=== PATIENT | female | born 1960 | race Caucasian/White ===

== ENCOUNTER 2016-07-25 12:07 | Inpatient (IN) | payer OTHER ==
[~2016-07-25] VITALS: Ht 152.4 cm; Wt 86.2 kg
[~2016-07-25 12:07] MED LIST: AMBI10TA PO; AMLO25TA PO; ASPI1TAB PO; ATEN50TA2 PO; ATIV1TAB7 PO; BIOT10005 PO; CARV6.25 PO; CETI10TA PO; CINN500C9 PO; COQ1200C2 PO; DIOV80TA3 PO; FIOR1CAP PO; FIORICET PO; FLON0.054; GLUM1000 PO; LORA10TA2 PO; LOVA1CAP17 PO; LOVAZA PO; NEXI40CA PO; NITR4TASL SL; OXYC1TAB23 PO; PANT40TA2 PO; PLAV75TA PO; PROM-190 PO; PROM25TA PO; PROZ20CA11 PO; VALS1TAB46 PO; VITACAP9 PO; VITAMIN E PO
[2016-07-25 13:13] LABS: MEAN CORPUSCULAR HEMOGLOBIN 27.7 pg (27.0-33.0); MEAN CORPUSCULAR HGB CONC 31.6 g/dl (32.0-36.5); MEAN CORPUSCULAR VOLUME 87.6 fl (80.0-96.0); RED CELL DISTRIBUTION WIDTH 18.4 % (11.5-14.5); WHITE BLOOD COUNT 6.7 K/mm3 (4.0-10.0)
[2016-07-25 13:20] LABS: AMPHETAMINES LEVEL URINE NEGATIVE (NEGATIVE)
[2016-07-25 13:21] LABS: BENZODIAZEPINES URINE POSITIVE (NEGATIVE); COCAINE METABOLITE URINE NEGATIVE (NEGATIVE); CONTROL LINE INT CTR LINE PRESENT; METHADONE URINE NEGATIVE (NEGATIVE); OPIATES URINE NEGATIVE (NEGATIVE); TRICYCLIC ANTIDEPRESS URINE NEGATIVE (NEGATIVE)
[2016-07-25 13:33] LABS: ALBUMIN 3.8 GM/DL (3.2-5.2); ALBUMIN/GLOBULIN RATIO 1.06 (1.00-1.93); ALKALINE PHOSPHATASE 107 U/L (45-117); ALT/SGPT 38 U/L (12-78); ANION GAP 10 MEQ/L (8-16); AST/SGOT 15 U/L (15-37); BILIRUBIN,DIRECT 0.2 MG/DL (0.0-0.2); BILIRUBIN,TOTAL 0.5 MG/DL (0.2-1.0); BLOOD UREA NITROGEN 19 MG/DL (7-18); CALCIUM LEVEL 9.4 MG/DL (8.5-10.1); CARBON DIOXIDE LEVEL 24 MEQ/L (21-32); CHLORIDE LEVEL 108 MEQ/L (98-107); GLOMERULAR FILTRATION RATE > 60.0 (>51); GLUCOSE, FASTING 93 MG/DL (70-105); POTASSIUM SERUM 4.4 MEQ/L (3.5-5.1); SODIUM LEVEL 142 MEQ/L (136-145); TOTAL PROTEIN 7.4 GM/DL (6.4-8.2)
[2016-07-25 13:35] LABS: CONTROL LINE HCG INT CTR LINE PRESENT
[2016-07-25] MEDS ORDERED: LORazepam 1 MG TAB As Ordered ONE ×2 (13:50→22:12)
[2016-07-25] MEDS ORDERED: FIORICET TAB As Ordered ONE (15:32)
[2016-07-25] MEDS ORDERED: CARVedilol 6.25 MG TAB As Ordered ONE (21:15)
[2016-07-25] MEDS ORDERED: PANTOPRAZOLE 40MG TAB (PROTONIX) As Ordered ONE (21:15)
[2016-07-25] MEDS ORDERED: VALSARTAN 80 MG TAB (DIOVAN) As Ordered ONE (21:15)
[2016-07-25] MEDS ORDERED: FLUoxetine 10 MG CAP As Ordered ONE (21:17)
[2016-07-25] MEDS ORDERED: ATIV1TAB10 PO (22:27)
[2016-07-25] MEDS ORDERED: REPA1.7I SC (22:27)
--- NOTE | 2016-07-25 22:55 | EDDOCDS ---
Physician Documentation [facility] Name: Janell Oscar Age: 56 yrs Sex: Female : 1960 Arrival Date: 07/25/2016 Time: 12:07 Bed [facility] MD: Keshawn Agustin MD Disposition: 07/25/16 21:58 Hospitalization ordered by Freida Colon for Inpatient Admission. Preliminary diagnosis are Major depressive disorder, recurrent, Anxiety disorder, unspecified. - Bed requested for Admit. - Status is Inpatient Admission. rw1 - Condition is Stable. - Problem is new. - Symptoms are unchanged. Historical: - Allergies: cant have anything that ends in "pril"; - Home Meds: 1. Ambien 5-10mg Oral tab 1 tab nightly as needed 2. aspirin 81 mg Oral tab 1 tab once daily 3. biotin oral daily 4. carvedilol 6.25 mg oral tab 2 times per day 5. Fioricet 50-325-40 mg Oral tab 2 tabs as needed 6. loratadine 10 mg Oral tab 1 tab as needed 7. lorazepam 1 mg Oral tab as needed 8. nitroglycerin 0.4 mg SL subl 1 tab every 5 minutes 9. pantoprazole 40 mg oral tab 1 tab 2 times per day 10. Percocet 5-325 mg Oral tab 1 tab every 4 hours as needed 11. Plavix 75 mg Oral tab 1 tab once daily 12. promethazine 25 mg Oral tab as needed 13. Prozac 40 mg Oral cap once daily 14. valsartan 160 mg oral cap daily - PMHx: Anxiety; Asthma; Depression; Diabetes - NIDDM: controlled; ''Diet controlled DM''; GERD; Hypercholesterolemia; Hypertension; Migraines; Myocardial infarction; OCD; polycythemia; Vertigo; - PSHx: Cardiac stents (2016); ; Cholecystectomy; Breast Reduction; - Social history: Smoking status: Patient states was never smoker of tobacco. No barriers to communication noted, The patient speaks fluent [place]. - Family history: Not pertinent. - : The pt / caregiver states he / she is not on anticoagulants. Home medication list is obtained from [employer] import data. - Exposure Risk Screening:: None identified. Vital Signs: 07/25 12:10 BP 147 / 93; Pulse 78; Resp 20 S; Temp 97.7(O); Pulse Ox 96% on R/A; Weight 84.37 kg / gr2 186 lbs (R); Height 5 ft. 0 in. (152.40 cm) (R); Pain 2/10; 15:35 BP 138 / 90; Pulse 70; Resp 18; Temp 98.9(T); Pulse Ox 95% on R/A; Pain 10/10; mcp 16:42 BP 126 / 83; Pulse 70; Resp 18; Pulse Ox 94% on R/A; Pain 8/10; mcp 16:42 BP 126 / 83; Pulse 70; Resp 18; Pulse Ox 94% on R/A; Pain 8/10; mcp 21:26 BP 144 / 85; Pulse 75; Resp 20; Temp 99.8(T); Pulse Ox 95% on R/A; Pain 4/10; rw1 22:51 BP 109 / 67; Pulse 78; Resp 18; Temp 99.1(T); Pulse Ox 95% on R/A; Pain 4/10; rw1 12:10 Body Mass Index 36.33 (84.37 kg, 152.40 cm) gr2 MDM: 12:24 Consult PFS/PSA/Pricing Intern ordered. sd1 12:24 Consult PFS/PSA/Pricing Intern: Patient's case requires discussion with on-call sd1 Psychiatrist ordered. 12:24 PSA/PFS to call [facility], to enter patient data on [place] Safe Act if patient sd1 involuntarily admitted or transferred for SI or HI ordered. 12:24 Confirm accurate psychiatric medication list and times of last dosage ordered. sd1 12:24 Detain Pt Until Medically/PFS Cleared ordered. sd1 12:25 Acetaminophen Level Ordered. EDMS 12:25 Basic Metabolic Profile Ordered. EDMS 12:25 Complete Blood Count Ordered. EDMS 12:25 Drug Eval Toxicology ED Only Ordered. EDMS 12:25 Ethyl Alcohol (ethanol) Ordered. EDMS 12:25 Liver Profile Ordered. EDMS 12:25 Salicylate Level Ordered. EDMS 12:25 Thyroid Stimulating Hormone Ordered. EDMS 12:49 LORazepam 1 mg PO once ordered. ml 12:51 HCG,Serum Qualitative Ordered. EDMS 13:04 REGULAR DIET PLASTIC HECTOR+DIET ordered. EDMS 13:53 Financial registration complete. pm4 13:59 [facility] Payment Agreement was scanned into [employer] and attached to record. pm4 14:12 Acetaminophen Level Reviewed. ml 14:12 Basic Metabolic Profile Reviewed. ml 14:12 Complete Blood Count Reviewed. ml 14:12 Drug Eval Toxicology ED Only Reviewed. ml 14:12 Salicylate Level Reviewed. ml 14:12 Ethyl Alcohol (ethanol) Reviewed. ml 14:12 Liver Profile Reviewed. ml 14:12 Thyroid Stimulating Hormone Reviewed. ml 14:12 HCG,Serum Qualitative Reviewed. ml 15:34 Fioricet 2 tab-caps PO once ordered. mcp 16:05 REGULAR DIET PLASTIC HECTOR+DIET ordered. EDMS 19:18 Misc. Nursing Order ordered. ml 20:29 PROzac 40 mg PO once ordered. ml 20:29 Valsartan 160 mg PO once ordered. ml 20:57 carvedilol 6.25 mg PO once ordered. ml 20:57 Pantoprazole 40 mg PO once ordered. ml 20:59 Admit to [facility]: ordered. EDMS 21:23 Consult PFS/PSA/Pricing Intern complete. [facility] 21:23 Consult PFS/PSA/Pricing Intern: Patient's case requires discussion with [facility] Psychiatrist complete. 21:23 PSA/PFS to call [facility], to enter patient data on [place] Safe Act if patient hm1 involuntarily admitted or transferred for SI or HI complete. 21:53 [facility] Legal paperwork was scanned into [employer] and attached to record. ac 21:54 Other: Clinic Note was scanned into [employer] and attached to record. ac 21:57 LORazepam 1 mg PO once ordered. ml Administered Medications: 13:52 Drug: LORazepam 1 mg [lorazepam 1 mg tablet (1 tabs)] Route: PO; [facility] 20:53 Follow up: Response: No Adverse Reaction rw1 15:40 Drug: Fioricet 2 tab-caps Route: PO; [facility] 16:42 Follow up: BP 126 / 83; Pulse 70 bpm; Resp 18 bpm; Pulse Ox 94% RA; Pain 8/10 Adult; [facility] Response: Pain is decreased 21:26 Drug: PROzac 40 mg Route: PO; rw1 22:08 Follow up: Response: No Adverse Reaction rw1 21:26 Drug: Valsartan 160 mg [valsartan 80 mg tablet (2 tabs)] Route: PO; rw1 22:08 Follow up: Response: No Adverse Reaction rw1 21:26 Drug: carvedilol 6.25 mg [carvedilol 6.25 mg tablet (1 tabs)] Route: PO; rw1 22:08 Follow up: Response: No Adverse Reaction rw1 21:26 Drug: Pantoprazole 40 mg [pantoprazole 40 mg tablet,delayed release (1 tabs)] Route: PO;rw1 22:07 Follow up: Response: No Adverse Reaction rw1 22:15 Drug: LORazepam 1 mg [lorazepam 1 mg tablet (1 tabs)] Route: PO; rw1 22:51 Follow up: Response: Anxiety is improved rw1 Signatures: Dispatcher [employer] EDMS Jackie Nguyen MD MD sd1 Jonnathan Armando MD MD ml Sleeman, Kacey RN RN Karen Greene RN RN mcp Dale Guy, PSA PSA ac Eliazar Cook,STEAMER OPERATOR STEAMER OPERATOR rw1 Pita Meléndez, PSA PSA hm1 Merritt Jack, Reg Reg pm4 Diya Nassar RN srm The chart was reviewed and I authenticate all verbal orders and agree with the evaluation and treatment provided.Attachments: 13:59 [facility] Payment Agreement pm4 MTDD
--- NOTE | 2016-07-25 22:55 | EDDOCDS ---
Nurse's Notes [facility] Name: Janell Oscar Age: 56 yrs Sex: Female : 1960 Arrival Date: 07/25/2016 Time: 12:07 Bed U5 [facility] MD: Keshawn Agustni MD Diagnosis: Major depressive disorder, recurrent;Anxiety disorder, unspecified Presentation: 07/25 12:15 Presenting complaint: Patient states: she has severe anxiety and depression - states kcs she was at Dr. Liriano's office and doctor drove her here and wants her admitted for her anxiety. Had a heart attack last year and is constantly having her meds adjusted. Due for an Ativan 1 1/2 hour ago and can feel the anxiety getting worse. Mental Health Triage Level: Level 2: The patient displays active suicidal ideations. states she feels hopeless and does not want to be here anymore. Adult Sepsis Screening: The patient does not have new or worsening altered mentation. Patient's respiratory rate is less than 22. Systolic blood pressure is greater than 100. Patient has a qSOFA score of 0- Negative Sepsis Screen. Suicide/Homicide risk assessment- The patient admits to and/or has been reported to be having suicidal ideations. The patient reports that he/she has not been admitted to an inpatient mental health facility in the last 30 days. The patient reports that he/she does not have a recent or current history of substance abuse. The patient reports that he/she has a prior history of suicide attempt and/or organized plan. The patient reports that he/she has experienced a significant life altering event in the last 30 days. The patient reports that he/she lacks adequate social support. The patient reports he/she has significant chronic medical condition(s). Status: Patient is not a social services designee or dependent. 12:15 Acuity: AZEB Level 3 kcs 12:15 Method Of Arrival: Walkin/Carried/Asstd kcs 12:15 Transition of care: patient was received from Dr. Liriano. kcs Triage Assessment: 12:19 General: Appears distressed, well developed, well nourished, well groomed, Behavior is kcs anxious, cooperative, crying. Pain: Location: head Pain currently is 8 out of 10 on a pain scale. HIV screening NA for this visit Offered previously. Neurological: Level of Consciousness is awake, alert. Respiratory: Airway is patent Respiratory effort is even, unlabored, Respiratory pattern is regular, symmetrical. Derm: Skin is intact, is healthy with good turgor, Skin is dry, Skin is normal. Historical: - Allergies: cant have anything that ends in "pril"; - Home Meds: 1. Ambien 5-10mg Oral tab 1 tab nightly as needed 2. aspirin 81 mg Oral tab 1 tab once daily 3. biotin oral daily 4. carvedilol 6.25 mg oral tab 2 times per day 5. Fioricet 50-325-40 mg Oral tab 2 tabs as needed 6. loratadine 10 mg Oral tab 1 tab as needed 7. lorazepam 1 mg Oral tab as needed 8. nitroglycerin 0.4 mg SL subl 1 tab every 5 minutes 9. pantoprazole 40 mg oral tab 1 tab 2 times per day 10. Percocet 5-325 mg Oral tab 1 tab every 4 hours as needed 11. Plavix 75 mg Oral tab 1 tab once daily 12. promethazine 25 mg Oral tab as needed 13. Prozac 40 mg Oral cap once daily 14. valsartan 160 mg oral cap daily - PMHx: Anxiety; Asthma; Depression; Diabetes - NIDDM: controlled; ''Diet controlled DM''; GERD; Hypercholesterolemia; Hypertension; Migraines; Myocardial infarction; OCD; polycythemia; Vertigo; - PSHx: Cardiac stents (2016); ; Cholecystectomy; Breast Reduction; - Social history: Smoking status: Patient states was never smoker of tobacco. No barriers to communication noted, The patient speaks fluent Sudanese. - Family history: Not pertinent. - : The pt / caregiver states he / she is not on anticoagulants. Home medication list is obtained from [employer] import data. - Exposure Risk Screening:: None identified. Screenin:47 Screening information is obtained from the patient. Fall risk: No risks identified. mcp Assistance ADL's: requires no assistance with activities of daily living. Abuse/DV Screen: The patient / caregiver reports he/she is: not in a situation that causes fear, pain or injury. Nutritional screening: No deficits noted. Advance Directives: Currently, there is no health care proxy. There is no active DNR order. home support is adequate. Assessment: 13:35 General: Appears in no apparent distress, comfortable, Behavior is appropriate for age, hs1 cooperative. General: Appears Behavior is anxious, crying, weepy. Pt agreeable to lunch and is tolerating nursing interventions. . Pain: Denies pain. Neurological: Level of Consciousness is awake, alert, obeys commands. 14:26 General: Appears in no apparent distress, comfortable, Pt resting with blanket on at hs1 this time. Pt states she is scared that she does not understand what is happening to her and is very worried about being labeled an addict. . 15:35 General: Appears uncomfortable, Behavior is cooperative. Pain: Location: head Pain mcp currently is 10 out of 10 on a pain scale. Neurological: Level of Consciousness is awake, alert, Oriented to person, place, Moves all extremities. Gait is steady, Speech is normal, Reports headache. Respiratory: Airway is patent Respiratory effort is even, unlabored. Derm: Skin is pink, warm & dry. 16:42 General: Appears uncomfortable, Behavior is cooperative. Pain: Location: head Pain mcp currently is 8 out of 10 on a pain scale. Neurological: Level of Consciousness is awake, alert, Oriented to person, place, Moves all extremities. Speech is normal, Reports headache. Respiratory: Airway is patent Respiratory effort is even, unlabored. Derm: Skin is normal. 17:03 General: Appears in no apparent distress, comfortable, Behavior is cooperative. Pain: mcp Denies pain. Neurological: Level of Consciousness is awake, alert, Oriented to person, place. Respiratory: Airway is patent Respiratory effort is even, unlabored. Derm: Skin is pink, warm & dry. 18:00 General: Appears in no apparent distress, comfortable, Behavior is cooperative. Pain: mcp Location: head Pain currently is 4 out of 10 on a pain scale. Neurological: Level of Consciousness is awake, alert, Oriented to person, place, Moves all extremities. Speech is normal. Respiratory: Airway is patent Respiratory effort is even, unlabored. Derm: Skin is pink, warm & dry. 19:30 General: Appears in no apparent distress, comfortable, Behavior is appropriate for age, rw1 cooperative. Neurological: Level of Consciousness is awake, alert, obeys commands, Oriented to person, place, time. Respiratory: Airway is patent Respiratory effort is even, unlabored. Derm: Skin is pink, warm & dry. normal. 20:30 Reassessment: Patient appears in no apparent distress at this time. resting quietly on rw1 stretcher, safety maintained will monitor.. 21:26 General: Appears distressed, uncomfortable, Behavior is anxious, appropriate for age, rw1 cooperative, crying. Pain: Location: head Pain currently is 4 out of 10 on a pain scale. Neurological: Level of Consciousness is awake, alert, obeys commands, Oriented to person, place, time. Respiratory: Airway is patent Respiratory effort is even, unlabored. Derm: Skin is pink, warm & dry. normal. 21:49 General: Appears in no apparent distress, Behavior is cooperative. Neurological: Level af2 of Consciousness is awake, alert. Respiratory: Airway is patent Respiratory effort is even, unlabored. Derm: Skin is normal. 22:15 General: Appears distressed, Behavior is anxious, appropriate for age, cooperative. rw1 Neurological: Level of Consciousness is awake, alert, obeys commands, Oriented to person, place, time. Respiratory: Airway is patent Respiratory effort is even, unlabored. Derm: Skin is pink, warm & dry. normal. Mental Health Eval: 19:09 Mental health consult is initiated at 18:15. Status: The patient is a cas1 dependent. [facility] Behavioral Health: The patient is not an established patient of [facility]. Referral Information: Evaluation referral is generated by the patient's therapist Ana Liriano. The patient was referred for evaluation because Pt had a panic attack while at an appointment with her therapist. She also expressed SI without a plan. . Subjective: The patients chief complaint is "I had a panic attack.". Delusions are denied. Patient's mood is anxious, depressed, hopeless, Hallucinations are denied. Mental Health history: anxiety, depression, panic attacks, sleep disturbance. Mental Health history: Mental Health Admissions: None. Current Outpatient Mental Health Services: Psychiatrist / Agency: Telepsych with Dr. Gamboa at [place]. Therapist / Agency: Ana Liriano. Current living environment is The patient currently lives with his / her child. The patient is . Patient presents to Emergency Department with the following symptoms within the past 2 weeks: anxiety, depressed mood, feelings of helplessness/hopelessness, labile mood, panic attacks, sleep disturbance - insomnia, suicidal ideation with no plan. Substance abuse: Pt denies. Mental status exam: Patients appearance is appropriate, Patient's behavior is cooperative, Speech is normal. Affect is labile. Mood is anxious. depressed. Hallucinations are denied. Appetite is normal. Memory is fair. Energy level is tires easily. Content of thought is depressive. pt states that she has thoughts about not wanting to be on earth anymore Thought process is intact. Cognitive level is oriented to person, place, time and situation Patient's insight is fair. Judgement is fair. Rapport with interviewer is good. Suicidal Ideation is present with no specific plan. Homicidal ideation is denied. Narrative: Pt reports that she has had depression, anxiety, & panic attacks which have increased in the past two years since her . She states that she has poor sleep at night & wants to sleep all the time during the day. She also reports frequent crying spells. She was frequently tearful during our conversation. Pt reports several stressors, including the of her & several other family members, recent loss of her job, change in living situation, & her dog is dying. She also has multiple medical px's. She denies HI, but reports passive SI. She c/o feeling hopeless & worthless. Pt states preferred pharmacy is: [facility] in [place]. 21:56 Disposition: Medically cleared for disposition by Jonnathan Armando MD Psychiatric cas1 Consult is performed by phone with Dr Freida Colon. [facility] Admission Criteria: The patient is experiencing suicidal ideation. The patient requires continuous observation and/or control to protect self, others or property. The patient's care requires a multi-modal treatment plan under close supervision and coordination due to the complexity and severity of the patient's symptoms. The patient requires administration and monitoring of psychoactive medications by skilled medical providers due to the side effects of the psychoactive medications or significant dosage adjustments. 21:58 Legal Status: Patient's legal status will be Emergency admission: . [place] Safe Act: cas1 [place] Safe Act is applicable to this patient. The patient poses a risk to self or other and the Nursing Electrostatic Powder Coating Technician has been notified. He/She will enter the patient's data. DSM-V Differential Diagnosis: Unspecified Depressive Disorder (F32.9). Insurance Pre-Certification: Not Required. Family Notification: Notification to family of patient status is not currently needed or appropriate. Vital Signs: 12:10 BP 147 / 93; Pulse 78; Resp 20 S; Temp 97.7(O); Pulse Ox 96% on R/A; Weight 84.37 kg gr2 (R); Height 5 ft. 0 in. (152.40 cm) (R); Pain 2/10; 15:35 BP 138 / 90; Pulse 70; Resp 18; Temp 98.9(T); Pulse Ox 95% on R/A; Pain 10/10; mcp 16:42 BP 126 / 83; Pulse 70; Resp 18; Pulse Ox 94% on R/A; Pain 8/10; mcp 16:42 BP 126 / 83; Pulse 70; Resp 18; Pulse Ox 94% on R/A; Pain 8/10; mcp 21:26 BP 144 / 85; Pulse 75; Resp 20; Temp 99.8(T); Pulse Ox 95% on R/A; Pain 4/10; rw1 22:51 BP 109 / 67; Pulse 78; Resp 18; Temp 99.1(T); Pulse Ox 95% on R/A; Pain 4/10; rw1 12:10 Body Mass Index 36.33 (84.37 kg, 152.40 cm) gr2 Vitals: 12:10 Log In Time: July 25, 2016 at 12:10. RN notified that patient meets Red Flag gr2 criteria. ED Course: 12:09 Patient visited by Ruslan Otero. gr2 12:09 Patient moved to Waiting gr2 12:10 Keshawn Agustin is Private Physician. gr2 12:17 Triage Initiated kcs 12:21 Patient moved to [facility] kcs 12:36 Jonnathan Armando MD is Attending Physician. ml 12:36 Patient visited by Jonnathan Armando MD. ml 12:59 Patient visited by Jesse Hoang. dpm 13:13 Pt greeted and oriented to ED. Patient advised of names of staff involved in care, dpm location of call sierra, wait times and NPO status. Patient has correct armband on for positive identification. Placed in gown. Placed in psych safe attire. Bed in low position. Security observing. Property removed, inventory done, secured in belongings bag- placed in locked locker. Placed in locker 5. secure belongings bag, Secure bag Number [id number], placed in ED safe. Zuri DAI) observed pt while changing. 13:17 Patient visited by Jesse Hoang. dpm 13:20 Patient visited by Jesse Hoang. dpm 13:46 Patient visited by Jesse Hoang. dpm 13:[address] [facility] Payment Agreement was scanned into [employer] and attached to record. pm4 14:01 Patient visited by Jesse Hoang. dpm 14:14 Patient visited by Jesse Hoang. dpm 14:33 Patient visited by Jesse Hoang. dpm 14:47 Patient visited by Jesse Hoang. dpm 15:02 Patient visited by Jesse Hoang. dpm 15:16 Patient visited by Jesse Hoang. dpm 15:31 Patient visited by Jesse Hoang. dpm 15:48 Patient visited by Karen Kim RN. mcp 15:48 The patient / caregiver is instructed regarding the plan of care and ED course. Warm mcp blanket given. 15:59 Patient visited by Karen Kim RN. mcp 16:37 Patient visited by Jesse Hoang. dpm 16:43 Patient visited by Karen Kim RN. mcp 17:04 Patient visited by Karen Kim RN. mcp 17:41 Patient visited by Jesse Hoang. dpm 18:08 Patient visited by Jesse Hoang. dpm 18:45 Patient visited by Jesse Hoang. dpm 19:03 Patient visited by Jesse Hoang. dpm 19:04 Patient visited by Karen Kim RN. mcp 19:15 Psych Safety Check: Location: Psych Room. Visual Assessment: Cooperative. kb5 19:30 Psych Safety Check: Location: Psych Room. Visual Assessment: Cooperative. kb5 19:32 Patient visited by Andrew Ardon PCA. kb5 19:45 Patient visited by Andrew Ardon PCA. kb5 19:45 Psych Safety Check: Location: Psych Room. Visual Assessment: Cooperative. kb5 19:52 Eliazar Cook LPN is Primary Nurse. rw1 20:00 Patient visited by Reva, Andrew, MANAGER GAMES. kb5 20:00 Psych Safety Check: Location: Psych Room. Visual Assessment: Cooperative. kb5 20:15 Psych Safety Check: Location: Psych Room. Visual Assessment: Cooperative. kb5 20:18 Patient visited by Andrew Ardon MANAGER GAMES. kb5 20:30 Psych Safety Check: Location: Psych Room. Visual Assessment: Cooperative. kb5 20:31 Patient visited by Malik Ardoner MANAGER GAMES. kb5 20:45 Psych Safety Check: Location: Psych Room. Visual Assessment: Cooperative. kb5 20:51 Patient visited by Tera Ardonopher MANAGER GAMES. kb5 21:00 Patient visited by Andrew Ardon MANAGER GAMES. kb5 21:00 Psych Safety Check: Location: Psych Room. Visual Assessment: Cooperative. kb5 21:15 Psych Safety Check: Location: Psych Room. Visual Assessment: Cooperative. kb5 21:16 Patient visited by Andrew Ardon MANAGER GAMES. kb5 21:30 Patient visited by Andrew Ardon MANAGER GAMES. kb5 21:30 Psych Safety Check: Location: Psych Room. Visual Assessment: Cooperative. kb5 21:45 Patient visited by Andrew Ardon MANAGER GAMES. kb5 21:45 Psych Safety Check: Location: Psych Room. Visual Assessment: Cooperative. kb5 21:50 Patient visited by Merissa Cobian RN. af2 21:53 [facility] Legal paperwork was scanned into [employer] and attached to record. ac 21:54 Other: Clinic Note was scanned into [employer] and attached to record. ac 21:57 Freida Colon is Hospitalizing Provider. ml 22:00 Patient visited by Andrew Ardon MANAGER GAMES. kb5 22:00 Psych Safety Check: Location: Psych Room. Visual Assessment: Cooperative. kb5 22:15 Patient visited by Andrew Ardon MANAGER GAMES. kb5 22:15 Psych Safety Check: Location: Psych Room. Visual Assessment: Cooperative. kb5 22:30 Patient visited by Malik Ardoner MANAGER GAMES. kb5 22:30 Psych Safety Check: Location: Psych Room. Visual Assessment: Cooperative. kb5 22:45 Patient visited by Andrew Ardon MANAGER GAMES. kb5 22:45 Psych Safety Check: Location: Psych Room. Visual Assessment: Cooperative. kb5 22:51 No IV's were initiated during this patient's visit. No procedures done that require [facility] assistance. Administered Medications: 13:52 Drug: LORazepam 1 mg [lorazepam 1 mg tablet (1 tabs)] Route: PO; [facility] 20:53 Follow up: Response: No Adverse Reaction rw1 15:40 Drug: Fioricet 2 tab-caps Route: PO; [facility] 16:42 Follow up: BP 126 / 83; Pulse 70 bpm; Resp 18 bpm; Pulse Ox 94% RA; Pain 8/10 Adult; [facility] Response: Pain is decreased 21:26 Drug: PROzac 40 mg Route: PO; rw1 22:08 Follow up: Response: No Adverse Reaction rw1 21:26 Drug: Valsartan 160 mg [valsartan 80 mg tablet (2 tabs)] Route: PO; rw1 22:08 Follow up: Response: No Adverse Reaction rw1 21:26 Drug: carvedilol 6.25 mg [carvedilol 6.25 mg tablet (1 tabs)] Route: PO; rw1 22:08 Follow up: Response: No Adverse Reaction rw1 21:26 Drug: Pantoprazole 40 mg [pantoprazole 40 mg tablet,delayed release (1 tabs)] Route: PO;rw1 22:07 Follow up: Response: No Adverse Reaction rw1 22:15 Drug: LORazepam 1 mg [lorazepam 1 mg tablet (1 tabs)] Route: PO; rw1 22:51 Follow up: Response: Anxiety is improved rw Attachments: 21:53 E Legal paperwork ac Order Results: Lab Order: Acetaminophen Level; SPEC'M 07/25/16 12:53 Test: ACETAMINOPHEN LEVEL; Value: < 2.0; Range: 10.0-30.0; Abnormal: Below low normal; Units: UG/ML; Status: F Lab Order: Basic Metabolic Profile; SPEC'M 07/25/16 12:53 Test: GLUCOSE, FASTING; Value: 93; Range: 70-105; Units: MG/DL; Status: F Test: BLOOD UREA NITROGEN; Value: 19; Range: 7-18; Abnormal: Above high normal; Units: MG/DL; Status: F Test: CREATININE FOR GFR; Value: 1.00; Range: 0.55-1.02; Units: MG/DL; Status: F Test: GLOMERULAR FILTRATION RATE; Value: > 60.0; Range: >51; Status: F Test: SODIUM LEVEL; Value: 142; Range: 136-145; Units: MEQ/L; Status: F Test: POTASSIUM SERUM; Value: 4.4; Range: 3.5-5.1; Units: MEQ/L; Status: F Test: CHLORIDE LEVEL; Value: 108; Range: 98-107; Abnormal: Above high normal; Units: MEQ/L; Status: F Test: CARBON DIOXIDE LEVEL; Value: 24; Range: 21-32; Units: MEQ/L; Status: F Test: ANION GAP; Value: 10; Range: 8-16; Units: MEQ/L; Status: F Test: CALCIUM LEVEL; Value: 9.4; Range: 8.5-10.1; Units: MG/DL; Status: F Test Note: ; Units are mL/min/1.73 m2 Chronic Kidney Disease Staging per NKF: Stage I & II GFR >=60 Normal to Mildly Decreased Stage III GFR 30-59 Moderately Decreased Stage IV GFR 15-29 Severely Decreased Stage V GFR <15 Very Little GFR Left ESRD GFR <15 on 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 [employer]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 Lab Order: Complete Blood Count; [facility]' 07/25/16 12:53 Test: WHITE BLOOD COUNT; Value: 6.7; Range: 4.0-10.0; Units: K/mm3; Status: F Test: RED BLOOD COUNT; Value: 4.63; Range: 4.00-5.40; Units: M/mm3; Status: F Test: HEMOGLOBIN; Value: 12.8; Range: 12.0-16.0; Units: g/dl; Status: F Test: HEMATOCRIT; Value: 40.5; Range: 36.0-47.0; Units: %; Status: F Test: MEAN CORPUSCULAR VOLUME; Value: 87.6; Range: 80.0-96.0; Units: fl; Status: F Test: MEAN CORPUSCULAR HEMOGLOBIN; Value: 27.7; Range: 27.0-33.0; Units: pg; Status: F Test: MEAN CORPUSCULAR HGB CONC; Value: 31.6; Range: 32.0-36.5; Abnormal: Below low normal; Units: g/dl; Status: F Test: RED CELL DISTRIBUTION WIDTH; Value: 18.4; Range: 11.5-14.5; Abnormal: Above high normal; Units: %; Status: F Test: PLATELET COUNT, AUTOMATED; Value: 278; Range: 150-450; Units: k/mm3; Status: F Lab Order: Drug Eval Toxicology ED Only; SPEC'M 07/25/16 12:53 Test: AMPHETAMINES LEVEL URINE; Value: NEGATIVE; Range: NEGATIVE; Status: F Test: BARBITURATES URINE; Value: POSITIVE; Range: NEGATIVE; Abnormal: Above high normal; Status: F Test: BENZODIAZEPINES URINE; Value: POSITIVE; Range: NEGATIVE; Abnormal: Above high normal; Status: F Test: CANNABINOIDS URINE; Value: NEGATIVE; Range: NEGATIVE; Status: F Test: COCAINE METABOLITE URINE; Value: NEGATIVE; Range: NEGATIVE; Status: F Test: METHADONE URINE; Value: NEGATIVE; Range: NEGATIVE; Status: F Test: OPIATES URINE; Value: NEGATIVE; Range: NEGATIVE; Status: F Test: TRICYCLIC ANTIDEPRESS URINE; Value: NEGATIVE; Range: NEGATIVE; Status: F Test Note: ; ALL PRESUMPTIVE POSITIVE FINDINGS ARE UNCONFIRMED NORMAL VALUES THRESHOLD IN NG/ML AMPHETAMINES 1000 METHAMPHETAMINES 1000 BARBITURATES 300 BENZODIAZEPINES 300 CANNABINOIDS (THC) 50 COCAINE METABOLITE 300 METHADONE 300 OPIATES 300 PHENCYCLIDINE 25 TRICYCLIC ANTIDEPRESSANTS 1000 RESULTS ARE FOR MEDICAL PURPOSES ONLY. ALL URINE SPECIMENS WILL BE SAVED FOR 3 DAYS. IF CONFIRMATION OF A PRESUMPTIVE POSTIVE SCREEN RESULT IS DESIRED, CALL CHEMISTRY ([phone]) AND REQUEST URINE TO BE SENT TO REFERENCE LAB. FOR A LIST OF CLOSELY RELATED COMPOUNDS PLEASE CALL THE LAB. Lab Order: Ethyl Alcohol (ethanol); SPEC'M 07/25/16 12:53 Test: ETHYL ALCOHOL (ETHANOL); Value: < 0.003; Range: 0.000-0.010; Units: %; Status: F Lab Order: Liver Profile; SPEC'M 07/25/16 12:53 Test: AST/SGOT; Value: 15; Range: 15-37; Units: U/L; Status: F Test: ALT/SGPT; Value: 38; Range: 12-78; Units: U/L; Status: F Test: ALKALINE PHOSPHATASE; Value: 107; Range: 45-117; Units: U/L; Status: F Test: BILIRUBIN,TOTAL; Value: 0.5; Range: 0.2-1.0; Units: MG/DL; Status: F Test: BILIRUBIN,DIRECT; Value: 0.2; Range: 0.0-0.2; Units: MG/DL; Status: F Test: TOTAL PROTEIN; Value: 7.4; Range: 6.4-8.2; Units: GM/DL; Status: F Test: ALBUMIN; Value: 3.8; Range: 3.2-5.2; Units: GM/DL; Status: F Test: ALBUMIN/GLOBULIN RATIO; Value: 1.06; Range: 1.00-1.93; Status: F Lab Order: Salicylate Level; SPEC'M 07/25/16 12:53 Test: SALICYLATE LEVEL; Value: < 1.7; Range: 5.0-30.0; Abnormal: Below low normal; Units: MG/DL; Status: F Lab Order: Thyroid Stimulating Hormone; SPEC'M 07/25/16 12:53 Test: THYROID STIMULATING HORMONE; Value: 1.360; Range: 0.358-3.740; Units: uIU/ML; Status: F Lab Order: HCG,Serum Qualitative; SPEC'M 07/25/16 12:53 Test: HCG, SERUM QUALITATIVE; Value: NEGATIVE; Range: NEGATIVE; Status: F Outcome: 21:58 Decision to Hospitalize by Provider. ml 22:51 Discharge Assessment: Patient awake, alert and oriented x 3. No cognitive and/or rw1 functional deficits noted. Patient verbalized understanding of disposition instructions. patient administered narcotics - yes. Patient was admitted to the hospital or transferred to another facility. The following High Risk Discharge criteria are identified: Admitted to Psych accompanied by tech, via wheelchair, with chart. Condition: stable. No special radiology studies were completed. 22:54 Patient left the ED. rw1 Signatures: Jonnathan Armando MD MD ml Sleeman, Kacey, RN RN Diya Pimentel RN RN srm Peters, Mary, RN RN mcp Brooks, Dale, PSA PSA ac Eliazar Cook LPN LPN rw1 Andrew Ardon, STELLA wise5 Serenity Martinez cas1 Kathia Madrigal RN RN hs1 Jesse Hoang dpm Ruslan Otero gr2 Merissa Cobian RN RN af2 Merritt Jack, Reg Reg pm4 Corrections: (The following items were deleted from the chart) 12:18 12:15 Transition of care: patient was not received from another setting of care. kcs kcs MTDD
[2016-07-25 23:06] VITALS: BP 117/80
[2016-07-26] MEDS ORDERED: MAALOX 30 ML SUSP *UDC PO PRN (00:30)
[2016-07-26] MEDS ORDERED: ACETAMINOPHEN TAB 650MG DOSE (2X325MG) PO PRN (00:30)
[2016-07-26] MEDS ORDERED: NITROGLYCERIN 0.4 MG SUBL TABLET SL PRN (00:30)
[2016-07-26] MEDS ORDERED: MOM 30ML SUSPENSION UDC PO PRN (00:30)
[2016-07-26] MEDS: FIORICET TAB PO PRN ×2 (01:20→20:53)
[2016-07-26] MEDS: LORATADINE 10 MG TAB PO SCH (09:00)
[2016-07-26] MEDS: PANTOPRAZOLE 40MG TAB (PROTONIX) PO SCH ×2 (09:28→20:04)
[2016-07-26] MEDS: CLOPIDOGREL 75 MG TAB PO SCH (09:29)
[2016-07-26] MEDS: CARVedilol 6.25 MG TAB PO SCH ×2 (09:30→20:04)
[2016-07-26] MEDS: ASPIRIN 81 MG ENTERIC TAB PO SCH (09:30)
[2016-07-26] MEDS: VALSARTAN 80 MG TAB (DIOVAN) PO SCH (09:32)
[2016-07-26] MEDS: LORazepam 0.5 MG TAB PO PRN ×2 (09:34→20:04)
[2016-07-26] MEDS: VENLAFAXINE **XR** 37.5 MG CAPSULE PO SCH (11:09)
--- NOTE | 2016-07-26 11:17 | MHHPE ---
DATE OF ADMISSION: 07/26/2016 CURRENT MEDICATIONS: - Prozac 40 mg nightly - Ativan 1 mg twice a day as needed - Ambien 5 to 10 mg at bedtime as needed CHIEF COMPLAINT: Depression and passive suicidal ideation. HISTORY OF PRESENT ILLNESS: This is a 56-year-old white female with a history of depression dating back for 4-5 years. Her depression has worsened since her from cancer 2 years ago. She feels helpless and hopeless. She is getting panic attacks. She has trouble sleeping at night. She feels like life is not worth living. She has frequent crying spells. Her appetite is poor. Her concentration is impaired. She no longer enjoys playing the piano. She has had multiple stressors. She has had to move frequently. She had a recent myocardial infarction (ND) back in February and was transferred down to [facility] and received four stents. She has a history of cardiomyopathy. She was tested recently by neuropsychologist for possible early dementia, but this turned out negative. She does have a longstanding history of obsessive-compulsive disorder (OCD) dating back for at least 25 years. 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 She also worries constantly. She describes herself as a "worrywart." She has been having recent panic attacks, as well. The patient states that she does have a tendency towards depression. She blames the [employer] for the vaccination for Anthrax, which she claims caused her 's melanoma. PAST PSYCHIATRIC HISTORY: The patient has been on Prozac for about 7 years. She feels that it has worn off and is no longer effective. She takes it at night, surprisingly, which does seem to cause some insomnia. The patient was in treatment down in [place] for a number of years back about 12 years ago. Zoloft made her feel "loopy." She has been on other antidepressants but cannot remember the names. She was first diagnosed with OCD 25 years ago when she was at an [employer] in [place]. MEDICAL HISTORY: She has a history of fatty liver and polycythemia. She has migraines and coronary artery disease. She has vertigo and polycystic ovaries disease. ALLERGIES: "To ALL THE PRILS." LEGAL HISTORY: The patient denies. CHEMICAL DEPENDENCY: None. SOCIAL HISTORY: The patient born and raised in [place]. She has a high school degree. 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 She had to resign her job 3 weeks ago, which was a major loss, as she could no longer function due to her depression. The patient has one biological son and daughter. They are . FAMILY PSYCHIATRIC HISTORY: The patient believes her mother had OCD. MENTAL STATUS EXAMINATION: The patient is alert, oriented, and cooperative. She is very sad. She is tearful. She has passive suicidal ideation but no actual plan. No signs of psychosis. Not hearing voices. No paranoia or thought disorder. The patient is quite anxious with recent panic attacks. She is anxious and worried. She has obsessions and rituals. Insight and judgment are fair. 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 ASSESSMENT: 1. Major depression, recurrent, moderate severity. 2. Panic anxiety disorder. 3. Obsessive-compulsive disorder. 4. Generalized anxiety disorder. PROBLEM LIST: 1. Depression. 2. Suicidal ideation. 3. Anxiety. PLAN: Clearly, the Prozac is no longer effective, so it will be discontinued. The patient does have a history of cardiac disease that would limit the usefulness of Celexa. She has had a bad response to Zoloft before. She has never been on Effexor as far as she can remember. She will be placed on a low dosage taken with food. The patient also given trazodone as an as-needed for sleep. This is a 9.39 confirmed.
--- NOTE | 2016-07-26 11:50 | HPEPDOC ---
Medical History and Physical Date of Admission Jul 25, 2016 at 23:03 History and Physical PCP: Wes ATTENDING: Dr. Carlos Alberto Erickson HPI: 56yoF admitted to [facility] for unspecified depressive disorder, being medically examined today. Patient states she has not had any chest discomfort or symptoms during this admission. She was seen at the emergency department reporting chest pain however she states this was attributed to anxiety. CIP/troponin were negative. She states she was having a lot of anxiety at the time. Denies any fevers, chills, weakness, fatigue, YANEZ, CP, SOB, cough, palpitations, abdominal pain, N/V/D or changes in bowel or bladder habits. PMHx: CAD/WV 03/07/cardiac stents- Dr Talamantes [facility] Anxiety/depression OCD Asthma Diet controlled diabetes GERD Hypertension Migraine headache Polycythemia Vertigo NAFLD- [place] Allergic rhinitis CT Head 11/05 no abn noted. 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 ROS: As noted in HPI, otherwise 11pt ROS of systems reviewed and remarkable only for menopausal. PE: GEN: 56 yo F, appears stated age. Well-nourished, well developed. No acute distress. Alert and oriented x 3. Pleasant, interactive. HEENT: Normocephalic, atraumatic. Pupils are equal, round, and reactive to light. Extraocular movements are intact. No nystagmus appreciated. Sclera are nonicteric. Conjunctiva without injection. Nose midline. Nasal turbinates without bogginess. EACs both patent BL. TMs both visualized and pedro with good cone of light, no bulging or erythema. No facial asymmetry. Moist mucous membranes. Dentition fair. Pharynx pink and moist, no cobblestoning. Neck supple , trachea midline. No lymphadenopathy or thyromegaly appreciated. CHEST: Regular rate and rhythm, +S1, +S2 LUNGS: Clear to auscultation bilaterally. No wheezes, rales, or rhonchi. Breathing appears symmetric and easy. Patient is speaking in full sentences. No accessory muscle use. ABD: Round, soft, non-tender, non-distended. +Bowel sounds throughout. No rebound or guarding. No costovertebral angle tenderness. EXT: Pulses 2+ bilaterally dorsalis pedis and radial. No lower extremity edema appreciated. SKIN: [place], dry, warm. Capillary refill <2sec. irritation as noted in the groin folds of the abdomen. NEURO: Alert and oriented x 3. Cranial nerves III-XII are intact. No focal deficits appreciated. EKG: pending. A&P: 56yoF admitted to [facility] for unspecified depressive disorder 1. Psych. Plan per Psychiatry. Obtain baseline EKG to assure the safety of psychiatric medications as they can prolong the QT interval. 2. CAD/WV/cardiac stents. Patient follows with [facility]. Continue aspirin 81 mg, Plavix 75 mg daily, Coreg 6.25 mg by mouth twice a day with hold parameters, nitroglycerin 0.4 mg sublingual as needed. Update EKG. 3. Hypertension. Continue valsartan 160 mg by mouth daily at bedtime with hold parameters. 4. Follow up with PCP on discharge. 5. Asthma. Continue albuterol HFA 2 puffs every 4 hours as needed. 6. Allergic rhinitis. Continue loratadine 10 mg daily. 7. GERD. Continue Protonix 40 mg twice a day. 8. Staff member present throughout exam, Leona BLANCO 9. Dermatophytosis. Apply nystatin powder to groin folds and folds twice a day as needed. 10. Migraine headache. Patient uses Fioricet 1-2 tab as needed at onset of headache as needed. Vital Signs Vital Signs Label Value Date Time Patient Temperature 98.5 degrees F 07/25/162305 Temperature Source Tympanic 07/25/162305 Pulse 86 07/25/162305 Respiratory Rate 18 bpm 07/25/162305 Blood Pressure Assessment 117/80 (92) 07/25/162305 Laboratory Data Labs 24H Laboratory Tests 2 07/25/16 12:53: Acetaminophen Level < 2.0L, Aspartate Amino Transf (AST/SGOT) 15, Alanine Aminotransferase (ALT/SGPT) 38, Alkaline Phosphatase 107, Total Bilirubin 0.5, Direct Bilirubin 0.2, Albumin 3.8, Albumin/Globulin Ratio 1.06, Anion Gap 10, Calcium Level 9.4, Ethyl Alcohol Level < 0.003, Glomerular Filtration Rate > 60.0, Human Chorionic Gonadotropin, Qual NEGATIVE, Salicylates Level < 1.7L, Thyroid Stimulating Hormone (TSH) 1.360, Total Protein 7.4, Urine Amphetamine Level NEGATIVE, Urine Benzodiazepines Screen POSITIVEH, Urine Cannabinoids NEGATIVE, Urine Cocaine Metabolite NEGATIVE, Urine Opiates Screen NEGATIVE, Urine Barbiturates, Qualitative POSITIVEH, Urine Methadone Screen NEGATIVE, Urine Tricyclic Antidepressants NEGATIVE CBC/BMP Laboratory Tests 07/25/16 12:53 Red Blood Count 4.63, Mean Corpuscular Volume 87.6, Mean Corpuscular Hemoglobin 27.7, Mean Corpuscular Hemoglobin Concent 31.6 L, Red Cell Distribution Width 18.4 H Home Medications Scheduled (Repatha) 140 Mg/Ml Inj 140 MG SC Q2WK Aspirin (Aspirin 81) 81 Mg Tab 81 MG PO DAILY Biotin (Vitamin H) (Biotin) 1,000 Mcg Tab 1,000 MCG PO QHS Carvedilol (Carvedilol) 6.25 Mg Tab 6.25 MG PO BID Clopidogrel Bisulfate (Plavix) 75 Mg Tab 75 MG PO DAILY Fluoxetine HCl (Prozac) 20 Mg Cap 40 MG PO QHS Pantoprazole Sodium (Pantoprazole Sodium) 40 Mg Tab 40 MG PO BID Valsartan (Diovan) 80 Mg Tab 160 MG PO DAILY Scheduled PRN Acetamin/Butalbital/Caffeine (Fioricet 50-300-40 mg) 1 Cap Cap 2 CAP PO PRN PRN PRN MIGRAINE Lorazepam (Ativan) 0.5 Mg Tab 0.5 MG PO TID PRN PRN ANXIETY Nitroglycerin (Nitrostat) 0.4 Mg Subl 0.4 MG SL Q5MP PRN PRN CHEST PAIN Allergies Coded Allergies: TALIA Inhibitors (Unverified Allergy, Unknown, 04/28/16) Sheryl Alexander Jul 26, 2016 11:50
[2016-07-26] MEDS ORDERED: ALBUTEROL 90 MCG/ACT 8GM HFA INHALER INH PRN (12:00)
[2016-07-26] MEDS: NYSTATIN 100,000 UNITS/GM TOPICAL PWD 15 GM TOP SCH ×2 (13:10→20:05)
[2016-07-26 18:00] VITALS: BP 122/65
[2016-07-26] MEDS: traZODone 50 MG TAB PO PRN (20:52)
[2016-07-27 06:00] VITALS: BP 111/79
[2016-07-27] MEDS: VALSARTAN 80 MG TAB (DIOVAN) PO SCH ×2 (09:00→21:24)
[2016-07-27] MEDS: LORATADINE 10 MG TAB PO SCH (09:00)
[2016-07-27] MEDS: PANTOPRAZOLE 40MG TAB (PROTONIX) PO SCH ×2 (09:27→21:23)
[2016-07-27] MEDS: ASPIRIN 81 MG ENTERIC TAB PO SCH (09:27)
[2016-07-27] MEDS: VENLAFAXINE **XR** 37.5 MG CAPSULE PO SCH (09:27)
[2016-07-27] MEDS: CLOPIDOGREL 75 MG TAB PO SCH (09:27)
[2016-07-27] MEDS: CARVedilol 6.25 MG TAB PO SCH ×2 (09:27→21:23)
[2016-07-27] MEDS: NYSTATIN 100,000 UNITS/GM TOPICAL PWD 15 GM TOP SCH ×2 (09:27→21:25)
[2016-07-27] MEDS: LORazepam 0.5 MG TAB PO PRN (09:30)
[2016-07-27 18:00] VITALS: BP 107/83
--- NOTE | 2016-07-27 20:55 | IPN ---
DATE: 07/27/2016 VITAL SIGNS: Temperature 96.1, pulse 62, respiratory rate 16, blood pressure 111/79. CURRENT MEDICATIONS: - Effexor XR 37.5 mg every morning - trazodone 50 mg at bedtime as needed PSYCHIATRIC HISTORY: The patient still feels depressed. She has frequent weepy episodes. She gets panic attacks after a long episode of crying. She ventilates about the multiple losses she has had over the years. She is fearful about her heart and her coronary artery disease. She is having no side effects from the Effexor. She is willing to increase the dosage. No gastrointestinal (GI) symptoms. No suicidal thoughts. The patient is starting to participate in milieu therapy. MENTAL STATUS EXAMINATION: The patient is alert, oriented, and cooperative. She is still quite anxious. She is tearful. She is sad. She is depressed. She is not voicing any suicidal thoughts. She speaks in a southern accent. She is not hearing voices. No paranoid or thought disorder. She does have mild obsessions and rituals. She worries frequently. No signs of organicity. IMPRESSION: 1. Major depression, recurrent, moderate severity. 2. Panic anxiety disorder. 3. Obsessive-compulsive disorder (OCD). 4. Generalized anxiety disorder. PLAN: Increase Effexor XR to 75 mg every morning. No change in trazodone.
[2016-07-27] MEDS: traZODone 50 MG TAB PO PRN (21:26)
--- NOTE | 2016-07-27 23:55 | EDDOCDS ---
Physician Documentation [facility] Name: Janell Oscar Age: 56 yrs Sex: Female : 1960 Arrival Date: 07/25/2016 Time: 12:07 Bed [facility] MD: Keshawn Agustin MD Disposition: 07/25/16 21:58 Hospitalization ordered by Freida Colon for Inpatient Admission. Preliminary diagnosis are Major depressive disorder, recurrent, Anxiety disorder, unspecified. - Bed requested for Admit. - Status is Inpatient Admission. rw1 - Condition is Stable. - Problem is new. - Symptoms are unchanged. Historical: - Allergies: cant have anything that ends in "pril"; - Home Meds: 1. Ambien 5-10mg Oral tab 1 tab nightly as needed 2. aspirin 81 mg Oral tab 1 tab once daily 3. biotin oral daily 4. carvedilol 6.25 mg oral tab 2 times per day 5. Fioricet 50-325-40 mg Oral tab 2 tabs as needed 6. loratadine 10 mg Oral tab 1 tab as needed 7. lorazepam 1 mg Oral tab as needed 8. nitroglycerin 0.4 mg SL subl 1 tab every 5 minutes 9. pantoprazole 40 mg oral tab 1 tab 2 times per day 10. Percocet 5-325 mg Oral tab 1 tab every 4 hours as needed 11. Plavix 75 mg Oral tab 1 tab once daily 12. promethazine 25 mg Oral tab as needed 13. Prozac 40 mg Oral cap once daily 14. valsartan 160 mg oral cap daily - PMHx: Anxiety; Asthma; Depression; Diabetes - NIDDM: controlled; ''Diet controlled DM''; GERD; Hypercholesterolemia; Hypertension; Migraines; Myocardial infarction; OCD; polycythemia; Vertigo; - PSHx: Cardiac stents (2016); ; Cholecystectomy; Breast Reduction; - Social history: Smoking status: Patient states was never smoker of tobacco. No barriers to communication noted, The patient speaks fluent Japanese. - Family history: Not pertinent. - : The pt / caregiver states he / she is not on anticoagulants. Home medication list is obtained from [employer] import data. - Exposure Risk Screening:: None identified. Vital Signs: 07/25 12:10 BP 147 / 93; Pulse 78; Resp 20 S; Temp 97.7(O); Pulse Ox 96% on R/A; Weight 84.37 kg / gr2 186 lbs (R); Height 5 ft. 0 in. (152.40 cm) (R); Pain 2/10; 15:35 BP 138 / 90; Pulse 70; Resp 18; Temp 98.9(T); Pulse Ox 95% on R/A; Pain 10/10; mcp 16:42 BP 126 / 83; Pulse 70; Resp 18; Pulse Ox 94% on R/A; Pain 8/10; mcp 16:42 BP 126 / 83; Pulse 70; Resp 18; Pulse Ox 94% on R/A; Pain 8/10; mcp 21:26 BP 144 / 85; Pulse 75; Resp 20; Temp 99.8(T); Pulse Ox 95% on R/A; Pain 4/10; rw1 22:51 BP 109 / 67; Pulse 78; Resp 18; Temp 99.1(T); Pulse Ox 95% on R/A; Pain 4/10; rw1 12:10 Body Mass Index 36.33 (84.37 kg, 152.40 cm) gr2 MDM: 12:24 Consult PFS/PSA/Distributor Publications ordered. sd1 12:24 Consult PFS/PSA/Distributor Publications: Patient's case requires discussion with on-call sd1 Psychiatrist ordered. 12:24 PSA/PFS to call Nursing Billboard Installer, to enter patient data on [place] Safe Act if patient sd1 involuntarily admitted or transferred for SI or HI ordered. 12:24 Confirm accurate psychiatric medication list and times of last dosage ordered. sd1 12:24 Detain Pt Until Medically/PFS Cleared ordered. sd1 12:25 Acetaminophen Level Ordered. EDMS 12:25 Basic Metabolic Profile Ordered. EDMS 12:25 Complete Blood Count Ordered. EDMS 12:25 Drug Eval Toxicology ED Only Ordered. EDMS 12:25 Ethyl Alcohol (ethanol) Ordered. EDMS 12:25 Liver Profile Ordered. EDMS 12:25 Salicylate Level Ordered. EDMS 12:25 Thyroid Stimulating Hormone Ordered. EDMS 12:49 LORazepam 1 mg PO once ordered. ml 12:51 HCG,Serum Qualitative Ordered. EDMS 13:04 REGULAR DIET PLASTIC HECTOR+DIET ordered. EDMS 13:53 Financial registration complete. pm4 13:59 [facility] Payment Agreement was scanned into [employer] and attached to record. pm4 14:12 Acetaminophen Level Reviewed. ml 14:12 Basic Metabolic Profile Reviewed. ml 14:12 Complete Blood Count Reviewed. ml 14:12 Drug Eval Toxicology ED Only Reviewed. ml 14:12 Salicylate Level Reviewed. ml 14:12 Ethyl Alcohol (ethanol) Reviewed. ml 14:12 Liver Profile Reviewed. ml 14:12 Thyroid Stimulating Hormone Reviewed. ml 14:12 HCG,Serum Qualitative Reviewed. ml 15:34 Fioricet 2 tab-caps PO once ordered. mcp 16:05 REGULAR DIET PLASTIC HECTOR+DIET ordered. EDMS 19:18 Misc. Nursing Order ordered. ml 20:29 PROzac 40 mg PO once ordered. ml 20:29 Valsartan 160 mg PO once ordered. ml 20:57 carvedilol 6.25 mg PO once ordered. ml 20:57 Pantoprazole 40 mg PO once ordered. ml 20:59 Admit to [facility]: ordered. EDMS 21:23 Consult PFS/PSA/Distributor Publications complete. 1 21:23 Consult PFS/PSA/Distributor Publications: Patient's case requires discussion with on-call 1 Psychiatrist complete. 21:23 PSA/PFS to call Nursing Billboard Installer, to enter patient data on [place] Safe Act if patient hm1 involuntarily admitted or transferred for SI or HI complete. 21:53 [facility] Legal paperwork was scanned into [employer] and attached to record. ac 21:54 Other: Clinic Note was scanned into [employer] and attached to record. ac 21:57 LORazepam 1 mg PO once ordered. ml 07/26 10:23 T-Sheet-- Draft Copy was scanned into [employer] and attached to record. gb 15:15 T-Sheet-- Draft Copy was scanned into [employer] and attached to record. gb Administered Medications: 07/25 13:52 Drug: LORazepam 1 mg [lorazepam 1 mg tablet (1 tabs)] Route: PO; [facility] 20:53 Follow up: Response: No Adverse Reaction rw1 15:40 Drug: Fioricet 2 tab-caps Route: PO; mcp 16:42 Follow up: BP 126 / 83; Pulse 70 bpm; Resp 18 bpm; Pulse Ox 94% RA; Pain 8/10 Adult; [facility] Response: Pain is decreased 21:26 Drug: PROzac 40 mg Route: PO; rw1 22:08 Follow up: Response: No Adverse Reaction rw1 21:26 Drug: Valsartan 160 mg [valsartan 80 mg tablet (2 tabs)] Route: PO; rw1 22:08 Follow up: Response: No Adverse Reaction rw1 21:26 Drug: carvedilol 6.25 mg [carvedilol 6.25 mg tablet (1 tabs)] Route: PO; rw1 22:08 Follow up: Response: No Adverse Reaction rw1 21:26 Drug: Pantoprazole 40 mg [pantoprazole 40 mg tablet,delayed release (1 tabs)] Route: PO;rw1 22:07 Follow up: Response: No Adverse Reaction rw1 22:15 Drug: LORazepam 1 mg [lorazepam 1 mg tablet (1 tabs)] Route: PO; rw1 22:51 Follow up: Response: Anxiety is improved rw1 Signatures: Dispatcher [employer] EDJackie Glover MD MD sd1 Jonnathan Armando MD MD ml Sleeman, Kacey, RN RN Karen Greene RN RN [facility] Dale Guy, PSA PSA ac Belkis Calderon, Reg Reg gb Eliazar Cook,OUTPATIENT THERAPIST OUTPATIENT THERAPIST rw1 Pita Meléndez, PSA PSA hm1 Merritt Jack, Reg Reg pm4 Diya Nassar RN [facility] The chart was reviewed and I authenticate all verbal orders and agree with the evaluation and treatment provided.Attachments: 13:59 [facility] Payment Agreement pm4 15:15 T-Sheet-- Draft Copy gb Chart Complete MTDD
--- NOTE | 2016-07-27 23:56 | EDDOCDS ---
Nurse's Notes [facility] Name: Janell Oscar Age: 56 yrs Sex: Female : 1960 Arrival Date: 07/25/2016 Time: 12:07 Bed U5 [facility] MD: Keshawn Agustin MD Diagnosis: Major depressive disorder, recurrent;Anxiety disorder, unspecified Presentation: 07/25 12:15 Presenting complaint: Patient states: she has severe anxiety and depression - states kcs she was at Dr. Liriano's office and doctor drove her here and wants her admitted for her anxiety. Had a heart attack last year and is constantly having her meds adjusted. Due for an Ativan 1 1/2 hour ago and can feel the anxiety getting worse. Mental Health Triage Level: Level 2: The patient displays active suicidal ideations. states she feels hopeless and does not want to be here anymore. Adult Sepsis Screening: The patient does not have new or worsening altered mentation. Patient's respiratory rate is less than 22. Systolic blood pressure is greater than 100. Patient has a qSOFA score of 0- Negative Sepsis Screen. Suicide/Homicide risk assessment- The patient admits to and/or has been reported to be having suicidal ideations. The patient reports that he/she has not been admitted to an inpatient mental health facility in the last 30 days. The patient reports that he/she does not have a recent or current history of substance abuse. The patient reports that he/she has a prior history of suicide attempt and/or organized plan. The patient reports that he/she has experienced a significant life altering event in the last 30 days. The patient reports that he/she lacks adequate social support. The patient reports he/she has significant chronic medical condition(s). Status: Patient is not a community service manager or dependent. 12:15 Acuity: AZEB Level 3 kcs 12:15 Method Of Arrival: Walkin/Carried/Asstd kcs 12:15 Transition of care: patient was received from Dr. Liriano. kcs Triage Assessment: 12:19 General: Appears distressed, well developed, well nourished, well groomed, Behavior is kcs anxious, cooperative, crying. Pain: Location: head Pain currently is 8 out of 10 on a pain scale. HIV screening NA for this visit Offered previously. Neurological: Level of Consciousness is awake, alert. Respiratory: Airway is patent Respiratory effort is even, unlabored, Respiratory pattern is regular, symmetrical. Derm: Skin is intact, is healthy with good turgor, Skin is dry, Skin is normal. Historical: - Allergies: cant have anything that ends in "pril"; - Home Meds: 1. Ambien 5-10mg Oral tab 1 tab nightly as needed 2. aspirin 81 mg Oral tab 1 tab once daily 3. biotin oral daily 4. carvedilol 6.25 mg oral tab 2 times per day 5. Fioricet 50-325-40 mg Oral tab 2 tabs as needed 6. loratadine 10 mg Oral tab 1 tab as needed 7. lorazepam 1 mg Oral tab as needed 8. nitroglycerin 0.4 mg SL subl 1 tab every 5 minutes 9. pantoprazole 40 mg oral tab 1 tab 2 times per day 10. Percocet 5-325 mg Oral tab 1 tab every 4 hours as needed 11. Plavix 75 mg Oral tab 1 tab once daily 12. promethazine 25 mg Oral tab as needed 13. Prozac 40 mg Oral cap once daily 14. valsartan 160 mg oral cap daily - PMHx: Anxiety; Asthma; Depression; Diabetes - NIDDM: controlled; ''Diet controlled DM''; GERD; Hypercholesterolemia; Hypertension; Migraines; Myocardial infarction; OCD; polycythemia; Vertigo; - PSHx: Cardiac stents (2016); ; Cholecystectomy; Breast Reduction; - Social history: Smoking status: Patient states was never smoker of tobacco. No barriers to communication noted, The patient speaks fluent [place]. - Family history: Not pertinent. - : The pt / caregiver states he / she is not on anticoagulants. Home medication list is obtained from [employer] import data. - Exposure Risk Screening:: None identified. Screenin:47 Screening information is obtained from the patient. Fall risk: No risks identified. mcp Assistance ADL's: requires no assistance with activities of daily living. Abuse/DV Screen: The patient / caregiver reports he/she is: not in a situation that causes fear, pain or injury. Nutritional screening: No deficits noted. Advance Directives: Currently, there is no health care proxy. There is no active DNR order. home support is adequate. Assessment: 13:35 General: Appears in no apparent distress, comfortable, Behavior is appropriate for age, hs1 cooperative. General: Appears Behavior is anxious, crying, weepy. Pt agreeable to lunch and is tolerating nursing interventions. . Pain: Denies pain. Neurological: Level of Consciousness is awake, alert, obeys commands. 14:26 General: Appears in no apparent distress, comfortable, Pt resting with blanket on at hs1 this time. Pt states she is scared that she does not understand what is happening to her and is very worried about being labeled an addict. . 15:35 General: Appears uncomfortable, Behavior is cooperative. Pain: Location: head Pain mcp currently is 10 out of 10 on a pain scale. Neurological: Level of Consciousness is awake, alert, Oriented to person, place, Moves all extremities. Gait is steady, Speech is normal, Reports headache. Respiratory: Airway is patent Respiratory effort is even, unlabored. Derm: Skin is pink, warm & dry. 16:42 General: Appears uncomfortable, Behavior is cooperative. Pain: Location: head Pain mcp currently is 8 out of 10 on a pain scale. Neurological: Level of Consciousness is awake, alert, Oriented to person, place, Moves all extremities. Speech is normal, Reports headache. Respiratory: Airway is patent Respiratory effort is even, unlabored. Derm: Skin is normal. 17:03 General: Appears in no apparent distress, comfortable, Behavior is cooperative. Pain: mcp Denies pain. Neurological: Level of Consciousness is awake, alert, Oriented to person, place. Respiratory: Airway is patent Respiratory effort is even, unlabored. Derm: Skin is pink, warm & dry. 18:00 General: Appears in no apparent distress, comfortable, Behavior is cooperative. Pain: mcp Location: head Pain currently is 4 out of 10 on a pain scale. Neurological: Level of Consciousness is awake, alert, Oriented to person, place, Moves all extremities. Speech is normal. Respiratory: Airway is patent Respiratory effort is even, unlabored. Derm: Skin is pink, warm & dry. 19:30 General: Appears in no apparent distress, comfortable, Behavior is appropriate for age, rw1 cooperative. Neurological: Level of Consciousness is awake, alert, obeys commands, Oriented to person, place, time. Respiratory: Airway is patent Respiratory effort is even, unlabored. Derm: Skin is pink, warm & dry. normal. 20:30 Reassessment: Patient appears in no apparent distress at this time. resting quietly on rw1 stretcher, safety maintained will monitor.. 21:26 General: Appears distressed, uncomfortable, Behavior is anxious, appropriate for age, rw1 cooperative, crying. Pain: Location: head Pain currently is 4 out of 10 on a pain scale. Neurological: Level of Consciousness is awake, alert, obeys commands, Oriented to person, place, time. Respiratory: Airway is patent Respiratory effort is even, unlabored. Derm: Skin is pink, warm & dry. normal. 21:49 General: Appears in no apparent distress, Behavior is cooperative. Neurological: Level af2 of Consciousness is awake, alert. Respiratory: Airway is patent Respiratory effort is even, unlabored. Derm: Skin is normal. 22:15 General: Appears distressed, Behavior is anxious, appropriate for age, cooperative. rw1 Neurological: Level of Consciousness is awake, alert, obeys commands, Oriented to person, place, time. Respiratory: Airway is patent Respiratory effort is even, unlabored. Derm: Skin is pink, warm & dry. normal. Mental Health Eval: 19:09 Mental health consult is initiated at 18:15. Status: The patient is a cas1 dependent. [facility] Behavioral Health: The patient is not an established patient of [facility] Behavioral Health. Referral Information: Evaluation referral is generated by the patient's therapist Ana Liriano. The patient was referred for evaluation because Pt had a panic attack while at an appointment with her therapist. She also expressed SI without a plan. . Subjective: The patients chief complaint is "I had a panic attack.". Delusions are denied. Patient's mood is anxious, depressed, hopeless, Hallucinations are denied. Mental Health history: anxiety, depression, panic attacks, sleep disturbance. Mental Health history: Mental Health Admissions: None. Current Outpatient Mental Health Services: Psychiatrist / Agency: Telepsych with Dr. Gamboa at [place]. Therapist / Agency: Ana Liriano. Current living environment is The patient currently lives with his / her child. The patient is . Patient presents to Emergency Department with the following symptoms within the past 2 weeks: anxiety, depressed mood, feelings of helplessness/hopelessness, labile mood, panic attacks, sleep disturbance - insomnia, suicidal ideation with no plan. Substance abuse: Pt denies. Mental status exam: Patients appearance is appropriate, Patient's behavior is cooperative, Speech is normal. Affect is labile. Mood is anxious. depressed. Hallucinations are denied. Appetite is normal. Memory is fair. Energy level is tires easily. Content of thought is depressive. pt states that she has thoughts about not wanting to be on earth anymore Thought process is intact. Cognitive level is oriented to person, place, time and situation Patient's insight is fair. Judgement is fair. Rapport with interviewer is good. Suicidal Ideation is present with no specific plan. Homicidal ideation is denied. Narrative: Pt reports that she has had depression, anxiety, & panic attacks which have increased in the past two years since her . She states that she has poor sleep at night & wants to sleep all the time during the day. She also reports frequent crying spells. She was frequently tearful during our conversation. Pt reports several stressors, including the of her & several other family members, recent loss of her job, change in living situation, & her dog is dying. She also has multiple medical px's. She denies HI, but reports passive SI. She c/o feeling hopeless & worthless. Pt states preferred pharmacy is: [facility] in [place]. 21:56 Disposition: Medically cleared for disposition by Jonnathan Armando MD Psychiatric cas1 Consult is performed by phone with Dr Freida Colon. [facility] Admission Criteria: The patient is experiencing suicidal ideation. The patient requires continuous observation and/or control to protect self, others or property. The patient's care requires a multi-modal treatment plan under close supervision and coordination due to the complexity and severity of the patient's symptoms. The patient requires administration and monitoring of psychoactive medications by skilled medical providers due to the side effects of the psychoactive medications or significant dosage adjustments. 21:58 Legal Status: Patient's legal status will be Emergency admission: . [place] Safe Act: cas1 [place] Safe Act is applicable to this patient. The patient poses a risk to self or other and the Nursing Ross Lift Operator has been notified. He/She will enter the patient's data. DSM-V Differential Diagnosis: Unspecified Depressive Disorder (F32.9). Insurance Pre-Certification: Not Required. Family Notification: Notification to family of patient status is not currently needed or appropriate. Vital Signs: 12:10 BP 147 / 93; Pulse 78; Resp 20 S; Temp 97.7(O); Pulse Ox 96% on R/A; Weight 84.37 kg gr2 (R); Height 5 ft. 0 in. (152.40 cm) (R); Pain 2/10; 15:35 BP 138 / 90; Pulse 70; Resp 18; Temp 98.9(T); Pulse Ox 95% on R/A; Pain 10/10; mcp 16:42 BP 126 / 83; Pulse 70; Resp 18; Pulse Ox 94% on R/A; Pain 8/10; mcp 16:42 BP 126 / 83; Pulse 70; Resp 18; Pulse Ox 94% on R/A; Pain 8/10; mcp 21:26 BP 144 / 85; Pulse 75; Resp 20; Temp 99.8(T); Pulse Ox 95% on R/A; Pain 4/10; rw1 22:51 BP 109 / 67; Pulse 78; Resp 18; Temp 99.1(T); Pulse Ox 95% on R/A; Pain 4/10; rw1 12:10 Body Mass Index 36.33 (84.37 kg, 152.40 cm) gr2 Vitals: 12:10 Log In Time: July 25, 2016 at 12:10. RN notified that patient meets Red Flag gr2 criteria. ED Course: 12:09 Patient visited by Ruslan Otero. gr2 12:09 Patient moved to Waiting gr2 12:10 Keshawn Agustin is Private Physician. gr2 12:17 Triage Initiated kcs 12:[address] [facility] kcs 12:36 Jonnathan Armando MD is Attending Physician. ml 12:36 Patient visited by Jonnathan Armando MD. ml 12:59 Patient visited by Jesse Hoang. dpm 13:13 Pt greeted and oriented to ED. Patient advised of names of staff involved in care, dpm location of call sierra, wait times and NPO status. Patient has correct armband on for positive identification. Placed in gown. Placed in psych safe attire. Bed in low position. Security observing. Property removed, inventory done, secured in belongings bag- placed in locked locker. Placed in locker 5. secure belongings bag, Secure bag Number [id number], placed in ED safe. Zuri DAI) observed pt while changing. 13:17 Patient visited by Jesse Hoang. dpm 13:20 Patient visited by Jesse Hoang. dpm 13:46 Patient visited by Jesse Hoang. dpm 13:59 [facility] Payment Agreement was scanned into [employer] and attached to record. pm4 14:01 Patient visited by Jesse Hoang. dpm 14:14 Patient visited by Jesse Hoang. dpm 14:33 Patient visited by Jesse Hoang. dpm 14:47 Patient visited by Jesse Hoang. dpm 15:02 Patient visited by Jesse Hoang. dpm 15:16 Patient visited by Jesse Hoang. dpm 15:31 Patient visited by Jesse Hoang. dpm 15:48 Patient visited by Karen Kim RN. mcp 15:48 The patient / caregiver is instructed regarding the plan of care and ED course. Warm mcp blanket given. 15:59 Patient visited by Karen Kim RN. mcp 16:37 Patient visited by Jesse Hoang. dpm 16:43 Patient visited by Karen Kim RN. mcp 17:04 Patient visited by Karen Kim RN. mcp 17:41 Patient visited by Jesse Hoang. dpm 18:08 Patient visited by Jesse Hoang. dpm 18:45 Patient visited by Jesse Hoang. dpm 19:03 Patient visited by Jesse Hoang. dpm 19:04 Patient visited by Karen Kim RN. mcp 19:15 Psych Safety Check: Location: Psych Room. Visual Assessment: Cooperative. kb5 19:30 Psych Safety Check: Location: Psych Room. Visual Assessment: Cooperative. kb5 19:32 Patient visited by Andrew Ardon PCA. kb5 19:45 Patient visited by Andrew Ardon PCA. kb5 19:45 Psych Safety Check: Location: Psych Room. Visual Assessment: Cooperative. kb5 19:52 Eliazar Cook LPN is Primary Nurse. rw1 20:00 Patient visited by Reva, Andrew, WEIGHT INSPECTOR. kb5 20:00 Psych Safety Check: Location: Psych Room. Visual Assessment: Cooperative. kb5 20:15 Psych Safety Check: Location: Psych Room. Visual Assessment: Cooperative. kb5 20:18 Patient visited by Andrew Ardon WEIGHT INSPECTOR. kb5 20:30 Psych Safety Check: Location: Psych Room. Visual Assessment: Cooperative. kb5 20:31 Patient visited by Malik Ardoner WEIGHT INSPECTOR. kb5 20:45 Psych Safety Check: Location: Psych Room. Visual Assessment: Cooperative. kb5 20:51 Patient visited by Tera Ardonopher WEIGHT INSPECTOR. kb5 21:00 Patient visited by Andrew Ardon WEIGHT INSPECTOR. kb5 21:00 Psych Safety Check: Location: Psych Room. Visual Assessment: Cooperative. kb5 21:15 Psych Safety Check: Location: Psych Room. Visual Assessment: Cooperative. kb5 21:16 Patient visited by Andrew Ardon WEIGHT INSPECTOR. kb5 21:30 Patient visited by Andrew Ardon WEIGHT INSPECTOR. kb5 21:30 Psych Safety Check: Location: Psych Room. Visual Assessment: Cooperative. kb5 21:45 Patient visited by Andrew Ardon WEIGHT INSPECTOR. kb5 21:45 Psych Safety Check: Location: Psych Room. Visual Assessment: Cooperative. kb5 21:50 Patient visited by Merissa Cobian RN. af2 21:53 [facility] Legal paperwork was scanned into [employer] and attached to record. ac 21:54 Other: Clinic Note was scanned into [employer] and attached to record. ac 21:57 Freida Colon is Hospitalizing Provider. ml 22:00 Patient visited by Andrew Ardon WEIGHT INSPECTOR. kb5 22:00 Psych Safety Check: Location: Psych Room. Visual Assessment: Cooperative. kb5 22:15 Patient visited by Andrew Ardon WEIGHT INSPECTOR. kb5 22:15 Psych Safety Check: Location: Psych Room. Visual Assessment: Cooperative. kb5 22:30 Patient visited by Malik Ardoner WEIGHT INSPECTOR. kb5 22:30 Psych Safety Check: Location: Psych Room. Visual Assessment: Cooperative. kb5 22:45 Patient visited by Andrew Ardon WEIGHT INSPECTOR. kb5 22:45 Psych Safety Check: Location: Psych Room. Visual Assessment: Cooperative. kb5 22:51 No IV's were initiated during this patient's visit. No procedures done that require 1 assistance. 07/26 10:23 T-Sheet-- Draft Copy was scanned into [employer] and attached to record. gb 15:15 T-Sheet-- Draft Copy was scanned into [employer] and attached to record. gb Administered Medications: 07/25 13:52 Drug: LORazepam 1 mg [lorazepam 1 mg tablet (1 tabs)] Route: PO; [facility] 20:53 Follow up: Response: No Adverse Reaction rw1 15:40 Drug: Fioricet 2 tab-caps Route: PO; [facility] 16:42 Follow up: BP 126 / 83; Pulse 70 bpm; Resp 18 bpm; Pulse Ox 94% RA; Pain 8/10 Adult; [facility] Response: Pain is decreased 21:26 Drug: PROzac 40 mg Route: PO; rw1 22:08 Follow up: Response: No Adverse Reaction rw1 21:26 Drug: Valsartan 160 mg [valsartan 80 mg tablet (2 tabs)] Route: PO; rw1 22:08 Follow up: Response: No Adverse Reaction rw1 21:26 Drug: carvedilol 6.25 mg [carvedilol 6.25 mg tablet (1 tabs)] Route: PO; rw1 22:08 Follow up: Response: No Adverse Reaction rw1 21:26 Drug: Pantoprazole 40 mg [pantoprazole 40 mg tablet,delayed release (1 tabs)] Route: PO;rw1 22:07 Follow up: Response: No Adverse Reaction rw1 22:15 Drug: LORazepam 1 mg [lorazepam 1 mg tablet (1 tabs)] Route: PO; rw1 22:51 Follow up: Response: Anxiety is improved rw1 Attachments: 21:53 [facility] Legal paperwork ac Order Results: Lab Order: Acetaminophen Level; SPEC'M 07/25/16 12:53 Test: ACETAMINOPHEN LEVEL; Value: < 2.0; Range: 10.0-30.0; Abnormal: Below low normal; Units: UG/ML; Status: F Lab Order: Basic Metabolic Profile; SPEC'M 07/25/16 12:53 Test: GLUCOSE, FASTING; Value: 93; Range: 70-105; Units: MG/DL; Status: F Test: BLOOD UREA NITROGEN; Value: 19; Range: 7-18; Abnormal: Above high normal; Units: MG/DL; Status: F Test: CREATININE FOR GFR; Value: 1.00; Range: 0.55-1.02; Units: MG/DL; Status: F Test: GLOMERULAR FILTRATION RATE; Value: > 60.0; Range: >51; Status: F Test: SODIUM LEVEL; Value: 142; Range: 136-145; Units: MEQ/L; Status: F Test: POTASSIUM SERUM; Value: 4.4; Range: 3.5-5.1; Units: MEQ/L; Status: F Test: CHLORIDE LEVEL; Value: 108; Range: 98-107; Abnormal: Above high normal; Units: MEQ/L; Status: F Test: CARBON DIOXIDE LEVEL; Value: 24; Range: 21-32; Units: MEQ/L; Status: F Test: ANION GAP; Value: 10; Range: 8-16; Units: MEQ/L; Status: F Test: CALCIUM LEVEL; Value: 9.4; Range: 8.5-10.1; Units: MG/DL; Status: F Test Note: ; Units are mL/min/1.73 m2 Chronic Kidney Disease Staging per NKF: Stage I & II GFR >=60 Normal to Mildly Decreased Stage III GFR 30-59 Moderately Decreased Stage IV GFR 15-29 Severely Decreased Stage V GFR <15 Very Little GFR Left ESRD GFR <15 on ENVIRONMENTAL HEALTH MANAGER Lab Order: Complete Blood Count; SPEC'M 07/25/16 12:53 Test: WHITE BLOOD COUNT; Value: 6.7; Range: 4.0-10.0; Units: K/mm3; Status: F Test: RED BLOOD COUNT; Value: 4.63; Range: 4.00-5.40; Units: M/mm3; Status: F Test: HEMOGLOBIN; Value: 12.8; Range: 12.0-16.0; Units: g/dl; Status: F Test: HEMATOCRIT; Value: 40.5; Range: 36.0-47.0; Units: %; Status: F Test: MEAN CORPUSCULAR VOLUME; Value: 87.6; Range: 80.0-96.0; Units: fl; Status: F Test: MEAN CORPUSCULAR HEMOGLOBIN; Value: 27.7; Range: 27.0-33.0; Units: pg; Status: F Test: MEAN CORPUSCULAR HGB CONC; Value: 31.6; Range: 32.0-36.5; Abnormal: Below low normal; Units: g/dl; Status: F Test: RED CELL DISTRIBUTION WIDTH; Value: 18.4; Range: 11.5-14.5; Abnormal: Above high normal; Units: %; Status: F Test: PLATELET COUNT, AUTOMATED; Value: 278; Range: 150-450; Units: k/mm3; Status: F Lab Order: Drug Eval Toxicology ED Only; SPEC'M 07/25/16 12:53 Test: AMPHETAMINES LEVEL URINE; Value: NEGATIVE; Range: NEGATIVE; Status: F Test: BARBITURATES URINE; Value: POSITIVE; Range: NEGATIVE; Abnormal: Above high normal; Status: F Test: BENZODIAZEPINES URINE; Value: POSITIVE; Range: NEGATIVE; Abnormal: Above high normal; Status: F Test: CANNABINOIDS URINE; Value: NEGATIVE; Range: NEGATIVE; Status: F Test: COCAINE METABOLITE URINE; Value: NEGATIVE; Range: NEGATIVE; Status: F Test: METHADONE URINE; Value: NEGATIVE; Range: NEGATIVE; Status: F Test: OPIATES URINE; Value: NEGATIVE; Range: NEGATIVE; Status: F Test: TRICYCLIC ANTIDEPRESS URINE; Value: NEGATIVE; Range: NEGATIVE; Status: F Test Note: ; ALL PRESUMPTIVE POSITIVE FINDINGS ARE UNCONFIRMED NORMAL VALUES THRESHOLD IN NG/ML AMPHETAMINES 1000 METHAMPHETAMINES 1000 BARBITURATES 300 BENZODIAZEPINES 300 CANNABINOIDS (THC) 50 COCAINE METABOLITE 300 METHADONE 300 OPIATES 300 PHENCYCLIDINE 25 TRICYCLIC ANTIDEPRESSANTS 1000 RESULTS ARE FOR MEDICAL PURPOSES ONLY. ALL URINE SPECIMENS WILL BE SAVED FOR 3 DAYS. IF CONFIRMATION OF A PRESUMPTIVE POSTIVE SCREEN RESULT IS DESIRED, CALL CHEMISTRY ([phone]) AND REQUEST URINE TO BE SENT TO REFERENCE LAB. FOR A LIST OF CLOSELY RELATED COMPOUNDS PLEASE CALL THE LAB. Lab Order: Ethyl Alcohol (ethanol); SPEC'M 07/25/16 12:53 Test: ETHYL ALCOHOL (ETHANOL); Value: < 0.003; Range: 0.000-0.010; Units: %; Status: F Lab Order: Liver Profile; SPEC'M 07/25/16 12:53 Test: AST/SGOT; Value: 15; Range: 15-37; Units: U/L; Status: F Test: ALT/SGPT; Value: 38; Range: 12-78; Units: U/L; Status: F Test: ALKALINE PHOSPHATASE; Value: 107; Range: 45-117; Units: U/L; Status: F Test: BILIRUBIN,TOTAL; Value: 0.5; Range: 0.2-1.0; Units: MG/DL; Status: F Test: BILIRUBIN,DIRECT; Value: 0.2; Range: 0.0-0.2; Units: MG/DL; Status: F Test: TOTAL PROTEIN; Value: 7.4; Range: 6.4-8.2; Units: GM/DL; Status: F Test: ALBUMIN; Value: 3.8; Range: 3.2-5.2; Units: GM/DL; Status: F Test: ALBUMIN/GLOBULIN RATIO; Value: 1.06; Range: 1.00-1.93; Status: F Lab Order: Salicylate Level; SPEC'M 07/25/16 12:53 Test: SALICYLATE LEVEL; Value: < 1.7; Range: 5.0-30.0; Abnormal: Below low normal; Units: MG/DL; Status: F Lab Order: Thyroid Stimulating Hormone; SPEC'M 07/25/16 12:53 Test: THYROID STIMULATING HORMONE; Value: 1.360; Range: 0.358-3.740; Units: uIU/ML; Status: F Lab Order: HCG,Serum Qualitative; SPEC'M 07/25/16 12:53 Test: HCG, SERUM QUALITATIVE; Value: NEGATIVE; Range: NEGATIVE; Status: F Outcome: 07/25 21:58 Decision to Hospitalize by Provider. 22:51 Discharge Assessment: Patient awake, alert and oriented x 3. No cognitive and/or rw1 functional deficits noted. Patient verbalized understanding of disposition instructions. patient administered narcotics - yes. Patient was admitted to the hospital or transferred to another facility. The following High Risk Discharge criteria are identified: Admitted to Psych accompanied by tech, via wheelchair, with chart. Condition: stable. No special radiology studies were completed. 22:54 Patient left the ED. rw1 Signatures: Jonnathan Armando MD MD ml Sleeman, Kacey, RN RN [facility] Diya Nassar RN Karen Roman, RN RN Dale Medina, PSA PSA ac Belkis Calderon, Reg Reg gb Workman,Eliazar,HOSPICE/HOME HEALTH AIDE HOSPICE/HOME HEALTH AIDE rw1 Andrew Ardon, WEIGHT INSPECTOR WEIGHT INSPECTOR kb5 Serenity Martinez cas1 Kathia Madrigal RN RN hs1 Jesse Hoang dpm Ruslan Otero gr2 Merissa Cobian RN RN af2 Merritt Jack, Reg Reg pm4 Corrections: (The following items were deleted from the chart) 12:18 12:15 Transition of care: patient was not received from another setting of care. kcs kcs Chart Complete MTDD
--- NOTE | 2016-07-27 23:56 | EDDOCDS ---
Physician Documentation [facility] Name: Janell Oscar Age: 56 yrs Sex: Female : 1960 Arrival Date: 07/25/2016 Time: 12:07 Bed [facility] MD: Keshawn Agustin MD Disposition: 07/25/16 21:58 Hospitalization ordered by Freida Colon for Inpatient Admission. Preliminary diagnosis are Major depressive disorder, recurrent, Anxiety disorder, unspecified. - Bed requested for Admit. - Status is Inpatient Admission. rw1 - Condition is Stable. - Problem is new. - Symptoms are unchanged. Historical: - Allergies: cant have anything that ends in "pril"; - Home Meds: 1. Ambien 5-10mg Oral tab 1 tab nightly as needed 2. aspirin 81 mg Oral tab 1 tab once daily 3. biotin oral daily 4. carvedilol 6.25 mg oral tab 2 times per day 5. Fioricet 50-325-40 mg Oral tab 2 tabs as needed 6. loratadine 10 mg Oral tab 1 tab as needed 7. lorazepam 1 mg Oral tab as needed 8. nitroglycerin 0.4 mg SL subl 1 tab every 5 minutes 9. pantoprazole 40 mg oral tab 1 tab 2 times per day 10. Percocet 5-325 mg Oral tab 1 tab every 4 hours as needed 11. Plavix 75 mg Oral tab 1 tab once daily 12. promethazine 25 mg Oral tab as needed 13. Prozac 40 mg Oral cap once daily 14. valsartan 160 mg oral cap daily - PMHx: Anxiety; Asthma; Depression; Diabetes - NIDDM: controlled; ''Diet controlled DM''; GERD; Hypercholesterolemia; Hypertension; Migraines; Myocardial infarction; OCD; polycythemia; Vertigo; - PSHx: Cardiac stents (2016); ; Cholecystectomy; Breast Reduction; - Social history: Smoking status: Patient states was never smoker of tobacco. No barriers to communication noted, The patient speaks fluent [place]. - Family history: Not pertinent. - : The pt / caregiver states he / she is not on anticoagulants. Home medication list is obtained from [employer] import data. - Exposure Risk Screening:: None identified. Vital Signs: 07/25 12:10 BP 147 / 93; Pulse 78; Resp 20 S; Temp 97.7(O); Pulse Ox 96% on R/A; Weight 84.37 kg / gr2 186 lbs (R); Height 5 ft. 0 in. (152.40 cm) (R); Pain 2/10; 15:35 BP 138 / 90; Pulse 70; Resp 18; Temp 98.9(T); Pulse Ox 95% on R/A; Pain 10/10; mcp 16:42 BP 126 / 83; Pulse 70; Resp 18; Pulse Ox 94% on R/A; Pain 8/10; mcp 16:42 BP 126 / 83; Pulse 70; Resp 18; Pulse Ox 94% on R/A; Pain 8/10; mcp 21:26 BP 144 / 85; Pulse 75; Resp 20; Temp 99.8(T); Pulse Ox 95% on R/A; Pain 4/10; rw1 22:51 BP 109 / 67; Pulse 78; Resp 18; Temp 99.1(T); Pulse Ox 95% on R/A; Pain 4/10; rw1 12:10 Body Mass Index 36.33 (84.37 kg, 152.40 cm) gr2 MDM: 12:24 Consult PFS/PSA/Computational Geneticist ordered. sd1 12:24 Consult PFS/PSA/Computational Geneticist: Patient's case requires discussion with on-call sd1 Psychiatrist ordered. 12:24 PSA/PFS to call Nursing Automatic Pilot Mechanic, to enter patient data on [place] Safe Act if patient sd1 involuntarily admitted or transferred for SI or HI ordered. 12:24 Confirm accurate psychiatric medication list and times of last dosage ordered. sd1 12:24 Detain Pt Until Medically/PFS Cleared ordered. sd1 12:25 Acetaminophen Level Ordered. EDMS 12:25 Basic Metabolic Profile Ordered. EDMS 12:25 Complete Blood Count Ordered. EDMS 12:25 Drug Eval Toxicology ED Only Ordered. EDMS 12:25 Ethyl Alcohol (ethanol) Ordered. EDMS 12:25 Liver Profile Ordered. EDMS 12:25 Salicylate Level Ordered. EDMS 12:25 Thyroid Stimulating Hormone Ordered. EDMS 12:49 LORazepam 1 mg PO once ordered. ml 12:51 HCG,Serum Qualitative Ordered. EDMS 13:04 REGULAR DIET PLASTIC HECTOR+DIET ordered. EDMS 13:53 Financial registration complete. pm4 13:59 [facility] Payment Agreement was scanned into [employer] and attached to record. pm4 14:12 Acetaminophen Level Reviewed. ml 14:12 Basic Metabolic Profile Reviewed. ml 14:12 Complete Blood Count Reviewed. ml 14:12 Drug Eval Toxicology ED Only Reviewed. ml 14:12 Salicylate Level Reviewed. ml 14:12 Ethyl Alcohol (ethanol) Reviewed. ml 14:12 Liver Profile Reviewed. ml 14:12 Thyroid Stimulating Hormone Reviewed. ml 14:12 HCG,Serum Qualitative Reviewed. ml 15:34 Fioricet 2 tab-caps PO once ordered. mcp 16:05 REGULAR DIET PLASTIC HECTOR+DIET ordered. EDMS 19:18 Misc. Nursing Order ordered. ml 20:29 PROzac 40 mg PO once ordered. ml 20:29 Valsartan 160 mg PO once ordered. ml 20:57 carvedilol 6.25 mg PO once ordered. ml 20:57 Pantoprazole 40 mg PO once ordered. ml 20:59 Admit to [facility]: ordered. EDMS 21:23 Consult PFS/PSA/Computational Geneticist complete. 1 21:23 Consult PFS/PSA/Computational Geneticist: Patient's case requires discussion with on-call 1 Psychiatrist complete. 21:23 PSA/PFS to call Nursing Automatic Pilot Mechanic, to enter patient data on [place] Safe Act if patient hm1 involuntarily admitted or transferred for SI or HI complete. 21:53 [facility] Legal paperwork was scanned into [employer] and attached to record. ac 21:54 Other: Clinic Note was scanned into [employer] and attached to record. ac 21:57 LORazepam 1 mg PO once ordered. ml 07/26 10:23 T-Sheet-- Draft Copy was scanned into [employer] and attached to record. gb 15:15 T-Sheet-- Draft Copy was scanned into [employer] and attached to record. gb Administered Medications: 07/25 13:52 Drug: LORazepam 1 mg [lorazepam 1 mg tablet (1 tabs)] Route: PO; [facility] 20:53 Follow up: Response: No Adverse Reaction rw1 15:40 Drug: Fioricet 2 tab-caps Route: PO; mcp 16:42 Follow up: BP 126 / 83; Pulse 70 bpm; Resp 18 bpm; Pulse Ox 94% RA; Pain 8/10 Adult; [facility] Response: Pain is decreased 21:26 Drug: PROzac 40 mg Route: PO; rw1 22:08 Follow up: Response: No Adverse Reaction rw1 21:26 Drug: Valsartan 160 mg [valsartan 80 mg tablet (2 tabs)] Route: PO; rw1 22:08 Follow up: Response: No Adverse Reaction rw1 21:26 Drug: carvedilol 6.25 mg [carvedilol 6.25 mg tablet (1 tabs)] Route: PO; rw1 22:08 Follow up: Response: No Adverse Reaction rw1 21:26 Drug: Pantoprazole 40 mg [pantoprazole 40 mg tablet,delayed release (1 tabs)] Route: PO;rw1 22:07 Follow up: Response: No Adverse Reaction rw1 22:15 Drug: LORazepam 1 mg [lorazepam 1 mg tablet (1 tabs)] Route: PO; rw1 22:51 Follow up: Response: Anxiety is improved rw1 Signatures: Dispatcher [employer] EDJackie Glover MD MD sd1 Jonnathan Armando MD MD ml Sleeman, Kacey, RN RN Karen Greene RN RN [facility] Dale Guy, PSA PSA ac Belkis Calderon, Reg Reg gb Eliazar Cook,ENTERTAINMENT USHER ENTERTAINMENT USHER rw1 Pita Meléndez, PSA PSA hm1 Merritt Jack, Reg Reg pm4 Diya Nassar RN [facility] The chart was reviewed and I authenticate all verbal orders and agree with the evaluation and treatment provided.Attachments: 13:59 [facility] Payment Agreement pm4 15:15 T-Sheet-- Draft Copy gb Chart Complete MTDD
[2016-07-28 06:00] VITALS: BP 119/72
[2016-07-28] MEDS: LORATADINE 10 MG TAB PO SCH (08:11)
[2016-07-28] MEDS: ASPIRIN 81 MG ENTERIC TAB PO SCH (08:14)
[2016-07-28] MEDS: PANTOPRAZOLE 40MG TAB (PROTONIX) PO SCH ×2 (08:15→21:37)
[2016-07-28] MEDS: CLOPIDOGREL 75 MG TAB PO SCH (08:15)
[2016-07-28] MEDS: NYSTATIN 100,000 UNITS/GM TOPICAL PWD 15 GM TOP SCH ×2 (08:16→21:38)
[2016-07-28] MEDS: CARVedilol 6.25 MG TAB PO SCH ×2 (08:20→21:45)
[2016-07-28] MEDS ORDERED: VENLAFAXINE **XR** 75MG CAPSULE PO SCH (09:00)
[2016-07-28 12:12] LABS: BASO # 0.1 K/mm3 (0.0-0.2); BASO % 0.9 % (0.0-1.0); EOS # 0.1 K/mm3 (0.0-0.50); EOS % 1.4 % (0.0-3.0); LARGE UNSTAINED CELL # 0.3 K/mm3 (0.0-0.4); LARGE UNSTAINED CELL % 3.3 % (0.0-4.0); LYMPH # 1.9 K/mm3 (1.5-4.5); LYMPH % 17.2 % (24.0-44.0); MEAN CORPUSCULAR HEMOGLOBIN 27.2 pg (27.0-33.0); MEAN CORPUSCULAR HGB CONC 30.8 g/dl (32.0-36.5); MEAN CORPUSCULAR VOLUME 88.5 fl (80.0-96.0); MONO # 0.4 K/mm3 (0.0-0.8); MONO % 4.6 % (0.0-5.0); NEUTROPHILS # 6.7 K/mm3 (1.8-7.7); NEUTROPHILS % 72.6 % (36.0-66.0); PLATELET COUNT, AUTOMATED 289 k/mm3 (150-450); RED CELL DISTRIBUTION WIDTH 18.5 % (11.5-14.5); WHITE BLOOD COUNT 9.2 K/mm3 (4.0-10.0)
[2016-07-28 12:28] LABS: ANION GAP 11 MEQ/L (8-16); BLOOD UREA NITROGEN 22 MG/DL (7-18); CALCIUM LEVEL 9.5 MG/DL (8.5-10.1); CARBON DIOXIDE LEVEL 25 MEQ/L (21-32); CHLORIDE LEVEL 106 MEQ/L (98-107); GLOMERULAR FILTRATION RATE > 60.0 (>51); GLUCOSE, FASTING 91 MG/DL (70-105); POTASSIUM SERUM 4.8 MEQ/L (3.5-5.1); SODIUM LEVEL 142 MEQ/L (136-145)
--- NOTE | 2016-07-28 13:19 | IPNPDOC ---
Assessment/Plan Date Seen The patient was seen on 07/28/16. Problems Problems: (1) Diarrhea Status: Acute Problem Text: * rest * encourage fluids * bland diet * CBC/CMP * GI panel * Monitor Plan / VTE VTE Prophylaxis Ordered?: No (ambulatory) Subjective Review of Systems CC/HPI The patient is a 56-year-old female admitted with a reason for visit of Unspecified Depressive Disorder. Events since last encounter pt with Nausea, no voimitting diarrhea last PM and today. abdomen sore, but pt denies persistent pain. no fevers/chills. Drinking, less appetite. Has been OOB. Constitutional: Denies: Chills, Fever, Malaise, Night Sweats, Weakness ENT: Denies: Dysphagia, Ear Pain, Head Aches Pulmonary: Denies: Cough, Dyspnea Cardiovascular: Denies: Chest Pain, Lt Headedness, Orthopnea, Palpitations, Paroxysmal Noc. Dyspnea Gastrointestinal: Reports: Diarrhea, Nausea, Denies: Abdominal Pain, Constipation, Hematochezia, Melena, Other Symptoms, Vomiting Genitourinary: Denies: Dysuria, Frequency, Incontinence, Retention Objective Physical Examination General Exam: Positive: Alert Eye Exam: Positive: PERRLA Neck Exam: Positive: Supple Chest Exam: Positive: Clear to auscultation, Normal air movement Heart Exam: Positive: Normal S1, Normal S2, Rate Normal, Regular Rhythm, Negative: Murmurs, Rubs Abdomen Exam: Positive: Normal bowel sounds, Negative: BS Hyperactive, BS Hypoactive, Hepatospenomegaly, Hernia, Mass, Other, Soft, Tenderness Skin Exam: Positive: Nl turgor and temperature Vital Signs/I&O Vital Signs Date Time Temp Pulse Resp B/P Pulse Ox O2 Delivery O2 Flow Rate FiO2 07/28/16 08:20 80 112/72 07/28/16 06:00 97.2 19 07/27/16 18:00 Room Air Laboratory Data Labs 24H Laboratory Tests 2 07/28/16 11:33: Anion Gap 11, White Blood Count 9.2, Red Blood Count 5.06, Hemoglobin 13.8, Hematocrit 44.8, Mean Corpuscular Volume 88.5, Mean Corpuscular Hemoglobin 27.2 , Mean Corpuscular Hemoglobin Concent 30.8L, Red Cell Distribution Width 18.5H, Platelet Count 289, Neutrophils (%) (Auto) 72.6H, Lymphocytes (%) (Auto) 17.2L, Monocytes (%) (Auto) 4.6, Eosinophils (%) (Auto) 1.4, Basophils (%) (Auto) 0.9, Neutrophils # (Auto) 6.7, Lymphocytes # (Auto) 1.9, Monocytes # (Auto) 0.4, Eosinophils # (Auto) 0.1, Basophils # (Auto) 0.1, Blood Urea Nitrogen 22H, Creatinine 1.00, Sodium Level 142, Potassium Level 4.8, Chloride Level 106, Carbon Dioxide Level 25, Calcium Level 9.5, Glomerular Filtration Rate > 60.0, Large Unclassified Cells # 0.3, Large Unclassified Cells % 3.3 CBC/BMP Laboratory Tests 07/28/16 11:33 Calcium Level 9.5, Red Blood Count 5.06, Mean Corpuscular Volume 88.5, Mean Corpuscular Hemoglobin 27.2, Mean Corpuscular Hemoglobin Concent 30.8 L, Red Cell Distribution Width 18.5 H, Neutrophils (%) (Auto) 72.6 H, Lymphocytes (%) ( Auto) 17.2 L, Monocytes (%) (Auto) 4.6, Eosinophils (%) (Auto) 1.4, Basophils (% ) (Auto) 0.9, Neutrophils # (Auto) 6.7, Lymphocytes # (Auto) 1.9, Monocytes # ( Auto) 0.4, Eosinophils # (Auto) 0.1, Basophils # (Auto) 0.1 Sheryl Alexander Jul 28, 2016 13:19
[2016-07-28 18:18] VITALS: BP 101/60
[2016-07-28] MEDS: metroNIDAZOLE (FLAGYL) 500 MG TAB PO SCH (21:37)
[2016-07-28] MEDS: traZODone 50 MG TAB PO PRN (21:38)
[2016-07-28] MEDS: VALSARTAN 80 MG TAB (DIOVAN) PO SCH (21:45)
--- NOTE | 2016-07-29 05:03 | IPN ---
DATE: 07/28/2016 VITAL SIGNS: Temperature 97.2, pulse 78, respirations 19, blood pressure 119/72. CURRENT MEDICATIONS: - Effexor XR 75 mg every morning - trazodone 50 mg at bedtime PSYCH HISTORY: Patient is having severe diarrhea today. She has loose stools. This is a new symptom. She has had diarrhea before, but never as severe as this. She does not have a fever. She does have some nausea as well, but no vomiting. Patient is still anxious, but no panic attacks noted. No episodes of crying or weepy episodes. She is still moderately depressed. Patient not able to attend milieu programs because of her severe diarrhea. MENTAL STATUS EXAMINATION: Patient is alert, oriented. She is cooperative. She remains anxious and moderately depressed. She is not weepy. She is; however, dysphoric about her gastrointestinal (GI) symptoms. No signs of psychosis. IMPRESSION: 1. Major depression, recurrent. 2. Panic anxiety disorder. 3. Obsessive compulsive disorder (OCD). 4. Generalized anxiety disorder. PLAN: Discontinue Effexor which may be contributing to the cause of her severe gastrointestinal (GI) symptoms. No change in trazodone. Patient is to see on-call psychiatrist over the weekend. Patient thinks that these gastrointestinal symptoms are due to a GI virus, but they could well be due to her psychotropic. This will be assessed by her next psychiatric provider.
[2016-07-29] MEDS: metroNIDAZOLE (FLAGYL) 500 MG TAB PO SCH ×3 (06:36→21:05)
[2016-07-29 06:51] VITALS: BP 116/72
[2016-07-29] MEDS: CARVedilol 6.25 MG TAB PO SCH ×2 (08:54→21:06)
[2016-07-29] MEDS: NYSTATIN 100,000 UNITS/GM TOPICAL PWD 15 GM TOP SCH ×2 (08:54→21:05)
[2016-07-29] MEDS: ASPIRIN 81 MG ENTERIC TAB PO SCH (08:54)
[2016-07-29] MEDS: CLOPIDOGREL 75 MG TAB PO SCH (08:54)
[2016-07-29] MEDS: PANTOPRAZOLE 40MG TAB (PROTONIX) PO SCH ×2 (08:55→21:06)
[2016-07-29] MEDS: LORATADINE 10 MG TAB PO SCH (08:56)
[2016-07-29 18:00] VITALS: BP 112/62
[2016-07-29 21:04] VITALS: BP 122/72
[2016-07-29] MEDS: LORazepam 0.5 MG TAB PO PRN (21:05)
[2016-07-29] MEDS: traZODone 50 MG TAB PO PRN (21:05)
[2016-07-29] MEDS: VALSARTAN 80 MG TAB (DIOVAN) PO SCH (21:06)
[2016-07-29] MEDS: FIORICET TAB PO PRN (21:09)
--- NOTE | 2016-07-30 01:40 | IPN ---
DATE OF SERVICE: 07/29/2016 TREATMENT: Janell is on her fifth day of inpatient hospital admission. She is diagnosed with major depressive disorder. She has recently been diagnosed with Clostridium (C) difficile and has been having notable diarrhea. For that reason , her Wellbutrin was discontinued by primary psychiatrist due to concern that it might be contributing to worsening of her diarrhea. She reports today that she has been "better than the last 2 days", although states that she slept poorly the previous night and that she hopes she sleeps better tonight. She also reports feeling concerned that she has not been restarted on her Wellbutrin. I explained to her that it is important to ensure that her diarrhea is controlled prior to starting her on medications that are likely to contribute to worsening of the symptom. MENTAL STATUS EXAMINATION: Her vital signs are stable. Blood pressure 116/72, pulse 80, respirations 16, and temperature 98.6. She is noted to be calm, sitting quietly on her bed. Her speech is clear. Thought process is coherent and no delusional themes are evident. She describes her mood as moderately depressed. Affect is anxious. She denies active suicidal thoughts, plan, or intents. ASSESSMENT: 1. Major depressive disorder. 2. Clostridium (C) difficile. PLAN: Patient will be reassessed next 24 hours. If there is a decrease in her gastrointestinal symptoms, specifically diarrhea, Wellbutrin will be restarted. Ongoing assessment and supportive therapy. [facility]
[2016-07-30] MEDS: metroNIDAZOLE (FLAGYL) 500 MG TAB PO SCH ×3 (06:18→21:09)
[2016-07-30 06:38] VITALS: BP 128/72
[2016-07-30] MEDS: CLOPIDOGREL 75 MG TAB PO SCH (08:58)
[2016-07-30] MEDS: PANTOPRAZOLE 40MG TAB (PROTONIX) PO SCH ×2 (08:58→20:40)
[2016-07-30] MEDS: ASPIRIN 81 MG ENTERIC TAB PO SCH (08:58)
[2016-07-30] MEDS: CARVedilol 6.25 MG TAB PO SCH ×2 (08:59→20:40)
[2016-07-30] MEDS: LORATADINE 10 MG TAB PO SCH (09:00)
[2016-07-30] MEDS ORDERED: REPATHA 140 MG/ML SC SCH (09:00)
[2016-07-30] MEDS: FIORICET TAB PO PRN (09:05)
[2016-07-30] MEDS: NYSTATIN 100,000 UNITS/GM TOPICAL PWD 15 GM TOP SCH ×2 (09:06→20:40)
[2016-07-30 18:44] VITALS: BP 126/84
[2016-07-30] MEDS: VALSARTAN 80 MG TAB (DIOVAN) PO SCH (20:40)
[2016-07-30] MEDS: traZODone 50 MG TAB PO PRN (20:40)
[2016-07-31] MEDS: metroNIDAZOLE (FLAGYL) 500 MG TAB PO SCH ×3 (06:29→22:38)
[2016-07-31 06:34] VITALS: BP 105/59
[2016-07-31] MEDS: LORATADINE 10 MG TAB PO SCH (08:47)
[2016-07-31] MEDS: NYSTATIN 100,000 UNITS/GM TOPICAL PWD 15 GM TOP SCH ×2 (08:52→22:38)
[2016-07-31] MEDS: PANTOPRAZOLE 40MG TAB (PROTONIX) PO SCH ×2 (08:52→22:36)
[2016-07-31] MEDS: CARVedilol 6.25 MG TAB PO SCH ×2 (08:52→22:37)
[2016-07-31] MEDS: ASPIRIN 81 MG ENTERIC TAB PO SCH (08:52)
[2016-07-31] MEDS: CLOPIDOGREL 75 MG TAB PO SCH (08:52)
[2016-07-31] MEDS ORDERED: LORATADINE 10 MG TAB PO PRN (10:15)
[2016-07-31] MEDS: LACTOBACILLUS ACIDOPHILUS CAP (BACID) PO SCH ×2 (10:22→22:36)
--- NOTE | 2016-07-31 11:17 | IPNPDOC ---
Assessment/Plan Date Seen The patient was seen on 07/31/16. Problems Problems: (1) C. difficile colitis Status: Acute Problem Text: * po Flagyl D3/14 * Bacid * Sx improving. * Update labs in AM. (2) Dermatophytosis of body Status: Chronic Problem Text: * Nystatin powder (3) Hypertension Onset Date: 03/20/2014 Status: Chronic Problem Text: * Diovan/Coreg with hold parameters (4) CAD (coronary artery disease) Status: Chronic Problem Text: * Coreg/ASA (5) Asthma Status: Chronic Problem Text: * Albuterol as needed. (6) Hiatal hernia Status: Chronic Problem Text: * Remains on Protonix Plan / VTE VTE Prophylaxis Ordered?: No (ambulatory) Subjective Review of Systems CC/HPI The patient is a 56-year-old female admitted with a reason for visit of Unspecified Depressive Disorder. Events since last encounter Pt states her Nausea is improved. Frequency of BM is less. Abdominal pain is improved. Overall feeling better. ENT: Reports: Head Aches Pulmonary: Denies: Cough, Dyspnea Cardiovascular: Denies: Chest Pain, Lt Headedness, Orthopnea, Palpitations, Paroxysmal Noc. Dyspnea Gastrointestinal: Reports: Abdominal Pain, Diarrhea, Nausea, Denies: Constipation, Hematochezia, Melena, Other Symptoms, Vomiting Genitourinary: Reports: Dysuria (mild, comes and goes. ), Denies: Frequency, Hematuria, Incontinence, Other Symptoms, Retention Objective Physical Examination General Exam: Positive: Alert Eye Exam: Positive: PERRLA Neck Exam: Positive: Supple Chest Exam: Positive: Clear to auscultation, Normal air movement Heart Exam: Positive: Normal S1, Normal S2, Rate Normal, Regular Rhythm, Negative: Murmurs, Rubs Abdomen Exam: Positive: Normal bowel sounds, Negative: BS Hyperactive, BS Hypoactive, Hepatospenomegaly, Hernia, Mass, Other, Soft, Tenderness Skin Exam: Positive: Nl turgor and temperature, Other skin issue (there i currently mild redness in abdominal fold. ) Vital Signs/I&O Vital Signs Date Time Temp Pulse Resp B/P Pulse Ox O2 Delivery O2 Flow Rate FiO2 07/31/16 08:52 64 105/67 07/31/16 06:34 98.4 18 07/29/16 18:00 Room Air Laboratory Data Microbiology Microbiology 07/28/16 Gastrointestinal Tract Panel (PCR) - Final, Complete Clostridium Difficile A/B Sheryl Alexander Jul 31, 2016 11:17
[2016-07-31 18:32] VITALS: BP 108/64
--- NOTE | 2016-07-31 19:11 | IPN ---
DATE: 07/31/2016 TREATMENT: The patient is seen and reassessed on her seventh day of inpatient hospital admission. She currently is not on any psychiatric medication. Although previously on venlafaxine the medication was discontinued because of concerns that the patient's diarrhea was related partially to the medication. However she was diagnosed with Clostridium difficile and has since been receiving treatment for same. Her diarrhea has decreased substantially. However, the patient reports worsening depression and anxiety and requests that her medication be restarted. OBSERVATIONS: Blood pressure 105/59, pulse 91, respirations 18, and temperature 98.4. She is noted to be seated mostly on her bed. Part of being isolated due to C. difficile infection. Her mood is depresed, however she denies suicidal or homicidal thoughts, plan or intent at this time. She expressed concerns of worsening anxiety. No psychotic features evident. ASSESSMENT: Major depressive disorder. Currently symptomatic. PLAN: Patient will be restarted on her medication venlafaxine extended release 75 mg orally daily. Ongoing assessment and supportive therapy. MTDD
[2016-07-31] MEDS: VALSARTAN 80 MG TAB (DIOVAN) PO SCH (22:38)
[2016-08-01] MEDS: LORazepam 0.5 MG TAB PO PRN (01:32)
[2016-08-01] MEDS: FIORICET TAB PO PRN (01:35)
[2016-08-01 06:07] VITALS: BP 145/88
[2016-08-01] MEDS: metroNIDAZOLE (FLAGYL) 500 MG TAB PO SCH ×3 (06:25→20:39)
[2016-08-01 07:20] LABS: MEAN CORPUSCULAR HEMOGLOBIN 28.8 pg (27.0-33.0); MEAN CORPUSCULAR HGB CONC 32.3 g/dl (32.0-36.5); RED CELL DISTRIBUTION WIDTH 17.3 % (11.5-14.5); WHITE BLOOD COUNT 6.6 K/mm3 (4.0-10.0)
[2016-08-01 07:52] LABS: CALCIUM LEVEL 9.1 MG/DL (8.5-10.1); CREATININE FOR GFR 1.17 MG/DL (0.55-1.02); GLOMERULAR FILTRATION RATE 50.9 (>51); POTASSIUM SERUM 4.6 MEQ/L (3.5-5.1)
[2016-08-01] MEDS: NYSTATIN 100,000 UNITS/GM TOPICAL PWD 15 GM TOP SCH ×2 (08:17→20:40)
[2016-08-01] MEDS: ASPIRIN 81 MG ENTERIC TAB PO SCH (08:17)
[2016-08-01] MEDS: VENLAFAXINE **XR** 75MG CAPSULE PO SCH (08:17)
[2016-08-01] MEDS: LACTOBACILLUS ACIDOPHILUS CAP (BACID) PO SCH ×2 (08:17→20:39)
[2016-08-01] MEDS: CLOPIDOGREL 75 MG TAB PO SCH (08:18)
[2016-08-01] MEDS: CARVedilol 6.25 MG TAB PO SCH ×2 (08:18→20:39)
[2016-08-01] MEDS: PANTOPRAZOLE 40MG TAB (PROTONIX) PO SCH ×2 (08:18→20:39)
[2016-08-01 09:57] LABS: CALCIUM LEVEL 9.3 MG/DL (8.5-10.1); CREATININE FOR GFR 1.1 MG/DL (0.55-1.02); GLOMERULAR FILTRATION RATE 54.7 (>51); POTASSIUM SERUM 4.7 MEQ/L (3.5-5.1)
--- NOTE | 2016-08-01 12:11 | IPNPDOC ---
Assessment/Plan Date Seen The patient was seen on 08/01/16. Problems Problems: (1) C. difficile colitis Status: Acute Problem Text: * po Flagyl D4/14 * Bacid * Sx improving. * BMP AM. (2) Dermatophytosis of body Status: Chronic Problem Text: * Nystatin powder (3) Hypertension Onset Date: 03/20/2014 Status: Chronic Problem Text: * Diovan/Coreg with hold parameters (4) CAD (coronary artery disease) Status: Chronic Problem Text: * Coreg/ASA (5) Asthma Status: Chronic Problem Text: * Albuterol as needed. (6) Hiatal hernia Status: Chronic Problem Text: * Remains on Protonix Plan / VTE VTE Prophylaxis Ordered?: No (ambulatory) Subjective Review of Systems CC/HPI The patient is a 56-year-old female admitted with a reason for visit of Unspecified Depressive Disorder. Events since last encounter Patient states she is feeling better. She is drinking fluids and tolerating diet. Abdominal pain is improved. Frequency of bowel movements decreasing. Stools are soft. Pulmonary: Denies: Cough, Dyspnea Cardiovascular: Denies: Chest Pain, Lt Headedness, Orthopnea, Palpitations, Paroxysmal Noc. Dyspnea Genitourinary: Denies: Dysuria, Frequency, Incontinence, Retention Objective Physical Examination General Exam: Positive: Alert Eye Exam: Positive: PERRLA Neck Exam: Positive: Supple Chest Exam: Positive: Clear to auscultation, Normal air movement Heart Exam: Positive: Normal S1, Normal S2, Rate Normal, Regular Rhythm, Negative: Murmurs, Rubs Abdomen Exam: Positive: Normal bowel sounds, Negative: BS Hyperactive, BS Hypoactive, Hepatospenomegaly, Hernia, Mass, Other, Soft, Tenderness Skin Exam: Positive: Nl turgor and temperature, Other skin issue (there i currently mild redness in abdominal fold. ) Vital Signs/I&O Vital Signs Date Time Temp Pulse Resp B/P Pulse Ox O2 Delivery O2 Flow Rate FiO2 08/01/16 08:18 62 136/81 08/01/16 06:07 96.7 20 07/29/16 18:00 Room Air Laboratory Data Labs 24H Laboratory Tests 2 08/01/16 07:07: Anion Gap 12, Blood Urea Nitrogen 36H, Creatinine 1.17H, Sodium Level 141, Potassium Level 4.6, Chloride Level 109H, Carbon Dioxide Level 20L, Calcium Level 9.1, Glomerular Filtration Rate 50.9L 08/01/16 09:17: Anion Gap 12, Blood Urea Nitrogen 35H, Creatinine 1.10H, Sodium Level 143, Potassium Level 4.7, Chloride Level 110H, Carbon Dioxide Level 21, Calcium Level 9.3, Glomerular Filtration Rate 54.7 CBC/BMP Laboratory Tests 08/01/16 07:07 Calcium Level 9.1, Red Blood Count 4.71, Mean Corpuscular Volume 89.0, Mean Corpuscular Hemoglobin 28.8, Mean Corpuscular Hemoglobin Concent 32.3, Red Cell Distribution Width 17.3 H 08/01/16 09:17 Calcium Level 9.3 Microbiology Microbiology 07/28/16 Gastrointestinal Tract Panel (PCR) - Final, Complete Clostridium Difficile A/B 07/31/16 Urine Culture, Received Pending Sheryl Alexander Aug 01, 2016 12:11
--- NOTE | 2016-08-01 16:01 | IPN ---
DATE: Day number eight of inpatient hospital admission. TREATMENT: The patient is seen and her treatment reviewed. She was restarted a day ago on her venlafaxine XR 75 mg orally daily for treatment of depressive symptoms. She reports today that she took the medication and is experiencing no side effects. She continues to be treated for Clostridium (C) difficile and was seen today and reassessed by the medical physician personal care assistant. The patient presents with no major complaints, other than she still reports occasional depressive symptoms and trouble sleeping. CURRENT MEDICATIONS: - venlafaxine XR 75 mg orally daily - aspirin 81 mg daily - carvedilol 6.25 mg twice a day - Plavix 75 mg daily - Nystatin one dose twice a day - Protonix 40 mg twice a day - valsartan 160 mg at bedtime - metronidazole 500 mg every eight hours - Bacid one twice a day OBSERVATION: Blood pressure 145/68, pulse 80, respiratory rate 20, temperature 96.7. She is noted to be cooperative and fairly groomed. Mood is depressed. Affect is constricted. No psychotic features evident. She denies suicidal or homicidal thoughts, plan or intent. She also denies medication-related side effects. ASSESSMENT: Major depressive disorder. Patient restarted on her venlafaxine and will be monitored. PLAN: Current treatment will be continued with ongoing reviews. [facility]
[2016-08-01 18:00] VITALS: BP 130/80
[2016-08-01] MEDS: traZODone 50 MG TAB PO PRN (20:39)
[2016-08-01] MEDS: VALSARTAN 80 MG TAB (DIOVAN) PO SCH (20:39)
[2016-08-02] MEDS: metroNIDAZOLE (FLAGYL) 500 MG TAB PO SCH ×3 (06:13→21:49)
[2016-08-02 06:48] VITALS: BP 108/64
[2016-08-02] MEDS: CARVedilol 6.25 MG TAB PO SCH ×2 (08:11→21:52)
[2016-08-02] MEDS: NYSTATIN 100,000 UNITS/GM TOPICAL PWD 15 GM TOP SCH ×2 (08:11→21:00)
[2016-08-02] MEDS: ASPIRIN 81 MG ENTERIC TAB PO SCH (08:11)
[2016-08-02] MEDS: PANTOPRAZOLE 40MG TAB (PROTONIX) PO SCH ×2 (08:11→21:50)
[2016-08-02] MEDS: LACTOBACILLUS ACIDOPHILUS CAP (BACID) PO SCH ×2 (08:11→21:50)
[2016-08-02] MEDS: VENLAFAXINE **XR** 75MG CAPSULE PO SCH (08:11)
[2016-08-02] MEDS: CLOPIDOGREL 75 MG TAB PO SCH (08:11)
[2016-08-02 08:19] LABS: CALCIUM LEVEL 9.7 MG/DL (8.5-10.1); CREATININE FOR GFR 1.19 MG/DL (0.55-1.02)
[2016-08-02 18:00] VITALS: BP 119/72
--- NOTE | 2016-08-02 19:39 | IPN ---
DATE: 08/02/2016 Day nine of inpatient hospitalization. CURRENT MEDICATIONS: -venlafaxine XR 75 mg orally daily - aspirin 81 mg daily - carvedilol 6.25 mg twice a day - Plavix 75 mg daily - Nystatin one dose twice a day - Protonix 40 mg twice a day - valsartan 160 mg at bedtime - metronidazole 500 mg every eight hours - Bacid one twice a day She continues to tolerate her medications and states today that she is feeling better and did not experience any significant diarrhea since started back on her venlafaxine XR. She continues to be followed by the medical physician assistant therapy aide for management of Clostridium difficile and has been showing notable progress in treatment. No new problems reported and no medication-related adverse events. OBSERVATION: Blood pressure 128/64, pulse 74, respirations 18, and temperature 98.2. She is noted to be alert, calm, cooperative, fairly groomed. Appeared not to be in distress. Her mood is notably less depressed and affect is appropriate. She denies suicidal or homicidal thoughts, plan or intent, and no evidence of psychosis. ASSESSMENT: The patient is responding well to treatment and currently does not appear to be at imminent risks of danger to self. PLAN: Continue her current medication. Given that venlafaxine was just restarted two days prior, it will be necessary to continue medication and reassess her progress to ensure that medication is well tolerated and she remains relatively stable. Ongoing assessment and supportive therapy. [facility]
[2016-08-02] MEDS: VALSARTAN 80 MG TAB (DIOVAN) PO SCH (21:49)
[2016-08-02] MEDS: traZODone 50 MG TAB PO PRN (21:49)
[2016-08-02] MEDS: LORazepam 0.5 MG TAB PO PRN (21:50)
[2016-08-02] MEDS: FIORICET TAB PO PRN (21:50)
[2016-08-03] MEDS: metroNIDAZOLE (FLAGYL) 500 MG TAB PO SCH ×3 (05:57→21:27)
[2016-08-03 06:00] VITALS: BP 98/60
[2016-08-03 07:18] LABS: ALBUMIN 3.4 GM/DL (3.2-5.2); ALBUMIN/GLOBULIN RATIO 1.03 (1.00-1.93); BILIRUBIN,TOTAL 0.2 MG/DL (0.2-1.0); CALCIUM LEVEL 9.1 MG/DL (8.5-10.1); CREATININE FOR GFR 1.08 MG/DL (0.55-1.02); GLOMERULAR FILTRATION RATE 55.9 (>51); POTASSIUM SERUM 4.9 MEQ/L (3.5-5.1); TOTAL PROTEIN 6.7 GM/DL (6.4-8.2)
[2016-08-03] MEDS: ASPIRIN 81 MG ENTERIC TAB PO SCH (08:21)
[2016-08-03] MEDS: CLOPIDOGREL 75 MG TAB PO SCH (08:21)
[2016-08-03] MEDS: PANTOPRAZOLE 40MG TAB (PROTONIX) PO SCH ×2 (08:21→21:25)
[2016-08-03] MEDS: VENLAFAXINE **XR** 75MG CAPSULE PO SCH (08:21)
[2016-08-03] MEDS: LACTOBACILLUS ACIDOPHILUS CAP (BACID) PO SCH ×2 (08:23→21:26)
[2016-08-03] MEDS: NYSTATIN 100,000 UNITS/GM TOPICAL PWD 15 GM TOP SCH ×2 (08:23→21:25)
[2016-08-03] MEDS: CARVedilol 6.25 MG TAB PO SCH ×2 (08:23→21:26)
--- NOTE | 2016-08-03 10:14 | IPNPDOC ---
Assessment/Plan Date Seen The patient was seen on 08/03/16. Problems Problems: (1) C. difficile colitis Status: Acute Problem Text: * po Flagyl D6/14 * Bacid * Sx improving. * BMP AM. (2) Dermatophytosis of body Status: Chronic Problem Text: * Nystatin powder (3) Hypertension Onset Date: 03/20/2014 Status: Chronic Problem Text: * Diovan/Coreg with hold parameters * BP decreased to 98/60 this AM. * Pt states fatigued but does not report lightheadedness, dizziness or presyncopal symptoms. * Patient has been taking trazodone 50 mg at bedtime 08/01, 08/02. This can contribute to orthostasis. * Request orthostatic vital signs. * Continue Coreg with hold parameters 6.25 mg twice a day * Reduce Diovan to 80 mg at bedtime with hold parameters. (4) CAD (coronary artery disease) Status: Chronic Problem Text: * Coreg/ASA (5) Asthma Status: Chronic Problem Text: * Albuterol as needed. (6) Hiatal hernia Status: Chronic Problem Text: * Remains on Protonix Plan / VTE VTE Prophylaxis Ordered?: No (ambulatory) Subjective Review of Systems CC/HPI The patient is a 56-year-old female admitted with a reason for visit of Unspecified Depressive Disorder. Events since last encounter pt states she is doing better. Tolerating regular diet. Denies abdominal pain. Occasional nausea in a.m. otherwise no nausea or vomiting. Frequency of bowel movements is much less and bowel movements have been formed. One to 3 bowel movements per day currently. ENT: Denies: Dysphagia, Ear Pain, Head Aches Pulmonary: Denies: Cough, Dyspnea Cardiovascular: Denies: Chest Pain, Lt Headedness, Orthopnea, Palpitations, Paroxysmal Noc. Dyspnea Genitourinary: Denies: Dysuria, Frequency, Incontinence, Retention Objective Physical Examination General Exam: Positive: Alert Eye Exam: Positive: PERRLA Neck Exam: Positive: Supple Chest Exam: Positive: Clear to auscultation, Normal air movement Heart Exam: Positive: Normal S1, Normal S2, Rate Normal, Regular Rhythm, Negative: Murmurs, Rubs Abdomen Exam: Positive: Normal bowel sounds, Negative: BS Hyperactive, BS Hypoactive, Hepatospenomegaly, Hernia, Mass, Other, Soft, Tenderness Skin Exam: Positive: Nl turgor and temperature, Other skin issue (there i currently mild redness in abdominal fold. ) Vital Signs/I&O Vital Signs Date Time Temp Pulse Resp B/P Pulse Ox O2 Delivery O2 Flow Rate FiO2 08/03/16 08:23 81 111/65 08/03/16 06:00 98.3 16 07/29/16 18:00 Room Air Laboratory Data Labs 24H Laboratory Tests 2 08/03/16 06:23: Blood Urea Nitrogen 32H, Creatinine 1.08H, Sodium Level 142, Potassium Level 4.9 , Chloride Level 110H, Carbon Dioxide Level 25, Calcium Level 9.1, Aspartate Amino Transf (AST/SGOT) 11L, Alanine Aminotransferase (ALT/SGPT) 25, Alkaline Phosphatase 89, Total Bilirubin 0.2, Total Protein 6.7, Albumin 3.4, Albumin/ Globulin Ratio 1.03, Anion Gap 7L, Glomerular Filtration Rate 55.9 CBC/BMP Laboratory Tests 08/03/16 06:23 Calcium Level 9.1, Aspartate Amino Transf (AST/SGOT) 11 L, Alanine Aminotransferase (ALT/SGPT) 25, Alkaline Phosphatase 89, Total Bilirubin 0.2, Total Protein 6.7, Albumin 3.4 Microbiology Microbiology 07/28/16 Gastrointestinal Tract Panel (PCR) - Final, Complete Clostridium Difficile A/B 07/31/16 Urine Culture - Final, Complete Sheryl Alexander Aug 03, 2016 10:14
[2016-08-03] MEDS ORDERED: FLAG500T PO (10:23)
[2016-08-03] MEDS ORDERED: RISATAB3 PO (10:23)
--- NOTE | 2016-08-03 13:22 | IPN ---
DATE: 08/03/2016 Tenth day of inpatient hospitalization. TREATMENT: Current medications venlafaxine XR 75 mg orally daily, aspirin 81 mg daily, carvedilol 6.25 mg twice a day, Plavix 75 mg daily, Nystatin one dose twice a day, Protonix 40 mg twice a day, valsartan 160 mg at bedtime, metronidazole 500 mg every 8 hours, Bacid one twice a day. The patient is seen and her treatment reviewed. She states that she feels better and is experiencing no depressive symptoms. She denies any active thoughts or plan of suicide. She says she is currently experiencing no medication side effects. On observation, her vital signs are stable. She is alert, adequately oriented, calm and cooperative. No abnormal movements noted. Her speech is fluent. Thought process is coherent and goal directed. No psychotic features evident. Her mood is significantly less depressed and affect is appropriate. She denies active thoughts, plan or intent of suicide or homicide. ASSESSMENT: Depression has improved notably and she currently does not appear to be at risk of danger to self or others. She continues to be treated for Clostridium difficile by the medical physician dental assistant instructor. PLAN: She will continue on the current treatment and will reassess in 24 hours. If stable, she will be discharged with appropriate followup plan. TAMEKA
[2016-08-03 18:00] VITALS: BP 110/78
[2016-08-03] MEDS ORDERED: VALSARTAN 80 MG TAB (DIOVAN) PO SCH (21:00)
[2016-08-03] MEDS: traZODone 50 MG TAB PO PRN (21:28)
[2016-08-03] MEDS: FIORICET TAB PO PRN (21:29)
[2016-08-04] MEDS: metroNIDAZOLE (FLAGYL) 500 MG TAB PO SCH ×2 (06:04→14:58)
[2016-08-04 06:11] VITALS: BP 113/64
[2016-08-04 06:25] VITALS: BP_SYST 104; BP_SYST 106; BP_SYST 108; BP_DIAS 62; BP_DIAS 68; BP_DIAS 78
[2016-08-04 07:13] LABS: CALCIUM LEVEL 9.1 MG/DL (8.5-10.1); CREATININE FOR GFR 1.1 MG/DL (0.55-1.02); GLOMERULAR FILTRATION RATE 54.7 (>51); POTASSIUM SERUM 4.8 MEQ/L (3.5-5.1)
[2016-08-04 08:19] VITALS: BP 119/70
[2016-08-04 08:20] VITALS: BP 119/70
[2016-08-04] MEDS: CLOPIDOGREL 75 MG TAB PO SCH (08:20)
[2016-08-04] MEDS: LACTOBACILLUS ACIDOPHILUS CAP (BACID) PO SCH (08:20)
[2016-08-04] MEDS: ASPIRIN 81 MG ENTERIC TAB PO SCH (08:20)
[2016-08-04] MEDS: VENLAFAXINE **XR** 75MG CAPSULE PO SCH (08:20)
[2016-08-04] MEDS: NYSTATIN 100,000 UNITS/GM TOPICAL PWD 15 GM TOP SCH (08:20)
[2016-08-04] MEDS: CARVedilol 6.25 MG TAB PO SCH (08:20)
[2016-08-04] MEDS: PANTOPRAZOLE 40MG TAB (PROTONIX) PO SCH (08:20)
[2016-08-04] MEDS ORDERED: ALBU17IN INH (08:31)
--- NOTE | 2016-08-04 08:41 | IPNPDOC ---
Assessment/Plan Date Seen The patient was seen on 08/04/16. Problems Problems: (1) C. difficile colitis Status: Acute Problem Text: * po Flagyl D7/14 * Bacid * Sx improving. * Serum creatinine 1.10 * Plan for outpatient follow-up. * Patient is aware to finish entire course of antibiotics * Call PCP with any change in symptoms status, abdominal pain, recurrent diarrhea. (2) Dermatophytosis of body Status: Chronic Problem Text: * Nystatin powder (3) Hypertension Onset Date: 03/20/2014 Status: Chronic Problem Text: * Diovan/Coreg with hold parameters * Orthostatic vital signs completed yesterday, stable. * Continue Coreg with hold parameters 6.25 mg twice a day * Reduced Diovan to 80 mg at bedtime with hold parameters. * Continue until outpatient follow-up with PCP (4) CAD (coronary artery disease) Status: Chronic Problem Text: * Coreg/ASA (5) Asthma Status: Chronic Problem Text: * Albuterol as needed. (6) Hiatal hernia Status: Chronic Problem Text: * Remains on Protonix Plan / VTE VTE Prophylaxis Ordered?: No (ambulatory) Subjective Review of Systems CC/HPI The patient is a 56-year-old female admitted with a reason for visit of Unspecified Depressive Disorder. Events since last encounter Patient is anticipating discharge today as per psychiatry. Tolerating by mouth. No nausea or vomiting. No Dizziness. Between 1 and 3 bowel movements per day, soft. Pulmonary: Denies: Cough, Dyspnea Cardiovascular: Denies: Chest Pain, Lt Headedness, Orthopnea, Palpitations, Paroxysmal Noc. Dyspnea Genitourinary: Denies: Dysuria, Frequency, Incontinence, Retention Objective Physical Examination General Exam: Positive: Alert Eye Exam: Positive: PERRLA Neck Exam: Positive: Supple Chest Exam: Positive: Clear to auscultation, Normal air movement Heart Exam: Positive: Normal S1, Normal S2, Rate Normal, Regular Rhythm, Negative: Murmurs, Rubs Abdomen Exam: Positive: Normal bowel sounds, Negative: BS Hyperactive, BS Hypoactive, Hepatospenomegaly, Hernia, Mass, Other, Soft, Tenderness Skin Exam: Positive: Nl turgor and temperature, Other skin issue (there i currently mild redness in abdominal fold. ) Vital Signs/I&O Vital Signs Date Time Temp Pulse Resp B/P Pulse Ox O2 Delivery O2 Flow Rate FiO2 1/13/17 08:20 77 119/70 08/04/16 06:11 98.0 19 07/29/16 18:00 Room Air Laboratory Data Labs 24H Laboratory Tests 2 08/04/16 06:24: Anion Gap 7L, Blood Urea Nitrogen 28H, Creatinine 1.10H, Sodium Level 141, Potassium Level 4.8, Chloride Level 105, Carbon Dioxide Level 29, Calcium Level 9.1, Glomerular Filtration Rate 54.7 CBC/BMP Laboratory Tests 08/04/16 06:24 Calcium Level 9.1 Microbiology Microbiology 07/28/16 Gastrointestinal Tract Panel (PCR) - Final, Complete Clostridium Difficile A/B 07/31/16 Urine Culture - Final, Complete Sheryl Alexander Aug 04, 2016 08:41
[2016-08-04] MEDS ORDERED: VENL75CA PO (10:41)
--- NOTE | 2016-08-04 11:19 | MHDS ---
DATE OF ADMISSION: 07/25/2016 DATE OF DISCHARGE: 08/04/2016 HISTORY: Ms. Oscar is a 56-year-old Stateless woman who was referred to the emergency department for evaluation because she had a panic attack while at an appointment with her therapist. She also did express suicidal ideation at the time. She has a history of depression that dates back to four or five years ago. Her depression in recent times has worsened since her from cancer two years prior. She felt helpless and was experiencing panic attacks. She had trouble sleeping at night and felt like life was not worth living. She had frequent crying spells, poor appetite, difficulty concentrating , and no longer enjoyed pleasurable activities, including piano that she loved playing. She also reported multiple stressors, including frequently relocating and myocardial infarction that she suffered back in February and was transferred down to [facility] where she received four stents. PAST PSYCHIATRIC HISTORY: The patient has been on Prozac for about 7 years. She felt that it no longer was effective. She took it for a while and stopped because it did cause her insomnia. She was in treatment starting in [place] for a number of years, back about twelve years prior. Zoloft made her feel sloppy. She has previously been on several antidepressants, but could not remember the names. She was diagnosed with obsessive compulsive disorder (OCD) 25 years ago when she was at an [employer] in [place]. MEDICAL HISTORY: Notable for fatty liver and polycythemia. She also has a history of migraines, coronary artery disease, vertigo and polycystic ovarian syndrome. ALLERGIES: To all the PRILs. LEGAL HISTORY: No pertinent problems reported. SUBSTANCE ABUSE HISTORY: Denies. Please refer to admission history and physical for social and family related histories. HOSPITAL COURSE: On admission, she was noted to be alert and oriented, cooperative, and adequately groomed. She was notably tearful and expressed positive suicidal ideation with no actual plan. No evidence of psychosis. She was noted to be quite anxious and did experience a recent panic attack. She had some obsessions about rituals. Her insight and judgment were noted to be fair. Mood was depressed. ADMISSION DIAGNOSES: Major depression, recurrent, of moderate severity. Panic anxiety disorder. Obsessive compulsive disorder. Generalized anxiety disorder. For treatment, she was started on Effexor extended release 37.5 mg orally daily for management of her depressive symptoms. She also received as needed trazodone for sleep. In addition, she received group, individual and activity therapies. Over the course of her stay, she continued to report depressive symptoms and occasional feelings of anxiety. As a result, her Effexor was further increased to 75 mg daily. She tolerated the medication and participated actively in group and individual therapies. However, she subsequently began to experience diarrhea for which she was evaluated. Laboratory findings revealed that she had Clostridium difficile infection. Her Effexor was temporarily withheld as it was thought that it contributed to worsening of her diarrhea. She was successfully treated for the C. Difficile infection and her Effexor was restarted at the same dose of 75 mg. She continued to tolerate the medication and reported no further symptoms. Her mood improved significantly and she no longer reported thoughts of suicide. MENTAL STATUS EXAMINATION ON DISCHARGE: Client is noted to be calm. She is adequately groomed and dressed. No involuntary movements noted. Her speech is of normal volume, rate and rhythm. Her thought process is coherent and goal directed. There is no evidence of delusions or ideas of reference. Her mood is noted to have improved significantly. She denies active thoughts, plan or intent of suicide and no homicidal ideation noted. ASSESSMENT: She is noted to have improved significantly and does not appear to pose risk of imminent danger to self or others. No medication related adverse events. DISCHARGE DIAGNOSES: Major depressive disorder, unspecified. Anxiety disorder. DISCHARGE MEDICATION: - venlafaxine SR 75 mg orally daily The patient is instructed about the need to continue her medications on discharge and to followup with her mental health provider within 5 to 7 days of discharge. TAMEKA
[2016-08-04] MEDS ORDERED: CLAR1TAB2 PO (15:24)
== END 2016-08-04 16:30 | disposition home or self-care (01) | DRG 885 ==
LOC: M ED 12:07 → M ED INP 23:03 → M PSY 07-26 00:14
PROVIDERS: ADMIT Psychiatry & Neurology Psychiatry; ATTEND Psychiatry & Neurology Psychiatry
DX: F33.1 Major depressive disorder, recurrent, moderate (principal); A04.7 Enterocolitis due to Clostridium difficile; F41.0 Panic disorder [episodic paroxysmal anxiety]; F42.9 Obsessive-compulsive disorder, unspecified; F41.1 Generalized anxiety disorder; K76.0 Fatty (change of) liver, not elsewhere classified; D75.1 Secondary polycythemia; G43.909 Migraine, unspecified, not intractable, without status migrainosus; I25.10 Atherosclerotic heart disease of native coronary artery without angina pectoris; E28.2 Polycystic ovarian syndrome; I25.2 Old myocardial infarction; K44.9 Diaphragmatic hernia without obstruction or gangrene; J45.909 Unspecified asthma, uncomplicated; E11.9 Type 2 diabetes mellitus without complications; K21.9 Gastro-esophageal reflux disease without esophagitis; I10 Essential (primary) hypertension; B35.6 Tinea cruris; Z95.5 Presence of coronary angioplasty implant and graft; Z79.899 Other long term (current) drug therapy

== ENCOUNTER 2016-08-15 15:53 | Emergency (ER) | payer OTHER ==
[~2016-08-15 15:53] MED LIST changes: +ALBU17IN INH; +ATIV1TAB10 PO; +CLAR1TAB2 PO; +FLAG500T PO; -PLAV75TA PO; +PLAV75TA38 PO; +REPA1.7I SC; +RISATAB3 PO; +VENL75CA PO
[2016-08-15 17:52] LABS: MEAN CORPUSCULAR HGB CONC 32.9 g/dl (32.0-36.5); MEAN CORPUSCULAR VOLUME 88.3 fl (80.0-96.0); RED CELL DISTRIBUTION WIDTH 17.6 % (11.5-14.5); WHITE BLOOD COUNT 8.3 K/mm3 (4.0-10.0)
[2016-08-15 18:08] LABS: AMPHETAMINES LEVEL URINE NEGATIVE (NEGATIVE); BENZODIAZEPINES URINE NEGATIVE (NEGATIVE)
[2016-08-15 18:09] LABS: COCAINE METABOLITE URINE NEGATIVE (NEGATIVE); CONTROL LINE INT CTR LINE PRESENT; METHADONE URINE NEGATIVE (NEGATIVE); OPIATES URINE NEGATIVE (NEGATIVE); TRICYCLIC ANTIDEPRESS URINE NEGATIVE (NEGATIVE)
[2016-08-15 18:11] LABS: ALBUMIN 3.5 GM/DL (3.2-5.2); ALBUMIN/GLOBULIN RATIO 1.03 (1.00-1.93); ALKALINE PHOSPHATASE 68 U/L (45-117); ALT/SGPT 31 U/L (12-78); ANION GAP 11 MEQ/L (8-16); AST/SGOT 12 U/L (15-37); BILIRUBIN,DIRECT 0.2 MG/DL (0.0-0.2); BILIRUBIN,TOTAL 0.6 MG/DL (0.2-1.0); BLOOD UREA NITROGEN 10 MG/DL (7-18); CALCIUM LEVEL 8.7 MG/DL (8.5-10.1); CARBON DIOXIDE LEVEL 26 MEQ/L (21-32); CHLORIDE LEVEL 106 MEQ/L (98-107); CREATININE FOR GFR 0.81 MG/DL (0.55-1.02); GLOMERULAR FILTRATION RATE > 60.0 (>51); GLUCOSE, FASTING 81 MG/DL (70-105); POTASSIUM SERUM 3.7 MEQ/L (3.5-5.1); SODIUM LEVEL 143 MEQ/L (136-145); TOTAL PROTEIN 6.9 GM/DL (6.4-8.2)
[2016-08-15] MEDS ORDERED: ALPRAZolam 0.25 MG TAB As Ordered ONE (18:19)
--- NOTE | 2016-08-15 20:19 | EDDOCDS ---
Nurse's Notes [facility] Name: Janell Oscar Age: 56 yrs Sex: Female : 1960 Arrival Date: 08/15/2016 Time: 15:53 Bed 15 Private [place] [facility] [place]: Anxiety disorder, unspecified Presentation: 08/15 15:57 Presenting complaint: Daughter reports that Dr. Danni Gamboa from [place] has told her to [facility] report to ED for evaluation of seizures after being taken off Ativan 0.5 on August 02, 2016. Pt reports she is having tremors and difficulty walking after being taken off her previous meds. Pt is rambling and anxious in triage area. Pt states she is having night sweats and is increasingly anxious. Pt. is difficult to follow, speech is rambling. 16:02 Presenting complaint:. Presenting complaint:. Adult Sepsis Screening: Patient has new lf1 or worsening altered mentation (1 point). Patient's respiratory rate is less than 22. Systolic blood pressure is greater than 100. Patient has a qSOFA score of 1- Negative Sepsis Screen. Suicide/Homicide risk assessment- the patient denies having any suicidal and/or homicidal ideations and does not present with any other emotional, behavioral or mental health complaints. Status: The patient is a dependent. Transition of care: patient was not received from another setting of care. 16:02 Acuity: AZEB Level 3 lf1 16:02 Method Of Arrival: Walkin/Carried/Asstd lf1 Triage Assessment: 16:10 General: Appears obese, Behavior is anxious, restless. Pain: Denies pain. HIV screening lf1 NA for this visit Offered previously. Neurological: Level of Consciousness is awake, alert, obeys commands, Oriented to person, place, time, Speech rambling. EENT: No deficits noted. Respiratory: Respiratory effort is even, unlabored. GI: Denies nausea, vomiting. Derm: Skin is normal. Injury Description: No known injury. Historical: - Allergies: cant have anything that ends in "pril"; - Home Meds: 1. Plavix 75 mg Oral tab 1 tab once daily (Last dose: 08/15/2016 08:00) 2. buspirone 10 mg Oral tab 1 tab 3 times per day (Last dose: 08/15/2016 15:00) 3. carvedilol 6.25 mg oral tab 2 times per day (Last dose: 08/15/2016 08:00) 4. aspirin 81 mg Oral tab 1 tab once daily (Last dose: 08/15/2016 08:00) 5. valsartan 80 mg oral tab once daily (Last dose: 08/14/2016 20:00) 6. pantoprazole 40 mg oral tab 1 tab 2 times per day (Last dose: 08/15/2016 07:00) - PMHx: Anxiety; Asthma; Depression; Diabetes - NIDDM: controlled; ''Diet controlled DM''; GERD; Hypercholesterolemia; Hypertension; Migraines; Myocardial infarction; OCD; polycythemia; Vertigo; - PSHx: Cardiac stents (2015); ; Cholecystectomy; Breast Reduction; - Social history: Smoking status: Patient states was never smoker of tobacco. No barriers to communication noted, The patient speaks fluent Latvian, Speaks appropriately for age, Preferred Language: Latvian. - Family history: Not pertinent. - : The pt / caregiver states he / she is on anticoagulants: Plavix. Home medication list is obtained from family members. - Exposure Risk Screening:: None identified. Screenin:11 Screening information is obtained from the patient. Fall risk: No risks identified. lf1 Fall risk: At risk due to gait disturbance. Assistance ADL's: requires no assistance with activities of daily living. Abuse/DV Screen: The patient / caregiver reports he/she is: not in a situation that causes fear, pain or injury. Nutritional screening: On no prescribed diet. Advance Directives: Currently, there is a health care proxy, Dalila Palumbo (Daughter). There is a living will. home support is adequate. Assessment: 17:39 General: Appears in no apparent distress, comfortable, Behavior is anxious, ck1 cooperative. Pain: Location: chest Quality of pain is described as pressure. Neurological: Level of Consciousness is awake, alert, obeys commands, Oriented to person, place, time. Cardiovascular: Chest pain quality is pressure, radiates back episodes are continuous. Respiratory: Airway is patent Respiratory effort is even, unlabored, Respiratory pattern is regular, symmetrical. GI: No deficits noted. Derm: Skin is pink, warm & dry. 18:37 General: Appears in no apparent distress, comfortable, Behavior is anxious, ck1 cooperative. Pain: Denies pain. Neurological: Level of Consciousness is awake, alert, obeys commands, Oriented to person, place, time. Cardiovascular: Rhythm is regular. Respiratory: Respiratory effort is unlabored, Respiratory pattern is regular, symmetrical. GI: No deficits noted. Derm: Skin is pink, warm & dry. 20:17 Reassessment: Patient appears in no apparent distress at this time. Patient denies pain cf2 at this time. Patient states feeling better. Patient states symptoms have improved. Adult Sepsis Screening: The patient does not have new or worsening altered mentation. Patient's respiratory rate is less than 22. Systolic blood pressure is greater than 100. Patient has a qSOFA score of 0- Negative Sepsis Screen. Vital Signs: 15:55 BP 139 / 97; Pulse 99; Resp 20; Temp 98.8(O); Pulse Ox 97% ; Weight 84.37 kg; Height 5 cmb ft. 0 in. (152.40 cm); Pain 0/10; 17:53 BP 135 / 87 (auto/); ck1 17:53 Pulse 76 MON; Pulse Ox 94% ; ck1 18:08 BP 137 / 88 (auto/); ck1 18:08 Pulse 78 MON; Pulse Ox 95% ; ck1 18:23 Pulse 78 MON; Pulse Ox 97% ; ck1 18:23 BP 143 / 88 (auto/); ck1 19:08 BP 143 / 91 (auto/); cf2 19:08 Pulse 82 MON; Pulse Ox 96% ; cf2 19:23 Pulse 82 MON; Pulse Ox 96% ; cf2 19:23 BP 145 / 86 (auto/); cf2 19:38 Pulse 78 MON; Pulse Ox 96% ; cf2 19:38 BP 138 / 73 (auto/); cf2 19:53 Pulse 78 MON; Pulse Ox 96% ; cf2 19:53 BP 137 / 76 (auto/); cf2 20:08 BP 137 / 77 (auto/); cf2 20:08 Pulse 76 MON; Pulse Ox 96% ; cf2 15:55 Body Mass Index 36.33 (84.37 kg, 152.40 cm) b Vitals: 15:55 Log In Time: August 15, 2016 at 15:53. [facility] ED Course: 15:54 Patient visited by Radha Pavon. b 15:54 Patient moved to Waiting cmb 15:55 [place] [facility] [place] Phys[place]. cmb 15:57 Patient moved to Pre RCE cmb 16:04 Triage Initiated lf1 16:19 Thalia Maria,BELLA is Primary Nurse. ck1 16:19 Patient moved to 15 ck1 16:22 Caterina Banks DO is PHCP. jo4 16:22 Jackie Nguyen MD is Attending Physician. jo4 16:30 Patient visited by Thalia Maria RN. ck1 16:37 Patient visited by Caterina Banks DO. jo4 16:38 Patient visited by Caterina Banks DO. jo4 17:30 Patient visited by Thalia Maria RN. ck1 17:38 Cardiac Injury Profile Sent. ck1 17:38 Troponin Sent. ck1 17:38 Acetaminophen Level Sent. ck1 17:38 Basic Metabolic Profile Sent. ck1 17:38 Complete Blood Count Sent. ck1 17:38 Ethyl Alcohol (ethanol) Sent. ck1 17:38 Liver Profile Sent. ck1 17:38 Salicylate Level Sent. ck1 17:38 Thyroid Stimulating Hormone Sent. ck1 17:39 The patient / caregiver is instructed regarding the plan of care and ED course. ck1 17:39 Inserted saline lock: 20 gauge in right antecubital area and blood collected. The ck1 patient tolerated the procedure well. 17:46 Drug Eval Toxicology ED Only Sent. ck1 17:47 EKG done. (by ED staff). Reviewed by Caterina Banks DO. dem1 17:55 groundwater monitoring technician on. Pulse ox on. NIBP on. dem1 17:56 Patient visited by Daniel Mccarthy. dem1 18:13 [facility] Payment Agreement was scanned into [employer] and attached to record. zo 18:30 Patient visited by Thalia Marai RN. ck1 18:55 Primary Nurse role handed off by Thalia Maria,BELLA ck1 19:04 Patient visited by Andrew Ardon PCA. kb5 19:05 Serenity Nath,BELLA is Primary Nurse. cf2 19:05 Patient visited by Serenity Nath,BELLA. cf2 19:14 [place] [facility] [place] Physician. sd1 19:17 Patient visited by Serenity Nath RN. cf2 20:17 Patient visited by Serenity Nath RN. cf2 20:17 No procedures done that require assistance. cf2 Administered Medications: 18:24 Drug: ALPRAZolam 0.25 mg [alprazolam 0.25 mg tablet (1 tabs)] Route: PO; ck1 Order Results: Lab Order: Acetaminophen Level; SPEC'M 08/15/16 17:37 Test: ACETAMINOPHEN LEVEL; Value: < 2.0; Range: 10.0-30.0; Abnormal: Below low normal; Units: UG/ML; Status: F Lab Order: Basic Metabolic Profile; SPEC'M 08/15/16 17:37 Test: GLUCOSE, FASTING; Value: 81; Range: 70-105; Units: MG/DL; Status: F Test: BLOOD UREA NITROGEN; Value: 10; Range: 7-18; Units: MG/DL; Status: F Test: CREATININE FOR GFR; Value: 0.81; Range: 0.55-1.02; Units: MG/DL; Status: F Test: GLOMERULAR FILTRATION RATE; Value: > 60.0; Range: >51; Status: F Test: SODIUM LEVEL; Value: 143; Range: 136-145; Units: MEQ/L; Status: F Test: POTASSIUM SERUM; Value: 3.7; Range: 3.5-5.1; Units: MEQ/L; Status: F Test: CHLORIDE LEVEL; Value: 106; Range: 98-107; Units: MEQ/L; Status: F Test: CARBON DIOXIDE LEVEL; Value: 26; Range: 21-32; Units: MEQ/L; Status: F Test: ANION GAP; Value: 11; Range: 8-16; Units: MEQ/L; Status: F Test: CALCIUM LEVEL; Value: 8.7; Range: 8.5-10.1; Units: MG/DL; Status: F Test Note: ; Units are mL/min/1.73 m2 Chronic Kidney Disease Staging per NKF: Stage I & II GFR >=60 Normal to Mildly Decreased Stage III GFR 30-59 Moderately Decreased Stage IV GFR 15-29 Severely Decreased Stage V GFR <15 Very Little GFR Left ESRD GFR <15 on RESEARCH AND INSIGHTS EXECUTIVE Lab Order: Complete Blood Count; SPEC'M 08/15/16 17:37 Test: WHITE BLOOD COUNT; Value: 8.3; Range: 4.0-10.0; Units: K/mm3; Status: F Test: RED BLOOD COUNT; Value: 4.63; Range: 4.00-5.40; Units: M/mm3; Status: F Test: HEMOGLOBIN; Value: 13.4; Range: 12.0-16.0; Units: g/dl; Status: F Test: HEMATOCRIT; Value: 40.8; Range: 36.0-47.0; Units: %; Status: F Test: MEAN CORPUSCULAR VOLUME; Value: 88.3; Range: 80.0-96.0; Units: fl; Status: F Test: MEAN CORPUSCULAR HEMOGLOBIN; Value: 29.0; Range: 27.0-33.0; Units: pg; Status: F Test: MEAN CORPUSCULAR HGB CONC; Value: 32.9; Range: 32.0-36.5; Units: g/dl; Status: F Test: RED CELL DISTRIBUTION WIDTH; Value: 17.6; Range: 11.5-14.5; Abnormal: Above high normal; Units: %; Status: F Test: PLATELET COUNT, AUTOMATED; Value: 226; Range: 150-450; Units: k/mm3; Status: F Lab Order: Drug Eval Toxicology ED Only; SPEC'M 08/15/16 17:45 Test: AMPHETAMINES LEVEL URINE; Value: NEGATIVE; Range: NEGATIVE; Status: F Test: BARBITURATES URINE; Value: POSITIVE; Range: NEGATIVE; Abnormal: Above high normal; Status: F Test: BENZODIAZEPINES URINE; Value: NEGATIVE; Range: NEGATIVE; Status: F Test: CANNABINOIDS URINE; Value: POSITIVE; Range: NEGATIVE; Abnormal: Above high normal; Status: F Test: COCAINE METABOLITE URINE; Value: NEGATIVE; Range: NEGATIVE; Status: F Test: METHADONE URINE; Value: NEGATIVE; Range: NEGATIVE; Status: F Test: OPIATES URINE; Value: NEGATIVE; Range: NEGATIVE; Status: F Test: TRICYCLIC ANTIDEPRESS URINE; Value: NEGATIVE; Range: NEGATIVE; Status: F Test Note: ; FALSE POSITIVE RESULTS CAN BE CAUSED BY THE USE OF PANTOPRAZOLE (PROTONIX). Lab Order: Ethyl Alcohol (ethanol); [facility] 08/15/16 17:37 Test: ETHYL ALCOHOL (ETHANOL); Value: < 0.003; Range: 0.000-0.010; Units: %; Status: F Lab Order: Liver Profile; [facility] 08/15/16 17:37 Test: AST/SGOT; Value: 12; Range: 15-37; Abnormal: Below low normal; Units: U/L; Status: F Test: ALT/SGPT; Value: 31; Range: 12-78; Units: U/L; Status: F Test: ALKALINE PHOSPHATASE; Value: 68; Range: 45-117; Units: U/L; Status: F Test: BILIRUBIN,TOTAL; Value: 0.6; Range: 0.2-1.0; Units: MG/DL; Status: F Test: BILIRUBIN,DIRECT; Value: 0.2; Range: 0.0-0.2; Units: MG/DL; Status: F Test: TOTAL PROTEIN; Value: 6.9; Range: 6.4-8.2; Units: GM/DL; Status: F Test: ALBUMIN; Value: 3.5; Range: 3.2-5.2; Units: GM/DL; Status: F Test: ALBUMIN/GLOBULIN RATIO; Value: 1.03; Range: 1.00-1.93; Status: F Lab Order: Salicylate Level; [facility] 08/15/16 17:37 Test: SALICYLATE LEVEL; Value: < 1.7; Range: 5.0-30.0; Abnormal: Below low normal; Units: MG/DL; Status: F Lab Order: Thyroid Stimulating Hormone; [facility] 08/15/16 17:37 Test: THYROID STIMULATING HORMONE; Value: 0.948; Range: 0.358-3.740; Units: uIU/ML; Status: F Lab Order: Cardiac Injury Profile; [facility] 08/15/16 17:37 Test: CPK CREATINE PHOSPHOKINASE; Value: 423; Range: 26-192; Abnormal: Above high normal; Units: U/L; Status: F Test: CK-MB VALUE MASS; Value: 7.6; Range: 0.0-3.6; Abnormal: Above high normal; Units: NG/ML; Status: F Test: MB/CK RELATIVE INDEX; Value: 1.79; Range: < OR =4; Status: F Test Note: ; DIAGNOSIS CRITERIA MMB ng/ml Relative Index (RI) NON-AMI < or = 5 N/A [place]ONE > 5 < or = 4 AMI > 5 > 4 Lab Order: Troponin; [facility] 08/15/16 17:37 Test: TROPONIN I; Value: < 0.02; Range: < 0.10; Units: NG/ML; Status: F Test Note: ; Troponin I Reference Interval for Edfa3ly LOCI: 99th Percentile= 0.00-0.045 ng/ml Risk Stratification: <= 0.10 ng/ml Decreased Risk for Adverse Clinical Events. 0.10-1.50 ng/ml Increased Risk for Adverse Clinical Events. Evaluation of additional criterion and/or repeat testing in 2-6 hours is suggested to rule out myocardial damage. >= 1.50 ng/ml Indicative of Myocardial Injury. Outcome: 19:14 Discharge ordered by Provider. sd1 20:17 Discharge Assessment: Patient awake, alert and oriented x 3. No cognitive and/or cf2 functional deficits noted. Patient verbalized understanding of disposition instructions. Patient awake and alert. Oriented to person, place and time. patient administered narcotics - yes. Pt provided with safe discharge. The following High Risk Discharge criteria are identified: None. Discharged to home ambulatory, with family. Condition: good. No special radiology studies were completed. Property removed. Property removed, :Personal belongings accompany Pt. 20:18 Patient left the ED. cf2 Signatures: Jackie Nguyen MD MD sd1 Thalia MariaRN RN ck1 Cande Echols Kristopher, STELLA TOXICOLOGY TEACHER kb5 Sheryl Tee RN RN lf1 Daniel Mccarthy Chelsea cmb Oosthuizen, Jane, DO DO jo4 Familetti-Gonzalez, Christina,RN RN cf2 Corrections: (The following items were deleted from the chart) 16:04 15:57 Presenting complaint: Daughter reports that Dr. Danni Gamboa from [place] has told lf1 her to report to ED for evaluation of seizures after being taken off Ativan 0.5 on August 02, 2016. Pt reports she is having tremors and difficulty walking after being taken off her previous meds. Pt is rambling and anxious in triage area. lf1 MTDD
--- NOTE | 2016-08-15 20:19 | EDDOCDS ---
Physician Documentation [facility] Name: Janell Oscar Age: 56 yrs Sex: Female : 1960 Arrival Date: 08/15/2016 Time: 15:53 Bed 15 Private MD: Wes [facility] [place]position: 08/15/16 19:14 Discharged to Home/Self Care. Impression: Anxiety disorder, unspecified. - Condition is Stable. - Discharge Instructions: Generalized Anxiety Disorder. - Medication Reconciliation, Local Pharmacy Hours form. - [place] [facility] [place]; When: Call to arrange an appointment; Reason: Recheck today's complaints, Continuance of care. Follow up: Private Physician; When: Call to arrange an appointment; Reason: Recheck today's complaints, Continuance of care. - Problem is an ongoing problem. - Symptoms have improved. - Notes: You were evaluated in the emergency department for symptoms of anxiety. Your laboratory results reported no acute changes. You were given a small dose of an anti-anxiety. You were also evaluated by social work. Please schedule appropriate appointments with Dr. Agustin and Dr. Gamboa at your soonest convenience to follow-up on today's complaints. Historical: - Allergies: cant have anything that ends in "pril"; - Home Meds: 1. Plavix 75 mg Oral tab 1 tab once daily (Last dose: 08/15/2016 08:00) 2. buspirone 10 mg Oral tab 1 tab 3 times per day (Last dose: 08/15/2016 15:00) 3. carvedilol 6.25 mg oral tab 2 times per day (Last dose: 08/15/2016 08:00) 4. aspirin 81 mg Oral tab 1 tab once daily (Last dose: 08/15/2016 08:00) 5. valsartan 80 mg oral tab once daily (Last dose: 08/14/2016 20:00) 6. pantoprazole 40 mg oral tab 1 tab 2 times per day (Last dose: 08/15/2016 07:00) - PMHx: Anxiety; Asthma; Depression; Diabetes - NIDDM: controlled; ''Diet controlled DM''; GERD; Hypercholesterolemia; Hypertension; Migraines; Myocardial infarction; OCD; polycythemia; Vertigo; - PSHx: Cardiac stents (2016); ; Cholecystectomy; Breast Reduction; - Social history: Smoking status: Patient states was never smoker of tobacco. No barriers to communication noted, The patient speaks fluent Japanese, Speaks appropriately for age, Preferred Language: Japanese. - Family history: Not pertinent. - : The pt / caregiver states he / she is on anticoagulants: Plavix. Home medication list is obtained from family members. - Exposure Risk Screening:: None identified. Vital Signs: 08/15 15:55 BP 139 / 97; Pulse 99; Resp 20; Temp 98.8(O); Pulse Ox 97% ; Weight 84.37 kg / 186 lbs; cmb Height 5 ft. 0 in. (152.40 cm); Pain 0/10; 17:53 BP 135 / 87 (auto/); ck1 17:53 Pulse 76 MON; Pulse Ox 94% ; ck1 18:08 BP 137 / 88 (auto/); ck1 18:08 Pulse 78 MON; Pulse Ox 95% ; ck1 18:23 Pulse 78 MON; Pulse Ox 97% ; ck1 18:23 BP 143 / 88 (auto/); ck1 19:08 BP 143 / 91 (auto/); cf2 19:08 Pulse 82 MON; Pulse Ox 96% ; cf2 19:23 Pulse 82 MON; Pulse Ox 96% ; cf2 19:23 BP 145 / 86 (auto/); cf2 19:38 Pulse 78 MON; Pulse Ox 96% ; cf2 19:38 BP 138 / 73 (auto/); cf2 19:53 Pulse 78 MON; Pulse Ox 96% ; cf2 19:53 BP 137 / 76 (auto/); cf2 20:08 BP 137 / 77 (auto/); cf2 20:08 Pulse 76 MON; Pulse Ox 96% ; cf2 15:55 Body Mass Index 36.33 (84.37 kg, 152.40 cm) cmb MDM: 17:28 Consult PFS/PSA/English Language Learner Teacher ordered. jo4 17:28 Consult PFS/PSA/English Language Learner Teacher: Patient's case requires discussion with on-call jo4 Psychiatrist ordered. 17:28 PSA/PFS to call Nursing Inventory Auditor, to enter patient data on [place] Safe [place] if patient jo4 involuntarily admitted or transferred for SI or HI ordered. 17:28 Confirm accurate psychiatric medication list and times of last dosage ordered. jo4 17:28 Detain Pt Until Medically/PFS Cleared ordered. jo4 17:28 Resort Manager/Pulse Ox/q 30 min VS ordered. jo4 17:28 IV Saline Lock ordered. jo4 17:28 Rhythm Strip to chart ordered. jo4 17:28 Undress patient appropriately for examination ordered. jo4 17:29 Acetaminophen Level Ordered. EDMS 17:29 Basic Metabolic Profile Ordered. EDMS 17:29 Complete Blood Count Ordered. EDMS 17:29 Drug Eval Toxicology ED Only Ordered. EDMS 17:29 Ethyl Alcohol (ethanol) Ordered. EDMS 17:29 Liver Profile Ordered. EDMS 17:29 Salicylate Level Ordered. EDMS 17:29 Thyroid Stimulating Hormone Ordered. EDMS 17:29 Cardiac Injury Profile Ordered. EDMS 17:29 Troponin Ordered. EDMS 17:30 ECG WITH READING ER PHYS+CARDIAG ordered. EDMS 17:39 Consult PFS/PSA/English Language Learner Teacher complete. ck1 17:39 Consult PFS/PSA/English Language Learner Teacher: Patient's case requires discussion with on-call ck1 Psychiatrist complete. 17:39 PSA/PFS to call Nursing Inventory Auditor, to enter patient data [place] Safe [place] if patient ck1 involuntarily admitted or transferred for SI or HI complete. 18:02 ALPRAZolam Tablet 0.25 mg PO once ordered. jo4 18:03 Complete Blood Count Reviewed. jo4 18:10 Financial registration complete. zo 18:13 [facility] Payment Agreement was scanned into [employer] and attached to record. zo 18:16 Drug Eval Toxicology ED Only Reviewed. jo4 18:24 Cardiac Injury Profile Reviewed. jo4 18:24 Acetaminophen Level Reviewed. jo4 18:24 Liver Profile Reviewed. jo4 18:25 Salicylate Level Reviewed. jo4 18:25 Basic Metabolic Profile Reviewed. jo4 18:26 Ethyl Alcohol (ethanol) Reviewed. jo4 18:26 Thyroid Stimulating Hormone Reviewed. jo4 18:26 Troponin Reviewed. sd1 Administered Medications: 18:24 Drug: ALPRAZolam 0.25 mg [alprazolam 0.25 mg tablet (1 tabs)] Route: PO; ck1 Signatures: Dispatcher [employer] EDMS Jackie Nguyen MD MD sd1 Thalia Maria RN RN ck1 Cadne Echols Lisa, RN RN lf1 Caterina Banks DO DO jo4 Serenity NathRN RN cf2 The chart was reviewed and I authenticate all verbal orders and agree with the evaluation and treatment provided.Attachments: 18:13 [facility] Payment Agreement zo MTDD
--- NOTE | 2016-08-15 20:30 | ECGEPIP ---
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
--- NOTE | 2016-08-17 21:19 | EDDOCDS ---
Physician Documentation [facility] Name: Janell Oscar Age: 56 yrs Sex: Female : 1960 Arrival Date: 08/15/2016 Time: 15:53 Bed 15 Private MD: Wes [facility] [place] Disposition: 08/15/16 19:14 Discharged to Home/Self Care. Impression: Anxiety disorder, unspecified. - Condition is Stable. - Discharge Instructions: Generalized Anxiety Disorder. - Medication Reconciliation, Local Pharmacy Hours form. - Follow up: [facility] [place]; When: Call to arrange an appointment; Reason: Recheck today's complaints, Continuance of care. Follow up: Private Physician; When: Call to arrange an appointment; Reason: Recheck today's complaints, Continuance of care. - Problem is an ongoing problem. - Symptoms have improved. - Notes: You were evaluated in the emergency department for symptoms of anxiety. Your laboratory results reported no acute changes. You were given a small dose of an anti-anxiety. You were also evaluated by social work. Please schedule appropriate appointments with Dr. Agustin and Dr. Gamboa at your soonest convenience to follow-up on today's complaints. Historical: - Allergies: cant have anything that ends in "pril"; - Home Meds: 1. Plavix 75 mg Oral tab 1 tab once daily (Last dose: 08/15/2016 08:00) 2. buspirone 10 mg Oral tab 1 tab 3 times per day (Last dose: 08/15/2016 15:00) 3. carvedilol 6.25 mg oral tab 2 times per day (Last dose: 08/15/2016 08:00) 4. aspirin 81 mg Oral tab 1 tab once daily (Last dose: 08/15/2016 08:00) 5. valsartan 80 mg oral tab once daily (Last dose: 08/14/2016 20:00) 6. pantoprazole 40 mg oral tab 1 tab 2 times per day (Last dose: 08/15/2016 07:00) - PMHx: Anxiety; Asthma; Depression; Diabetes - NIDDM: controlled; ''Diet controlled DM''; GERD; Hypercholesterolemia; Hypertension; Migraines; Myocardial infarction; OCD; polycythemia; Vertigo; - PSHx: Cardiac stents (2016); ; Cholecystectomy; Breast Reduction; - Social history: Smoking status: Patient states was never smoker of tobacco. No barriers to communication noted, The patient speaks fluent Pashto, Speaks appropriately for age, Preferred Language: Pashto. - Family history: Not pertinent. - : The pt / caregiver states he / she is on anticoagulants: Plavix. Home medication list is obtained from family members. - Exposure Risk Screening:: None identified. Vital Signs: 08/15 15:55 BP 139 / 97; Pulse 99; Resp 20; Temp 98.8(O); Pulse Ox 97% ; Weight 84.37 kg / 186 lbs; cmb Height 5 ft. 0 in. (152.40 cm); Pain 0/10; 17:53 BP 135 / 87 (auto/); ck1 17:53 Pulse 76 MON; Pulse Ox 94% ; ck1 18:08 BP 137 / 88 (auto/); ck1 18:08 Pulse 78 MON; Pulse Ox 95% ; ck1 18:23 Pulse 78 MON; Pulse Ox 97% ; ck1 18:23 BP 143 / 88 (auto/); ck1 19:08 BP 143 / 91 (auto/); cf2 19:08 Pulse 82 MON; Pulse Ox 96% ; cf2 19:23 Pulse 82 MON; Pulse Ox 96% ; cf2 19:23 BP 145 / 86 (auto/); cf2 19:38 Pulse 78 MON; Pulse Ox 96% ; cf2 19:38 BP 138 / 73 (auto/); cf2 19:53 Pulse 78 MON; Pulse Ox 96% ; cf2 19:53 BP 137 / 76 (auto/); cf2 20:08 BP 137 / 77 (auto/); cf2 20:08 Pulse 76 MON; Pulse Ox 96% ; cf2 15:55 Body Mass Index 36.33 (84.37 kg, 152.40 cm) cmb MDM: 17:28 Consult PFS/PSA/Senior Product Development Scientist ordered. jo4 17:28 Consult PFS/PSA/Senior Product Development Scientist: Patient's case requires discussion with on-call jo4 Psychiatrist ordered. 17:28 PSA/PFS to call Nursing Baggage Agent, to enter patient data on [place] Safe Act if patient jo4 involuntarily admitted or transferred for SI or HI ordered. 17:28 Confirm accurate psychiatric medication list and times of last dosage ordered. jo4 17:28 Detain Pt Until Medically/PFS Cleared ordered. jo4 17:28 Library Media Technician/Pulse Ox/q 30 min VS ordered. jo4 17:28 IV Saline Lock ordered. jo4 17:28 Rhythm Strip to chart ordered. jo4 17:28 Undress patient appropriately for examination ordered. jo4 17:29 Acetaminophen Level Ordered. EDMS 17:29 Basic Metabolic Profile Ordered. EDMS 17:29 Complete Blood Count Ordered. EDMS 17:29 Drug Eval Toxicology ED Only Ordered. EDMS 17:29 Ethyl Alcohol (ethanol) Ordered. EDMS 17:29 Liver Profile Ordered. EDMS 17:29 Salicylate Level Ordered. EDMS 17:29 Thyroid Stimulating Hormone Ordered. EDMS 17:29 Cardiac Injury Profile Ordered. EDMS 17:29 Troponin Ordered. EDMS 17:30 ECG WITH READING ER PHYS+CARDIAG ordered. EDMS 17:39 Consult PFS/PSA/Senior Product Development Scientist complete. ck1 17:39 Consult PFS/PSA/Senior Product Development Scientist: Patient's case requires discussion with on-call ck1 Psychiatrist complete. 17:39 PSA/PFS to call Nursing Baggage Agent, to enter patient data [place] Safe [place] if patient ck1 involuntarily admitted or transferred for SI or HI complete. 18:02 ALPRAZolam Tablet 0.25 mg PO once ordered. jo4 18:03 Complete Blood Count Reviewed. jo4 18:10 Financial registration complete. zo 18:13 [facility] [place] was scanned into [employer] and attached to record. zo 18:16 Drug Eval Toxicology ED Only Reviewed. jo4 18:24 Cardiac Injury Profile Reviewed. jo4 18:24 Acetaminophen Level Reviewed. jo4 18:24 Liver Profile Reviewed. jo4 18:25 Salicylate Level Reviewed. jo4 18:25 Basic Metabolic Profile Reviewed. jo4 18:26 Ethyl Alcohol (ethanol) Reviewed. jo4 18:26 Thyroid Stimulating Hormone Reviewed. jo4 18:26 Troponin Reviewed. sd1 08/16 10:00 T-Sheet-- Draft Copy was scanned into [employer] and attached to record. gb 10:00 ECG/EKG was scanned into [employer] and attached to record. gb Administered Medications: 08/15 18:24 Drug: ALPRAZolam 0.25 mg [alprazolam 0.25 mg tablet (1 tabs)] Route: PO; ck1 Signatures: Dispatcher [employer] EDMS Jackie Nguyen, MD MD sd1 Belkis Calderon, Reg Reg gb Thalia Maria,RN RN ck1 Cande Echols Lisa, RN RN lf1 Caterina Banks, DO jo4 Serenity Nath RN RN cf2 The chart was reviewed and I authenticate all verbal orders and agree with the evaluation and treatment provided.Attachments: 18:13 [facility] [place] Payment Agreement zo 08/16 10:00 T-Sheet-- Draft Copy gb 10:00 ECG/EKG gb Chart Complete MTDD
--- NOTE | 2016-08-17 21:19 | EDDOCDS ---
Nurse's Notes [facility] Name: Janell Oscar Age: 56 yrs Sex: Female : 1960 Arrival Date: 08/15/2016 Time: 15:53 Bed 15 Private MD: Wes [facility] Diagnosis: Anxiety disorder, unspecified Presentation: 08/15 15:57 Presenting complaint: Daughter reports that Dr. Danni Gamboa from [place] has told her to [facility] report to ED for evaluation of seizures after being taken off Ativan 0.5 on August 02, 2016. Pt reports she is having tremors and difficulty walking after being taken off her previous meds. Pt is rambling and anxious in triage area. Pt states she is having night sweats and is increasingly anxious. Pt. is difficult to follow, speech is rambling. 16:02 Presenting complaint:. Presenting complaint:. Adult Sepsis Screening: Patient has new lf1 or worsening altered mentation (1 point). Patient's respiratory rate is less than 22. Systolic blood pressure is greater than 100. Patient has a qSOFA score of 1- Negative Sepsis Screen. Suicide/Homicide risk assessment- the patient denies having any suicidal and/or homicidal ideations and does not present with any other emotional, behavioral or mental health complaints. Status: The patient is a dependent. Transition of care: patient was not received from another setting of care. 16:02 Acuity: AZEB Level 3 lf1 16:02 Method Of Arrival: Walkin/Carried/Asstd lf1 Triage Assessment: 16:10 General: Appears obese, Behavior is anxious, restless. Pain: Denies pain. HIV screening lf1 NA for this visit Offered previously. Neurological: Level of Consciousness is awake, alert, obeys commands, Oriented to person, place, time, Speech rambling. EENT: No deficits noted. Respiratory: Respiratory effort is even, unlabored. GI: Denies nausea, vomiting. Derm: Skin is normal. Injury Description: No known injury. Historical: - Allergies: cant have anything that ends in "pril"; - Home Meds: 1. Plavix 75 mg Oral tab 1 tab once daily (Last dose: 08/15/2016 08:00) 2. buspirone 10 mg Oral tab 1 tab 3 times per day (Last dose: 08/15/2016 15:00) 3. carvedilol 6.25 mg oral tab 2 times per day (Last dose: 08/15/2016 08:00) 4. aspirin 81 mg Oral tab 1 tab once daily (Last dose: 08/15/2016 08:00) 5. valsartan 80 mg oral tab once daily (Last dose: 08/14/2016 20:00) 6. pantoprazole 40 mg oral tab 1 tab 2 times per day (Last dose: 08/15/2016 07:00) - PMHx: Anxiety; Asthma; Depression; Diabetes - NIDDM: controlled; ''Diet controlled DM''; GERD; Hypercholesterolemia; Hypertension; Migraines; Myocardial infarction; OCD; polycythemia; Vertigo; - PSHx: Cardiac stents (2015); ; Cholecystectomy; Breast Reduction; - Social history: Smoking status: Patient states was never smoker of tobacco. No barriers to communication noted, The patient speaks fluent Icelandic, Speaks appropriately for age, Preferred Language: Icelandic. - Family history: Not pertinent. - : The pt / caregiver states he / she is on anticoagulants: Plavix. Home medication list is obtained from family members. - Exposure Risk Screening:: None identified. Screenin:11 Screening information is obtained from the patient. Fall risk: No risks identified. lf1 Fall risk: At risk due to gait disturbance. Assistance ADL's: requires no assistance with activities of daily living. Abuse/DV Screen: The patient / caregiver reports he/she is: not in a situation that causes fear, pain or injury. Nutritional screening: On no prescribed diet. Advance Directives: Currently, there is a health care proxy, Dalila Palumbo (Daughter). There is a living will. home support is adequate. Assessment: 17:39 General: Appears in no apparent distress, comfortable, Behavior is anxious, ck1 cooperative. Pain: Location: chest Quality of pain is described as pressure. Neurological: Level of Consciousness is awake, alert, obeys commands, Oriented to person, place, time. Cardiovascular: Chest pain quality is pressure, radiates back episodes are continuous. Respiratory: Airway is patent Respiratory effort is even, unlabored, Respiratory pattern is regular, symmetrical. GI: No deficits noted. Derm: Skin is pink, warm & dry. 18:37 General: Appears in no apparent distress, comfortable, Behavior is anxious, ck1 cooperative. Pain: Denies pain. Neurological: Level of Consciousness is awake, alert, obeys commands, Oriented to person, place, time. Cardiovascular: Rhythm is regular. Respiratory: Respiratory effort is unlabored, Respiratory pattern is regular, symmetrical. GI: No deficits noted. Derm: Skin is pink, warm & dry. 20:17 Reassessment: Patient appears in no apparent distress at this time. Patient denies pain cf2 at this time. Patient states feeling better. Patient states symptoms have improved. Adult Sepsis Screening: The patient does not have new or worsening altered mentation. Patient's respiratory rate is less than 22. Systolic blood pressure is greater than 100. Patient has a qSOFA score of 0- Negative Sepsis Screen. Mental Health Eval: 19:53 Mental health consult is initiated at 19:00. Status: The patient is a ms dependent. [facility] Behavioral Health: The patient is not an established patient of [facility] Behavioral Health. Referral Information: Evaluation referral is generated by the patient's psychiatrist Dr. Gamboa , tele psych at [facility]. The patient was referred for evaluation because Pt. had contacted psychiatrist today, was shaking, tremulous and very anxious, was referred to ER. Subjective: The patients chief complaint is Pt. reports that she has been feeling quite anxious last couple of weeks. She denies SI/HI. Pt. reports she is nervous about shaking/tremors she has been experiencing and wants to make sure that there is no physical reasons behind her symptoms. She reports that she has been having difficulty concentrating and has had nightmares. Pt. states anxiety has become worse lately due to current construction in her home so she has been sleeping on a twin size bed in living room while another room and laundry room are turned into a bedroom and bathroom for her. her daughter and son in law have moved in with her recently due to her lack of finances since her spouse two years ago. She reports she has four cats and two dogs and when family moved in ,they brought six more cats with them. Pt. now states she feels she is forced to get rid of her animals because there are now too many. Pt. denies wanting/needing admission to [facility] and adamantly denies any SI/HI. She denies AH/VH.. Delusions are denied. Patient's mood is anxious, Hallucinations are denied. Pt. son(Leonel) in ER with pt. and is supportive. Son denies any concern that pt. has SI/HI. Mental Health history: anxiety, Mental Health Admissions: [facility] 07/2016 Current Outpatient Mental Health Services: Psychiatrist / Agency: [facility] through [facility]. Therapist / Agency: , [place], [place]. Current living environment is The patient currently lives adult daughter and son in law. Patient presents to Emergency Department with the following symptoms within the past 2 weeks: anxiety, poor concentration. Substance abuse: Pt denies. Mental status exam: Patients appearance is appropriate, Patient's behavior is cooperative, Speech is normal. Affect is appropriate. Mood is anxious. Hallucinations are denied. Appetite is normal. Memory is good. Energy level is normal. Content of thought is normal. Thought process is intact. Cognitive level is oriented to person, place, time and situation Patient's insight is fair. Judgement is fair. Rapport with interviewer is good. Suicidal Ideation is denied. Homicidal ideation is denied. Disposition: Medically cleared for disposition by Jackie Nguyen MD Psychiatric Consult is deferred per ED physician, Dr Islas. Narrative: Pt. 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 Vital Signs: 15:55 BP 139 / 97; Pulse 99; Resp 20; Temp 98.8(O); Pulse Ox 97% ; Weight 84.37 kg; Height 5 cmb ft. 0 in. (152.40 cm); Pain 0/10; 17:53 BP 135 / 87 (auto/); ck1 17:53 Pulse 76 MON; Pulse Ox 94% ; ck1 18:08 BP 137 / 88 (auto/); ck1 18:08 Pulse 78 MON; Pulse Ox 95% ; ck1 18:23 Pulse 78 MON; Pulse Ox 97% ; ck1 18:23 BP 143 / 88 (auto/); ck1 19:08 BP 143 / 91 (auto/); cf2 19:08 Pulse 82 MON; Pulse Ox 96% ; cf2 19:23 Pulse 82 MON; Pulse Ox 96% ; cf2 19:23 BP 145 / 86 (auto/); cf2 19:38 Pulse 78 MON; Pulse Ox 96% ; cf2 19:38 BP 138 / 73 (auto/); cf2 19:53 Pulse 78 MON; Pulse Ox 96% ; cf2 19:53 BP 137 / 76 (auto/); cf2 20:08 BP 137 / 77 (auto/); cf2 20:08 Pulse 76 MON; Pulse Ox 96% ; cf2 15:55 Body Mass Index 36.33 (84.37 kg, 152.40 cm) cmb Vitals: 15:55 Log In Time: August 15, 2016 at 15:53. cmb ED Course: 15:54 Patient visited by Radha Pavon. cmb 15:54 Patient moved to Waiting cmb 15:55 Wes [facility] is Private Physician. cmb 15:57 Patient moved to Pre RCE cmb 16:04 Triage Initiated lf1 16:19 Thalia Maria,BELLA is Primary Nurse. ck1 16:19 Patient moved to 15 ck1 16:22 Caterina Banks DO is PHCP. jo4 16:22 Jackie Nguyen MD is Attending Physician. jo4 16:30 Patient visited by Thalia Maria,BELLA. ck1 16:37 Patient visited by Caterina Banks DO. jo4 16:38 Patient visited by Caterina Banks DO. jo4 17:30 Patient visited by Thalia Maria,BELLA. ck1 17:38 Cardiac Injury Profile Sent. ck1 17:38 Troponin Sent. ck1 17:38 Acetaminophen Level Sent. ck1 17:38 Basic Metabolic Profile Sent. ck1 17:38 Complete Blood Count Sent. ck1 17:38 Ethyl Alcohol (ethanol) Sent. ck1 17:38 Liver Profile Sent. ck1 17:38 Salicylate Level Sent. ck1 17:38 Thyroid Stimulating Hormone Sent. ck1 17:39 The patient / caregiver is instructed regarding the plan of care and ED course. ck1 17:39 Inserted saline lock: 20 gauge in right antecubital area and blood collected. The ck1 patient tolerated the procedure well. 17:46 Drug Eval Toxicology ED Only Sent. ck1 17:47 EKG done. (by ED staff). Reviewed by Caterina Banks DO. dem1 17:55 communication signals intelligence on. Pulse ox on. NIBP on. dem1 17:56 Patient visited by Daniel Mccarthy. dem1 18:13 [facility] Payment Agreement was scanned into [email or web address] and attached to record. zo 18:30 Patient visited by Thalia Maria,BELLA. ck1 18:55 Primary Nurse role handed off by Thalia Maria,RN ck1 19:04 Patient visited by Andrew Ardon PCA. kb5 19:05 Serenity Nath,BELLA is Primary Nurse. cf2 19:05 Patient visited by Serenity Nath RN. cf2 19:14 Wes [facility] is Referral Physician. sd1 19:17 Patient visited by Serenity Nath,BELLA. cf2 20:17 Patient visited by Serenity Nath RN. cf2 20:17 No procedures done that require assistance. cf2 21:17 EKG-ADULT Returned. EDMS 08/16 10:00 T-Sheet-- Draft Copy was scanned into [email or web address] and attached to record. gb 10:00 ECG/EKG was scanned into [email or web address] and attached to record. gb Administered Medications: 08/15 18:24 Drug: ALPRAZolam 0.25 mg [alprazolam 0.25 mg tablet (1 tabs)] Route: PO; ck1 Order Results: Lab Order: Acetaminophen Level; SPEC'M 08/15/16 17:37 Test: ACETAMINOPHEN LEVEL; Value: < 2.0; Range: 10.0-30.0; Abnormal: Below low normal; Units: UG/ML; Status: F Lab Order: Basic Metabolic Profile; SPEC'M 08/15/16 17:37 Test: GLUCOSE, FASTING; Value: 81; Range: 70-105; Units: MG/DL; Status: F Test: BLOOD UREA NITROGEN; Value: 10; Range: 7-18; Units: MG/DL; Status: F Test: CREATININE FOR GFR; Value: 0.81; Range: 0.55-1.02; Units: MG/DL; Status: F Test: GLOMERULAR FILTRATION RATE; Value: > 60.0; Range: >51; Status: F Test: SODIUM LEVEL; Value: 143; Range: 136-145; Units: MEQ/L; Status: F Test: POTASSIUM SERUM; Value: 3.7; Range: 3.5-5.1; Units: MEQ/L; Status: F Test: CHLORIDE LEVEL; Value: 106; Range: 98-107; Units: MEQ/L; Status: F Test: CARBON DIOXIDE LEVEL; Value: 26; Range: 21-32; Units: MEQ/L; Status: F Test: ANION GAP; Value: 11; Range: 8-16; Units: MEQ/L; Status: F Test: CALCIUM LEVEL; Value: 8.7; Range: 8.5-10.1; Units: MG/DL; Status: F Test Note: ; Units are mL/min/1.73 m2 Chronic Kidney Disease Staging per NKF: Stage I & II GFR >=60 Normal to Mildly Decreased Stage III GFR 30-59 Moderately Decreased Stage IV GFR 15-29 Severely Decreased Stage V GFR <15 Very Little GFR Left ESRD GFR <15 on [employer] Lab Order: Complete Blood Count; SPEC'M 08/15/16 17:37 Test: WHITE BLOOD COUNT; Value: 8.3; Range: 4.0-10.0; Units: K/mm3; Status: F Test: RED BLOOD COUNT; Value: 4.63; Range: 4.00-5.40; Units: M/mm3; Status: F Test: HEMOGLOBIN; Value: 13.4; Range: 12.0-16.0; Units: g/dl; Status: F Test: HEMATOCRIT; Value: 40.8; Range: 36.0-47.0; Units: %; Status: F Test: MEAN CORPUSCULAR VOLUME; Value: 88.3; Range: 80.0-96.0; Units: fl; Status: F Test: MEAN CORPUSCULAR HEMOGLOBIN; Value: 29.0; Range: 27.0-33.0; Units: pg; Status: F Test: MEAN CORPUSCULAR HGB CONC; Value: 32.9; Range: 32.0-36.5; Units: g/dl; Status: F Test: RED CELL DISTRIBUTION WIDTH; Value: 17.6; Range: 11.5-14.5; Abnormal: Above high normal; Units: %; Status: F Test: PLATELET COUNT, AUTOMATED; Value: 226; Range: 150-450; Units: k/mm3; Status: F Lab Order: Drug Eval Toxicology ED Only; SPEC'M 08/15/16 17:45 Test: AMPHETAMINES LEVEL URINE; Value: NEGATIVE; Range: NEGATIVE; Status: F Test: BARBITURATES URINE; Value: POSITIVE; Range: NEGATIVE; Abnormal: Above high normal; Status: F Test: BENZODIAZEPINES URINE; Value: NEGATIVE; Range: NEGATIVE; Status: F Test: CANNABINOIDS URINE; Value: POSITIVE; Range: NEGATIVE; Abnormal: Above high normal; Status: F Test: COCAINE METABOLITE URINE; Value: NEGATIVE; Range: NEGATIVE; Status: F Test: METHADONE URINE; Value: NEGATIVE; Range: NEGATIVE; Status: F Test: OPIATES URINE; Value: NEGATIVE; Range: NEGATIVE; Status: F Test: TRICYCLIC ANTIDEPRESS URINE; Value: NEGATIVE; Range: NEGATIVE; Status: F Test Note: ; FALSE POSITIVE RESULTS CAN BE CAUSED BY THE USE OF PANTOPRAZOLE (PROTONIX). Lab Order: Ethyl Alcohol (ethanol); [facility] 08/15/16 17:37 Test: ETHYL ALCOHOL (ETHANOL); Value: < 0.003; Range: 0.000-0.010; Units: %; Status: F Lab Order: Liver Profile; [facility] 08/15/16 17:37 Test: AST/SGOT; Value: 12; Range: 15-37; Abnormal: Below low normal; Units: U/L; Status: F Test: ALT/SGPT; Value: 31; Range: 12-78; Units: U/L; Status: F Test: ALKALINE PHOSPHATASE; Value: 68; Range: 45-117; Units: U/L; Status: F Test: BILIRUBIN,TOTAL; Value: 0.6; Range: 0.2-1.0; Units: MG/DL; Status: F Test: BILIRUBIN,DIRECT; Value: 0.2; Range: 0.0-0.2; Units: MG/DL; Status: F Test: TOTAL PROTEIN; Value: 6.9; Range: 6.4-8.2; Units: GM/DL; Status: F Test: ALBUMIN; Value: 3.5; Range: 3.2-5.2; Units: GM/DL; Status: F Test: ALBUMIN/GLOBULIN RATIO; Value: 1.03; Range: 1.00-1.93; Status: F Lab Order: Salicylate Level; [facility] 08/15/16 17:37 Test: SALICYLATE LEVEL; Value: < 1.7; Range: 5.0-30.0; Abnormal: Below low normal; Units: MG/DL; Status: F Lab Order: Thyroid Stimulating Hormone; SPEC'M 08/15/16 17:37 Test: THYROID STIMULATING HORMONE; Value: 0.948; Range: 0.358-3.740; Units: uIU/ML; Status: F Lab Order: Cardiac Injury Profile; SPEC'M 08/15/16 17:37 Test: CPK CREATINE PHOSPHOKINASE; Value: 423; Range: 26-192; Abnormal: Above high normal; Units: U/L; Status: F Test: CK-MB VALUE MASS; Value: 7.6; Range: 0.0-3.6; Abnormal: Above high normal; Units: NG/ML; Status: F Test: MB/CK RELATIVE INDEX; Value: 1.79; Range: < OR =4; Status: F Test Note: ; DIAGNOSIS CRITERIA MMB ng/ml Relative Index (RI) NON-AMI < or = 5 N/A [place] ZONE > 5 < or = 4 AMI > 5 > 4 Lab Order: Troponin; SPEC'M 08/15/16 17:37 Test: TROPONIN I; Value: < 0.02; Range: < 0.10; Units: NG/ML; Status: F Test Note: ; Troponin I Reference Interval for [employer] LOCI: 99th Percentile= 0.00-0.045 ng/ml Risk Stratification: <= 0.10 ng/ml Decreased Risk for Adverse Clinical Events. 0.10-1.50 ng/ml Increased Risk for Adverse Clinical Events. Evaluation of additional criterion and/or repeat testing in 2-6 hours is suggested to rule out myocardial damage. >= 1.50 ng/ml Indicative of Myocardial Injury. Radiology Order: EKG-ADULT Test: EKG-ADULT REASON FOR EXAMINATION: Chest Pain; Stationary ECG Study; [facility] - ED; ; Test Date: 2016-08-15; Pat Name: JANELL OSCAR Department:; Room: -; Gender: F Specialty Development Consultant: edita; : 1960 Requested By: CATERINA COOPER; Order Number: [id number] Reading MD: Jackie Nguyen; Measurements; Intervals [place]; Rate: 89 P: 19; RI: 150 QRS: -79; QRSD: 79 T: 48; QT: 353; QTc: 431; Interpretive Statements; SINUS RHYTHM; LOW QRS VOLTAGE IN PRECORDIAL LEADS; LEFT ANTERIOR FASCICULAR BLOCK; POSSIBLE ANTERIOR MYOCARDIAL INFARCTION, PROBABLY OLD; ?PRIOR INFERIOR MO; SIMILAR 07/21/16; Electronically Signed On 08-15-2016 20:30:19 EST by Jackie Nguyen; Outcome: 19:14 Discharge ordered by Provider. sd1 20:17 Discharge Assessment: Patient awake, alert and oriented x 3. No cognitive and/or cf2 functional deficits noted. Patient verbalized understanding of disposition instructions. Patient awake and alert. Oriented to person, place and time. patient administered narcotics - yes. Pt provided with safe discharge. The following High Risk Discharge criteria are identified: None. Discharged to home ambulatory, with family. Condition: good. No special radiology studies were completed. Property removed. Property removed, :Personal belongings accompany Pt. 20:18 Patient left the ED. cf2 Signatures: Dispatcher [employer] EDMS Jackie Nguyen MD MD sd1 Stone, Karen, PSA PSA ms Belkis Calderon, Reg Reg gb Thalia Maria,RN RN ck1 Cande Echols Kristopher, ROLLER MAKER ROLLER MAKER kb5 Sheryl Tee RN RN lf1 Daniel Mccarthy [place] cmb Oosthuizen, Jane, DO DO jo4 Serenity Nath,RN RN cf2 Corrections: (The following items were deleted from the chart) 16:04 15:57 Presenting complaint: Daughter reports that Dr. Danni Gamboa from [place] has told lf1 her to report to ED for evaluation of seizures after being taken off Ativan 0.5 on August 02, 2016. Pt reports she is having tremors and difficulty walking after being taken off her previous meds. Pt is rambling and anxious in triage area. lf1 Chart Complete MTDD
--- NOTE | 2016-08-17 21:19 | EDDOCDS ---
Physician Documentation [facility] Name: Janell Oscar Age: 56 yrs Sex: Female : 1960 Arrival Date: 08/15/2016 Time: 15:53 Bed 15 Private MD: Wes [facility] [place] Disposition: 08/15/16 19:14 Discharged to Home/Self Care. Impression: Anxiety disorder, unspecified. - Condition is Stable. - Discharge Instructions: Generalized Anxiety Disorder. - Medication Reconciliation, Local Pharmacy Hours form. - Follow up: [facility] [place]; When: Call to arrange an appointment; Reason: Recheck today's complaints, Continuance of care. Follow up: Private Physician; When: Call to arrange an appointment; Reason: Recheck today's complaints, Continuance of care. - Problem is an ongoing problem. - Symptoms have improved. - Notes: You were evaluated in the emergency department for symptoms of anxiety. Your laboratory results reported no acute changes. You were given a small dose of an anti-anxiety. You were also evaluated by social work. Please schedule appropriate appointments with Dr. Agustin and Dr. Gamboa at your soonest convenience to follow-up on today's complaints. Historical: - Allergies: cant have anything that ends in "pril"; - Home Meds: 1. Plavix 75 mg Oral tab 1 tab once daily (Last dose: 08/15/2016 08:00) 2. buspirone 10 mg Oral tab 1 tab 3 times per day (Last dose: 08/15/2016 15:00) 3. carvedilol 6.25 mg oral tab 2 times per day (Last dose: 08/15/2016 08:00) 4. aspirin 81 mg Oral tab 1 tab once daily (Last dose: 08/15/2016 08:00) 5. valsartan 80 mg oral tab once daily (Last dose: 08/14/2016 20:00) 6. pantoprazole 40 mg oral tab 1 tab 2 times per day (Last dose: 08/15/2016 07:00) - PMHx: Anxiety; Asthma; Depression; Diabetes - NIDDM: controlled; ''Diet controlled DM''; GERD; Hypercholesterolemia; Hypertension; Migraines; Myocardial infarction; OCD; polycythemia; Vertigo; - PSHx: Cardiac stents (2016); ; Cholecystectomy; Breast Reduction; - Social history: Smoking status: Patient states was never smoker of tobacco. No barriers to communication noted, The patient speaks fluent Indonesian, Speaks appropriately for age, Preferred Language: Indonesian. - Family history: Not pertinent. - : The pt / caregiver states he / she is on anticoagulants: Plavix. Home medication list is obtained from family members. - Exposure Risk Screening:: None identified. Vital Signs: 08/15 15:55 BP 139 / 97; Pulse 99; Resp 20; Temp 98.8(O); Pulse Ox 97% ; Weight 84.37 kg / 186 lbs; cmb Height 5 ft. 0 in. (152.40 cm); Pain 0/10; 17:53 BP 135 / 87 (auto/); ck1 17:53 Pulse 76 MON; Pulse Ox 94% ; ck1 18:08 BP 137 / 88 (auto/); ck1 18:08 Pulse 78 MON; Pulse Ox 95% ; ck1 18:23 Pulse 78 MON; Pulse Ox 97% ; ck1 18:23 BP 143 / 88 (auto/); ck1 19:08 BP 143 / 91 (auto/); cf2 19:08 Pulse 82 MON; Pulse Ox 96% ; cf2 19:23 Pulse 82 MON; Pulse Ox 96% ; cf2 19:23 BP 145 / 86 (auto/); cf2 19:38 Pulse 78 MON; Pulse Ox 96% ; cf2 19:38 BP 138 / 73 (auto/); cf2 19:53 Pulse 78 MON; Pulse Ox 96% ; cf2 19:53 BP 137 / 76 (auto/); cf2 20:08 BP 137 / 77 (auto/); cf2 20:08 Pulse 76 MON; Pulse Ox 96% ; cf2 15:55 Body Mass Index 36.33 (84.37 kg, 152.40 cm) cmb MDM: 17:28 Consult PFS/PSA/Logistics Loss Prevention Manager ordered. jo4 17:28 Consult PFS/PSA/Logistics Loss Prevention Manager: Patient's case requires discussion with on-call jo4 Psychiatrist ordered. 17:28 PSA/PFS to call Nursing Hi Low Truck Driver, to enter patient data on [place] if patient jo4 involuntarily admitted or transferred for SI or HI ordered. 17:28 Confirm accurate psychiatric medication list and times of last dosage ordered. jo4 17:28 Detain Pt Until Medically/PFS Cleared ordered. jo4 17:28 Dieing Out Machine Operator/Pulse Ox/q 30 min VS ordered. jo4 17:28 IV Saline Lock ordered. jo4 17:28 Rhythm Strip to chart ordered. jo4 17:28 Undress patient appropriately for examination ordered. jo4 17:29 Acetaminophen Level Ordered. EDMS 17:29 Basic Metabolic Profile Ordered. EDMS 17:29 Complete Blood Count Ordered. EDMS 17:29 Drug Eval Toxicology ED Only Ordered. EDMS 17:29 Ethyl Alcohol (ethanol) Ordered. EDMS 17:29 Liver Profile Ordered. EDMS 17:29 Salicylate Level Ordered. EDMS 17:29 Thyroid Stimulating Hormone Ordered. EDMS 17:29 Cardiac Injury Profile Ordered. EDMS 17:29 Troponin Ordered. EDMS 17:30 ECG WITH READING ER PHYS+CARDIAG ordered. EDMS 17:39 Consult PFS/PSA/Logistics Loss Prevention Manager complete. ck1 17:39 Consult PFS/PSA/Logistics Loss Prevention Manager: Patient's case requires discussion with on-call ck1 Psychiatrist complete. 17:39 PSA/PFS to call Nursing Hi Low Truck Driver, to [place] data [place] if patient ck1 involuntarily admitted or transferred for SI or HI complete. 18:02 ALPRAZolam Tablet 0.25 mg PO once ordered. jo4 18:03 Complete Blood Count Reviewed. jo4 18:10 Financial registration complete. zo 18:13 [place] [place] into [employer] and attached to record. zo 18:16 Drug Eval Toxicology ED Only Reviewed. jo4 18:24 Cardiac Injury Profile Reviewed. jo4 18:24 Acetaminophen Level Reviewed. jo4 18:24 Liver Profile Reviewed. jo4 18:25 Salicylate Level Reviewed. jo4 18:25 Basic Metabolic Profile Reviewed. jo4 18:26 Ethyl Alcohol (ethanol) Reviewed. jo4 18:26 Thyroid Stimulating Hormone Reviewed. jo4 18:26 Troponin Reviewed. sd1 08/16 10:00 T-Sheet-- Draft Copy was scanned into [employer] and attached to record. gb 10:00 ECG/EKG was scanned into [employer] and attached to record. gb Administered Medications: 08/15 18:24 Drug: ALPRAZolam 0.25 mg [alprazolam 0.25 mg tablet (1 tabs)] Route: PO; ck1 Signatures: Dispatcher [employer] EDMS Jackie Nguyen, MD MD sd1 Belkis Calderon, Reg Reg gb Thalia Maria,RN RN ck1 Cande Echols Lisa, RN RN lf1 Caterina Banks, DO jo4 Serenity Nath RN RN cf2 The chart was reviewed and I authenticate all verbal orders and agree with the evaluation and treatment provided.Attachments: 18:13 [place] [place] zo 08/16 10:00 T-Sheet-- Draft Copy gb 10:00 ECG/EKG gb Chart Complete MTDD
== END 2016-08-15 20:18 | disposition home or self-care (01) ==
LOC: M ED 15:53
DX: F41.9 Anxiety disorder, unspecified (principal); J45.909 Unspecified asthma, uncomplicated; F32.9 Major depressive disorder, single episode, unspecified; E11.9 Type 2 diabetes mellitus without complications; K21.9 Gastro-esophageal reflux disease without esophagitis; E78.00 Pure hypercholesterolemia, unspecified; I10 Essential (primary) hypertension; G43.909 Migraine, unspecified, not intractable, without status migrainosus; I25.2 Old myocardial infarction; F42.9 Obsessive-compulsive disorder, unspecified; D45 Polycythemia vera; H81.49 Vertigo of central origin, unspecified ear; Z79.02 Long term (current) use of antithrombotics/antiplatelets; Z79.899 Other long term (current) drug therapy; Z79.82 Long term (current) use of aspirin; Z88.8 Allergy status to other drugs, medicaments and biological substances; Z95.5 Presence of coronary angioplasty implant and graft
CPT/HCPCS: 36415; 80048; 80076; 80306; 82550; 82553; 84443; 85027; 93005; 93041; 99285; G0480

== ENCOUNTER 2016-08-25 11:38 | Inpatient (IN) | payer OTHER ==
[~2016-08-25] VITALS: Ht 152.4 cm; Wt 88.5 kg
[2016-08-25 12:30] LABS: MEAN CORPUSCULAR HEMOGLOBIN 28.2 pg (27.0-33.0); MEAN CORPUSCULAR HGB CONC 31.6 g/dl (32.0-36.5); MEAN CORPUSCULAR VOLUME 89.2 fl (80.0-96.0); RED CELL DISTRIBUTION WIDTH 17.7 % (11.5-14.5); WHITE BLOOD COUNT 8.7 K/mm3 (4.0-10.0)
[2016-08-25 13:01] LABS: ALBUMIN 3.1 GM/DL (3.2-5.2); ALBUMIN/GLOBULIN RATIO 0.82 (1.00-1.93); ALKALINE PHOSPHATASE 52 U/L (45-117); ALT/SGPT 28 U/L (12-78); ANION GAP 9 MEQ/L (8-16); AST/SGOT 13 U/L (15-37); BILIRUBIN,DIRECT 0.2 MG/DL (0.0-0.2); BILIRUBIN,TOTAL 0.7 MG/DL (0.2-1.0); BLOOD UREA NITROGEN 12 MG/DL (7-18); CALCIUM LEVEL 8.7 MG/DL (8.5-10.1); CARBON DIOXIDE LEVEL 27 MEQ/L (21-32); CHLORIDE LEVEL 107 MEQ/L (98-107); CREATININE FOR GFR 0.79 MG/DL (0.55-1.02); GLOMERULAR FILTRATION RATE > 60.0 (>51); GLUCOSE, FASTING 91 MG/DL (70-105); POTASSIUM SERUM 3.5 MEQ/L (3.5-5.1); SODIUM LEVEL 143 MEQ/L (136-145); TOTAL PROTEIN 6.9 GM/DL (6.4-8.2)
--- NOTE | 2016-08-25 14:03 | REP ---
CT STUDY OF THE BRAIN WITHOUT CONTRAST: HISTORY: Weakness. Comparison CT study, November 19, 2015. FINDINGS: Digital lateral yoker radiograph and bone window settings show no bony destructive lesion. There is no evidence of significant paranasal sinus disease. No intraorbital abnormality is seen. There is minimal diffuse cerebral atrophic change. No extra-axial fluid collection is seen. No mass, infarction, or hemorrhage is observed. IMPRESSION: No acute intracranial abnormality. Signed by Dwaine Francis MD 08/25/2016 07:27 P
[2016-08-25 14:37] LABS: METHADONE URINE NEGATIVE (NEGATIVE)
[2016-08-25 14:38] LABS: CONTROL LINE INT CTR LINE PRESENT; TRICYCLIC ANTIDEPRESS URINE NEGATIVE (NEGATIVE)
--- NOTE | 2016-08-25 16:45 | EDDOCDS ---
Physician Documentation [facility] Name: Janell Oscar Age: 56 yrs Sex: Female : 1960 Arrival Date: 08/25/2016 Time: 11:38 Bed [facility] MD: Keshawn Agustin MD Disposition: 08/25 16:10 Critical Care: Critical care not applicable. Disposition: 08/25/16 16:11 Hospitalization ordered by Leo Szymanski for Inpatient Admission. Preliminary diagnosis are Major depressive disorder, recurrent, moderate, Generalized anxiety disorder. - Bed requested for Admit. - Status is Inpatient Admission. ld5 - Condition is Stable. - Problem is new. - Symptoms are unchanged. Historical: - Allergies: cant have anything that ends in "pril"; TALIA INHIBITORS; - Home Meds: 1. Fioricet 50-325-40 mg Oral tab 2 tabs as needed 2. Ventolin HFA 90 mcg/actuation Nebulizer HFAA 2 puffs every 4-6 hours prn 3. aspirin 81 mg Oral tab 1 tab once daily (Last dose: 08/25/2016 07:00) 4. carvedilol 6.25 mg oral tab 2 times per day (Last dose: 08/25/2016 07:00) 5. Plavix 75 mg Oral tab 1 tab once daily (Last dose: 08/25/2016 07:00) 6. loratadine 10 mg Oral tab 1 tab as needed 7. nitroglycerin 0.4 mg SL subl 1 tab every 5 minutes 8. pantoprazole 40 mg oral tab 1 tab 2 times per day (Last dose: 08/25/2016 07:00) 9. Repatha Syringe 140 mg/mL subcutaneous syrg 1 mL every 2 wks 10. Diovan 80 mg oral tab once daily (Last dose: 08/24/2016) 11. Prozac 30mg Oral once daily 12. buspirone 10 mg Oral tab 1 tab 3 times per day 13. BuSpar 0.5mg Oral four times a day - PMHx: Anxiety; Asthma; Diabetes - NIDDM: controlled; Depression; ''Diet controlled DM''; Hypercholesterolemia; GERD; Hypertension; Migraines; Myocardial infarction; OCD; polycythemia; Vertigo; - PSHx: Cardiac stents (2016); ; Cholecystectomy; Breast Reduction; - Social history: Smoking status: Patient states was never smoker of tobacco. No barriers to communication noted, The patient speaks fluent Nauruan, Speaks appropriately for age. - Family history: Not pertinent. - : The pt / caregiver states he / she is not on anticoagulants. Home medication list is obtained from the patient. - Exposure Risk Screening:: None identified. Vital Signs: 11:58 BP 145 / 86; Pulse 74; Resp 20; Temp 97.4(O); Pulse Ox 95% on R/A; Weight 80.74 kg / sew 178 lbs; Height 5 ft. 0 in. (152.40 cm); Pain 4/10; 12:21 BP 142 / 93 (auto/); ead 12:22 Pulse 72 MON; Pulse Ox 93% ; ead 12:33 Pulse 72 MON; Pulse Ox 96% ; ead 12:44 BP 136 / 88 (auto/); ead 12:44 Pulse 82 MON; ead 12:51 BP 143 / 93 (auto/); ead 12:52 Pulse 72 MON; Resp 20; Pulse Ox 97% ; ead 13:06 BP 131 / 79 (auto/); ead 13:08 Pulse 64 MON; Pulse Ox 93% ; ead 13:21 BP 127 / 82 (auto/); ead 13:21 Pulse 62 MON; Pulse Ox 93% ; ead 13:36 BP 123 / 71 (auto/); ead 13:38 Pulse 62 MON; Pulse Ox 96% ; ead 13:51 BP 125 / 78 (auto/); ead 13:51 Pulse 72 MON; Resp 18; ead 16:00 BP 176 / 92; Pulse 91; Resp 18; Temp 99.2; Pulse Ox 95% on R/A; ld5 16:32 BP 156 / 86; Pulse 78; Resp 18; Temp 99; Pulse Ox 96% on R/A; ld5 11:58 Body Mass Index 34.76 (80.74 kg, 152.40 cm) sew MDM: 11:58 ECG WITH READING ER PHYS+CARDIAG ordered. EDMS 12:11 Consult PFS/PSA/Medical Physicist ordered. sd1 12:11 Consult PFS/PSA/Medical Physicist: Patient's case requires discussion with on-call sd1 Psychiatrist ordered. 12:11 PSA/PFS to call Nursing Superintendent [employer], to enter [place] data [place] if patient sd1 involuntarily admitted or transferred for SI or HI ordered. 12:11 Confirm accurate psychiatric medication list and times of last dosage ordered. sd1 12:11 Detain Pt Until Medically/PFS Cleared ordered. sd1 12:11 Tail Dogger/Pulse Ox/q 15 min VS ordered. sd1 12:12 Acetaminophen Level Ordered. EDMS 12:12 Basic Metabolic Profile Ordered. EDMS 12:12 Complete Blood Count Ordered. EDMS 12:12 Drug Eval Toxicology ED Only Ordered. EDMS 12:12 Ethyl Alcohol (ethanol) Ordered. EDMS 12:12 Liver Profile Ordered. EDMS 12:12 Salicylate Level Ordered. EDMS 12:12 Thyroid Stimulating Hormone Ordered. EDMS 12:48 Complete Blood Count Reviewed. sd1 13:05 Acetaminophen Level Reviewed. sd1 13:05 Liver Profile Reviewed. sd1 13:05 Salicylate Level Reviewed. sd1 13:05 Basic Metabolic Profile Reviewed. sd1 13:05 Ethyl Alcohol (ethanol) Reviewed. sd1 13:05 Thyroid Stimulating Hormone Reviewed. sd1 13:07 CT Head Without Contrast Ordered. EDMS 13:26 REGULAR DIET PLASTIC HECTOR+DIET ordered. EDMS 13:44 Test interpretation: interpreted by Radiologist and personally reviewed, Head CT; pc normal. 14:13 Financial registration complete. lg 14:14 [place] [place] Payment Agreement was scanned into [employer] and attached to record. lg 14:57 Drug Eval Toxicology ED Only Reviewed. pc 14:57 CT Head Without Contrast Reviewed. pc 16:10 The patient has been re-examined and re-evaluated. There is no appreciated change of pc the patient's symptoms at this time. Disposition: The historical points, examination findings, and any diagnostic results supporting the provided diagnosis, were discussed with the patient or legal guardian. The need for further work-up and/or treatment in the hospital was explained. 16:11 Admit to IMHU: ordered. EDMS 16:27 REGULAR DIET PLASTIC HECTOR+DIET ordered. EDMS 16:29 [facility] Legal paperwork was scanned into [employer] and attached to record. jl 16:41 Consult PFS/PSA/Medical Physicist complete. ld5 16:41 Consult PFS/PSA/Medical Physicist: Patient's case requires discussion with on-call ld5 Psychiatrist complete. 16:41 PSA/PFS to call Nursing Superintendent [employer], to [place] if patient ld5 involuntarily admitted or transferred for SI or HI complete. Signatures: Dispatcher [employer] Anton Leigh MD MD pc Delaney-Rowland, Sarah, MD MD sd1 Diya Nassar, RN RN srm Vida, Dimitrios, PSA PSA jl Srinivas Gil, Reg Reg lg Cony Le RN RN ld5 The chart was reviewed and I authenticate all verbal orders and agree with the evaluation and treatment provided.Attachments: 14:14 [facility] Payment Agreement lg MTDD
--- NOTE | 2016-08-25 16:45 | EDDOCDS ---
Nurse's Notes [facility] Name: Janell Oscar Age: 56 yrs Sex: Female : 1960 Arrival Date: 08/25/2016 Time: 11:38 Bed [facility] Private MD: Keshawn Agustin MD Diagnosis: Major depressive disorder, recurrent, moderate;Generalized anxiety disorder Presentation: 08/25 11:43 Presenting complaint: EMS states: weak legs since d/c in Jul. also anxiety .was talking srm to doctor at [facility] and making statements that she was thinking of hurting herself. per ems cant handle any more and doesn't want to be here.[facility] was first on scene. The last date and time the patient was known to be well was on an unknown date. The last date and time the patient was known to be well was was at an unknown time. No acute neurological deficit is noted. Adult Sepsis Screening: The patient does not have new or worsening altered mentation. Patient's respiratory rate is less than 22. Patient has a qSOFA score of 0- Negative Sepsis Screen. Suicide/Homicide risk assessment- The patient admits to and/or has been reported to be having suicidal ideations. Status: Patient is not a rv service technician or dependent. Transition of care: patient was not received from another setting of care. 11:43 Acuity: AZEB Level [address] [facility] 11:43 Method Of Arrival: Ambulance srm 11:58 Presenting complaint: ptc/o chest pressure while crying and stating she doesn't want to srm be here anymore and just cant TAKE IT. Adult Sepsis Screening: Systolic blood pressure is greater than 100. Triage Assessment: 11:56 The onset of the patients symptoms was at an unknown time. General: Appears distressed, srm Behavior is anxious, appropriate for age, cooperative. Pain: Pain currently is 4 out of 10 on a pain scale. HIV screening NA for this visit Offered previously. Neurological: Level of Consciousness is awake, alert, Reports weakness. Historical: - Allergies: cant have anything that ends in "pril"; TALIA INHIBITORS; - Home Meds: 1. Fioricet 50-325-40 mg Oral tab 2 tabs as needed 2. Ventolin HFA 90 mcg/actuation Nebulizer HFAA 2 puffs every 4-6 hours prn 3. aspirin 81 mg Oral tab 1 tab once daily (Last dose: 08/25/2016 07:00) 4. carvedilol 6.25 mg oral tab 2 times per day (Last dose: 08/25/2016 07:00) 5. Plavix 75 mg Oral tab 1 tab once daily (Last dose: 08/25/2016 07:00) 6. loratadine 10 mg Oral tab 1 tab as needed 7. nitroglycerin 0.4 mg SL subl 1 tab every 5 minutes 8. pantoprazole 40 mg oral tab 1 tab 2 times per day (Last dose: 08/25/2016 07:00) 9. Repatha Syringe 140 mg/mL subcutaneous syrg 1 mL every 2 wks 10. Diovan 80 mg oral tab once daily (Last dose: 08/24/2016) 11. Prozac 30mg Oral once daily 12. buspirone 10 mg Oral tab 1 tab 3 times per day 13. BuSpar 0.5mg Oral four times a day - PMHx: Anxiety; Asthma; Diabetes - NIDDM: controlled; Depression; ''Diet controlled DM''; Hypercholesterolemia; GERD; Hypertension; Migraines; Myocardial infarction; OCD; polycythemia; Vertigo; - PSHx: Cardiac stents (2016); ; Cholecystectomy; Breast Reduction; - Social history: Smoking status: Patient states was never smoker of tobacco. No barriers to communication noted, The patient speaks fluent Croatian, Speaks appropriately for age. - Family history: Not pertinent. - : The pt / caregiver states he / she is not on anticoagulants. Home medication list is obtained from the patient. - Exposure Risk Screening:: None identified. Screenin:41 Screening information is obtained from the patient, prior medical records. Fall risk: ld5 At risk due to pt reported weakness. Assistance ADL's: requires no assistance with activities of daily living. Abuse/DV Screen: The patient / caregiver reports he/she is: not in a situation that causes fear, pain or injury. Nutritional screening: No deficits noted. Advance Directives: There is no active DNR order. home support is adequate. Assessment: 12:22 General: Appears in no apparent distress, Behavior is anxious, cooperative, pt ead repeating "I can't do this anymore, I can't afford this anymore, I'm so tired, I'm so tired." Pt dressed in psych appropriate attire per DIRECTOR OF ACQUISITION MARKETING Jackie Wang. DIRECTOR OF ACQUISITION MARKETING maintains at bedside for safety observation. Neurological: Level of Consciousness is awake, alert, obeys commands, Oriented to person, place, time. Respiratory: Airway is patent Respiratory effort is even, unlabored. Derm: Skin is pink, warm & dry. 13:30 General: Appears in no apparent distress, comfortable, Behavior is appropriate for age, ead cooperative. Neurological: Level of Consciousness is awake, alert, Oriented to person, place, time. Respiratory: Airway is patent Respiratory effort is even, unlabored. Derm: Skin is pink, warm & dry. 14:30 General: Appears in no apparent distress, Behavior is cooperative. Neurological: Level ead of Consciousness is awake, alert, obeys commands, Oriented to person, place, time. Respiratory: Airway is patent Respiratory effort is even, unlabored. Derm: Skin is pink, warm & dry. 15:15 General: ANNY Sheth in with pt. ld5 15:30 General: Pt laying in bed crying. Upset about plan for admission. Pt carrying on and on ld5 about her most recent admission and the care she did/did not receive on [facility]. This RN explained that her concerns are being listened to and would be passed on tot he proper people. Pt continued to cry and talk about her anxiety, medications and cardiac problems. Support provided. Attempts to calm pt failed. This RN explained to pt that she would leave the room and give pt some time to relax and try to calm herself down. Will continue to monitor. 15:35 General: Pt remains upset. Rosa rosamaria and ice chips provided. Will continue to monitor. ld5 15:58 General: Pt resting quietly in bed. Will continue to monitor. ld5 16:32 General: Pt laying in bed talking to daughter. No apparent distress at this time. Will ld5 continue to monitor. 16:41 General: theater technician in speaking with pt. Pt then to be transported to [facility]. ld5 Mental Health Eval: 15:22 Mental health consult is initiated at 15:00. Status: Patient is , who jl continues to have from when her was still living. [facility] Behavioral Health: The patient is not an established patient of [facility] Behavioral Health. Referral Information: Evaluation referral is generated by EMS & police, at the request of her ct tech. The patient was referred for evaluation because she reportedly made comments to her ct tech that were suggestive of being suicidal. Subjective: The patients chief complaint is "I've been so, so, so depressed and anxious since I got out of there [[facility]] on August 04". Delusions are not elicited. Patient's mood is severely anxious & depressed. Hallucinations are denied. Patient presented & was initially seen for a c/o genal weakness, however was sobbing & severely anxious, to the point where ED MD reported having difficulty following her. Throughout MHE interview she became more & more distressed, crying & nearly hyperventilating. She reported having full body weakness, insomnia, inability to cope, fear of being at home or anywhere alone, constant panic attacks, vivid & frightening dreams (when she is able to sleep) & persistent thoughts of not wanting to be around. She did make it clear that she had no intention of causing her own demise, although appears desperate & potentially unsafe. Mental Health history: anxiety, depression, panic attacks, sleep disturbance, suicide ideation without attempts Mental Health Admissions: [facility]: 07/25- Current Outpatient Mental Health Services: Psychiatrist / Agency: [facility] ([facility]). Current living environment is The patient currently lives alone. Patient presents to Emergency Department with the following symptoms within the past 2 weeks: agitation, anxiety, decreased appetite, depressed mood, feelings of helplessness/hopelessness, panic attacks, sleep disturbance - insomnia, suicidal ideation with no plan. Substance abuse: Pt denies. Mental status exam: Patients appearance is disheveled Patient's behavior is agitated, Speech is pressured. rapid. Affect is broad. Mood is anxious. depressed. irritable. Hallucinations are denied. Appetite is poor. Memory is fair. Energy level is normal. Content of thought is including somatic preoccupation Thought process is tangential. Cognitive level is oriented to person, place, time and situation Patient's insight is poor. Judgement is poor. Rapport with interviewer is adequate. Suicidal Ideation is present with no specific plan. Homicidal ideation is denied. 16:23 Disposition: Medically cleared for disposition by Anton Dolan MD Psychiatric Consult jl is performed by phone with Dr Leo Szymanski MD. [facility] Admission Criteria: The patient is experiencing suicidal ideation. The patient displays symptoms of severe psychiatric disorder resulting in disordered behavior and significant interference with his / her ability to maintain self care. Severe Anxiety. Legal Status: Patient's legal status will be Emergency admission: 39. DSM-V Differential Diagnosis: Unspecified Depressive Disorder (F32.9). Insurance Pre-Certification: Not Required. Vital Signs: 11:58 BP 145 / 86; Pulse 74; Resp 20; Temp 97.4(O); Pulse Ox 95% on R/A; Weight 80.74 kg; sew Height 5 ft. 0 in. (152.40 cm); Pain 4/10; 12:21 BP 142 / 93 (auto/); ead 12:22 Pulse 72 MON; Pulse Ox 93% ; ead 12:33 Pulse 72 MON; Pulse Ox 96% ; ead 12:44 BP 136 / 88 (auto/); ead 12:44 Pulse 82 MON; ead 12:51 BP 143 / 93 (auto/); ead 12:52 Pulse 72 MON; Resp 20; Pulse Ox 97% ; ead 13:06 BP 131 / 79 (auto/); ead 13:08 Pulse 64 MON; Pulse Ox 93% ; ead 13:21 BP 127 / 82 (auto/); ead 13:21 Pulse 62 MON; Pulse Ox 93% ; ead 13:36 BP 123 / 71 (auto/); ead 13:38 Pulse 62 MON; Pulse Ox 96% ; ead 13:51 BP 125 / 78 (auto/); ead 13:51 Pulse 72 MON; Resp 18; ead 16:00 BP 176 / 92; Pulse 91; Resp 18; Temp 99.2; Pulse Ox 95% on R/A; ld5 16:32 BP 156 / 86; Pulse 78; Resp 18; Temp 99; Pulse Ox 96% on R/A; ld5 11:58 Body Mass Index 34.76 (80.74 kg, 152.40 cm) [facility] Vitals: 11:58 Log In Time N/A - ambulance arrival. [facility] ED Course: 11:39 Patient visited by Abigail Acevedo, Cold Roll Catcher. lbd 11:39 Patient moved to Waiting lbd 11:40 Keshawn Agustin is Private Physician. lbd 11:40 Patient moved to 18 hs1 11:46 Triage Initiated srm 11:58 Patient visited by Diya Nassar RN. [facility] 11:58 Jackie Nguyen MD is Attending Physician. sd1 11:59 Patient visited by Jackie Wang. sew 11:59 Patient visited by Jackie Nguyen MD. sd1 11:59 Pt greeted and oriented to ED. Patient advised of names of staff involved in care, sew location of call sierra, wait times and NPO status. Patient has correct armband on for positive identification. Placed in gown. Bed in low position. Side rails up X2. 12:09 Patient visited by Jackie Wang. sew 12:09 drop man on. Pulse ox on. NIBP on. sew 12:09 EKG done. (by ED staff). Reviewed by Jackie Nguyen MD. sew 12:21 Acetaminophen Level Sent. ead 12:21 Thyroid Stimulating Hormone Sent. ead 12:21 Salicylate Level Sent. ead 12:21 Liver Profile Sent. ead 12:21 Ethyl Alcohol (ethanol) Sent. ead 12:21 Complete Blood Count Sent. ead 12:22 Basic Metabolic Profile Sent. ead 12:48 Patient visited by Angie Bess RN. ead 12:50 Placed in psych safe attire. Security observing. Property removed, inventory done, sew secured in belongings bag- placed in locked locker. Placed in Locker 7 in ortho room. secure belongings bag, Secure bag Number [id number], placed in ED safe. Verbal reassurance given. Warm blanket given. Head of bed elevated pt pulled up in bed. Psych Safety Check: Location: Medical Room. Visual Assessment: emotional. 12:55 Patient visited by Jackie Wang. sew 13:07 Patient visited by Jackie Wang. sew 13:19 Patient visited by Eliazar Noel. rn1 13:21 Attending Physician role handed off by Jackie Nguyen MD pc 13:21 Anton Dolan MD is Attending Physician. pc 13:39 Patient visited by Eliazar Noel. rn1 13:46 Patient moved to [facility] hs1 13:47 Patient visited by Eliazar Noel. rn1 13:49 Patient visited by Daniel Mccarthy. dem1 14:04 CT Head Without Contrast Returned. EDMS 14:09 Patient visited by Jesse Hoang. dpm 14:14 [facility] Payment Agreement was scanned into [employer] and attached to record. lg 14:19 Patient visited by Jesse Hoang. dpm 14:19 Drug Eval Toxicology ED Only Sent. dpm 14:36 Patient visited by Jesse Hoang. dpm 14:51 Patient visited by Jesse Hoang. dpm 15:02 Patient visited by Jesse Hoang. dpm 15:04 Patient visited by Dimitrios Sheth PSA. jl 15:15 Patient visited by Jesse Hoang. dpm 15:32 Patient visited by Jesse Hoang. dpm 15:58 Patient visited by Cony Le,BELLA. ld5 16:01 Patient visited by Jesse Hoang. dpm 16:11 Leo Szymanski MD is Hospitalizing Provider. pc 16:14 Patient visited by Jesse Hoang. dpm 16:29 [facility] Legal paperwork was scanned into [employer] and attached to record. jl 16:30 Patient visited by Jesse Hoang. dpm 16:32 Patient visited by Cony Le,BELLA. ld5 16:41 No IV's were initiated during this patient's visit. No procedures done that require ld5 assistance. 16:44 Patient visited by Cony Le RN. ld5 16:44 The patient / caregiver is instructed regarding the plan of care and ED course. ld5 Attachments: 16:29 [facility] Legal paperwork jl Order Results: Lab Order: Acetaminophen Level; SPEC'M 08/25/16 12:19 Test: ACETAMINOPHEN LEVEL; Value: < 2.0; Range: 10.0-30.0; Abnormal: Below low normal; Units: UG/ML; Status: F Lab Order: Basic Metabolic Profile; SPEC'M 08/25/16 12:19 Test: GLUCOSE, FASTING; Value: 91; Range: 70-105; Units: MG/DL; Status: F Test: BLOOD UREA NITROGEN; Value: 12; Range: 7-18; Units: MG/DL; Status: F Test: CREATININE FOR GFR; Value: 0.79; Range: 0.55-1.02; Units: MG/DL; Status: F Test: GLOMERULAR FILTRATION RATE; Value: > 60.0; Range: >51; Status: F Test: SODIUM LEVEL; Value: 143; Range: 136-145; Units: MEQ/L; Status: F Test: POTASSIUM SERUM; Value: 3.5; Range: 3.5-5.1; Units: MEQ/L; Status: F Test: CHLORIDE LEVEL; Value: 107; Range: 98-107; Units: MEQ/L; Status: F Test: CARBON DIOXIDE LEVEL; Value: 27; Range: 21-32; Units: MEQ/L; Status: F Test: ANION GAP; Value: 9; Range: 8-16; Units: MEQ/L; Status: F Test: CALCIUM LEVEL; Value: 8.7; Range: 8.5-10.1; Units: MG/DL; Status: F Test Note: ; Units are mL/min/1.73 m2 Chronic Kidney Disease Staging per NKF: Stage I & II GFR >=60 Normal to Mildly Decreased Stage III GFR 30-59 Moderately Decreased Stage IV GFR 15-29 Severely Decreased Stage V GFR <15 Very Little GFR Left ESRD GFR <15 on RISK PREVENTION ENGINEER Lab Order: Complete Blood Count; [facility] 08/25/16 12:19 Test: WHITE BLOOD COUNT; Value: 8.7; Range: 4.0-10.0; Units: K/mm3; Status: F Test: RED BLOOD COUNT; Value: 4.49; Range: 4.00-5.40; Units: M/mm3; Status: F Test: HEMOGLOBIN; Value: 12.6; Range: 12.0-16.0; Units: g/dl; Status: F Test: HEMATOCRIT; Value: 40.0; Range: 36.0-47.0; Units: %; Status: F Test: MEAN CORPUSCULAR VOLUME; Value: 89.2; Range: 80.0-96.0; Units: fl; Status: F Test: MEAN CORPUSCULAR HEMOGLOBIN; Value: 28.2; Range: 27.0-33.0; Units: pg; Status: F Test: MEAN CORPUSCULAR HGB CONC; Value: 31.6; Range: 32.0-36.5; Abnormal: Below low normal; Units: g/dl; Status: F Test: RED CELL DISTRIBUTION WIDTH; Value: 17.7; Range: 11.5-14.5; Abnormal: Above high normal; Units: %; Status: F Test: PLATELET COUNT, AUTOMATED; Value: 355; Range: 150-450; Units: k/mm3; Status: F Lab Order: Drug Eval Toxicology ED Only; SPEC'M 08/25/16 14:18 Test: AMPHETAMINES LEVEL URINE; Value: NEGATIVE; Range: NEGATIVE; Status: F Test: BARBITURATES URINE; Value: NEGATIVE; Range: NEGATIVE; Status: F Test: BENZODIAZEPINES URINE; Value: NEGATIVE; Range: NEGATIVE; Status: F Test: CANNABINOIDS URINE; Value: POSITIVE; Range: NEGATIVE; Abnormal: Above high normal; Status: F Test: COCAINE METABOLITE URINE; Value: NEGATIVE; Range: NEGATIVE; Status: F Test: METHADONE URINE; Value: NEGATIVE; Range: NEGATIVE; Status: F Test: OPIATES URINE; Value: NEGATIVE; Range: NEGATIVE; Status: F Test: TRICYCLIC ANTIDEPRESS URINE; Value: NEGATIVE; Range: NEGATIVE; Status: F Test Note: ; FALSE POSITIVE RESULTS CAN BE CAUSED BY THE USE OF PANTOPRAZOLE (PROTONIX). Lab Order: Ethyl Alcohol (ethanol); SPEC'M 08/25/16 12:19 Test: ETHYL ALCOHOL (ETHANOL); Value: 0.005; Range: 0.000-0.010; Units: %; Status: F Lab Order: Liver Profile; SPEC'M 08/25/16 12:19 Test: AST/SGOT; Value: 13; Range: 15-37; Abnormal: Below low normal; Units: U/L; Status: F Test: ALT/SGPT; Value: 28; Range: 12-78; Units: U/L; Status: F Test: ALKALINE PHOSPHATASE; Value: 52; Range: 45-117; Units: U/L; Status: F Test: BILIRUBIN,TOTAL; Value: 0.7; Range: 0.2-1.0; Units: MG/DL; Status: F Test: BILIRUBIN,DIRECT; Value: 0.2; Range: 0.0-0.2; Units: MG/DL; Status: F Test: TOTAL PROTEIN; Value: 6.9; Range: 6.4-8.2; Units: GM/DL; Status: F Test: ALBUMIN; Value: 3.1; Range: 3.2-5.2; Abnormal: Below low normal; Units: GM/DL; Status: F Test: ALBUMIN/GLOBULIN RATIO; Value: 0.82; Range: 1.00-1.93; Abnormal: Below low normal; Status: F Lab Order: Salicylate Level; SPEC'M 08/25/16 12:19 Test: SALICYLATE LEVEL; Value: < 1.7; Range: 5.0-30.0; Abnormal: Below low normal; Units: MG/DL; Status: F Lab Order: Thyroid Stimulating Hormone; SPEC'M 08/25/16 12:19 Test: THYROID STIMULATING HORMONE; Value: 1.080; Range: 0.358-3.740; Units: uIU/ML; Status: F Radiology Order: CT Head Without Contrast Test: CT Head Without Contrast REASON FOR EXAMINATION: weakness; CT STUDY OF THE BRAIN WITHOUT CONTRAST:; ; HISTORY: Weakness.; ; Comparison CT study, November 19, 2015.; ; FINDINGS: Digital lateral cut out press operator radiograph and bone window settings show no bony; destructive lesion. There is no evidence of significant paranasal sinus disease.; No intraorbital abnormality is seen.; ; There is minimal diffuse cerebral atrophic change. No extra-axial fluid; collection is seen. No mass, infarction, or hemorrhage is observed.; ; IMPRESSION:; No acute intracranial abnormality.; ; ; ; ; Unreviewed; Outcome: 16:11 Decision to Hospitalize by Provider. 16:41 Discharge Assessment: Patient awake, alert and oriented x 3. No cognitive and/or ld5 functional deficits noted. Patient verbalized understanding of disposition instructions. patient administered narcotics - no. The following High Risk Discharge criteria are identified: Yes, [facility] admission. Admitted to Psych accompanied by tech, via wheelchair, with chart. Condition: stable. 16:43 CT Study completed. ld5 16:44 Patient left the ED. ld5 Signatures: Dispatcher [employer] EDMS Anton Dolan MD MD pc Delaney-Rowland, Sarah, MD MD sdAbigail Pham, Cold Roll Catcher Unit lbd Diya Nassar RN RN srm Dimitrios Sheth, ANNY PSA Srinivas Maloney, Pernell Reg Cony Durham RN RN ld5 Kathia Madrigal RN RN hs1 Daniel Mccarthy Dustin dpJackie Romero Emily, RN RN Eliazar Maria rn1 Corrections: (The following items were deleted from the chart) 13:06 12:50 Property removed, inventory done, secured in belongings bag- placed in locked sew locker. secure belongings bag, Secure bag Number [id number], placed in ED safe. sew 16:44 16:41 No special radiology studies were completed ld5 ld5 MTDD
[2016-08-25] MEDS ORDERED: BUSP5TA PO (16:51)
[2016-08-25] MEDS ORDERED: ALBU17IN INH (16:51)
[2016-08-25] MEDS ORDERED: FLUO10CA8 PO (16:51)
[2016-08-25] MEDS ORDERED: VALS1TAB46 PO (16:51)
[2016-08-25 17:00] VITALS: BP 140/91
[2016-08-25] MEDS ORDERED: ALBUTEROL 90 MCG/ACT 8GM HFA INHALER INH PRN (18:30)
[2016-08-25] MEDS ORDERED: MOM 30ML SUSPENSION UDC PO PRN (18:30)
[2016-08-25] MEDS ORDERED: LORATADINE 10 MG TAB PO SCH (18:30)
[2016-08-25] MEDS ORDERED: MAALOX 30 ML SUSP *UDC PO PRN (18:30)
[2016-08-25] MEDS: CARVedilol 6.25 MG TAB PO SCH (20:51)
[2016-08-25] MEDS: VALSARTAN 80 MG TAB (DIOVAN) PO SCH (20:51)
[2016-08-25] MEDS: PANTOPRAZOLE 40MG TAB (PROTONIX) PO SCH (20:52)
[2016-08-25] MEDS: traZODone 50 MG TAB PO PRN (20:56)
[2016-08-26 06:49] VITALS: BP 144/98
[2016-08-26] MEDS: CLOPIDOGREL 75 MG TAB PO SCH (08:31)
[2016-08-26] MEDS: ASPIRIN 81 MG ENTERIC TAB PO SCH (08:31)
[2016-08-26] MEDS: CARVedilol 6.25 MG TAB PO SCH (08:31)
[2016-08-26] MEDS: FLUoxetine 10 MG CAP PO SCH (08:32)
[2016-08-26] MEDS: PANTOPRAZOLE 40MG TAB (PROTONIX) PO SCH ×2 (08:32→22:09)
[2016-08-26] MEDS: REPATHA 140 MG SQ SCH (08:33)
--- NOTE | 2016-08-26 08:50 | ECGEPIP ---
Stationary ECG Study [facility] - ED Test Date: 2016-08-25 Pat Name: SAI MELCHOR Department: Room: - Gender: F Blind Cleaner: karla : 1960 Requested By: Jackie Nguyen Order Number: [id number] Reading MD: Jackie Nguyen Measurements Intervals [place] Rate: 67 P: 13 WI: 159 QRS: -58 QRSD: 78 T: 64 QT: 402 QTc: 427 Interpretive Statements SINUS RHYTHM MARKED LEFT AXIS DEVIATION LOW QRS VOLTAGE IN PRECORDIAL LEADS PATTERN CONSISTENT WITH PULMONARY DISEASE NONSPECIFIC T-WAVE ABNORMALITY ?INFERIOR INFARCT DECREASED RATE 08/15/16 Electronically Signed On 08-26-2016 8:49:43 EST by Jackie Nguyen
[2016-08-26] MEDS: busPIRone 5 MG TAB PO SCH ×3 (12:46→22:09)
--- NOTE | 2016-08-26 13:15 | MHHPE ---
DATE OF ADMISSION: 08/25/2016 LEGAL STATUS AT ADMISSION: 9.39 legal status. CHIEF COMPLAINT: "I've been feeling very depressed and anxious, and I was afraid I was going to do something to myself." HISTORY OF PRESENT ILLNESS: 56-year-old female with history of depression and anxiety admitted to our unit on a 9.39 legal status. 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 The patient made suicidal statements to the supervisor sandblaster, was making comments such as "I am so, so depressed and anxious since I got out of the mental health unit on August 04." Patient was seen with complaint of general weakness, but she was sobbing, depressed, highly anxious. She became more and more distressed, crying, hyperventilating. She reported being afraid of being at home and having persistent thoughts of not wanting to be around. The patient was hyperventilating. According to the chart, stated to the doctor that she could not cope anymore, that she could not eat or sleep, reported distressing nightmares. Her presentation was disheveled and described frequent panic attacks. During the interview today, the patient is somewhat calmer than her presentation to the emergency room, however she is highly anxious with pressured speech. She is tangential. The patient reports significant mood swings, an emotional roller coaster. The patient states that she was discharged from the unit on Effexor, but her outpatient psychiatrist that she sees through tele psych decided to switch the Effexor to Prozac because of her heart condition. The patient had an myocardial infarction and the outpatient psychiatrist preferred not to use Effexor. The patient says that this medication has recently switched and she has been on a 30 mg just about one week. During the interview there is no evidence of psychotic symptoms. No auditory or visual hallucinations or delusions. The patient reported feeling hopeless and helpless, having very high anxiety being unable to sleep, poor appetite, poor self esteem. As above, speech is very rapid and pressured and changing from subject to subject, although she is not psychotic and the symptoms are not compatible with manic behavior. As stated above, the patient was in our unit on July 25 under the care of Dr. Forrest. PAST MEDICAL HISTORY: The patient has been diagnosed to have aix-lcebnbg-zlurrdjcb diabetes mellitus. Hypercholesterolemia. Gastroesophageal reflux disease (GERD). Hypertension. Migraines headaches. Myocardial infarction (PA). Polycythemia. Vertigo. Status post cardiac stents in 2016. section. Cholecystectomy. Breast reduction. PAST PSYCHIATRIC HISTORY: As above, the patient was admitted in our unit on July 25. She had been on Prozac for 7 years, but she felt that it was not longer effective. It is reported that Zoloft made her feel "loopy" and she was on other antidepressants, but cannot remember. She had been diagnosed to have obsessive-compulsive disorder (OCD) 25 years ago while her was at an [employer] in [place]. FAMILY HISTORY: The patient believes her mother had OCD. SUBSTANCE ABUSE HISTORY: Patient denies any current or past problems with drugs or alcohol. 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 She is living alone in the [place] area. She is having trouble coping with support and isolation. The patient was born and raised in [place]. She graduated high school. 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 She had to resign her job three weeks prior to her admission in July, since she could no longer function due to her depression. The patient has two children. REVIEW OF SYSTEMS: CONSTITUTIONAL: No weight loss, fever or chills, weakness or fatigue. HEENT: No visual loss, blurry vision, double vision, or yellow sclera. No hearing loss, sneezing, congestion, runny nose or sore throat. SKIN: No rash or itching. CARDIOVASCULAR: No chest pain, chest pressure, chest discomfort, palpitations, or edema. RESPIRATORY: No shortness of breath, cough or sputum. GASTROINTESTINAL (GI): No anorexia, nausea, vomiting or diarrhea. No abdominal pain or blood. GENITOURINARY (): No burning or pain on urination. NEUROLOGIC: No headache, dizziness, syncope, paralysis, ataxia, numbness or tingling. MUSCULOSKELETAL: No muscle, back pain, joint pain or stiffness. HEMATOLOGIC: No anemia, bleeding or bruising. LYMPHATICS: No history of splenectomy. ENDOCRINOLOGIC: No reports of sweating, cold or heat intolerance, no polyuria or polydipsia. ALLERGIES: No history of asthma, hives, eczema or rhinitis. PHYSICAL EXAMINATION: As per physician life science research assistant. LABORATORIES AT ADMISSION: CBC is unremarkable. CMP showed a BUN of 28 and a creatinine of 1.10, which is at baseline for her. The rest of the BMP is within normal limits. Urine drug screen is positive for barbiturates and benzodiazepines. Blood alcohol level is negative. MENTAL STATUS EXAMINATION: Patient is dressed in [facility]. Patient is cooperative. Speech is rapid and pressured. She has fair eye contact. Mood is anxious and depressed. Patient is oriented to time, place, person and situation. Maintains attention and concentration poorly due to her anxiety. Instant recall, recent and remote memory are fair. Thought processes are coherent, logical, but they are circumstantial and also tangential. The patient does not have auditory or visual hallucinations. The patient does not have paranoid, persecutory, somatic, grandiose or jewish delusions. The patient is reporting suicidal thoughts, but not homicidal ideation. Judgment and insight are fair. DIAGNOSIS: [place] I: Major depressive disorder. [place] II: Deferred. [place] III: Ehl-fqhqcut-kfnaacczl diabetes mellitus. Hypercholesterolemia. GERD. Hypertension. Migraines headaches. Status post myocardial infarction. Polycythemia. Vertigo. INITIAL TREATMENT PLAN: Patient was admitted on a 9.39 legal status. Complete history was obtained. With her permission family will be contacted and data base will be expanded. Her medication regime will be reviewed and changed accordingly. She will be provided with a protected environment. She will be treated with individual, group and milieu therapy. She will also receive supportive psychoeducation. Discharge planning will commence immediately. Length of stay will be between 5 and 7 days. Outpatient followup will be strongly recommended. The treatment plan will focus initially on risks for suicide and depression.
[2016-08-26 18:00] VITALS: BP 118/72
[2016-08-26] MEDS: CARVedilol 12.5 MG TAB PO SCH (22:11)
[2016-08-26] MEDS: VALSARTAN 80 MG TAB (DIOVAN) PO SCH (22:11)
[2016-08-26] MEDS: traZODone 50 MG TAB PO PRN (22:14)
[2016-08-27 06:43] VITALS: BP 125/79
[2016-08-27] MEDS: PANTOPRAZOLE 40MG TAB (PROTONIX) PO SCH ×2 (08:19→22:03)
[2016-08-27] MEDS: CARVedilol 12.5 MG TAB PO SCH ×2 (08:19→22:03)
[2016-08-27] MEDS: busPIRone 5 MG TAB PO SCH ×4 (08:19→22:03)
[2016-08-27] MEDS: FLUoxetine 10 MG CAP PO SCH (08:20)
[2016-08-27] MEDS: CLOPIDOGREL 75 MG TAB PO SCH (08:20)
[2016-08-27] MEDS: ASPIRIN 81 MG ENTERIC TAB PO SCH (08:20)
--- NOTE | 2016-08-27 15:00 | HPE ---
DATE OF ADMISSION: 08/25/2016 HISTORY OF PRESENT ILLNESS: Please refer to the psychiatric history and evaluation for further details on this admission. This examination and history is intended for medical issues which may need treatment, followup or consultation on this 56-year-old female. CURRENT MEDICATIONS: - valsartan 80 mg by mouth nightly - Repatha 140 mg subcutaneous every two weeks. - Protonix 40 mg by mouth twice a day - nitroglycerine 0.4 mg sublingual every 5 minutes times three as needed for chest pain - Ativan 0.5 mg by mouth three times a day as needed for anxiety - loratadine 10 mg by mouth daily - fluoxetine 30 mg by mouth daily - Plavix 75 mg by mouth daily - chloride will increase from 6.25 mg by mouth twice a day, which is what she came in on, to 12.5 mg by mouth twice a day. - 5 mg by mouth three times a day - aspirin 81 mg by mouth daily - albuterol two puffs every 4 hours as needed for shortness of breath relief. - Fioricet two capsules by mouth as needed migraine, none currently PAST MEDICAL HISTORY: Coronary artery disease. She had an myocardial infarction 03/07/2016. She had four cardiac stents. Her media promoter is Dr. Talamantes at [facility]. History of anxiety and depression. History of obsessive compulsive disorder, history of asthma. History of diet-controlled diabetes. History of gastroesophageal reflux disease. History of hypertension. History of migraine headaches. History of polycythemia. History of vertigo. History of NAFLD, followed with Dr. Stone. PAST SURGICAL HISTORY: Stents times four February of 2016. times two. Cholecystectomy. Breast reduction. LABORATORY DATA: WBC 8.7, hemoglobin 12.6, hematocrit 40, platelets 255. Electrolytes are normal. Urine is positive for cannabinoids. CT of the head showed no acute intracranial abnormality. EKG shows sinus rhythm with a marked left axis deviation. Rate of 67. SOCIAL HISTORY: Resides in [place]. The patient is a . She has two children, one is a stepchild. 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 Tobacco use, none. ETOH none. Recreational drug use none. FAMILY HISTORY: Her mother is from leukemia. Father , had Alzheimer's. REVIEW OF SYSTEMS: 10- system review was done and was unremarkable. She had no complaints. PHYSICAL EXAMINATION: 56-year-old obese cooperative female in no acute distress. The patient is alert and oriented times three. Height 60 inches. Weight 82.2 kilograms. Body mass index 35.8. Blood pressure 144/98, pulse 68, respiratory rate 18, temperature 98.6. Pupils equal and reactive to light. Extraocular movements intact. Cornea and sclera clear. Conjunctiva normal. No facial asymmetry. Pharynx, tongue, and gums pink and moist. Tongue is midline. Neck is supple, without lymphadenopathy. No thyromegaly. No goiter. Carotids 2+ without bruit. Chest clear to auscultation, without wheeze or retraction. Heart is regular. Abdomen benign. Bowel sounds positive. /Rectal: Not done. Extremities show equal strength. Full range of motion. no cyanosis, clubbing or edema. IMPRESSION AND PLAN: 1. Psychiatric: Plan per psychiatry. 2. Hypertension: The patient has been running 140/90 to 98. Will increase her chloride to 12.5 mg by mouth twice a day. 3. History of coronary artery disease: Clinically stable. Continue aspirin and Plavix. Continue to followup with media promoter, Dr. Talamantes. 4. Asthma: Continue Albuterol two puffs every 4 hours as needed shortness of breath relief. 5. Allergic rhinitis. Continue loratadine. 6. Gastroesophageal reflux disease: Continue Protonix. 7. Non-insulin dependent diabetes type 2: Consistent carbohydrate diet. Fingerstick blood sugars twice a day. 8. History of migraine headaches: Currently stable. 9. History of hypocholesterolemia: Continue Repatha. The patient received it today.
--- NOTE | 2016-08-27 17:45 | EDDOCDS ---
Physician Documentation [facility] Name: Janell Oscar Age: 56 yrs Sex: Female : 1960 Arrival Date: 08/25/2016 Time: 11:38 Bed [facility] MD: Keshawn Agustin MD Disposition: 08/25 16:10 Critical Care: Critical care not applicable. Disposition: 08/25/16 16:11 Hospitalization ordered by Leo Szymanski for Inpatient Admission. Preliminary diagnosis are Major depressive disorder, recurrent, moderate, Generalized anxiety disorder. - Bed requested for Admit. - Status is Inpatient Admission. ld5 - Condition is Stable. - Problem is new. - Symptoms are unchanged. Historical: - Allergies: cant have anything that ends in "pril"; TALIA INHIBITORS; - Home Meds: 1. Fioricet 50-325-40 mg Oral tab 2 tabs as needed 2. Ventolin HFA 90 mcg/actuation Nebulizer HFAA 2 puffs every 4-6 hours prn 3. aspirin 81 mg Oral tab 1 tab once daily (Last dose: 08/25/2016 07:00) 4. carvedilol 6.25 mg oral tab 2 times per day (Last dose: 08/25/2016 07:00) 5. Plavix 75 mg Oral tab 1 tab once daily (Last dose: 08/25/2016 07:00) 6. loratadine 10 mg Oral tab 1 tab as needed 7. nitroglycerin 0.4 mg SL subl 1 tab every 5 minutes 8. pantoprazole 40 mg oral tab 1 tab 2 times per day (Last dose: 08/25/2016 07:00) 9. Repatha Syringe 140 mg/mL subcutaneous syrg 1 mL every 2 wks 10. Diovan 80 mg oral tab once daily (Last dose: 08/24/2016) 11. Prozac 30mg Oral once daily 12. buspirone 10 mg Oral tab 1 tab 3 times per day 13. BuSpar 0.5mg Oral four times a day - PMHx: Anxiety; Asthma; Diabetes - NIDDM: controlled; Depression; ''Diet controlled DM''; Hypercholesterolemia; GERD; Hypertension; Migraines; Myocardial infarction; OCD; polycythemia; Vertigo; - PSHx: Cardiac stents (2016); ; Cholecystectomy; Breast Reduction; - Social history: Smoking status: Patient states was never smoker of tobacco. No barriers to communication noted, The patient speaks fluent Syrian, Speaks appropriately for age. - Family history: Not pertinent. - : The pt / caregiver states he / she is not on anticoagulants. Home medication list is obtained from the patient. - Exposure Risk Screening:: None identified. Vital Signs: 11:58 BP 145 / 86; Pulse 74; Resp 20; Temp 97.4(O); Pulse Ox 95% on R/A; Weight 80.74 kg / sew 178 lbs; Height 5 ft. 0 in. (152.40 cm); Pain 4/10; 12:21 BP 142 / 93 (auto/); ead 12:22 Pulse 72 MON; Pulse Ox 93% ; ead 12:33 Pulse 72 MON; Pulse Ox 96% ; ead 12:44 BP 136 / 88 (auto/); ead 12:44 Pulse 82 MON; ead 12:51 BP 143 / 93 (auto/); ead 12:52 Pulse 72 MON; Resp 20; Pulse Ox 97% ; ead 13:06 BP 131 / 79 (auto/); ead 13:08 Pulse 64 MON; Pulse Ox 93% ; ead 13:21 BP 127 / 82 (auto/); ead 13:21 Pulse 62 MON; Pulse Ox 93% ; ead 13:36 BP 123 / 71 (auto/); ead 13:38 Pulse 62 MON; Pulse Ox 96% ; ead 13:51 BP 125 / 78 (auto/); ead 13:51 Pulse 72 MON; Resp 18; ead 16:00 BP 176 / 92; Pulse 91; Resp 18; Temp 99.2; Pulse Ox 95% on R/A; ld5 16:32 BP 156 / 86; Pulse 78; Resp 18; Temp 99; Pulse Ox 96% on R/A; ld5 11:58 Body Mass Index 34.76 (80.74 kg, 152.40 cm) sew MDM: 11:58 ECG WITH READING ER PHYS+CARDIAG ordered. EDMS 12:11 Consult PFS/PSA/Shower Maid ordered. sd1 12:11 Consult PFS/PSA/Shower Maid: Patient's case requires discussion with on-call sd1 Psychiatrist ordered. 12:11 PSA/PFS to call Nursing Websphere Commerce Architect, to enter patient data on [place] Safe [place] if patient sd1 involuntarily admitted or transferred for SI or HI ordered. 12:11 Confirm accurate psychiatric medication list and times of last dosage ordered. sd1 12:11 Detain Pt Until Medically/PFS Cleared ordered. sd1 12:11 Track And Field Coach/Pulse Ox/q 15 min VS ordered. sd1 12:12 Acetaminophen Level Ordered. EDMS 12:12 Basic Metabolic Profile Ordered. EDMS 12:12 Complete Blood Count Ordered. EDMS 12:12 Drug Eval Toxicology ED Only Ordered. EDMS 12:12 Ethyl Alcohol (ethanol) Ordered. EDMS 12:12 Liver Profile Ordered. EDMS 12:12 Salicylate Level Ordered. EDMS 12:12 Thyroid Stimulating Hormone Ordered. EDMS 12:48 Complete Blood Count Reviewed. sd1 13:05 Acetaminophen Level Reviewed. sd1 13:05 Liver Profile Reviewed. sd1 13:05 Salicylate Level Reviewed. sd1 13:05 Basic Metabolic Profile Reviewed. sd1 13:05 Ethyl Alcohol (ethanol) Reviewed. sd1 13:05 Thyroid Stimulating Hormone Reviewed. sd1 13:07 CT Head Without Contrast Ordered. EDMS 13:26 REGULAR DIET PLASTIC HECTOR+DIET ordered. EDMS 13:44 Test interpretation: interpreted by Radiologist and personally reviewed, Head CT; pc normal. 14:13 Financial registration complete. lg 14:14 [facility] [place] was scanned into [employer] and attached to record. lg 14:57 Drug Eval Toxicology ED Only Reviewed. pc 14:57 CT Head Without Contrast Reviewed. pc 16:10 The patient has been re-examined and re-evaluated. There is no appreciated change of pc the patient's symptoms at this time. Disposition: The historical points, examination findings, and any diagnostic results supporting the provided diagnosis, were discussed with the patient or legal guardian. The need for further work-up and/or treatment in the hospital was explained. 16:11 Admit to IMHU: ordered. EDMS 16:27 REGULAR DIET PLASTIC HECTOR+DIET ordered. EDMS 16:29 [facility] Legal paperwork was scanned into [employer] and attached to record. jl 16:41 Consult PFS/PSA/Shower Maid complete. ld5 16:41 Consult PFS/PSA/Shower Maid: Patient's case requires discussion with on-call ld5 Psychiatrist complete. 16:41 PSA/PFS to call Nursing Websphere Commerce Architect, to enter [place] if patient ld5 involuntarily admitted or transferred for SI or HI complete. 17:22 T-Sheet-- Draft Copy was scanned into Hookflash and attached to record. klr Signatures: Dispatcher [employer] Anton Leigh MD MD pc Delaney-Rowland, Sarah, MD MD sd1 Diya Nassar, RN RN [facility] Vida, Dimitrios, PSA PSA jl Srinivas Gil, Reg Reg lg Cony Le RN RN ld5 Kinza Stevenson klotto The chart was reviewed and I authenticate all verbal orders and agree with the evaluation and treatment provided.Attachments: 14:14 [facility] Payment Agreement lg 17:22 T-Sheet-- Draft Copy klr Chart Complete MTDD
--- NOTE | 2016-08-27 17:45 | EDDOCDS ---
Physician Documentation [facility] Name: Janell Oscar Age: 56 yrs Sex: Female : 1960 Arrival Date: 08/25/2016 Time: 11:38 Bed [facility] MD: Keshawn Agustin MD Disposition: 08/25 16:10 Critical Care: Critical care not applicable. Disposition: 08/25/16 16:11 Hospitalization ordered by Leo Szymanski for Inpatient Admission. Preliminary diagnosis are Major depressive disorder, recurrent, moderate, Generalized anxiety disorder. - Bed requested for Admit. - Status is Inpatient Admission. ld5 - Condition is Stable. - Problem is new. - Symptoms are unchanged. Historical: - Allergies: cant have anything that ends in "pril"; TALIA INHIBITORS; - Home Meds: 1. Fioricet 50-325-40 mg Oral tab 2 tabs as needed 2. Ventolin HFA 90 mcg/actuation Nebulizer HFAA 2 puffs every 4-6 hours prn 3. aspirin 81 mg Oral tab 1 tab once daily (Last dose: 08/25/2016 07:00) 4. carvedilol 6.25 mg oral tab 2 times per day (Last dose: 08/25/2016 07:00) 5. Plavix 75 mg Oral tab 1 tab once daily (Last dose: 08/25/2016 07:00) 6. loratadine 10 mg Oral tab 1 tab as needed 7. nitroglycerin 0.4 mg SL subl 1 tab every 5 minutes 8. pantoprazole 40 mg oral tab 1 tab 2 times per day (Last dose: 08/25/2016 07:00) 9. Repatha Syringe 140 mg/mL subcutaneous syrg 1 mL every 2 wks 10. Diovan 80 mg oral tab once daily (Last dose: 08/24/2016) 11. Prozac 30mg Oral once daily 12. buspirone 10 mg Oral tab 1 tab 3 times per day 13. BuSpar 0.5mg Oral four times a day - PMHx: Anxiety; Asthma; Diabetes - NIDDM: controlled; Depression; ''Diet controlled DM''; Hypercholesterolemia; GERD; Hypertension; Migraines; Myocardial infarction; OCD; polycythemia; Vertigo; - PSHx: Cardiac stents (2016); ; Cholecystectomy; Breast Reduction; - Social history: Smoking status: Patient states was never smoker of tobacco. No barriers to communication noted, The patient speaks fluent Trinidadian, Speaks appropriately for age. - Family history: Not pertinent. - : The pt / caregiver states he / she is not on anticoagulants. Home medication list is obtained from the patient. - Exposure Risk Screening:: None identified. Vital Signs: 11:58 BP 145 / 86; Pulse 74; Resp 20; Temp 97.4(O); Pulse Ox 95% on R/A; Weight 80.74 kg / sew 178 lbs; Height 5 ft. 0 in. (152.40 cm); Pain 4/10; 12:21 BP 142 / 93 (auto/); ead 12:22 Pulse 72 MON; Pulse Ox 93% ; ead 12:33 Pulse 72 MON; Pulse Ox 96% ; ead 12:44 BP 136 / 88 (auto/); ead 12:44 Pulse 82 MON; ead 12:51 BP 143 / 93 (auto/); ead 12:52 Pulse 72 MON; Resp 20; Pulse Ox 97% ; ead 13:06 BP 131 / 79 (auto/); ead 13:08 Pulse 64 MON; Pulse Ox 93% ; ead 13:21 BP 127 / 82 (auto/); ead 13:21 Pulse 62 MON; Pulse Ox 93% ; ead 13:36 BP 123 / 71 (auto/); ead 13:38 Pulse 62 MON; Pulse Ox 96% ; ead 13:51 BP 125 / 78 (auto/); ead 13:51 Pulse 72 MON; Resp 18; ead 16:00 BP 176 / 92; Pulse 91; Resp 18; Temp 99.2; Pulse Ox 95% on R/A; ld5 16:32 BP 156 / 86; Pulse 78; Resp 18; Temp 99; Pulse Ox 96% on R/A; ld5 11:58 Body Mass Index 34.76 (80.74 kg, 152.40 cm) sew MDM: 11:58 ECG WITH READING ER PHYS+CARDIAG ordered. EDMS 12:11 Consult PFS/PSA/Machining And Assembly Supervisor ordered. sd1 12:11 Consult PFS/PSA/Machining And Assembly Supervisor: Patient's case requires discussion with on-call sd1 Psychiatrist ordered. 12:11 PSA/PFS to call Nursing Beef Breaker, to [place] if patient sd1 involuntarily admitted or transferred for SI or HI ordered. 12:11 Confirm accurate psychiatric medication list and times of last dosage ordered. sd1 12:11 Detain Pt Until Medically/PFS Cleared ordered. sd1 12:11 Chief Controller/Pulse Ox/q 15 min VS ordered. sd1 12:12 Acetaminophen Level Ordered. EDMS 12:12 Basic Metabolic Profile Ordered. EDMS 12:12 Complete Blood Count Ordered. EDMS 12:12 Drug Eval Toxicology ED Only Ordered. EDMS 12:12 Ethyl Alcohol (ethanol) Ordered. EDMS 12:12 Liver Profile Ordered. EDMS 12:12 Salicylate Level Ordered. EDMS 12:12 Thyroid Stimulating Hormone Ordered. EDMS 12:48 Complete Blood Count Reviewed. sd1 13:05 Acetaminophen Level Reviewed. sd1 13:05 Liver Profile Reviewed. sd1 13:05 Salicylate Level Reviewed. sd1 13:05 Basic Metabolic Profile Reviewed. sd1 13:05 Ethyl Alcohol (ethanol) Reviewed. sd1 13:05 Thyroid Stimulating Hormone Reviewed. sd1 13:07 CT Head Without Contrast Ordered. EDMS 13:26 REGULAR DIET PLASTIC HECTOR+DIET ordered. EDMS 13:44 Test interpretation: interpreted by Radiologist and personally reviewed, Head CT; pc normal. 14:13 Financial registration complete. lg 14:14 [facility] [place] was [place] into [employer] and attached to record. lg 14:57 Drug Eval Toxicology ED Only Reviewed. pc 14:57 CT Head Without Contrast Reviewed. pc 16:10 The patient has been re-examined and re-evaluated. There is no appreciated change of pc the patient's symptoms at this time. Disposition: The historical points, examination findings, and any diagnostic results supporting the provided diagnosis, were discussed with the patient or legal guardian. The need for further work-up and/or treatment in the hospital was explained. 16:11 Admit to IMHU: ordered. EDMS 16:27 REGULAR DIET PLASTIC HECTOR+DIET ordered. EDMS 16:29 [facility] Legal paperwork was scanned into [employer] and attached to record. jl 16:41 Consult PFS/PSA/Machining And Assembly Supervisor complete. ld5 16:41 Consult PFS/PSA/Machining And Assembly Supervisor: Patient's case requires discussion with on-call ld5 Psychiatrist complete. 16:41 PSA/PFS to call Nursing Beef Breaker, to [place] if patient ld5 involuntarily admitted or transferred for SI or HI complete. 17:22 T-Sheet-- Draft Copy was scanned into [employer] and attached to record. klr Signatures: Dispatcher [employer] Anton Leigh MD MD pc Delaney-Rowland, Sarah, MD MD sd1 Diya Nassar, RN RN [facility] Vida, Dimitrios, PSA PSA jl Srinivas Gil, Reg Reg lg Cony Le RN RN ld5 Kinza Stevenson klotto The chart was reviewed and I authenticate all verbal orders and agree with the evaluation and treatment provided.Attachments: 14:14 [facility] Payment Agreement lg 17:22 T-Sheet-- Draft Copy klr Chart Complete MTDD
--- NOTE | 2016-08-27 17:45 | EDDOCDS ---
Nurse's Notes [facility] Name: Janell Oscar Age: 56 yrs Sex: Female : 1960 Arrival Date: 08/25/2016 Time: 11:38 Bed [facility] Private MD: Keshawn Agustin MD Diagnosis: Major depressive disorder, recurrent, moderate;Generalized anxiety disorder Presentation: 08/25 11:43 Presenting complaint: EMS states: weak legs since d/c in Jul. also anxiety .was talking srm to doctor at [facility] and making statements that she was thinking of hurting herself. per ems cant handle any more and doesn't want to be here.[facility] was first [place]. The last date and time the patient was known to be well was on an unknown date. The last date and time the patient was known to be well was was at an unknown time. No acute neurological deficit is noted. Adult Sepsis Screening: The patient does not have new or worsening altered mentation. Patient's respiratory rate is less than 22. Patient has a qSOFA score of 0- Negative Sepsis Screen. Suicide/Homicide risk assessment- The patient admits to and/or has been reported to be having suicidal ideations. Status: Patient is not a automotive service technician or dependent. Transition of care: patient was not received from another setting of care. 11:43 Acuity: AZEB Level 3 [facility] 11:43 Method Of Arrival: Ambulance srm 11:58 Presenting complaint: ptc/o chest pressure while crying and stating she doesn't want to srm be here anymore and just cant TAKE IT. Adult Sepsis Screening: Systolic blood pressure is greater than 100. Triage Assessment: 11:56 The onset of the patients symptoms was at an unknown time. General: Appears distressed, srm Behavior is anxious, appropriate for age, cooperative. Pain: Pain currently is 4 out of 10 on a pain scale. HIV screening NA for this visit Offered previously. Neurological: Level of Consciousness is awake, alert, Reports weakness. Historical: - Allergies: cant have anything that ends in "pril"; TALIA INHIBITORS; - Home Meds: 1. Fioricet 50-325-40 mg Oral tab 2 tabs as needed 2. Ventolin HFA 90 mcg/actuation Nebulizer HFAA 2 puffs every 4-6 hours prn 3. aspirin 81 mg Oral tab 1 tab once daily (Last dose: 08/25/2016 07:00) 4. carvedilol 6.25 mg oral tab 2 times per day (Last dose: 08/25/2016 07:00) 5. Plavix 75 mg Oral tab 1 tab once daily (Last dose: 08/25/2016 07:00) 6. loratadine 10 mg Oral tab 1 tab as needed 7. nitroglycerin 0.4 mg SL subl 1 tab every 5 minutes 8. pantoprazole 40 mg oral tab 1 tab 2 times per day (Last dose: 08/25/2016 07:00) 9. Repatha Syringe 140 mg/mL subcutaneous syrg 1 mL every 2 wks 10. Diovan 80 mg oral tab once daily (Last dose: 08/24/2016) 11. Prozac 30mg Oral once daily 12. buspirone 10 mg Oral tab 1 tab 3 times per day 13. BuSpar 0.5mg Oral four times a day - PMHx: Anxiety; Asthma; Diabetes - NIDDM: controlled; Depression; ''Diet controlled DM''; Hypercholesterolemia; GERD; Hypertension; Migraines; Myocardial infarction; OCD; polycythemia; Vertigo; - PSHx: Cardiac stents (2016); ; Cholecystectomy; Breast Reduction; - Social history: Smoking status: Patient states was never smoker of tobacco. No barriers to communication noted, The patient speaks fluent Sami, Speaks appropriately for age. - Family history: Not pertinent. - : The pt / caregiver states he / she is not on anticoagulants. Home medication list is obtained from the patient. - Exposure Risk Screening:: None identified. Screenin:41 Screening information is obtained from the patient, prior medical records. Fall risk: ld5 At risk due to pt reported weakness. Assistance ADL's: requires no assistance with activities of daily living. Abuse/DV Screen: The patient / caregiver reports he/she is: not in a situation that causes fear, pain or injury. Nutritional screening: No deficits noted. Advance Directives: There is no active DNR order. home support is adequate. Assessment: 12:22 General: Appears in no apparent distress, Behavior is anxious, cooperative, pt ead repeating "I can't do this anymore, I can't afford this anymore, I'm so tired, I'm so tired." Pt dressed in psych appropriate attire per TOOTH CUTTER CONTACT WHEEL Jackie Wang. TOOTH CUTTER CONTACT WHEEL maintains at bedside for safety observation. Neurological: Level of Consciousness is awake, alert, obeys commands, Oriented to person, place, time. Respiratory: Airway is patent Respiratory effort is even, unlabored. Derm: Skin is pink, warm & dry. 13:30 General: Appears in no apparent distress, comfortable, Behavior is appropriate for age, ead cooperative. Neurological: Level of Consciousness is awake, alert, Oriented to person, place, time. Respiratory: Airway is patent Respiratory effort is even, unlabored. Derm: Skin is pink, warm & dry. 14:30 General: Appears in no apparent distress, Behavior is cooperative. Neurological: Level ead of Consciousness is awake, alert, obeys commands, Oriented to person, place, time. Respiratory: Airway is patent Respiratory effort is even, unlabored. Derm: Skin is pink, warm & dry. 15:15 General: ANNY Sheth in with pt. ld5 15:30 General: Pt laying in bed crying. Upset about plan for admission. Pt carrying on and on ld5 about her most recent admission and the care she did/did not receive on [facility]. This RN explained that her concerns are being listened to and would be passed on tot he proper people. Pt continued to cry and talk about her anxiety, medications and cardiac problems. Support provided. Attempts to calm pt failed. This RN explained to pt that she would leave the room and give pt some time to relax and try to calm herself down. Will continue to monitor. 15:35 General: Pt remains upset. Rosa rosamaria and ice chips provided. Will continue to monitor. ld5 15:58 General: Pt resting quietly in bed. Will continue to monitor. ld5 16:32 General: Pt laying in bed talking to daughter. No apparent distress at this time. Will ld5 continue to monitor. 16:41 General: pharm tech in speaking with pt. Pt then to be transported to [facility]. ld5 Mental Health Eval: 15:22 Mental health consult is initiated at 15:00. Status: Patient is , who jl continues to have from when her was still living. [facility] Behavioral Health: The patient is not an established patient of [facility] Behavioral Health. Referral Information: Evaluation referral is generated by EMS & police, at the request of her bass fisher. The patient was referred for evaluation because she reportedly made comments to her bass fisher that were suggestive of being suicidal. Subjective: The patients chief complaint is "I've been so, so, so depressed and anxious since I got out of there [[facility]] on August 04". Delusions are not elicited. Patient's mood is severely anxious & depressed. Hallucinations are denied. Patient presented & was initially seen for a c/o genal weakness, however was sobbing & severely anxious, to the point where ED MD reported having difficulty following her. Throughout MHE interview she became more & more distressed, crying & nearly hyperventilating. She reported having full body weakness, insomnia, inability to cope, fear of being at home or anywhere alone, constant panic attacks, vivid & frightening dreams (when she is able to sleep) & persistent thoughts of not wanting to be around. She did make it clear that she had no intention of causing her own demise, although appears desperate & potentially unsafe. Mental Health history: anxiety, depression, panic attacks, sleep disturbance, suicide ideation without attempts Mental Health Admissions: [facility]: 07/25- Current Outpatient Mental Health Services: Psychiatrist / Agency: [facility] ([facility]). Current living environment is The patient currently lives alone. Patient presents to Emergency Department with the following symptoms within the past 2 weeks: agitation, anxiety, decreased appetite, depressed mood, feelings of helplessness/hopelessness, panic attacks, sleep disturbance - insomnia, suicidal ideation with no plan. Substance abuse: Pt denies. Mental status exam: Patients appearance is disheveled Patient's behavior is agitated, Speech is pressured. rapid. Affect is broad. Mood is anxious. depressed. irritable. Hallucinations are denied. Appetite is poor. Memory is fair. Energy level is normal. Content of thought is including somatic preoccupation Thought process is tangential. Cognitive level is oriented to person, place, time and situation Patient's insight is poor. Judgement is poor. Rapport with interviewer is adequate. Suicidal Ideation is present with no specific plan. Homicidal ideation is denied. 16:23 Disposition: Medically cleared for disposition by Anton Dolan MD Psychiatric Consult jl is performed by phone with Dr Leo Szymanski MD. [facility] Admission Criteria: The patient is experiencing suicidal ideation. The patient displays symptoms of severe psychiatric disorder resulting in disordered behavior and significant interference with his / her ability to maintain self care. Severe Anxiety. Legal Status: Patient's legal status will be Emergency admission: 39. DSM-V Differential Diagnosis: Unspecified Depressive Disorder (F32.9). Insurance Pre-Certification: Not Required. Vital Signs: 11:58 BP 145 / 86; Pulse 74; Resp 20; Temp 97.4(O); Pulse Ox 95% on R/A; Weight 80.74 kg; sew Height 5 ft. 0 in. (152.40 cm); Pain 4/10; 12:21 BP 142 / 93 (auto/); ead 12:22 Pulse 72 MON; Pulse Ox 93% ; ead 12:33 Pulse 72 MON; Pulse Ox 96% ; ead 12:44 BP 136 / 88 (auto/); ead 12:44 Pulse 82 MON; ead 12:51 BP 143 / 93 (auto/); ead 12:52 Pulse 72 MON; Resp 20; Pulse Ox 97% ; ead 13:06 BP 131 / 79 (auto/); ead 13:08 Pulse 64 MON; Pulse Ox 93% ; ead 13:21 BP 127 / 82 (auto/); ead 13:21 Pulse 62 MON; Pulse Ox 93% ; ead 13:36 BP 123 / 71 (auto/); ead 13:38 Pulse 62 MON; Pulse Ox 96% ; ead 13:51 BP 125 / 78 (auto/); ead 13:51 Pulse 72 MON; Resp 18; ead 16:00 BP 176 / 92; Pulse 91; Resp 18; Temp 99.2; Pulse Ox 95% on R/A; ld5 16:32 BP 156 / 86; Pulse 78; Resp 18; Temp 99; Pulse Ox 96% on R/A; ld5 11:58 Body Mass Index 34.76 (80.74 kg, 152.40 cm) [facility] [place]: 11:58 Log In Time N/A - ambulance arrival. [facility] [place] Course: 11:39 Patient visited by Abigail Acevedo, Stonemason Apprentice. lbd 11:39 Patient moved to Waiting lbd 11:40 Keshawn Agustin is Private Physician. lbd 11:40 Patient moved to 18 hs1 11:46 Triage Initiated srm 11:58 Patient visited by Diya Nassar RN. [facility] 11:58 Jackie Nguyen MD is Attending Physician. sd1 11:59 Patient visited by Jackie Wang. sew 11:59 Patient visited by Jackie Nguyen MD. sd1 11:59 Pt greeted and oriented to ED. Patient advised of names of staff involved in care, sew location of call sierra, wait times and NPO status. Patient has correct armband on for positive identification. Placed in gown. Bed in low position. Side rails up X2. 12:09 Patient visited by Jackie Wang. sew 12:09 handcrew foreman on. Pulse ox on. NIBP on. sew 12:09 EKG done. (by ED staff). Reviewed by Jackie Nguyen MD. sew 12:21 Acetaminophen Level Sent. ead 12:21 Thyroid Stimulating Hormone Sent. ead 12:21 Salicylate Level Sent. ead 12:21 Liver Profile Sent. ead 12:21 Ethyl Alcohol (ethanol) Sent. ead 12:21 Complete Blood Count Sent. ead 12:22 Basic Metabolic Profile Sent. ead 12:48 Patient visited by Angie Bess RN. ead 12:50 Placed in psych safe attire. Security observing. Property removed, inventory done, sew secured in belongings bag- placed in locked locker. Placed in Locker 7 in ortho room. secure belongings bag, Secure bag Number [id number], placed in ED safe. Verbal reassurance given. Warm blanket given. Head of bed elevated pt pulled up in bed. Psych Safety Check: Location: Medical Room. Visual Assessment: emotional. 12:55 Patient visited by Jackie Wang. sew 13:07 Patient visited by Jackie Wang. sew 13:19 Patient visited by Eliazar Noel. rn1 13:21 Attending Physician role handed off by Jackie Nguyen MD pc 13:21 Anton Dolan MD is Attending Physician. pc 13:39 Patient visited by Eliazar Noel. rn1 13:46 Patient moved to [facility] hs1 13:47 Patient visited by Eliazar Noel. rn1 13:49 Patient visited by Daniel Mccarthy. dem1 14:04 CT Head Without Contrast Returned. EDMS 14:09 Patient visited by Jesse Hoang. dpm 14:14 [facility] Payment Agreement was scanned into Datam and attached to record. lg 14:19 Patient visited by Jesse Hoang. dpm 14:19 Drug Eval Toxicology ED Only Sent. dpm 14:36 Patient visited by Jesse Hoang. dpm 14:51 Patient visited by Jesse Hoang. dpm 15:02 Patient visited by Jesse Hoang. dpm 15:04 Patient visited by Dimitrios Sheth PSA. jl 15:15 Patient visited by Jesse Hoang. dpm 15:32 Patient visited by Jesse Hoang. dpm 15:58 Patient visited by Cony Le,BELLA. ld5 16:01 Patient visited by Jesse Hoang. dpm 16:11 Leo Szymanski MD is Hospitalizing Provider. pc 16:14 Patient visited by Jesse Hoang. dpm 16:29 [facility] Legal paperwork was scanned into Datam and attached to record. jl 16:30 Patient visited by Jesse Hoang. dpm 16:32 Patient visited by Cony Le,BELLA. ld5 16:41 No IV's were initiated during this patient's visit. No procedures done that require ld5 assistance. 16:44 Patient visited by Cony Le RN. ld5 16:44 The patient / caregiver is instructed regarding the plan of care and ED course. ld5 17:22 T-Sheet-- Draft Copy was scanned into Datam and attached to record. klr Attachments: 16:29 [facility] Legal paperwork jl Order Results: Lab Order: Acetaminophen Level; SPEC'M 08/25/16 12:19 Test: ACETAMINOPHEN LEVEL; Value: < 2.0; Range: 10.0-30.0; Abnormal: Below low normal; Units: UG/ML; Status: F Lab Order: Basic Metabolic Profile; SPEC'M 08/25/16 12:19 Test: GLUCOSE, FASTING; Value: 91; Range: 70-105; Units: MG/DL; Status: F Test: BLOOD UREA NITROGEN; Value: 12; Range: 7-18; Units: MG/DL; Status: F Test: CREATININE FOR GFR; Value: 0.79; Range: 0.55-1.02; Units: MG/DL; Status: F Test: GLOMERULAR FILTRATION RATE; Value: > 60.0; Range: >51; Status: F Test: SODIUM LEVEL; Value: 143; Range: 136-145; Units: MEQ/L; Status: F Test: POTASSIUM SERUM; Value: 3.5; Range: 3.5-5.1; Units: MEQ/L; Status: F Test: CHLORIDE LEVEL; Value: 107; Range: 98-107; Units: MEQ/L; Status: F Test: CARBON DIOXIDE LEVEL; Value: 27; Range: 21-32; Units: MEQ/L; Status: F Test: ANION GAP; Value: 9; Range: 8-16; Units: MEQ/L; Status: F Test: CALCIUM LEVEL; Value: 8.7; Range: 8.5-10.1; Units: MG/DL; Status: F Test Note: ; Units are mL/min/1.73 m2 Chronic Kidney Disease Staging per NKF: Stage I & II GFR >=60 Normal to Mildly Decreased Stage III GFR 30-59 Moderately Decreased Stage IV GFR 15-29 Severely Decreased Stage V GFR <15 Very Little GFR Left ESRD GFR <15 on RETAIL BRANCH MANAGER Lab Order: Complete Blood Count; SPEC'M 08/25/16 12:19 Test: WHITE BLOOD COUNT; Value: 8.7; Range: 4.0-10.0; Units: K/mm3; Status: F Test: RED BLOOD COUNT; Value: 4.49; Range: 4.00-5.40; Units: M/mm3; Status: F Test: HEMOGLOBIN; Value: 12.6; Range: 12.0-16.0; Units: g/dl; Status: F Test: HEMATOCRIT; Value: 40.0; Range: 36.0-47.0; Units: %; Status: F Test: MEAN CORPUSCULAR VOLUME; Value: 89.2; Range: 80.0-96.0; Units: fl; Status: F Test: MEAN CORPUSCULAR HEMOGLOBIN; Value: 28.2; Range: 27.0-33.0; Units: pg; Status: F Test: MEAN CORPUSCULAR HGB CONC; Value: 31.6; Range: 32.0-36.5; Abnormal: Below low normal; Units: g/dl; Status: F Test: RED CELL DISTRIBUTION WIDTH; Value: 17.7; Range: 11.5-14.5; Abnormal: Above high normal; Units: %; Status: F Test: PLATELET COUNT, AUTOMATED; Value: 355; Range: 150-450; Units: k/mm3; Status: F Lab Order: Drug Eval Toxicology ED Only; SPEC'M 08/25/16 14:18 Test: AMPHETAMINES LEVEL URINE; Value: NEGATIVE; Range: NEGATIVE; Status: F Test: BARBITURATES URINE; Value: NEGATIVE; Range: NEGATIVE; Status: F Test: BENZODIAZEPINES URINE; Value: NEGATIVE; Range: NEGATIVE; Status: F Test: CANNABINOIDS URINE; Value: POSITIVE; Range: NEGATIVE; Abnormal: Above high normal; Status: F Test: COCAINE METABOLITE URINE; Value: NEGATIVE; Range: NEGATIVE; Status: F Test: METHADONE URINE; Value: NEGATIVE; Range: NEGATIVE; Status: F Test: OPIATES URINE; Value: NEGATIVE; Range: NEGATIVE; Status: F Test: TRICYCLIC ANTIDEPRESS URINE; Value: NEGATIVE; Range: NEGATIVE; Status: F Test Note: ; FALSE POSITIVE RESULTS CAN BE CAUSED BY THE USE OF PANTOPRAZOLE (PROTONIX). Lab Order: Ethyl Alcohol (ethanol); SPEC'M 08/25/16 12:19 Test: ETHYL ALCOHOL (ETHANOL); Value: 0.005; Range: 0.000-0.010; Units: %; Status: F Lab Order: Liver Profile; SPEC'M 08/25/16 12:19 Test: AST/SGOT; Value: 13; Range: 15-37; Abnormal: Below low normal; Units: U/L; Status: F Test: ALT/SGPT; Value: 28; Range: 12-78; Units: U/L; Status: F Test: ALKALINE PHOSPHATASE; Value: 52; Range: 45-117; Units: U/L; Status: F Test: BILIRUBIN,TOTAL; Value: 0.7; Range: 0.2-1.0; Units: MG/DL; Status: F Test: BILIRUBIN,DIRECT; Value: 0.2; Range: 0.0-0.2; Units: MG/DL; Status: F Test: TOTAL PROTEIN; Value: 6.9; Range: 6.4-8.2; Units: GM/DL; Status: F Test: ALBUMIN; Value: 3.1; Range: 3.2-5.2; Abnormal: Below low normal; Units: GM/DL; Status: F Test: ALBUMIN/GLOBULIN RATIO; Value: 0.82; Range: 1.00-1.93; Abnormal: Below low normal; Status: F Lab Order: Salicylate Level; SPEC'M 08/25/16 12:19 Test: SALICYLATE LEVEL; Value: < 1.7; Range: 5.0-30.0; Abnormal: Below low normal; Units: MG/DL; Status: F Lab Order: Thyroid Stimulating Hormone; SPEC'M 08/25/16 12:19 Test: THYROID STIMULATING HORMONE; Value: 1.080; Range: 0.358-3.740; Units: uIU/ML; Status: F Radiology Order: CT Head Without Contrast Test: CT Head Without Contrast REASON FOR EXAMINATION: weakness; CT STUDY OF THE BRAIN WITHOUT CONTRAST:; ; HISTORY: Weakness.; ; Comparison CT study, November 19, 2015.; ; FINDINGS: Digital lateral trim technician radiograph and bone window settings show no bony; destructive lesion. There is no evidence of significant paranasal sinus disease.; No intraorbital abnormality is seen.; ; There is minimal diffuse cerebral atrophic change. No extra-axial fluid; collection is seen. No mass, infarction, or hemorrhage is observed.; ; IMPRESSION:; No acute intracranial abnormality.; ; ; ; ; Unreviewed; Outcome: 16:11 Decision to Hospitalize by Provider. pc 16:41 Discharge Assessment: Patient awake, alert and oriented x 3. No cognitive and/or ld5 functional deficits noted. Patient verbalized understanding of disposition instructions. patient administered narcotics - no. The following High Risk Discharge criteria are identified: Yes, [facility] admission. Admitted to Psych accompanied by [facility], via wheelchair, with chart. Condition: stable. 16:43 CT Study completed. ld5 16:44 Patient left the ED. ld5 Signatures: Dispatcher [employer] EDMS Anton Dolan MD MD pc Delaney-Rowland, Sarah, MD MD sd1 Daly, Linda, Stonemason Apprentice Unit lbd Diya Nassar RN RN srm Vida, Dimitrios, PSA PSA jl Srinivas Gil, Reg Reg lg Cony Le RN RN ld5 Kathia Madrigal RN RN 1 Daniel Mccarthy1 Jesse Hoang dpm, Sarah sew Angie Bess RN RN Eliazar Maria rn1 Kinza Stevenson Corrections: (The following items were deleted from the chart) 13:06 12:50 Property removed, inventory done, secured in belongings bag- placed in locked sew locker. secure belongings bag, Secure bag Number [id number], placed in ED safe. sew 16:44 16:41 No special radiology studies were completed ld5 ld5 Chart Complete MTDD
[2016-08-27 18:00] VITALS: BP 117/67
[2016-08-27] MEDS: VALSARTAN 80 MG TAB (DIOVAN) PO SCH (22:03)
[2016-08-27] MEDS: traZODone 50 MG TAB PO PRN (22:35)
[2016-08-28 06:43] VITALS: BP 123/76
[2016-08-28] MEDS: PANTOPRAZOLE 40MG TAB (PROTONIX) PO SCH ×2 (08:30→21:31)
[2016-08-28] MEDS: ASPIRIN 81 MG ENTERIC TAB PO SCH (08:30)
[2016-08-28] MEDS: CARVedilol 12.5 MG TAB PO SCH ×2 (08:30→21:31)
[2016-08-28] MEDS: busPIRone 5 MG TAB PO SCH ×4 (08:30→21:31)
[2016-08-28] MEDS: FLUoxetine 10 MG CAP PO SCH (08:30)
[2016-08-28] MEDS: CLOPIDOGREL 75 MG TAB PO SCH (08:30)
--- NOTE | 2016-08-28 18:04 | IPNPDOC ---
[facility] Progress Note Progress Note DATE OF SERVICE: 08/28/16 Today this provider is taking over patient's care; this is my first contact with patient. Subjective: Patient reports this episode of intensifying depression and anxiety started with the of her 2 years ago. She reports being rx'd Ativan for anxiety and panic attacks. Patient subsequently developed increasing tolerance and experienced memory loss when on Ativan and tremors and other symptoms of w/d when not on Ativan. Patient reports increased anxiety in later stages of being on Ativan due to her cycle of worsening anxiety and worsening w/d symptoms. Patient disclosed tests for dementia due to memory loss experienced on Ativan, not knowing it could be mood related or a s/e of Ativan. Patient reports other stressors of having daughter moved into her home and "taking over the home". Patient feels trapped and isolated in the "dark and cramped" section of the home. Patient reports her mother at 56 of cancer and patient reports feeling she will soon , intensified by her recent 02/2016 [place] with placement of 4 stents and her dx of Polycythemia. Patient reports improved depressive symptoms since admission. She reports episodes of leaden paralysis and discloses pursuing a neurology appt as she felt her limb weakness was neurologic in etiology. Patient reports being very sensitive and emotional since teenaged. Patient is expecting her first grandchild. Patient has financial stressors since leaving her job after her [place] in 02/2016. She has fears that without her daughter living with her, she' d lose her home. Patient is appropriate in behaviors and statements; no signs of psychosis reported or noted. She denied SI /HI today and AH/VH. Objective: VITAL SIGNS: See below. NEW TEST RESULTS: None CURRENT MEDICATIONS: See below. MENTAL STATUS EXAMINATION: Patient is a 56year-old female who appears her stated age. Patient calm and cooperative in behavior. She is in NAD. Speech: Is RRR and spontaneous. Language skills are intact. Thought processes: linear; Thought content: fears believing she will soon , anxieties from of and financial stresses; Description of abnormal or psychotic thoughts: no paranoia expressed, no AH/VH; Judgment: Poor to Fair; Insight: Poor to Fair; Orientation to time, place and person. Recent and remote memory: Immediate, short-term and long-term memory is intact. Attention span and concentration: Good Language: Normal. Fund of knowledge: Fair Mood: depressed/anxious Affect: depressed. SI denies. HI denies Assessment: MDD, R,S w/o PFs (Atypical Subtype) Recent Cdiff infection Recent Benzodiazepine w/d Polycythemia Plan: ----- -Continue Prozac at 30mg po qhs for depression and anxiety, plan to increase dose Sunday. -Continue Trazodone 50mg po qhs PRN insomnia. Estimated date of discharge: 09/01/16 TIME SPENT: 30 minutes. Vital Signs Vital Signs Date Time Temp Pulse Resp B/P Pulse Ox O2 Delivery O2 Flow Rate FiO2 08/28/16 08:30 71 116/65 08/28/16 06:43 95.9 18 08/25/16 17:00 96 Room Air Current Medications Current Medications Medications (Trade) Dose Ordered Sig/Yaneli Route PRN Reason Start Time Stop Time Status Last Admin Dose Admin Acetaminophen (Tylenol Tab) 650 mg Q6HP PRN PO HEADACHE or DISCOMFORT 08/25/16 18:30 09/24/16 18:29 Acetaminophen/ Butalbital/ Caffeine (Fioricet) 2 ea Q6HP PRN PO HEADACHE 08/25/16 21:00 09/24/16 20:59 Al Hydrox/Mg Hydrox/Simethicone (Mylanta) 30 ml Q4HP PRN PO HEARTBURN/INDIGESTION 08/25/16 18:30 09/24/16 18:29 Albuterol Sulfate (Proventil, Ventolin Hfa) 2 puff Q4HP PRN INH SHORTNESS OF BREATH 08/25/16 18:30 09/24/16 18:29 Aspirin (Ecotrin) 81 mg DAILY PO 08/26/16 09:00 09/25/16 08:59 08/28/16 08:30 Buspirone HCl (Buspar) 5 mg QID PO 08/26/16 13:00 09/25/16 12:59 08/28/16 17:03 Carvedilol (COReg) 6.25 mg BID PO 08/25/16 21:00 08/26/16 15:47 DC 08/26/16 08:31 Carvedilol (COReg) 12.5 mg BID PO 08/26/16 21:00 09/25/16 20:59 08/28/16 08:30 Clopidogrel Bisulfate (PLAVix) 75 mg DAILY PO 08/26/16 09:00 09/25/16 08:59 08/28/16 08:30 Fluoxetine HCl (PROzac) 30 mg DAILY PO 08/26/16 09:00 09/25/16 08:59 08/28/16 08:30 Home Med (Med Rec Complete!) ASDIRECTED XX 08/25/16 17:00 08/25/16 17:00 DC Hydroxyzine HCl (Vistaril) 25 mg Q6HP PRN PO ANXIETY 08/25/16 19:30 09/24/16 19:29 Loratadine (Claritin) 10 mg DAILYPRN PO 08/25/16 18:30 09/24/16 18:29 Magnesium Hydroxide (Milk Of Magnesia) 30 ml DAILYPRN PRN PO CONSTIPATION 08/25/16 18:30 09/24/16 18:29 Miscellaneous (Unresolved Patient Own Med Order) SEE LABEL COMMENTS UNRESOLVED XX 08/25/16 00:01 08/25/16 20:40 DC Pantoprazole Sodium (Protonix) 40 mg BID PO 08/25/16 21:00 09/24/16 20:59 08/28/16 08:30 Patient Own Medication (Patient'S Own Med) Repatha 140mg SQ inject... Q14D SQ 08/26/16 09:00 09/25/16 08:59 08/26/16 08:33 Trazodone HCl (Desyrel) 50 mg QHSP PRN PO INSOMNIA 08/25/16 18:30 09/24/16 18:29 08/27/16 22:35 Valsartan (Diovan) 80 mg QHS PO 08/25/16 21:00 09/24/16 20:59 08/27/16 22:03 Allergies Coded Allergies: TALIA Inhibitors (Unverified Allergy, Unknown, 04/28/16) ABDOUL HOPSON MD Aug 28, 2016 18:04
[2016-08-28 18:31] VITALS: BP 128/75
--- NOTE | 2016-08-28 20:38 | IPN ---
DATE: 08/27/2016 SUBJECTIVE: "I don't feel well today." "I slept too hard." "I lost my bladder." OBJECTIVE: The patient continues to be anxious, talkative, and showing Groveton II cluster B traits. The patient continues to express some somatization. MENTAL STATUS EXAMINATION: The patient is lying in bed covering her head, with poor eye contact. Speech monotone. Mood depressed and anxious. Affect is labile. No evidence of delusions or hallucinations. Memory is fair. Patient is fully oriented. Associations are intact. Thinking is logical. The patient continues to have intermittent suicidal thoughts. Insight and judgment are limited. ASSESSMENT: Major depressive disorder. PLAN: 1. BuSpar 5 mg by mouth four times a day. 2. Prozac 30 mg every morning. 3. Trazodone 50 mg by mouth at bedtime as needed for insomnia. 4. Continue medication management, individual and group therapy.
[2016-08-28] MEDS: VALSARTAN 80 MG TAB (DIOVAN) PO SCH (21:31)
[2016-08-28] MEDS: traZODone 50 MG TAB PO PRN (23:40)
[2016-08-29 06:36] VITALS: BP 132/82
[2016-08-29] MEDS: busPIRone 5 MG TAB PO SCH ×4 (08:28→20:59)
[2016-08-29] MEDS: FLUoxetine 10 MG CAP PO SCH (08:28)
[2016-08-29] MEDS: PANTOPRAZOLE 40MG TAB (PROTONIX) PO SCH ×2 (08:28→20:59)
[2016-08-29] MEDS: CARVedilol 12.5 MG TAB PO SCH ×2 (08:28→21:00)
[2016-08-29] MEDS: CLOPIDOGREL 75 MG TAB PO SCH (08:28)
[2016-08-29] MEDS: ASPIRIN 81 MG ENTERIC TAB PO SCH (08:28)
[2016-08-29 20:57] VITALS: BP 146/87
[2016-08-29] MEDS: traZODone 50 MG TAB PO PRN (20:59)
[2016-08-29] MEDS: VALSARTAN 80 MG TAB (DIOVAN) PO SCH (20:59)
[2016-08-29 22:06] VITALS: BP 123/74
--- NOTE | 2016-08-29 23:08 | IPNPDOC ---
[facility] Progress Note Progress Note DATE OF SERVICE: 08/29/16 Subjective: Patient reports ongoing significant anxiety and depression. She is lying in her bed on interview. Patient reports generalized malaise and is unable to attend groups. She reports nausea and an episode of vomiting. Patient reports fear that the uncleanly way her daughter keeps the house may have contributed to her current issues. She reported again a recent C.Diff infection and reports completion of the ABx regimen. Patient otherwise is med compliant. Patient is appropriate in behaviors and statements; no signs of psychosis reported or noted. She denied SI /HI today and AH/VH. Objective: VITAL SIGNS: See below. NEW TEST RESULTS: None CURRENT MEDICATIONS: See below. MENTAL STATUS EXAMINATION: Patient is a 56year-old female lying in her bed reporting increased N/V, she is in mild distress, she appears her stated age. Patient cooperative in behavior. Speech is slow in rate, but spontaneous. Language skills are intact. Thought processes: linear; patient reports generlized malaise, wants to sleep. Description of abnormal or psychotic thoughts: no paranoia expressed, no AH/VH; Judgment: Poor to Fair; Insight: Poor to Fair; Orientation to time, place and person. Recent and remote memory: Immediate, short-term and long-term memory is intact. Attention span and concentration: Good Language: Normal. Fund of knowledge: Fair Mood: depressed/anxious Affect: depressed. SI denies. HI denies Assessment: MDD, R,S w/o PFs (Atypical Subtype) Recent Cdiff infection Recent Benzodiazepine w/d Polycythemia Plan: ----- -Continue Prozac at 30mg po qhs for depression and anxiety. -Continue Buspar at 5mg po QID for anxiety. -Continue Trazodone 50mg po qhs PRN insomnia. -Continue all home medical medications as written prior to admission. Estimated date of discharge: 09/04/16 TIME SPENT: 30 minutes. Vital Signs Vital Signs Date Time Temp Pulse Resp B/P Pulse Ox O2 Delivery O2 Flow Rate FiO2 08/29/16 22:06 97.4 83 18 123/74 08/25/16 17:00 96 Room Air Current Medications Current Medications Medications (Trade) Dose Ordered Sig/Yaneli Route PRN Reason Start Time Stop Time Status Last Admin Dose Admin Acetaminophen (Tylenol Tab) 650 mg Q6HP PRN PO HEADACHE or DISCOMFORT 08/25/16 18:30 09/24/16 18:29 Acetaminophen/ Butalbital/ Caffeine (Fioricet) 2 ea Q6HP PRN PO HEADACHE 08/25/16 21:00 09/24/16 20:59 Al Hydrox/Mg Hydrox/Simethicone (Mylanta) 30 ml Q4HP PRN PO HEARTBURN/INDIGESTION 08/25/16 18:30 09/24/16 18:29 Albuterol Sulfate (Proventil, Ventolin Hfa) 2 puff Q4HP PRN INH SHORTNESS OF BREATH 08/25/16 18:30 09/24/16 18:29 Aspirin (Ecotrin) 81 mg DAILY PO 08/26/16 09:00 09/25/16 08:59 08/29/16 08:28 Buspirone HCl (Buspar) 5 mg QID PO 08/26/16 13:00 09/25/16 12:59 08/29/16 20:59 Carvedilol (COReg) 6.25 mg BID PO 08/25/16 21:00 08/26/16 15:47 DC 08/26/16 08:31 Carvedilol (COReg) 12.5 mg BID PO 08/26/16 21:00 09/25/16 20:59 08/29/16 21:00 Clopidogrel Bisulfate (PLAVix) 75 mg DAILY PO 08/26/16 09:00 09/25/16 08:59 08/29/16 08:28 Fluoxetine HCl (PROzac) 30 mg DAILY PO 08/26/16 09:00 09/25/16 08:59 08/29/16 08:28 Home Med (Med Rec Complete!) ASDIRECTED XX 08/25/16 17:00 08/25/16 17:00 DC Hydroxyzine HCl (Vistaril) 25 mg Q6HP PRN PO ANXIETY 08/25/16 19:30 09/24/16 19:29 Loratadine (Claritin) 10 mg DAILYPRN PO 08/25/16 18:30 09/24/16 18:29 Magnesium Hydroxide (Milk Of Magnesia) 30 ml DAILYPRN PRN PO CONSTIPATION 08/25/16 18:30 09/24/16 18:29 Miscellaneous (Unresolved Patient Own Med Order) SEE LABEL COMMENTS UNRESOLVED XX 08/25/16 00:01 08/25/16 20:40 DC Pantoprazole Sodium (Protonix) 40 mg BID PO 08/25/16 21:00 09/24/16 20:59 08/29/16 20:59 Patient Own Medication (Patient'S Own Med) Repatha 140mg SQ inject... Q14D SQ 08/26/16 09:00 09/25/16 08:59 08/26/16 08:33 Trazodone HCl (Desyrel) 50 mg QHSP PRN PO INSOMNIA 08/25/16 18:30 09/24/16 18:29 08/29/16 20:59 Valsartan (Diovan) 80 mg QHS PO 08/25/16 21:00 09/24/16 20:59 08/29/16 20:59 Allergies Coded Allergies: TALIA Inhibitors (Unverified Allergy, Unknown, 04/28/16) ABDOUL HOPSON MD Aug 29, 2016 23:08
[2016-08-30] MEDS: ACETAMINOPHEN TAB 650MG DOSE (2X325MG) PO PRN (03:06)
[2016-08-30 06:53] VITALS: BP 134/90
[2016-08-30] MEDS ORDERED: LOPERAMIDE 2 MG CAP PO ONE (08:45)
[2016-08-30] MEDS: CARVedilol 12.5 MG TAB PO SCH ×2 (08:51→20:35)
[2016-08-30] MEDS: ONDANSETRON 4 MG ORAL DISINTEGRATING TAB (S0181) PO PRN ×3 (08:54→21:39)
[2016-08-30] MEDS: CLOPIDOGREL 75 MG TAB PO SCH (08:55)
[2016-08-30] MEDS: busPIRone 5 MG TAB PO SCH ×4 (08:55→20:35)
[2016-08-30] MEDS: FLUoxetine 10 MG CAP PO SCH (08:55)
[2016-08-30] MEDS: PANTOPRAZOLE 40MG TAB (PROTONIX) PO SCH ×2 (08:55→20:35)
[2016-08-30] MEDS: ASPIRIN 81 MG ENTERIC TAB PO SCH (08:55)
--- NOTE | 2016-08-30 09:27 | IPNPDOC ---
[facility] Progress Note Progress Note DATE OF SERVICE: 08/30/16 Subjective: Patient is again lying in her bed on interview. Patient reports multiple episodes of loose stools and nausea. Patient on Zofran, informed Loperamide will be initiated for loose stools. C. diff toxin sample tested and found to be NEG. Patient refuses interview today. She was encouraged to maintain good po fluid intake, patient acknowledged understanding. Patient is med compliant. Will maintain current regimen due to current GI issues. Patient is appropriate in behaviors and statements; no signs of psychosis reported or noted. She has been no issue on the unit, mostly isolated to her room, but up for meals. She denies SI/HI today and AH/VH. Objective: VITAL SIGNS: See below. TEST RESULTS: 08/25/2016 - CT STUDY OF THE BRAIN WITHOUT CONTRAST: HISTORY: Weakness. Comparison CT study, November 19, 2015. FINDINGS: Digital lateral molding line assistant radiograph and bone window settings show no bony destructive lesion. There is no evidence of significant paranasal sinus disease. No intraorbital abnormality is seen. There is minimal diffuse cerebral atrophic change. No extra-axial fluid collection is seen. No mass, infarction, or hemorrhage is observed. IMPRESSION: No acute intracranial abnormality. CURRENT MEDICATIONS: See below. MENTAL STATUS EXAMINATION: Patient is a 56year-old female lying in her bed reporting increased N/V, she is in mild distress, she appears her stated age. Patient cooperative in behavior. Speech is slow in rate, but spontaneous. Language skills are intact. Thought processes: linear; focused on GI issues, Description of abnormal or psychotic thoughts: no paranoia expressed, no AH/VH; Judgment: Poor to Fair; Insight: Poor to Fair; Orientation to time, place and person. Recent and remote memory: Immediate, short-term and long-term memory is intact. Attention span and concentration: Good Language: Normal. Fund of knowledge: Fair Mood: depressed/anxious Affect: depressed. SI denies. HI denies Assessment: MDD, R,S w/o PFs (Atypical Subtype) Recent Cdiff infection Recent Benzodiazepine w/d Polycythemia Plan: ----- -Start PRN loperamide 2mg po PRN diarrhea and continue PRN Zofran 4mg po PRN nausea. -C. Diff toxin taken and was NEG. -CBC w/diff and CMP - PENDING -Will maintain current regimen due to current GI issues. -Continue Prozac at 30mg po qhs for depression and anxiety. -Continue Buspar at 5mg po QID for anxiety. -Continue Trazodone 50mg po qhs PRN insomnia. -Continue all home medical medications as written prior to admission. Estimated date of discharge: 09/06/16 TIME SPENT: 30 minutes. Vital Signs Vital Signs Date Time Temp Pulse Resp B/P Pulse Ox O2 Delivery O2 Flow Rate FiO2 08/30/16 08:51 89 108/65 08/30/16 06:53 97.3 20 08/25/16 17:00 96 Room Air Current Medications Current Medications Acetaminophen (Tylenol Tab) 650 mg Q6HP PRN PO HEADACHE or DISCOMFORT Last administered on 08/30/16 03:06; Start 08/25/16 at 18:30; Stop 09/24/16 at 18:29 Acetaminophen/ Butalbital/ Caffeine (Fioricet) 2 ea Q6HP PRN PO HEADACHE; Start 08/25/16 at 21:00; Stop 09/24/16 at 20:59 Al Hydrox/Mg Hydrox/Simethicone (Mylanta) 30 ml Q4HP PRN PO HEARTBURN/ INDIGESTION Last administered on 08/30/16 03:06; Start 08/25/16 at 18:30; Stop at 18:29 Albuterol Sulfate (Proventil, Ventolin Hfa) 2 puff Q4HP PRN INH SHORTNESS OF BREATH; Start 08/25/16 at 18:30; Stop 09/24/16 at 18:29 Aspirin (Ecotrin) 81 mg DAILY PO Last administered on 08/30/16 08:55; Start 08/26/16 at 09:00; Stop 09/25/16 at 08:59 Buspirone HCl (Buspar) 5 mg QID PO Last administered on 08/30/16 08:55; Start 08/26/16 at 13:00; Stop 09/25/16 at 12:59 Carvedilol (COReg) 6.25 mg BID PO Last administered on 08/26/16 08:31; Start at 21:00; Stop 08/26/16 at 15:47; Status DC Carvedilol (COReg) 12.5 mg BID PO Last administered on 08/29/16 21:00; Start at 21:00; Stop 09/25/16 at 20:59 Clopidogrel Bisulfate (PLAVix) 75 mg DAILY PO Last administered on 08/30/16 08: 55; Start 08/26/16 at 09:00; Stop 09/25/16 at 08:59 Fluoxetine HCl (PROzac) 30 mg DAILY PO Last administered on 08/30/16 08:55; Start 08/26/16 at 09:00; Stop 09/25/16 at 08:59 Home Med (Med Rec Complete!) ASDIRECTED XX ; Start 08/25/16 at 17:00; Stop at 17:00; Status DC Hydroxyzine HCl (Vistaril) 25 mg Q6HP PRN PO ANXIETY; Start 08/25/16 at 19:30; Stop 09/24/16 at 19:29 Lactobacillus Acidophilus (Bacid) 1 ea BID PO ; Start 08/30/16 at 09:00; Stop 05/08 at 08:59 Loratadine (Claritin) 10 mg DAILYPRN PO ; Start 08/25/16 at 18:30; Stop 09/24/16 at 18:29 Magnesium Hydroxide (Milk Of Magnesia) 30 ml DAILYPRN PRN PO CONSTIPATION; Start 08/25/16 at 18:30; Stop 09/24/16 at 18:29 Miscellaneous (Unresolved Patient Own Med Order) SEE LABEL COMMENTS UNRESOLVED XX ; Start 08/25/16 at 00:01; Stop 08/25/16 at 20:40; Status DC Ondansetron HCl (Zofran Odt) 4 mg Q6HP PRN PO NAUSEA OR VOMITING Last administered on 08/30/16 08:54; Start 08/30/16 at 03:15; Stop 09/29/16 at 03:14 Pantoprazole Sodium (Protonix) 40 mg BID PO Last administered on 08/30/16 08:55 ; Start 08/25/16 at 21:00; Stop 09/24/16 at 20:59 Patient Own Medication (Patient'S Own Med) Repatha 140mg SQ inject... Q14D SQ Last administered on 08/26/16 08:33; Start 08/26/16 at 09:00; Stop 09/25/16 at 08: 59 Trazodone HCl (Desyrel) 50 mg QHSP PRN PO INSOMNIA Last administered on 20:59; Start 08/25/16 at 18:30; Stop 09/24/16 at 18:29 Valsartan (Diovan) 80 mg QHS PO Last administered on 08/29/16 20:59; Start 08/25 at 21:00; Stop 09/24/16 at 20:59 Allergies Coded Allergies: TALIA Inhibitors (Unverified Allergy, Unknown, 04/28/16) ABDOUL HOPSON MD Aug 30, 2016 09:27
[2016-08-30] MEDS: LACTOBACILLUS ACIDOPHILUS CAP (BACID) PO SCH ×2 (09:35→20:35)
[2016-08-30 10:24] LABS: ALBUMIN 3.1 GM/DL (3.2-5.2); ALBUMIN/GLOBULIN RATIO 0.78 (1.00-1.93); BILIRUBIN,TOTAL 0.8 MG/DL (0.2-1.0); CALCIUM LEVEL 8.8 MG/DL (8.5-10.1); CREATININE FOR GFR 1.12 MG/DL (0.55-1.02); GLOMERULAR FILTRATION RATE 53.6 (>51); POTASSIUM SERUM 3.8 MEQ/L (3.5-5.1); TOTAL PROTEIN 7.1 GM/DL (6.4-8.2)
[2016-08-30 11:07] LABS: BASO % 0.2 % (0.0-1.0); EOS # 0.2 K/mm3 (0.0-0.50); EOS % 2.4 % (0.0-3.0); LARGE UNSTAINED CELL # 0.5 K/mm3 (0.0-0.4); LARGE UNSTAINED CELL % 5.7 % (0.0-4.0); LYMPH % 12.3 % (24.0-44.0); MEAN CORPUSCULAR HEMOGLOBIN 27.9 pg (27.0-33.0); MEAN CORPUSCULAR HGB CONC 30.7 g/dl (32.0-36.5); MONO # 0.4 K/mm3 (0.0-0.8); MONO % 5.4 % (0.0-5.0); NEUTROPHILS # 5.8 K/mm3 (1.8-7.7); PLATELET COUNT, AUTOMATED 346 k/mm3 (150-450); RED CELL DISTRIBUTION WIDTH 16.7 % (11.5-14.5); WHITE BLOOD COUNT 7.9 K/mm3 (4.0-10.0)
[2016-08-30] MEDS: LOPERAMIDE 2 MG CAP PO PRN ×2 (17:19→20:34)
[2016-08-30 18:28] VITALS: BP 122/70
[2016-08-30] MEDS: traZODone 50 MG TAB PO PRN (20:34)
[2016-08-30] MEDS: VALSARTAN 80 MG TAB (DIOVAN) PO SCH (20:35)
[2016-08-31] MEDS: ASPIRIN 81 MG ENTERIC TAB PO SCH (07:14)
[2016-08-31] MEDS: FLUoxetine 10 MG CAP PO SCH (07:16)
[2016-08-31] MEDS: CARVedilol 12.5 MG TAB PO SCH ×2 (07:16→20:56)
[2016-08-31] MEDS: CLOPIDOGREL 75 MG TAB PO SCH (07:17)
[2016-08-31] MEDS: busPIRone 5 MG TAB PO SCH ×4 (07:17→20:57)
[2016-08-31] MEDS: LACTOBACILLUS ACIDOPHILUS CAP (BACID) PO SCH ×2 (07:17→20:56)
[2016-08-31] MEDS: LOPERAMIDE 2 MG CAP PO PRN (07:19)
[2016-08-31 07:32] VITALS: BP 125/84
[2016-08-31 07:50] LABS: BASO % 0.2 % (0.0-1.0); EOS # 0.2 K/mm3 (0.0-0.50); LARGE UNSTAINED CELL # 0.3 K/mm3 (0.0-0.4); LYMPH # 1.4 K/mm3 (1.5-4.5); LYMPH % 16.7 % (24.0-44.0); MEAN CORPUSCULAR HEMOGLOBIN 27.4 pg (27.0-33.0); MEAN CORPUSCULAR HGB CONC 29.9 g/dl (32.0-36.5); MEAN CORPUSCULAR VOLUME 91.5 fl (80.0-96.0); MONO # 0.5 K/mm3 (0.0-0.8); MONO % 6.2 % (0.0-5.0); NEUTROPHILS # 5.7 K/mm3 (1.8-7.7); PLATELET COUNT, AUTOMATED 359 k/mm3 (150-450); RED CELL DISTRIBUTION WIDTH 16.6 % (11.5-14.5); WHITE BLOOD COUNT 8.2 K/mm3 (4.0-10.0)
[2016-08-31 08:14] LABS: ALBUMIN 3.2 GM/DL (3.2-5.2); ALBUMIN/GLOBULIN RATIO 0.97 (1.00-1.93); BILIRUBIN,TOTAL 0.7 MG/DL (0.2-1.0); CALCIUM LEVEL 8.9 MG/DL (8.5-10.1); CREATININE FOR GFR 1.13 MG/DL (0.55-1.02); TOTAL PROTEIN 6.5 GM/DL (6.4-8.2)
[2016-08-31 08:22] LABS: POTASSIUM SERUM 4.8 MEQ/L (3.5-5.1)
[2016-08-31] MEDS: PANTOPRAZOLE 40MG TAB (PROTONIX) PO SCH ×2 (09:12→20:57)
[2016-08-31 18:00] VITALS: BP 122/65
[2016-08-31] MEDS: traZODone 50 MG TAB PO PRN (20:57)
[2016-08-31] MEDS: VALSARTAN 80 MG TAB (DIOVAN) PO SCH (20:57)
--- NOTE | 2016-08-31 23:52 | IPNPDOC ---
[facility] Progress Note Progress Note DATE OF SERVICE: 08/31/16 Subjective: Patient is up and social on intiation of interview. She reporst resolution of diarrhea, but reports new RUQ abd. Patient also reported boat puller CP, evaluation of troponin and EKG were NEG. Patient reporting more stressors at home. She reports concern that she will continue to spiral downward at home if her daughter does not work to keep the home clean as she knows patient maintains her home. Patient asked her daughter to move into her home to assist with paying bill. Patient felt she'd lose the home if she didn't have the assistance. Patient feels her daughter and son in law allow their 10 cats to destroy her home. Patient reports significant OCD traits in regard to checking, cleaning, and ritualistic behaviors. Patient is concerned the section of the house under construction for her may be too small for her to feel comfortable. He reported feeling like she "doesn't belong there anymore". Patient encouraged to attend groups and participate. pain. Patient reports multiple episodes of loose stools and nausea. Patient on Zofran, informed Loperamide will be initiated for loose stools. Patient reports fair appetite and sleep. Patient is appropriate in behaviors and statements; no signs of psychosis reported or noted. She has been no issue on the unit, mostly isolated to her room. She denies SI/HI today and AH/VH. Objective: VITAL SIGNS: See below. TEST RESULTS: See below. CURRENT MEDICATIONS: See below. MENTAL STATUS EXAMINATION: Patient is a 56year-old female up in the dayroom socializing with peers, fatigued, she appears her stated age. Patient calm and cooperative in behavior. Speech is RRR, but spontaneous. Language skills are intact. Thought processes: linear; Reports more formed stools, but new abd pain, focused on GI issues, Description of abnormal or psychotic thoughts: no paranoia expressed, no AH/VH; Judgment: Poor to Fair; Insight: Poor to Fair; Orientation to time, place and person. Recent and remote memory: Immediate, short-term and long-term memory is intact. Attention span and concentration: Good Language: Normal. Fund of knowledge: Fair Mood: depressed/ anxious Affect: depressed. SI denies. HI denies Assessment: MDD, R,S w/o PFs (Atypical Subtype) Recent Cdiff infection Recent Benzodiazepine w/d Polycythemia Plan: ----- -Continue PRN loperamide 2mg po PRN diarrhea and continue PRN Zofran 4mg po PRN nausea. -C. Diff toxin taken and was NEG. -CBC w/diff and CMP - wnl -Will maintain current regimen due to current GI issues. -Continue Prozac at 30mg po qhs for depression and anxiety. -Continue Buspar at 5mg po QID for anxiety. -Continue Trazodone 50mg po qhs PRN insomnia. -Continue all home medical medications as written prior to admission. Estimated date of discharge: 09/06/16 TIME SPENT: 30 minutes. Vital Signs Vital Signs Date Time Temp Pulse Resp B/P Pulse Ox O2 Delivery O2 Flow Rate FiO2 08/31/16 20:57 114/70 08/31/16 20:56 83 08/31/16 18:00 99.7 18 08/25/16 17:00 96 Room Air Laboratory Data 24H Labs Laboratory Tests 2 08/31/16 05:34: Bedside Glucose (Misc Panel) 119H 08/31/16 07:19: Blood Urea Nitrogen 16, Creatinine 1.13H, Sodium Level 144, Potassium Level 4.8# , Chloride Level 105, Carbon Dioxide Level 31, Calcium Level 8.9, Aspartate Amino Transf (AST/SGOT) 41H, Alanine Aminotransferase (ALT/SGPT) 48, Alkaline Phosphatase 95, Total Bilirubin 0.7, Total Protein 6.5, Albumin 3.2, Albumin/ Globulin Ratio 0.97L, Anion Gap 8, White Blood Count 8.2, Red Blood Count 4.73, Hemoglobin 12.9, Hematocrit 43.3, Mean Corpuscular Volume 91.5, Mean Corpuscular Hemoglobin 27.4, Mean Corpuscular Hemoglobin Concent 29.9L, Red Cell Distribution Width 16.6H, Platelet Count 359, Neutrophils (%) (Auto) 70.0H , Lymphocytes (%) (Auto) 16.7L, Monocytes (%) (Auto) 6.2H, Eosinophils (%) (Auto ) 3.0, Basophils (%) (Auto) 0.2, Neutrophils # (Auto) 5.7, Lymphocytes # (Auto) 1.4L, Monocytes # (Auto) 0.5, Eosinophils # (Auto) 0.2, Basophils # (Auto) 0.0, Glomerular Filtration Rate 53.0, Large Unclassified Cells # 0.3, Large Unclassified Cells % 4.0, Troponin I < 0.02 CBC/BMP Laboratory Tests 08/31/16 07:19 Calcium Level 8.9, Aspartate Amino Transf (AST/SGOT) 41 H, Alanine Aminotransferase (ALT/SGPT) 48, Alkaline Phosphatase 95, Total Bilirubin 0.7, Total Protein 6.5, Albumin 3.2, Red Blood Count 4.73, Mean Corpuscular Volume 91.5, Mean Corpuscular Hemoglobin 27.4, Mean Corpuscular Hemoglobin Concent 29.9 L, Red Cell Distribution Width 16.6 H, Neutrophils (%) (Auto) 70.0 H, Lymphocytes (%) (Auto) 16.7 L, Monocytes (%) (Auto) 6.2 H, Eosinophils (%) (Auto ) 3.0, Basophils (%) (Auto) 0.2, Neutrophils # (Auto) 5.7, Lymphocytes # (Auto) 1.4 L, Monocytes # (Auto) 0.5, Eosinophils # (Auto) 0.2, Basophils # (Auto) 0.0 Current Medications Current Medications Acetaminophen (Tylenol Tab) 650 mg Q6HP PRN PO HEADACHE or DISCOMFORT Last administered on 08/30/16 03:06; Start 08/25/16 at 18:30; Stop 09/24/16 at 18:29 Acetaminophen/ Butalbital/ Caffeine (Fioricet) 2 ea Q6HP PRN PO HEADACHE; Start 08/25/16 at 21:00; Stop 09/24/16 at 20:59 Al Hydrox/Mg Hydrox/Simethicone (Mylanta) 30 ml Q4HP PRN PO HEARTBURN/ INDIGESTION Last administered on 08/30/16 03:06; Start 08/25/16 at 18:30; Stop at 18:29 Albuterol Sulfate (Proventil, Ventolin Hfa) 2 puff Q4HP PRN INH SHORTNESS OF BREATH; Start 08/25/16 at 18:30; Stop 09/24/16 at 18:29 Aspirin (Ecotrin) 81 mg DAILY PO Last administered on 08/31/16 07:14; Start 08/26/16 at 09:00; Stop 09/25/16 at 08:59 Buspirone HCl (Buspar) 5 mg QID PO Last administered on 08/31/16 20:57; Start 08/26/16 at 13:00; Stop 09/25/16 at 12:59 Carvedilol (COReg) 6.25 mg BID PO Last administered on 08/26/16 08:31; Start at 21:00; Stop 08/26/16 at 15:47; Status DC Carvedilol (COReg) 12.5 mg BID PO Last administered on 08/31/16 20:56; Start at 21:00; Stop 09/25/16 at 20:59 Clopidogrel Bisulfate (PLAVix) 75 mg DAILY PO Last administered on 08/31/16 07: 17; Start 08/26/16 at 09:00; Stop 09/25/16 at 08:59 Fluoxetine HCl (PROzac) 30 mg DAILY PO Last administered on 08/31/16 07:16; Start 08/26/16 at 09:00; Stop 09/25/16 at 08:59 Home Med (Med Rec Complete!) ASDIRECTED XX ; Start 08/25/16 at 17:00; Stop at 17:00; Status DC Hydroxyzine HCl (Vistaril) 25 mg Q6HP PRN PO ANXIETY; Start 08/25/16 at 19:30; Stop 09/24/16 at 19:29 Lactobacillus Acidophilus (Bacid) 1 ea BID PO Last administered on 08/31/16 20: 56; Start 08/30/16 at 09:00; Stop 09/29/16 at 08:59 Loperamide HCl (Imodium) 2 mg ASDIRECTED PRN PO DIARRHEA Last administered on 07:19; Start 08/30/16 at 16:15; Stop 09/29/16 at 16:14 Loratadine (Claritin) 10 mg DAILYPRN PO ; Start 08/25/16 at 18:30; Stop 09/24/16 at 18:29 Magnesium Hydroxide (Milk Of Magnesia) 30 ml DAILYPRN PRN PO CONSTIPATION; Start 08/25/16 at 18:30; Stop 09/24/16 at 18:29 Miscellaneous (Unresolved Patient Own Med Order) SEE LABEL COMMENTS UNRESOLVED XX ; Start 08/25/16 at 00:01; Stop 08/25/16 at 20:40; Status DC Ondansetron HCl (Zofran Odt) 4 mg Q6HP PRN PO NAUSEA OR VOMITING Last administered on 08/30/16 21:39; Start 08/30/16 at 03:15; Stop 09/29/16 at 03:14 Pantoprazole Sodium (Protonix) 40 mg BID PO Last administered on 08/31/16 20:57 ; Start 08/25/16 at 21:00; Stop 09/24/16 at 20:59 Patient Own Medication (Patient'S Own Med) Repatha 140mg SQ inject... Q14D SQ Last administered on 08/26/16 08:33; Start 08/26/16 at 09:00; Stop 09/25/16 at 08: 59 Trazodone HCl (Desyrel) 50 mg QHSP PRN PO INSOMNIA Last administered on 20:57; Start 08/25/16 at 18:30; Stop 09/24/16 at 18:29 Valsartan (Diovan) 80 mg QHS PO Last administered on 08/31/16 20:57; Start 08/25 at 21:00; Stop 09/24/16 at 20:59 Allergies Coded Allergies: TALIA Inhibitors (Unverified Allergy, Unknown, 04/28/16) ABDOUL HOPSON MD Aug 31, 2016 23:51
[2016-09-01 06:42] VITALS: BP 106/65
[2016-09-01 07:05] LABS: ALBUMIN 2.9 GM/DL (3.2-5.2); ALBUMIN/GLOBULIN RATIO 0.97 (1.00-1.93); ALKALINE PHOSPHATASE 150 U/L (45-117); ALT/SGPT 233 U/L (12-78); ANION GAP 6 MEQ/L (8-16); AST/SGOT 220 U/L (15-37); BILIRUBIN,TOTAL 0.8 MG/DL (0.2-1.0); BLOOD UREA NITROGEN 18 MG/DL (7-18); CALCIUM LEVEL 8.8 MG/DL (8.5-10.1); CARBON DIOXIDE LEVEL 31 MEQ/L (21-32); CHLORIDE LEVEL 107 MEQ/L (98-107); CREATININE FOR GFR 1.12 MG/DL (0.55-1.02); GLOMERULAR FILTRATION RATE 53.6 (>51); GLUCOSE, FASTING 89 MG/DL (70-105); POTASSIUM SERUM 4.4 MEQ/L (3.5-5.1); SODIUM LEVEL 144 MEQ/L (136-145); TOTAL PROTEIN 5.9 GM/DL (6.4-8.2)
[2016-09-01] MEDS: CLOPIDOGREL 75 MG TAB PO SCH (08:13)
[2016-09-01] MEDS: LACTOBACILLUS ACIDOPHILUS CAP (BACID) PO SCH ×2 (08:13→20:50)
[2016-09-01] MEDS: ASPIRIN 81 MG ENTERIC TAB PO SCH (08:15)
[2016-09-01] MEDS: PANTOPRAZOLE 40MG TAB (PROTONIX) PO SCH ×2 (08:15→20:50)
[2016-09-01] MEDS: CARVedilol 12.5 MG TAB PO SCH ×2 (08:15→20:51)
[2016-09-01] MEDS: busPIRone 5 MG TAB PO SCH ×4 (08:15→20:50)
[2016-09-01] MEDS: FLUoxetine 10 MG CAP PO SCH (08:15)
--- NOTE | 2016-09-01 12:21 | REP ---
Right upper quadrant sonography: History: Elevated liver function studies. Comparison study April 29, 2016 showed a hemangioma in the right lobe of the liver. Findings: The gallbladder is surgically absent. Common bile duct is normal measuring 0.3 cm in greatest diameter. There is evidence of mild fatty infiltration of the liver. There is a 1.1 x 1.0 x 0.7 cm hyperechoic focus in the right lobe of the liver consistent with hemangioma. This appears smaller than the prior study. No other focal liver lesion is seen. The tail of the pancreas is obscured by abdominal gas. No pancreatic abnormality is seen. The right kidney measures 11.0 x 3.8 x 4.4 cm. There are two cysts in the lateral aspect of the lower pole of the right kidney. These measure 1.1 and 0.8 cm in greatest diameter respectively. They appear to be simple cysts. The renal pyramids are somewhat hyperechoic raising question of medullary sponge kidney although this may be seen in dehydration as well. No calculi are seen. Impression: Mild fatty infiltration of the liver. 1.1 cm hemangioma of the right lobe of the liver. Two small cysts in the right kidney. Post cholecystectomy. Otherwise negative. Signed by Dwaine Francis MD 09/01/2016 12:53 P
[2016-09-01] MEDS: OSELTAMIVIR PHOSPHATE 75 MG CAP (TAMIFLU) PO SCH (13:26)
[2016-09-01 18:00] VITALS: BP 124/71
[2016-09-01] MEDS: VALSARTAN 80 MG TAB (DIOVAN) PO SCH (20:50)
[2016-09-01] MEDS: traZODone 50 MG TAB PO PRN (20:52)
[2016-09-02 06:13] VITALS: BP 125/77
[2016-09-02 07:26] LABS: BASO % 0.4 % (0.0-1.0); EOS # 0.4 K/mm3 (0.0-0.50); EOS % 7.1 % (0.0-3.0); LARGE UNSTAINED CELL # 0.3 K/mm3 (0.0-0.4); LARGE UNSTAINED CELL % 4.9 % (0.0-4.0); LYMPH # 1.9 K/mm3 (1.5-4.5); LYMPH % 27.3 % (24.0-44.0); MEAN CORPUSCULAR HEMOGLOBIN 27.3 pg (27.0-33.0); MEAN CORPUSCULAR HGB CONC 30.1 g/dl (32.0-36.5); MEAN CORPUSCULAR VOLUME 90.7 fl (80.0-96.0); MONO # 0.6 K/mm3 (0.0-0.8); MONO % 10.6 % (0.0-5.0); NEUTROPHILS % 49.7 % (36.0-66.0); PLATELET COUNT, AUTOMATED 313 k/mm3 (150-450); RED CELL DISTRIBUTION WIDTH 17.1 % (11.5-14.5)
[2016-09-02 07:36] LABS: ALBUMIN 2.9 GM/DL (3.2-5.2); ALBUMIN/GLOBULIN RATIO 0.94 (1.00-1.93); ALKALINE PHOSPHATASE 133 U/L (45-117); ALT/SGPT 176 U/L (12-78); ANION GAP 6 MEQ/L (8-16); AST/SGOT 41 U/L (15-37); BILIRUBIN,TOTAL 0.4 MG/DL (0.2-1.0); BLOOD UREA NITROGEN 16 MG/DL (7-18); CALCIUM LEVEL 8.7 MG/DL (8.5-10.1); CARBON DIOXIDE LEVEL 30 MEQ/L (21-32); CHLORIDE LEVEL 109 MEQ/L (98-107); CREATININE FOR GFR 0.93 MG/DL (0.55-1.02); GLOMERULAR FILTRATION RATE > 60.0 (>51); GLUCOSE, FASTING 94 MG/DL (70-105); POTASSIUM SERUM 4.4 MEQ/L (3.5-5.1); SODIUM LEVEL 145 MEQ/L (136-145)
[2016-09-02] MEDS: CLOPIDOGREL 75 MG TAB PO SCH (08:11)
[2016-09-02] MEDS: LACTOBACILLUS ACIDOPHILUS CAP (BACID) PO SCH ×2 (08:11→20:23)
[2016-09-02] MEDS: busPIRone 5 MG TAB PO SCH ×4 (08:11→20:23)
[2016-09-02] MEDS: ASPIRIN 81 MG ENTERIC TAB PO SCH (08:11)
[2016-09-02] MEDS: OSELTAMIVIR PHOSPHATE 75 MG CAP (TAMIFLU) PO SCH (08:11)
[2016-09-02] MEDS: PANTOPRAZOLE 40MG TAB (PROTONIX) PO SCH ×2 (08:11→20:23)
[2016-09-02] MEDS: CARVedilol 12.5 MG TAB PO SCH ×2 (08:11→20:23)
[2016-09-02] MEDS: FLUoxetine 10 MG CAP PO SCH (08:11)
[2016-09-02] MEDS: ONDANSETRON 4 MG ORAL DISINTEGRATING TAB (S0181) PO PRN (08:13)
--- NOTE | 2016-09-02 10:52 | IPNPDOC ---
[facility] Progress Note Progress Note DATE OF SERVICE: 09/01/16 Subjective: Patient again lying in her bed on initiation of interview. Patient aware of CMP findings of 5x increase in Liver enzymes, in a 24hr period. Patient reports a hx of fluctuating Liver enzymes of unknown etiology during previous admissions. Patient reports an outpt GI appt is already set. Patient very labile in mood today, tearful, reporting she is not ready to go home. Patient informed this provider was not considering discharge now. Patient very worried that she is not ready for discharge. She reports needing her daughter and son in law to make changes at home regarding cleaning up after their cats urinating and BM everywhere. She hates the smell and is not used to living in that way. Patient again brings up OCD symtpoms. She reports concern over the health of her 1st grandchild her daughter is with now. She endorses passive SI stating, "everyone would be better if I were gone". Patient reports fair appetite and sleep. Patient amenable to increasing Prozac to 60mg from 30mg daily. She denies HI and AH/VH. Objective: VITAL SIGNS: See below. TEST RESULTS: See below. CURRENT MEDICATIONS: See below. MENTAL STATUS EXAMINATION: Patient is a 56year-old female up in the dayroom socializing with peers, fatigued, she appears her stated age. Patient calm and cooperative in behavior. Speech is RRR, but spontaneous. Language skills are intact. Thought processes: linear; focused on psychosocial stressors (financial / relational with daughter and son in law, Description of abnormal or psychotic thoughts: no paranoia expressed, no AH/VH; Judgment: Poor to Fair; Insight: Poor to Fair; Orientation to time, place and person. Recent and remote memory: Immediate, short-term and long-term memory is intact. Attention span and concentration: Good Language: Normal. Fund of knowledge: Fair Mood: depressed/anxious Affect: depressed. SI denies. HI denies Assessment: MDD, R,S w/o PFs (Atypical Subtype) Recent Cdiff infection Recent Benzodiazepine w/d Polycythemia Plan: ----- -Continue PRN loperamide 2mg po PRN diarrhea and continue PRN Zofran 4mg po PRN nausea. -C. Diff toxin taken and was NEG. -CBC w/diff-wnl -09/01/16 CMP - significantly elevated Liver enzymes. -Hepatitis panel - PENDING -Patient reports a hx of fluctuating Liver enzymes of unknown etiology during previous admissions. Patient reports an outpt GI appt already set. -Amylase, Lipase, GGT, repeat CMP - PENDING -Will maintain current regimen due to current GI issues. -Prozac 30mg po qhs for depression and anxiety. -Continue Buspar at 5mg po QID for anxiety. -Continue Trazodone 50mg po qhs PRN insomnia. -Continue all home medical medications as written prior to admission. Estimated date of discharge: 09/06/16 TIME SPENT: 30 minutes. Vital Signs Vital Signs Date Time Temp Pulse Resp B/P Pulse Ox O2 Delivery O2 Flow Rate FiO2 09/02/16 08:11 84 116/67 09/02/16 06:13 98.9 18 Laboratory Data 24H Labs Laboratory Tests 2 09/02/16 07:00: Blood Urea Nitrogen 16, Creatinine 0.93, Sodium Level 145, Potassium Level 4.4, Chloride Level 109H, Carbon Dioxide Level 30, Calcium Level 8.7, Aspartate Amino Transf (AST/SGOT) 41H, Alanine Aminotransferase (ALT/SGPT) 176H, Alkaline Phosphatase 133H, Total Bilirubin 0.4, Total Protein 6.0L, Albumin 2.9L, Albumin /Globulin Ratio 0.94L, Anion Gap 6L, White Blood Count 6.0, Red Blood Count 4.38 , Hemoglobin 12.0, Hematocrit 39.8, Mean Corpuscular Volume 90.7, Mean Corpuscular Hemoglobin 27.3, Mean Corpuscular Hemoglobin Concent 30.1L, Red Cell Distribution Width 17.1H, Platelet Count 313, Neutrophils (%) (Auto) 49.7, Lymphocytes (%) (Auto) 27.3, Monocytes (%) (Auto) 10.6H, Eosinophils (%) (Auto) 7.1H, Basophils (%) (Auto) 0.4, Neutrophils # (Auto) 3.0, Lymphocytes # (Auto) 1.9, Monocytes # (Auto) 0.6, Eosinophils # (Auto) 0.4, Basophils # (Auto) 0.0, Glomerular Filtration Rate > 60.0, Large Unclassified Cells # 0.3, Large Unclassified Cells % 4.9H CBC/BMP Laboratory Tests 09/02/16 07:00 Calcium Level 8.7, Aspartate Amino Transf (AST/SGOT) 41 H, Alanine Aminotransferase (ALT/SGPT) 176 H, Alkaline Phosphatase 133 H, Total Bilirubin 0.4, Total Protein 6.0 L, Albumin 2.9 L, Red Blood Count 4.38, Mean Corpuscular Volume 90.7, Mean Corpuscular Hemoglobin 27.3, Mean Corpuscular Hemoglobin Concent 30.1 L, Red Cell Distribution Width 17.1 H, Neutrophils (%) (Auto) 49.7 , Lymphocytes (%) (Auto) 27.3, Monocytes (%) (Auto) 10.6 H, Eosinophils (%) ( Auto) 7.1 H, Basophils (%) (Auto) 0.4, Neutrophils # (Auto) 3.0, Lymphocytes # ( Auto) 1.9, Monocytes # (Auto) 0.6, Eosinophils # (Auto) 0.4, Basophils # (Auto) 0.0 Current Medications Current Medications Acetaminophen (Tylenol Tab) 650 mg Q6HP PRN PO HEADACHE or DISCOMFORT Last administered on 08/30/16 03:06; Start 08/25/16 at 18:30; Stop 09/24/16 at 18:29 Acetaminophen/ Butalbital/ Caffeine (Fioricet) 2 ea Q6HP PRN PO HEADACHE; Start 08/25/16 at 21:00; Stop 09/24/16 at 20:59 Al Hydrox/Mg Hydrox/Simethicone (Mylanta) 30 ml Q4HP PRN PO HEARTBURN/ INDIGESTION Last administered on 08/30/16 03:06; Start 08/25/16 at 18:30; Stop at 18:29 Albuterol Sulfate (Proventil, Ventolin Hfa) 2 puff Q4HP PRN INH SHORTNESS OF BREATH; Start 08/25/16 at 18:30; Stop 09/24/16 at 18:29 Aspirin (Ecotrin) 81 mg DAILY PO Last administered on 09/02/16 08:11; Start at 09:00; Stop 09/25/16 at 08:59 Buspirone HCl (Buspar) 5 mg QID PO Last administered on 09/02/16 08:11; Start 08/26/16 at 13:00; Stop 09/25/16 at 12:59 Carvedilol (COReg) 6.25 mg BID PO Last administered on 08/26/16 08:31; Start at 21:00; Stop 08/26/16 at 15:47; Status DC Carvedilol (COReg) 12.5 mg BID PO Last administered on 09/02/16 08:11; Start 08/26/16 at 21:00; Stop 09/25/16 at 20:59 Clopidogrel Bisulfate (PLAVix) 75 mg DAILY PO Last administered on 09/02/16 08 :11; Start 08/26/16 at 09:00; Stop 09/25/16 at 08:59 Fluoxetine HCl (PROzac) 30 mg DAILY PO Last administered on 09/02/16 08:11; Start 08/26/16 at 09:00; Stop 09/25/16 at 08:59 Home Med (Med Rec Complete!) ASDIRECTED XX ; Start 08/25/16 at 17:00; Stop at 17:00; Status DC Hydroxyzine HCl (Vistaril) 25 mg Q6HP PRN PO ANXIETY; Start 08/25/16 at 19:30; Stop 09/24/16 at 19:29 Lactobacillus Acidophilus (Bacid) 1 ea BID PO Last administered on 09/02/16 08 :11; Start 08/30/16 at 09:00; Stop 09/29/16 at 08:59 Loperamide HCl (Imodium) 2 mg ASDIRECTED PRN PO DIARRHEA Last administered on 07:19; Start 08/30/16 at 16:15; Stop 09/29/16 at 16:14 Loratadine (Claritin) 10 mg DAILYPRN PO ; Start 08/25/16 at 18:30; Stop 09/24/16 at 18:29 Magnesium Hydroxide (Milk Of Magnesia) 30 ml DAILYPRN PRN PO CONSTIPATION; Start 08/25/16 at 18:30; Stop 09/24/16 at 18:29 Miscellaneous (Unresolved Patient Own Med Order) SEE LABEL COMMENTS UNRESOLVED XX ; Start 08/25/16 at 00:01; Stop 08/25/16 at 20:40; Status DC Ondansetron HCl (Zofran Odt) 4 mg Q6HP PRN PO NAUSEA OR VOMITING Last administered on 09/02/16 08:13; Start 08/30/16 at 03:15; Stop 09/29/16 at 03:14 Oseltamivir Phosphate (Tamiflu) 75 mg DAILY PO Last administered on 09/02/16 08:11; Start 09/01/16 at 09:00; Stop 09/10/16 at 12:00 Pantoprazole Sodium (Protonix) 40 mg BID PO Last administered on 09/02/16 08: 11; Start 08/25/16 at 21:00; Stop 09/24/16 at 20:59 Patient Own Medication (Patient'S Own Med) Repatha 140mg SQ inject... Q14D SQ Last administered on 08/26/16 08:33; Start 08/26/16 at 09:00; Stop 09/25/16 at 08: 59 Trazodone HCl (Desyrel) 50 mg QHSP PRN PO INSOMNIA Last administered on 20:52; Start 08/25/16 at 18:30; Stop 09/24/16 at 18:29 Valsartan (Diovan) 80 mg QHS PO Last administered on 09/01/16 20:50; Start 08/25/16 at 21:00; Stop 09/24/16 at 20:59 Allergies Coded Allergies: TALIA Inhibitors (Unverified Allergy, Unknown, 04/28/16) ABDOUL HOPSON MD Sep 02, 2016 10:51 Coded Allergies: TALIA Inhibitors (Unverified Allergy, Unknown, 04/28/16) ABDOUL HOPSON MD Sep 02, 2016 10:51
[2016-09-02 14:18] LABS: ALBUMIN 3.2 GM/DL (3.2-5.2); ALBUMIN/GLOBULIN RATIO 0.91 (1.00-1.93); ALKALINE PHOSPHATASE 144 U/L (45-117); ALT/SGPT 173 U/L (12-78); AMYLASE 33 U/L (25-115); ANION GAP 9 MEQ/L (8-16); AST/SGOT 38 U/L (15-37); BILIRUBIN,TOTAL 0.4 MG/DL (0.2-1.0); BLOOD UREA NITROGEN 15 MG/DL (7-18); CALCIUM LEVEL 8.5 MG/DL (8.5-10.1); CARBON DIOXIDE LEVEL 26 MEQ/L (21-32); CHLORIDE LEVEL 107 MEQ/L (98-107); CREATININE FOR GFR 0.87 MG/DL (0.55-1.02); GAMMA GLUTAMYLTRANSPEPTIDASE 367 U/L (5-55); GLOMERULAR FILTRATION RATE > 60.0 (>51); GLUCOSE, FASTING 82 MG/DL (70-105); POTASSIUM SERUM 4.7 MEQ/L (3.5-5.1); SODIUM LEVEL 142 MEQ/L (136-145); TOTAL PROTEIN 6.7 GM/DL (6.4-8.2)
[2016-09-02 18:41] VITALS: BP 124/73
[2016-09-02] MEDS: traZODone 50 MG TAB PO PRN (20:23)
[2016-09-02] MEDS: VALSARTAN 80 MG TAB (DIOVAN) PO SCH (20:23)
[2016-09-03 06:31] VITALS: BP_SYST 123; BP_SYST 152; BP_DIAS 67; BP_DIAS 98
[2016-09-03] MEDS: busPIRone 5 MG TAB PO SCH ×4 (08:54→21:52)
[2016-09-03] MEDS: PANTOPRAZOLE 40MG TAB (PROTONIX) PO SCH ×2 (08:55→21:53)
[2016-09-03] MEDS: FLUoxetine 20 MG CAP PO SCH (08:55)
[2016-09-03] MEDS: CARVedilol 12.5 MG TAB PO SCH ×2 (08:55→21:53)
[2016-09-03] MEDS: ASPIRIN 81 MG ENTERIC TAB PO SCH (08:55)
[2016-09-03] MEDS: OSELTAMIVIR PHOSPHATE 75 MG CAP (TAMIFLU) PO SCH (08:55)
[2016-09-03] MEDS: LACTOBACILLUS ACIDOPHILUS CAP (BACID) PO SCH ×2 (08:55→21:53)
[2016-09-03] MEDS: CLOPIDOGREL 75 MG TAB PO SCH (08:55)
[2016-09-03 18:00] VITALS: BP 104/61
[2016-09-03] MEDS: VALSARTAN 80 MG TAB (DIOVAN) PO SCH (21:53)
[2016-09-03] MEDS: traZODone 50 MG TAB PO PRN (23:48)
[2016-09-04] MEDS: FIORICET TAB PO PRN (02:30)
[2016-09-04 06:29] VITALS: BP 112/72
[2016-09-04 07:24] LABS: ALBUMIN/GLOBULIN RATIO 0.88 (1.00-1.93); ALKALINE PHOSPHATASE 114 U/L (45-117); ALT/SGPT 86 U/L (12-78); ANION GAP 8 MEQ/L (8-16); AST/SGOT 12 U/L (15-37); BILIRUBIN,TOTAL 0.6 MG/DL (0.2-1.0); BLOOD UREA NITROGEN 13 MG/DL (7-18); CALCIUM LEVEL 8.9 MG/DL (8.5-10.1); CARBON DIOXIDE LEVEL 30 MEQ/L (21-32); CHLORIDE LEVEL 107 MEQ/L (98-107); CREATININE FOR GFR 0.93 MG/DL (0.55-1.02); GLOMERULAR FILTRATION RATE > 60.0 (>51); GLUCOSE, FASTING 87 MG/DL (70-105); POTASSIUM SERUM 4.5 MEQ/L (3.5-5.1); SODIUM LEVEL 145 MEQ/L (136-145); TOTAL PROTEIN 6.4 GM/DL (6.4-8.2)
--- NOTE | 2016-09-04 08:50 | IPNPDOC ---
[facility] Progress Note Progress Note DATE OF SERVICE: 09/04/16 Subjective: Patient reports increased strength and reports resolved episodes of diarrhea. Recent informed recent CMP shows resolution of elevated liver enzymes. Patient also informed hepatitis panels have returned negative. Patient still easily agitated and focused on her psychosocial stressors. Patient amenable to increasing the antidepressant dose. Patient denies SI and HI. She is now reporting or displaying any signs of psychosis. Sleep and appetite have been fair. Objective: VITAL SIGNS: See below. TEST RESULTS: See below. CURRENT MEDICATIONS: See below. MENTAL STATUS EXAMINATION: Patient is a 56year-old female, calm and cooperative in behavior. Speech is RRR, but spontaneous. Language skills are intact. Thought processes: linear; thought content: Continues to be focused on psychosocial stressors(financial / relational with daughter and son in law, Description of abnormal or psychotic thoughts: no paranoia expressed, no AH/VH; Judgment: Poor to Fair; Insight: Poor to Fair; Orientation to time, place and person. Recent and remote memory: Immediate, short-term and long-term memory is intact. Attention span and concentration: Good Language: Normal. Fund of knowledge: Fair Mood: depressed/anxious Affect: depressed/labile. SI denies. HI denies. Assessment: MDD, R,S w/o PFs (Atypical Subtype) Recent Cdiff infection Recent Benzodiazepine w/d Polycythemia Plan: ----- -Recent episode of diarrhea now resolved. C. Diff toxin taken was NEG. -Patient reports a hx of fluctuating Liver enzymes of unknown etiology during previous admissions. Patient reports an outpt GI appt already set. -Increased Prozac from 30mg to 60 mg po daily for depression and anxiety. -Continue Buspar at 5mg po QID for anxiety. -Continue Trazodone 50mg po qhs PRN insomnia. -Continue all home medical medications as written prior to admission. Estimated date of discharge: 09/08/16 TIME SPENT: 30 minutes. Vital Signs Vital Signs Date Time Temp Pulse Resp B/P Pulse Ox O2 Delivery O2 Flow Rate FiO2 09/04/16 06:29 97.0 59 18 112/72 Laboratory Data 24H Labs Laboratory Tests 2 09/04/16 06:47: Blood Urea Nitrogen 13, Creatinine 0.93, Sodium Level 145, Potassium Level 4.5, Chloride Level 107, Carbon Dioxide Level 30, Calcium Level 8.9, Aspartate Amino Transf (AST/SGOT) 12L, Alanine Aminotransferase (ALT/SGPT) 86H, Alkaline Phosphatase 114, Total Bilirubin 0.6, Total Protein 6.4, Albumin 3.0L, Albumin/ Globulin Ratio 0.88L, Anion Gap 8, Glomerular Filtration Rate > 60.0 CBC/BMP Laboratory Tests 09/04/16 06:47 Calcium Level 8.9, Aspartate Amino Transf (AST/SGOT) 12 L, Alanine Aminotransferase (ALT/SGPT) 86 H, Alkaline Phosphatase 114, Total Bilirubin 0.6 , Total Protein 6.4, Albumin 3.0 L Current Medications Current Medications Acetaminophen (Tylenol Tab) 650 mg Q6HP PRN PO HEADACHE or DISCOMFORT Last administered on 08/30/16 03:06; Start 08/25/16 at 18:30; Stop 09/24/16 at 18:29 Acetaminophen/ Butalbital/ Caffeine (Fioricet) 2 ea Q6HP PRN PO HEADACHE Last administered on 09/04/16 02:30; Start 08/25/16 at 21:00; Stop 09/24/16 at 20:59 Al Hydrox/Mg Hydrox/Simethicone (Mylanta) 30 ml Q4HP PRN PO HEARTBURN/ INDIGESTION Last administered on 08/30/16 03:06; Start 08/25/16 at 18:30; Stop at 18:29 Albuterol Sulfate (Proventil, Ventolin Hfa) 2 puff Q4HP PRN INH SHORTNESS OF BREATH; Start 08/25/16 at 18:30; Stop 09/24/16 at 18:29 Aspirin (Ecotrin) 81 mg DAILY PO Last administered on 09/03/16 08:55; Start at 09:00; Stop 09/25/16 at 08:59 Buspirone HCl (Buspar) 5 mg QID PO Last administered on 09/03/16 21:52; Start 08/26/16 at 13:00; Stop 09/25/16 at 12:59 Carvedilol (COReg) 6.25 mg BID PO Last administered on 08/26/16 08:31; Start at 21:00; Stop 08/26/16 at 15:47; Status DC Carvedilol (COReg) 12.5 mg BID PO Last administered on 09/03/16 21:53; Start 08/26/16 at 21:00; Stop 09/25/16 at 20:59 Clopidogrel Bisulfate (PLAVix) 75 mg DAILY PO Last administered on 09/03/16 08 :55; Start 08/26/16 at 09:00; Stop 09/25/16 at 08:59 Fluoxetine HCl (PROzac) 30 mg DAILY PO Last administered on 09/02/16 08:11; Start 08/26/16 at 09:00; Stop 09/02/16 at 12:43; Status DC Fluoxetine HCl (PROzac) 60 mg QAM PO Last administered on 09/03/16 08:55; Start 09/03/16 at 09:00; Stop 10/03/16 at 08:59 Home Med (Med Rec Complete!) ASDIRECTED XX ; Start 08/25/16 at 17:00; Stop at 17:00; Status DC Hydroxyzine HCl (Vistaril) 25 mg Q6HP PRN PO ANXIETY; Start 08/25/16 at 19:30; Stop 09/24/16 at 19:29 Lactobacillus Acidophilus (Bacid) 1 ea BID PO Last administered on 09/03/16 21 :53; Start 08/30/16 at 09:00; Stop 09/29/16 at 08:59 Loperamide HCl (Imodium) 2 mg ASDIRECTED PRN PO DIARRHEA Last administered on 07:19; Start 08/30/16 at 16:15; Stop 09/29/16 at 16:14 Loratadine (Claritin) 10 mg DAILYPRN PO ; Start 08/25/16 at 18:30; Stop 09/24/16 at 18:29 Magnesium Hydroxide (Milk Of Magnesia) 30 ml DAILYPRN PRN PO CONSTIPATION; Start 08/25/16 at 18:30; Stop 09/24/16 at 18:29 Miscellaneous (Unresolved Patient Own Med Order) SEE LABEL COMMENTS UNRESOLVED XX ; Start 08/25/16 at 00:01; Stop 08/25/16 at 20:40; Status DC Ondansetron HCl (Zofran Odt) 4 mg Q6HP PRN PO NAUSEA OR VOMITING Last administered on 09/02/16 08:13; Start 08/30/16 at 03:15; Stop 09/29/16 at 03:14 Oseltamivir Phosphate (Tamiflu) 75 mg DAILY PO Last administered on 09/03/16 08:55; Start 09/01/16 at 09:00; Stop 09/10/16 at 12:00 Pantoprazole Sodium (Protonix) 40 mg BID PO Last administered on 09/03/16 21: 53; Start 08/25/16 at 21:00; Stop 09/24/16 at 20:59 Patient Own Medication (Patient'S Own Med) Repatha 140mg SQ inject... Q14D SQ Last administered on 08/26/16 08:33; Start 08/26/16 at 09:00; Stop 09/25/16 at 08: 59 Trazodone HCl (Desyrel) 50 mg QHSP PRN PO INSOMNIA Last administered on 23:48; Start 08/25/16 at 18:30; Stop 09/24/16 at 18:29 Valsartan (Diovan) 80 mg QHS PO Last administered on 09/03/16 21:53; Start 08/25/16 at 21:00; Stop 09/24/16 at 20:59 Allergies Coded Allergies: TALIA Inhibitors (Unverified Allergy, Unknown, 04/28/16) ABDOUL HOPSON MD Sep 04, 2016 08:50 Allergies Coded Allergies: TALIA Inhibitors (Unverified Allergy, Unknown, 04/28/16) ABDOUL HOPSON MD Sep 04, 2016 08:50
[2016-09-04] MEDS: CLOPIDOGREL 75 MG TAB PO SCH (09:06)
[2016-09-04] MEDS: FLUoxetine 20 MG CAP PO SCH (09:07)
[2016-09-04] MEDS: CARVedilol 12.5 MG TAB PO SCH ×2 (09:07→20:34)
[2016-09-04] MEDS: busPIRone 5 MG TAB PO SCH ×4 (09:07→20:33)
[2016-09-04] MEDS: ASPIRIN 81 MG ENTERIC TAB PO SCH (09:07)
[2016-09-04] MEDS: PANTOPRAZOLE 40MG TAB (PROTONIX) PO SCH ×2 (09:07→20:33)
[2016-09-04] MEDS: OSELTAMIVIR PHOSPHATE 75 MG CAP (TAMIFLU) PO SCH (09:07)
[2016-09-04] MEDS: LACTOBACILLUS ACIDOPHILUS CAP (BACID) PO SCH ×2 (09:07→20:33)
[2016-09-04 18:00] VITALS: BP 118/75
[2016-09-04] MEDS: VALSARTAN 80 MG TAB (DIOVAN) PO SCH (20:33)
[2016-09-04] MEDS: ACETAMINOPHEN TAB 650MG DOSE (2X325MG) PO PRN (22:51)
[2016-09-04] MEDS: traZODone 50 MG TAB PO PRN (22:51)
[2016-09-05 07:21] VITALS: BP 129/68
[2016-09-05] MEDS: CARVedilol 12.5 MG TAB PO SCH ×2 (08:16→21:02)
[2016-09-05] MEDS: CLOPIDOGREL 75 MG TAB PO SCH (08:16)
[2016-09-05] MEDS: ASPIRIN 81 MG ENTERIC TAB PO SCH (08:16)
[2016-09-05] MEDS: OSELTAMIVIR PHOSPHATE 75 MG CAP (TAMIFLU) PO SCH (08:16)
[2016-09-05] MEDS: PANTOPRAZOLE 40MG TAB (PROTONIX) PO SCH ×2 (08:16→21:03)
[2016-09-05] MEDS: busPIRone 5 MG TAB PO SCH ×4 (08:16→21:03)
[2016-09-05] MEDS: LACTOBACILLUS ACIDOPHILUS CAP (BACID) PO SCH ×2 (08:16→21:03)
[2016-09-05] MEDS: FLUoxetine 20 MG CAP PO SCH (08:16)
--- NOTE | 2016-09-05 08:26 | IPNPDOC ---
[facility] Progress Note Progress Note DATE OF SERVICE: 09/05/16 Subjective: Patient very labile in mood and affect today. Discharge planning initiated with patient which precipitated an episode of emotional dysregulation. Patient became very tearful , belligerent, and argumentative. She reported not being ready to [facility] which also decompensation. Patient informed eating only beginning the discharge planning process. Patient displaying increased anxiety and continues to ruminate on her psychosocial stressors. Patient instructed on CBT techniques to increase awareness and mindfulness of her thoughts. She was educated to, when aware she is ruminating on negative things, implement coping strategies and distract self from negative by doing a positive behavior. The patient reminded of positive behaviors which could distract her from ruminative negative thinking: art, reading, listening positive music, watching positive TV show, exercising. Patient is medication compliant. She denies medication side effects. Patient is amenable to initiation of Depakote. He was instructed of the need to watch her liver enzymes as well as take Depakote levels to ensure Depakote is not harming her liver. Patient still easily agitated and focused on her psychosocial stressors.$Patient denies SI and HI. She is not reporting or displaying any signs of psychosis. Sleep and appetite have been fair. Objective: VITAL SIGNS: See below. TEST RESULTS: See below. CURRENT MEDICATIONS: See below. MENTAL STATUS EXAMINATION: Patient is a 56year-old female, agitated but cooperative in behavior. Speech is RRR, but spontaneous. Language skills are intact. Thought processes: linear; thought content: Continues to be focused on psychosocial stressors, not feeling ready to return home, Description of abnormal or psychotic thoughts: no paranoia expressed, no AH/VH; Judgment: Poor to Fair; Insight: Poor to Fair; Orientation to time, place and person. Recent and remote memory: Immediate, short-term and long-term memory is intact. Attention span and concentration: Good Language: Normal. Fund of knowledge: Fair Mood: depressed/anxious Affect: depressed/labile. SI denies. HI denies. Assessment: MDD, R,S w/o PFs (Atypical Subtype) Recent Cdiff infection Recent Benzodiazepine w/d Polycythemia Plan: ----- -Recent episode of diarrhea now resolved. CHector Diff toxin taken was NEG. -Patient reports a hx of fluctuating Liver enzymes of unknown etiology during previous admissions. Patient reports an outpt GI appt already set. -Continue Prozac 60 mg po daily for depression and anxiety. -Continue Buspar at 5mg po QID for anxiety. -Patient gives informed consent to start Depakote 250 mg by mouth twice a day for mood stabilization. -Continue Trazodone 50mg po qhs PRN insomnia. -Continue all home medical medications as written prior to admission. Estimated date of discharge: 09/11/16 TIME SPENT: 30 minutes. Vital Signs Vital Signs Date Time Temp Pulse Resp B/P Pulse Ox O2 Delivery O2 Flow Rate FiO2 09/05/16 08:16 79 127/82 09/05/16 07:21 96.2 16 09/04/16 18:00 Room Air Laboratory Data 24H Labs Laboratory Tests 2 09/05/16 06:15: Bedside Glucose (Misc Panel) 96 Current Medications Current Medications Acetaminophen (Tylenol Tab) 650 mg Q6HP PRN PO HEADACHE or DISCOMFORT Last administered on 09/04/16 22:51; Start 08/25/16 at 18:30; Stop 09/24/16 at 18:29 Acetaminophen/ Butalbital/ Caffeine (Fioricet) 2 ea Q6HP PRN PO HEADACHE Last administered on 09/04/16 02:30; Start 08/25/16 at 21:00; Stop 09/24/16 at 20:59 Al Hydrox/Mg Hydrox/Simethicone (Mylanta) 30 ml Q4HP PRN PO HEARTBURN/ INDIGESTION Last administered on 08/30/16 03:06; Start 08/25/16 at 18:30; Stop at 18:29 Albuterol Sulfate (Proventil, Ventolin Hfa) 2 puff Q4HP PRN INH SHORTNESS OF BREATH; Start 08/25/16 at 18:30; Stop 09/24/16 at 18:29 Aspirin (Ecotrin) 81 mg DAILY PO Last administered on 09/05/16 08:16; Start at 09:00; Stop 09/25/16 at 08:59 Buspirone HCl (Buspar) 5 mg QID PO Last administered on 09/05/16 08:16; Start 08/26/16 at 13:00; Stop 09/25/16 at 12:59 Carvedilol (COReg) 6.25 mg BID PO Last administered on 08/26/16 08:31; Start at 21:00; Stop 08/26/16 at 15:47; Status DC Carvedilol (COReg) 12.5 mg BID PO Last administered on 09/05/16 08:16; Start 08/26/16 at 21:00; Stop 09/25/16 at 20:59 Clopidogrel Bisulfate (PLAVix) 75 mg DAILY PO Last administered on 09/05/16 08 :16; Start 08/26/16 at 09:00; Stop 09/25/16 at 08:59 Fluoxetine HCl (PROzac) 30 mg DAILY PO Last administered on 09/02/16 08:11; Start 08/26/16 at 09:00; Stop 09/02/16 at 12:43; Status DC Fluoxetine HCl (PROzac) 60 mg QAM PO Last administered on 09/05/16 08:16; Start 09/03/16 at 09:00; Stop 10/03/16 at 08:59 Home Med (Med Rec Complete!) ASDIRECTED XX ; Start 08/25/16 at 17:00; Stop at 17:00; Status DC Hydroxyzine HCl (Vistaril) 25 mg Q6HP PRN PO ANXIETY; Start 08/25/16 at 19:30; Stop 09/24/16 at 19:29 Lactobacillus Acidophilus (Bacid) 1 ea BID PO Last administered on 09/05/16 08 :16; Start 08/30/16 at 09:00; Stop 09/29/16 at 08:59 Loperamide HCl (Imodium) 2 mg ASDIRECTED PRN PO DIARRHEA Last administered on 07:19; Start 08/30/16 at 16:15; Stop 09/29/16 at 16:14 Loratadine (Claritin) 10 mg DAILYPRN PO ; Start 08/25/16 at 18:30; Stop 09/24/16 at 18:29 Magnesium Hydroxide (Milk Of Magnesia) 30 ml DAILYPRN PRN PO CONSTIPATION; Start 08/25/16 at 18:30; Stop 09/24/16 at 18:29 Miscellaneous (Unresolved Patient Own Med Order) SEE LABEL COMMENTS UNRESOLVED XX ; Start 08/25/16 at 00:01; Stop 08/25/16 at 20:40; Status DC Ondansetron HCl (Zofran Odt) 4 mg Q6HP PRN PO NAUSEA OR VOMITING Last administered on 09/02/16 08:13; Start 08/30/16 at 03:15; Stop 09/29/16 at 03:14 Oseltamivir Phosphate (Tamiflu) 75 mg DAILY PO Last administered on 09/05/16 08:16; Start 09/01/16 at 09:00; Stop 09/10/16 at 12:00 Pantoprazole Sodium (Protonix) 40 mg BID PO Last administered on 09/05/16 08: 16; Start 08/25/16 at 21:00; Stop 09/24/16 at 20:59 Patient Own Medication (Patient'S Own Med) Repatha 140mg SQ inject... Q14D SQ Last administered on 08/26/16 08:33; Start 08/26/16 at 09:00; Stop 09/25/16 at 08: 59 Trazodone HCl (Desyrel) 50 mg QHSP PRN PO INSOMNIA Last administered on 22:51; Start 08/25/16 at 18:30; Stop 09/24/16 at 18:29 Valsartan (Diovan) 80 mg QHS PO Last administered on 09/04/16 20:33; Start 08/25/16 at 21:00; Stop 09/24/16 at 20:59 Allergies Coded Allergies: TALIA Inhibitors (Unverified Allergy, Unknown, 04/28/16) ABDOUL HOPSON MD Sep 05, 2016 08:26
[2016-09-05 18:00] VITALS: BP 119/59
[2016-09-05] MEDS: VALSARTAN 80 MG TAB (DIOVAN) PO SCH (21:03)
[2016-09-05] MEDS: DIVALPROEX 250MG *ER* TAB PO SCH (21:03)
[2016-09-06] MEDS: ONDANSETRON 4 MG ORAL DISINTEGRATING TAB (S0181) PO PRN (06:36)
[2016-09-06] MEDS: FIORICET TAB PO PRN (06:36)
[2016-09-06 06:43] VITALS: BP 128/82
[2016-09-06] MEDS: LACTOBACILLUS ACIDOPHILUS CAP (BACID) PO SCH ×2 (08:03→21:12)
[2016-09-06] MEDS: PANTOPRAZOLE 40MG TAB (PROTONIX) PO SCH ×2 (08:03→21:12)
[2016-09-06] MEDS: DIVALPROEX 250MG *ER* TAB PO SCH ×2 (08:03→21:12)
[2016-09-06] MEDS: OSELTAMIVIR PHOSPHATE 75 MG CAP (TAMIFLU) PO SCH (08:03)
[2016-09-06] MEDS: FLUoxetine 20 MG CAP PO SCH (08:04)
[2016-09-06] MEDS: ASPIRIN 81 MG ENTERIC TAB PO SCH (08:04)
[2016-09-06] MEDS: CLOPIDOGREL 75 MG TAB PO SCH (08:04)
[2016-09-06] MEDS: CARVedilol 12.5 MG TAB PO SCH ×2 (08:04→21:12)
[2016-09-06] MEDS: busPIRone 5 MG TAB PO SCH ×4 (08:04→21:12)
[2016-09-06 18:00] VITALS: BP 109/68
[2016-09-06] MEDS: VALSARTAN 80 MG TAB (DIOVAN) PO SCH (21:13)
[2016-09-07] MEDS: FIORICET TAB PO PRN (00:28)
[2016-09-07 07:00] VITALS: BP 151/96
[2016-09-07] MEDS: OSELTAMIVIR PHOSPHATE 75 MG CAP (TAMIFLU) PO SCH (08:14)
[2016-09-07] MEDS: CARVedilol 12.5 MG TAB PO SCH ×2 (08:14→21:13)
[2016-09-07] MEDS: FLUoxetine 20 MG CAP PO SCH (08:14)
[2016-09-07] MEDS: LACTOBACILLUS ACIDOPHILUS CAP (BACID) PO SCH ×2 (08:14→21:12)
[2016-09-07] MEDS: CLOPIDOGREL 75 MG TAB PO SCH (08:14)
[2016-09-07] MEDS: busPIRone 5 MG TAB PO SCH ×4 (08:14→21:12)
[2016-09-07] MEDS: PANTOPRAZOLE 40MG TAB (PROTONIX) PO SCH ×2 (08:14→21:13)
[2016-09-07] MEDS: DIVALPROEX 250MG *ER* TAB PO SCH (08:14)
[2016-09-07] MEDS: ASPIRIN 81 MG ENTERIC TAB PO SCH (08:14)
[2016-09-07] MEDS ORDERED: hydrOXYzine 50 MG TAB PO STA (14:02)
[2016-09-07 18:00] VITALS: BP 110/68
[2016-09-07] MEDS: DIVALPROEX 500 MG TAB PO SCH (21:12)
[2016-09-07] MEDS: VALSARTAN 80 MG TAB (DIOVAN) PO SCH (21:13)
--- NOTE | 2016-09-08 02:53 | IPNPDOC ---
[facility] Progress Note Progress Note DATE OF SERVICE: 09/06/16 Subjective: Patient continues to be labile in mood and affect today. Patient did attend some groups today. She was seen interacting socially with peers in the milieu. Patient still easily agitated and focused on her psychosocial stressors. Patient is medication compliant. She denies medication side effects on Depakote started yesterday. Patient denies headache, chest pain and abdominal pain. Patient denies nausea, vomiting, constipation and diarrhea. Patient denies SI and HI. She is not reporting or displaying any signs of psychosis. Sleep and appetite have been fair. Objective: VITAL SIGNS: See below. TEST RESULTS: See below. CURRENT MEDICATIONS: See below. MENTAL STATUS EXAMINATION: Patient is a 56year-old female, agitated but cooperative in behavior. Speech is RRR, but spontaneous. Language skills are intact. Thought processes: linear; thought content: not feeling ready to return home, Description of abnormal or psychotic thoughts: no paranoia expressed, no AH/VH; Judgment: Poor to Fair; Insight: Poor to Fair; Orientation to time, place and person. Recent and remote memory: Immediate, short-term and long-term memory is intact. Attention span and concentration: Good Language: Normal. Fund of knowledge: Fair Mood: depressed/anxious Affect: depressed/ labile. SI denies. HI denies. Assessment: MDD, R,S w/o PFs (Atypical Subtype) Recent Cdiff infection Recent Benzodiazepine w/d Polycythemia Plan: ----- -Recent episode of diarrhea now resolved. C. Diff toxin taken was NEG. -Patient reports a hx of fluctuating Liver enzymes of unknown etiology during previous admissions. Patient reports an outpt GI appt already set. -Continue Prozac 60 mg po daily for depression and anxiety. -Continue Buspar at 5mg po QID for anxiety. -Continue Depakote 250 mg by mouth twice a day for mood stabilization. -Continue Trazodone 50mg po qhs PRN insomnia. -Continue all home medical medications as written prior to admission. Estimated date of discharge: 09/11/16 TIME SPENT: 30 minutes. Vital Signs Vital Signs Date Time Temp Pulse Resp B/P Pulse Ox O2 Delivery O2 Flow Rate FiO2 09/07/16 21:13 117/70 09/07/16 18:00 98.3 68 14 09/04/16 18:00 Room Air Current Medications Current Medications Acetaminophen (Tylenol Tab) 650 mg Q6HP PRN PO HEADACHE or DISCOMFORT Last administered on 09/04/16 22:51; Start 08/25/16 at 18:30; Stop 09/24/16 at 18:29 Acetaminophen/ Butalbital/ Caffeine (Fioricet) 2 ea Q6HP PRN PO HEADACHE Last administered on 09/07/16 00:28; Start 08/25/16 at 21:00; Stop 09/24/16 at 20:59 Al Hydrox/Mg Hydrox/Simethicone (Mylanta) 30 ml Q4HP PRN PO HEARTBURN/ INDIGESTION Last administered on 08/30/16 03:06; Start 08/25/16 at 18:30; Stop at 18:29 Albuterol Sulfate (Proventil, Ventolin Hfa) 2 puff Q4HP PRN INH SHORTNESS OF BREATH; Start 08/25/16 at 18:30; Stop 09/24/16 at 18:29 Aspirin (Ecotrin) 81 mg DAILY PO Last administered on 09/07/16 08:14; Start at 09:00; Stop 09/25/16 at 08:59 Buspirone HCl (Buspar) 5 mg QID PO Last administered on 09/07/16 21:12; Start 08/26/16 at 13:00; Stop 09/25/16 at 12:59 Carvedilol (COReg) 6.25 mg BID PO Last administered on 08/26/16 08:31; Start at 21:00; Stop 08/26/16 at 15:47; Status DC Carvedilol (COReg) 12.5 mg BID PO Last administered on 09/07/16 21:13; Start 08/26/16 at 21:00; Stop 09/25/16 at 20:59 Clopidogrel Bisulfate (PLAVix) 75 mg DAILY PO Last administered on 09/07/16 08 :14; Start 08/26/16 at 09:00; Stop 09/25/16 at 08:59 Divalproex Sodium (Depakote Er) 250 mg BID PO Last administered on 09/07/16 08 :14; Start 09/05/16 at 21:00; Stop 09/07/16 at 14:07; Status DC Divalproex Sodium (Depakote) 250 mg QAM PO ; Start 09/08/16 at 09:00; Stop 10/08 at 08:59 Divalproex Sodium (Depakote) 500 mg QHS PO Last administered on 09/07/16 21:12 ; Start 09/07/16 at 21:00; Stop 10/07/16 at 20:59 Fluoxetine HCl (PROzac) 30 mg DAILY PO Last administered on 09/02/16 08:11; Start 08/26/16 at 09:00; Stop 09/02/16 at 12:43; Status DC Fluoxetine HCl (PROzac) 60 mg QAM PO Last administered on 09/07/16 08:14; Start 09/03/16 at 09:00; Stop 10/03/16 at 08:59 Home Med (Med Rec Complete!) ASDIRECTED XX ; Start 08/25/16 at 17:00; Stop at 17:00; Status DC Hydroxyzine HCl (Vistaril) 25 mg Q6HP PRN PO ANXIETY; Start 08/25/16 at 19:30; Stop 09/24/16 at 19:29 Lactobacillus Acidophilus (Bacid) 1 ea BID PO Last administered on 09/07/16 21 :12; Start 08/30/16 at 09:00; Stop 09/29/16 at 08:59 Loperamide HCl (Imodium) 2 mg ASDIRECTED PRN PO DIARRHEA Last administered on 07:19; Start 08/30/16 at 16:15; Stop 09/29/16 at 16:14 Loratadine (Claritin) 10 mg DAILYPRN PO ; Start 08/25/16 at 18:30; Stop 09/24/16 at 18:29 Magnesium Hydroxide (Milk Of Magnesia) 30 ml DAILYPRN PRN PO CONSTIPATION; Start 08/25/16 at 18:30; Stop 09/24/16 at 18:29 Miscellaneous (Unresolved Patient Own Med Order) SEE LABEL COMMENTS UNRESOLVED XX ; Start 08/25/16 at 00:01; Stop 08/25/16 at 20:40; Status DC Ondansetron HCl (Zofran Odt) 4 mg Q6HP PRN PO NAUSEA OR VOMITING Last administered on 09/06/16 06:36; Start 08/30/16 at 03:15; Stop 09/29/16 at 03:14 Oseltamivir Phosphate (Tamiflu) 75 mg DAILY PO Last administered on 09/07/16 08:14; Start 09/01/16 at 09:00; Stop 09/10/16 at 12:00 Pantoprazole Sodium (Protonix) 40 mg BID PO Last administered on 09/07/16 21: 13; Start 08/25/16 at 21:00; Stop 09/24/16 at 20:59 Patient Own Medication (Patient'S Own Med) Repatha 140mg SQ inject... Q14D SQ Last administered on 08/26/16 08:33; Start 08/26/16 at 09:00; Stop 09/25/16 at 08: 59 Trazodone HCl (Desyrel) 50 mg QHSP PRN PO INSOMNIA Last administered on 22:51; Start 08/25/16 at 18:30; Stop 09/05/16 at 15:33; Status DC Valsartan (Diovan) 80 mg QHS PO Last administered on 09/07/16 21:13; Start 08/25/16 at 21:00; Stop 09/24/16 at 20:59 Allergies Coded Allergies: TALIA Inhibitors (Unverified Allergy, Unknown, 04/28/16) ADBOUL HOPSON MD Sep 08, 2016 02:53
--- NOTE | 2016-09-08 02:53 | IPNPDOC ---
[facility] Progress Note Progress Note DATE OF SERVICE: 09/08/16 Subjective: Patient continues to be focused on psychosocial stressors, especially financial. She is less agitated but continues to be labile when discussing her discharging home. She reports the stress of ongoing construction in the home and feeling as if she has lost everything continues. Patient understands she allowed her daughter on the deed to her home as her daughter and her will be taking on the majority of the financial burden. Patient reports she will not be getting unemployment benefits. Patient reports this was upsetting and now she feels she is disability benefits may be futile. Patient encouraged to focus her thoughts on solutions and not problems. Patient reports ongoing restless sleep, will monitor on increased QHS Depakote dose. Patient denies SI and HI. She denies AH and VH. Patient is medication compliant and denies medication side effects. Appetite is within normal limits. Patient denies current headache, chest pain, abdominal pain. Patient denies current N/V/C/D. Objective: VITAL SIGNS: See below. NEW TEST RESULTS: See below. CURRENT MEDICATIONS: See below. MENTAL STATUS EXAM: 56-year-old [place] female, average height, overweight build. Central obesity. Labile, anxious, but cooperative in behavior. Affect restricted. Mood depressed. Thought form logical, coherent, concrete. TC - financial stressors and recent news that she was not granted unemployment benefits. Suicidal ideation ( SI)-denies; homicidal ideation (HI)-denies; Perception: No perceptual issues reported or observed ; The patient again seems internally preoccupied. Insight and judgment poor to fair. Impulse control fair. Assessment:[Bipolar 2, most recent episode depressed without psychotic features] Plan: -CMP and Depakote level on Sunday. Patient reports GI appt on 09/14/16 for recurrent fluctuating transaminases of unknown origin. -Continue remaining psychotropic regimen as currently prescribed. TIME SPENT: [30] minutes. Vital Signs Vital Signs Date Time Temp Pulse Resp B/P Pulse Ox O2 Delivery O2 Flow Rate FiO2 09/07/16 21:13 117/70 09/07/16 18:00 98.3 68 14 09/04/16 18:00 Room Air Current Medications Current Medications Acetaminophen (Tylenol Tab) 650 mg Q6HP PRN PO HEADACHE or DISCOMFORT Last administered on 09/04/16t 22:51; Start 08/25/16 at 18:30; Stop 3/17 at 18:29 Acetaminophen/ Butalbital/ Caffeine (Fioricet) 2 ea Q6HP PRN PO HEADACHE Last administered on 09/07/16 00:28; Start 08/25/16 at 21:00; Stop 09/24/16 at 20:59 Al Hydrox/Mg Hydrox/Simethicone (Mylanta) 30 ml Q4HP PRN PO HEARTBURN/ INDIGESTION Last administered on 08/30/16 03:06; Start 08/25/16 at 18:30; Stop at 18:29 Albuterol Sulfate (Proventil, Ventolin Hfa) 2 puff Q4HP PRN INH SHORTNESS OF BREATH; Start 08/25/16 at 18:30; Stop 09/24/16 at 18:29 Aspirin (Ecotrin) 81 mg DAILY PO Last administered on 09/07/16 08:14; Start at 09:00; Stop 09/25/16 at 08:59 Buspirone HCl (Buspar) 5 mg QID PO Last administered on 09/07/16 21:12; Start 08/26/16 at 13:00; Stop 09/25/16 at 12:59 Carvedilol (COReg) 6.25 mg BID PO Last administered on 08/26/16 08:31; Start at 21:00; Stop 08/26/16 at 15:47; Status DC Carvedilol (COReg) 12.5 mg BID PO Last administered on 09/07/16 21:13; Start 08/26/16 at 21:00; Stop 09/25/16 at 20:59 Clopidogrel Bisulfate (PLAVix) 75 mg DAILY PO Last administered on 09/07/16 08 :14; Start 08/26/16 at 09:00; Stop 09/25/16 at 08:59 Divalproex Sodium (Depakote Er) 250 mg BID PO Last administered on 09/07/16 08 :14; Start 09/05/16 at 21:00; Stop 09/07/16 at 14:07; Status DC Divalproex Sodium (Depakote) 250 mg QAM PO ; Start 09/08/16 at 09:00; Stop 10/08 at 08:59 Divalproex Sodium (Depakote) 500 mg QHS PO Last administered on 09/07/16 21:12 ; Start 09/07/16 at 21:00; Stop 10/07/16 at 20:59 Fluoxetine HCl (PROzac) 30 mg DAILY PO Last administered on 09/02/16 08:11; Start 08/26/16 at 09:00; Stop 09/02/16 at 12:43; Status DC Fluoxetine HCl (PROzac) 60 mg QAM PO Last administered on 09/07/16 08:14; Start 09/03/16 at 09:00; Stop 10/03/16 at 08:59 Home Med (Med Rec Complete!) ASDIRECTED XX ; Start 08/25/16 at 17:00; Stop at 17:00; Status DC Hydroxyzine HCl (Vistaril) 25 mg Q6HP PRN PO ANXIETY; Start 08/25/16 at 19:30; Stop 09/24/16 at 19:29 Lactobacillus Acidophilus (Bacid) 1 ea BID PO Last administered on 09/07/16 21 :12; Start 08/30/16 at 09:00; Stop 09/29/16 at 08:59 Loperamide HCl (Imodium) 2 mg ASDIRECTED PRN PO DIARRHEA Last administered on 07:19; Start 08/30/16 at 16:15; Stop 09/29/16 at 16:14 Loratadine (Claritin) 10 mg DAILYPRN PO ; Start 08/25/16 at 18:30; Stop 09/24/16 at 18:29 Magnesium Hydroxide (Milk Of Magnesia) 30 ml DAILYPRN PRN PO CONSTIPATION; Start 08/25/16 at 18:30; Stop 09/24/16 at 18:29 Miscellaneous (Unresolved Patient Own Med Order) SEE LABEL COMMENTS UNRESOLVED XX ; Start 08/25/16 at 00:01; Stop 08/25/16 at 20:40; Status DC Ondansetron HCl (Zofran Odt) 4 mg Q6HP PRN PO NAUSEA OR VOMITING Last administered on 09/06/16 06:36; Start 08/30/16 at 03:15; Stop 09/29/16 at 03:14 Oseltamivir Phosphate (Tamiflu) 75 mg DAILY PO Last administered on 09/07/16 08:14; Start 09/01/16 at 09:00; Stop 09/10/16 at 12:00 Pantoprazole Sodium (Protonix) 40 mg BID PO Last administered on 09/07/16 21: 13; Start 08/25/16 at 21:00; Stop 09/24/16 at 20:59 Patient Own Medication (Patient'S Own Med) Repatha 140mg SQ inject... Q14D SQ Last administered on 08/26/16 08:33; Start 08/26/16 at 09:00; Stop 09/25/16 at 08: 59 Trazodone HCl (Desyrel) 50 mg QHSP PRN PO INSOMNIA Last administered on 22:51; Start 08/25/16 at 18:30; Stop 09/05/16 at 15:33; Status DC Valsartan (Diovan) 80 mg QHS PO Last administered on 09/07/16 21:13; Start 08/25/16 at 21:00; Stop 09/24/16 at 20:59 Allergies Coded Allergies: TALIA Inhibitors (Unverified Allergy, Unknown, 04/28/16) ABDOUL HOPSON MD Sep 08, 2016 02:53
--- NOTE | 2016-09-08 02:53 | IPNPDOC ---
[facility] Progress Note Progress Note DATE OF SERVICE: 09/07/16 Subjective: Patient demonstrating lability and again emotionally dysregulated with a stressful event. Patient had been in a private room and asked to move to a double where she would have a roommate. Patient immediately became tearful, belligerent, and argumentative with staff. Patient reported issues with change. Patient's feelings validated and reassured this was not to hurt patient. Patient informed her steady improvement in socialization on the unit and participation in groups demonstrated readiness to a double room and interact with a roommate. Patient informed the single room was needed for a more unstable patient. Patient began to threaten that perhaps she shouldn't reports suicidal ideation, reported saying this out of anger. Patient calm then did move into the double room. She reported for night sleep last night. She was offered a PRN Atarax which she took. Patient napped until her family meeting, scheduled at 4:30p. Patient, patient's daughter, and patient's son-in-law as well as this provider and supply planner attended the meeting. Communication between patient and son-in-law was discussed. Patient's issues with daughter's cats and there not being daily living are trying was discussed as a stressor for patient. The construction happening in the home and daughter's willingness to help organize and prepare patient's room prior to her discharge was discussed. The arrival of daughter's first child and patient's first grandchild was discussed, as well as the increased stress they will bring. The underlying need to always have planned communication and openness to communication was emphasized. Meeting went well. Patient reported increased sense of comfort with the idea of discharging back to her home. She denied SI and HI. Patient denied AH and VH. No signs of psychosis was reported or observed during meeting. Patient turned to her room and napped immediately after the meeting. Objective: VITAL SIGNS: See below. TEST RESULTS: See below. CURRENT MEDICATIONS: See below. MENTAL STATUS EXAMINATION: Patient is a 56year-old female, easily agitated but cooperative in behavior. Speech is RRR, but spontaneous. Language skills are intact. Thought processes: linear; thought content: Continues to be focused on psychosocial stressors, not feeling ready to return home, Description of abnormal or psychotic thoughts: no paranoia expressed, no AH/VH; Judgment: Poor to Fair; Insight: Poor to Fair; Orientation to time, place and person. Recent and remote memory: Immediate, short-term and long-term memory is intact. Attention span and concentration: Good Language: Normal. Fund of knowledge: Fair Mood: depressed/anxious Affect: depressed/labile. SI denies. HI denies. Assessment: MDD, R,S w/o PFs (Atypical Subtype) Personality disorder unspecified, B traits Recent Cdiff infection Recent Benzodiazepine w/d Polycythemia Plan: ----- -Family meeting completed today, 09/07/2016 -Recent episode of diarrhea now resolved. C. Diff toxin taken was NEG. -Patient reports a hx of fluctuating Liver enzymes of unknown etiology during previous admissions. Patient reports an outpt GI appt already set. -Continue Prozac 60 mg po daily for depression and anxiety. -Continue Buspar at 5mg po QID for anxiety. -Increase Depakote from 250 mg by mouth twice a day to 250 mg by mouth every morning and 500 mg by mouth daily at bedtime for mood stabilization. -Continue Trazodone 50mg po qhs PRN insomnia. -Continue all home medical medications as written prior to admission. Estimated date of discharge: 09/11/16 TIME SPENT: 30 minutes. Vital Signs Vital Signs Date Time Temp Pulse Resp B/P Pulse Ox O2 Delivery O2 Flow Rate FiO2 09/07/16 21:13 117/70 09/07/16 18:00 98.3 68 14 09/04/16 18:00 Room Air Current Medications Current Medications Acetaminophen (Tylenol Tab) 650 mg Q6HP PRN PO HEADACHE or DISCOMFORT Last administered on 09/04/16 22:51; Start 08/25/16 at 18:30; Stop 09/24/16 at 18:29 Acetaminophen/ Butalbital/ Caffeine (Fioricet) 2 ea Q6HP PRN PO HEADACHE Last administered on 09/07/16 00:28; Start 08/25/16 at 21:00; Stop 09/24/16 at 20:59 Al Hydrox/Mg Hydrox/Simethicone (Mylanta) 30 ml Q4HP PRN PO HEARTBURN/ INDIGESTION Last administered on 2/8/17at 03:06; Start 08/25/16 at 18:30; Stop at 18:29 Albuterol Sulfate (Proventil, Ventolin Hfa) 2 puff Q4HP PRN INH SHORTNESS OF BREATH; Start 08/25/16 at 18:30; Stop 09/24/16 at 18:29 Aspirin (Ecotrin) 81 mg DAILY PO Last administered on 09/07/16 08:14; Start at 09:00; Stop 09/25/16 at 08:59 Buspirone HCl (Buspar) 5 mg QID PO Last administered on 09/07/16 21:12; Start 08/26/16 at 13:00; Stop 09/25/16 at 12:59 Carvedilol (COReg) 6.25 mg BID PO Last administered on 08/26/16 08:31; Start at 21:00; Stop 08/26/16 at 15:47; Status DC Carvedilol (COReg) 12.5 mg BID PO Last administered on 09/07/16 21:13; Start 08/26/16 at 21:00; Stop 09/25/16 at 20:59 Clopidogrel Bisulfate (PLAVix) 75 mg DAILY PO Last administered on 09/07/16 08 :14; Start 08/26/16 at 09:00; Stop 09/25/16 at 08:59 Divalproex Sodium (Depakote Er) 250 mg BID PO Last administered on 09/07/16 08 :14; Start 09/05/16 at 21:00; Stop 09/07/16 at 14:07; Status DC Divalproex Sodium (Depakote) 250 mg QAM PO ; Start 09/08/16 at 09:00; Stop 10/08 at 08:59 Divalproex Sodium (Depakote) 500 mg QHS PO Last administered on 09/07/16 21:12 ; Start 09/07/16 at 21:00; Stop 10/07/16 at 20:59 Fluoxetine HCl (PROzac) 30 mg DAILY PO Last administered on 09/02/16 08:11; Start 08/26/16 at 09:00; Stop 09/02/16 at 12:43; Status DC Fluoxetine HCl (PROzac) 60 mg QAM PO Last administered on 09/07/16 08:14; Start 09/03/16 at 09:00; Stop 10/03/16 at 08:59 Home Med (Med Rec Complete!) ASDIRECTED XX ; Start 08/25/16 at 17:00; Stop at 17:00; Status DC Hydroxyzine HCl (Vistaril) 25 mg Q6HP PRN PO ANXIETY; Start 08/25/16 at 19:30; Stop 09/24/16 at 19:29 Lactobacillus Acidophilus (Bacid) 1 ea BID PO Last administered on 09/07/16 21 :12; Start 08/30/16 at 09:00; Stop 09/29/16 at 08:59 Loperamide HCl (Imodium) 2 mg ASDIRECTED PRN PO DIARRHEA Last administered on 07:19; Start 08/30/16 at 16:15; Stop 09/29/16 at 16:14 Loratadine (Claritin) 10 mg DAILYPRN PO ; Start 08/25/16 at 18:30; Stop 09/24/16 at 18:29 Magnesium Hydroxide (Milk Of Magnesia) 30 ml DAILYPRN PRN PO CONSTIPATION; Start 08/25/16 at 18:30; Stop 09/24/16 at 18:29 Miscellaneous (Unresolved Patient Own Med Order) SEE LABEL COMMENTS UNRESOLVED XX ; Start 08/25/16 at 00:01; Stop 08/25/16 at 20:40; Status DC Ondansetron HCl (Zofran Odt) 4 mg Q6HP PRN PO NAUSEA OR VOMITING Last administered on 09/06/16 06:36; Start 08/30/16 at 03:15; Stop 09/29/16 at 03:14 Oseltamivir Phosphate (Tamiflu) 75 mg DAILY PO Last administered on 09/07/16 08:14; Start 09/01/16 at 09:00; Stop 09/10/16 at 12:00 Pantoprazole Sodium (Protonix) 40 mg BID PO Last administered on 09/07/16 21: 13; Start 08/25/16 at 21:00; Stop 09/24/16 at 20:59 Patient Own Medication (Patient'S Own Med) Repatha 140mg SQ inject... Q14D SQ Last administered on 08/26/16 08:33; Start 08/26/16 at 09:00; Stop 09/25/16 at 08: 59 Trazodone HCl (Desyrel) 50 mg QHSP PRN PO INSOMNIA Last administered on 22:51; Start 08/25/16 at 18:30; Stop 09/05/16 at 15:33; Status DC Valsartan (Diovan) 80 mg QHS PO Last administered on 09/07/16 21:13; Start 08/25/16 at 21:00; Stop 09/24/16 at 20:59 Allergies Coded Allergies: TALIA Inhibitors (Unverified Allergy, Unknown, 04/28/16) ABDOUL HOPSON MD Sep 08, 2016 02:53
[2016-09-08 06:22] VITALS: BP 134/82
[2016-09-08] MEDS: PANTOPRAZOLE 40MG TAB (PROTONIX) PO SCH ×2 (09:00→21:27)
[2016-09-08] MEDS: DIVALPROEX 250 MG TAB PO SCH (09:00)
[2016-09-08] MEDS: OSELTAMIVIR PHOSPHATE 75 MG CAP (TAMIFLU) PO SCH (09:00)
[2016-09-08] MEDS: CARVedilol 12.5 MG TAB PO SCH ×2 (09:01→21:26)
[2016-09-08] MEDS: ASPIRIN 81 MG ENTERIC TAB PO SCH (09:01)
[2016-09-08] MEDS: CLOPIDOGREL 75 MG TAB PO SCH (09:01)
[2016-09-08] MEDS: FLUoxetine 20 MG CAP PO SCH (09:01)
[2016-09-08] MEDS: LACTOBACILLUS ACIDOPHILUS CAP (BACID) PO SCH ×2 (09:01→21:27)
[2016-09-08] MEDS: busPIRone 5 MG TAB PO SCH ×4 (09:01→21:27)
[2016-09-08 18:00] VITALS: BP 138/89
[2016-09-08] MEDS: VALSARTAN 80 MG TAB (DIOVAN) PO SCH (21:27)
[2016-09-08] MEDS: DIVALPROEX 500 MG TAB PO SCH (21:27)
[2016-09-09] MEDS: hydrOXYzine 25 MG TAB PO PRN ×3 (02:27→21:53)
[2016-09-09 06:38] VITALS: BP 147/89
[2016-09-09] MEDS: LACTOBACILLUS ACIDOPHILUS CAP (BACID) PO SCH ×2 (08:46→21:55)
[2016-09-09] MEDS: FLUoxetine 20 MG CAP PO SCH (08:46)
[2016-09-09] MEDS: REPATHA 140 MG SQ SCH (08:46)
[2016-09-09] MEDS: ONDANSETRON 4 MG ORAL DISINTEGRATING TAB (S0181) PO PRN (08:46)
[2016-09-09] MEDS: DIVALPROEX 250 MG TAB PO SCH (08:47)
[2016-09-09] MEDS: CLOPIDOGREL 75 MG TAB PO SCH (08:47)
[2016-09-09] MEDS: PANTOPRAZOLE 40MG TAB (PROTONIX) PO SCH ×2 (08:47→21:53)
[2016-09-09] MEDS: OSELTAMIVIR PHOSPHATE 75 MG CAP (TAMIFLU) PO SCH (08:47)
[2016-09-09] MEDS: CARVedilol 12.5 MG TAB PO SCH ×2 (08:47→21:56)
[2016-09-09] MEDS: busPIRone 5 MG TAB PO SCH ×4 (08:47→21:53)
[2016-09-09] MEDS: ASPIRIN 81 MG ENTERIC TAB PO SCH (08:47)
[2016-09-09] MEDS: FIORICET TAB PO PRN (17:25)
[2016-09-09] MEDS: DIVALPROEX 500 MG TAB PO SCH (21:53)
[2016-09-09] MEDS: VALSARTAN 80 MG TAB (DIOVAN) PO SCH (21:55)
[2016-09-10 06:17] VITALS: BP 125/77
[2016-09-10] MEDS: OSELTAMIVIR PHOSPHATE 75 MG CAP (TAMIFLU) PO SCH (09:01)
[2016-09-10] MEDS: DIVALPROEX 250 MG TAB PO SCH (09:01)
[2016-09-10] MEDS: PANTOPRAZOLE 40MG TAB (PROTONIX) PO SCH ×2 (09:01→21:24)
[2016-09-10] MEDS: FLUoxetine 20 MG CAP PO SCH (09:01)
[2016-09-10] MEDS: CARVedilol 12.5 MG TAB PO SCH ×2 (09:02→21:31)
[2016-09-10] MEDS: LACTOBACILLUS ACIDOPHILUS CAP (BACID) PO SCH ×2 (09:02→21:31)
[2016-09-10] MEDS: busPIRone 5 MG TAB PO SCH ×4 (09:02→21:32)
[2016-09-10] MEDS: ASPIRIN 81 MG ENTERIC TAB PO SCH (09:02)
[2016-09-10] MEDS: CLOPIDOGREL 75 MG TAB PO SCH (09:02)
[2016-09-10 18:00] VITALS: BP 142/77
[2016-09-10] MEDS: DIVALPROEX 500 MG TAB PO SCH (21:24)
[2016-09-10] MEDS: FIORICET TAB PO PRN (21:24)
[2016-09-10] MEDS: VALSARTAN 80 MG TAB (DIOVAN) PO SCH (21:32)
[2016-09-11 06:35] VITALS: BP 145/90
[2016-09-11] MEDS: CLOPIDOGREL 75 MG TAB PO SCH (08:41)
[2016-09-11] MEDS: FLUoxetine 20 MG CAP PO SCH (08:41)
[2016-09-11] MEDS: busPIRone 5 MG TAB PO SCH ×4 (08:41→20:22)
[2016-09-11] MEDS: PANTOPRAZOLE 40MG TAB (PROTONIX) PO SCH ×2 (08:41→20:22)
[2016-09-11] MEDS: DIVALPROEX 250 MG TAB PO SCH (08:41)
[2016-09-11] MEDS: ASPIRIN 81 MG ENTERIC TAB PO SCH (08:42)
[2016-09-11] MEDS: LACTOBACILLUS ACIDOPHILUS CAP (BACID) PO SCH (08:42)
[2016-09-11] MEDS: CARVedilol 12.5 MG TAB PO SCH ×2 (08:42→20:36)
--- NOTE | 2016-09-11 10:11 | IPNPDOC ---
[facility] Progress Note Progress Note DATE OF SERVICE: 09/11/16 Subjective: Patient tearful on interview. She is focused on the changes occurring in her life: health, financial, signing over her home, living situation. Patient asking multiple questions on how to go about applying for disability benefits. She then began to become panicky regarding her financial future. Patient reminded that she has a plan to seek benefits. Patient again encouraged to focus her thoughts on solutions and not problems. Patient reports ongoing poor sleep. Patient amenable to the addition of a sleep aid. Patient denies SI and HI. She denies AH and VH. Patient is medication compliant and denies medication side effects. Objective: VITAL SIGNS: See below. NEW TEST RESULTS: See below. CURRENT MEDICATIONS: See below. MENTAL STATUS EXAM: 56-year-old [place] Citizen female, average height, overweight build. Central obesity. Labile, anxious, but cooperative in behavior. Affect restricted. Mood depressed. Thought form logical, coherent, concrete. TC - focused on the changes occurring in her life: health, financial, signing over her home, living situation; Suicidal ideation (SI)-denies; Homicidal ideation (HI)-denies; Perception: No perceptual issues reported or observed; The patient again seems internally preoccupied. Insight and judgment poor to fair. Impulse control fair. Assessment:[Bipolar 2, most recent episode depressed without psychotic features] Plan: -CMP and Depakote level at 8pm prior to QHS Depakote dose. Patient reports GI appt on 09/14/16 for recurrent fluctuating transaminases of unknown origin. -Initiate Elavil 25 mg by mouth daily at bedtime for insomnia. -Continue remaining psychotropic regimen as currently prescribed. TIME SPENT: [30] minutes. Vital Signs Vital Signs Date Time Temp Pulse Resp B/P Pulse Ox O2 Delivery O2 Flow Rate FiO2 09/11/16 08:42 57 145/90 09/11/16 06:35 98.6 16 Current Medications Current Medications Acetaminophen (Tylenol Tab) 650 mg Q6HP PRN PO HEADACHE or DISCOMFORT Last administered on 09/04/16 22:51; Start 08/25/16 at 18:30; Stop 09/24/16 at 18:29 Acetaminophen/ Butalbital/ Caffeine (Fioricet) 2 ea Q6HP PRN PO HEADACHE Last administered on 09/10/16 21:24; Start 08/25/16 at 21:00; Stop 09/24/16 at 20:59 Al Hydrox/Mg Hydrox/Simethicone (Mylanta) 30 ml Q4HP PRN PO HEARTBURN/ INDIGESTION Last administered on 08/30/16 03:06; Start 08/25/16 at 18:30; Stop at 18:29 Albuterol Sulfate (Proventil, Ventolin Hfa) 2 puff Q4HP PRN INH SHORTNESS OF BREATH; Start 08/25/16 at 18:30; Stop 09/24/16 at 18:29 Aspirin (Ecotrin) 81 mg DAILY PO Last administered on 09/11/16 08:42; Start at 09:00; Stop 09/25/16 at 08:59 Buspirone HCl (Buspar) 5 mg QID PO Last administered on 09/11/16 08:41; Start 08/26/16 at 13:00; Stop 09/25/16 at 12:59 Carvedilol (COReg) 6.25 mg BID PO Last administered on 08/26/16 08:31; Start at 21:00; Stop 08/26/16 at 15:47; Status DC Carvedilol (COReg) 12.5 mg BID PO Last administered on 09/11/16 08:42; Start 08/26/16 at 21:00; Stop 09/25/16 at 20:59 Clopidogrel Bisulfate (PLAVix) 75 mg DAILY PO Last administered on 09/11/16 08 :41; Start 08/26/16 at 09:00; Stop 09/25/16 at 08:59 Divalproex Sodium (Depakote Er) 250 mg BID PO Last administered on 09/07/16 08 :14; Start 09/05/16 at 21:00; Stop 09/07/16 at 14:07; Status DC Divalproex Sodium (Depakote) 250 mg QAM PO Last administered on 09/11/16 08:41 ; Start 09/08/16 at 09:00; Stop 10/08/16 at 08:59 Divalproex Sodium (Depakote) 500 mg QHS PO Last administered on 09/10/16 21:24 ; Start 09/07/16 at 21:00; Stop 10/07/16 at 20:59 Fluoxetine HCl (PROzac) 30 mg DAILY PO Last administered on 09/02/16 08:11; Start 08/26/16 at 09:00; Stop 09/02/16 at 12:43; Status DC Fluoxetine HCl (PROzac) 60 mg QAM PO Last administered on 09/11/16 08:41; Start 09/03/16 at 09:00; Stop 10/03/16 at 08:59 Home Med (Med Rec Complete!) ASDIRECTED XX ; Start 08/25/16 at 17:00; Stop at 17:00; Status DC Hydroxyzine HCl (Vistaril) 25 mg Q6HP PRN PO ANXIETY Last administered on 21:53; Start 08/25/16 at 19:30; Stop 09/24/16 at 19:29 Lactobacillus Acidophilus (Bacid) 1 ea BID PO Last administered on 09/11/16 08 :42; Start 08/30/16 at 09:00; Stop 09/29/16 at 08:59 Loperamide HCl (Imodium) 2 mg ASDIRECTED PRN PO DIARRHEA Last administered on 07:19; Start 08/30/16 at 16:15; Stop 09/29/16 at 16:14 Loratadine (Claritin) 10 mg DAILYPRN PO ; Start 08/25/16 at 18:30; Stop 09/24/16 at 18:29 Magnesium Hydroxide (Milk Of Magnesia) 30 ml DAILYPRN PRN PO CONSTIPATION; Start 08/25/16 at 18:30; Stop 09/24/16 at 18:29 Miscellaneous (Unresolved Patient Own Med Order) SEE LABEL COMMENTS UNRESOLVED XX ; Start 08/25/16 at 00:01; Stop 08/25/16 at 20:40; Status DC Ondansetron HCl (Zofran Odt) 4 mg Q6HP PRN PO NAUSEA OR VOMITING Last administered on 09/09/16 08:46; Start 08/30/16 at 03:15; Stop 09/29/16 at 03:14 Oseltamivir Phosphate (Tamiflu) 75 mg DAILY PO Last administered on 09/10/16 09:01; Start 09/01/16 at 09:00; Stop 09/10/16 at 12:00; Status DC Pantoprazole Sodium (Protonix) 40 mg BID PO Last administered on 09/11/16 08: 41; Start 08/25/16 at 21:00; Stop 09/24/16 at 20:59 Patient Own Medication (Patient'S Own Med) Repatha 140mg SQ inject... Q14D SQ Last administered on 09/09/16 08:46; Start 08/26/16 at 09:00; Stop 09/25/16 at 08 :59 Trazodone HCl (Desyrel) 50 mg QHSP PRN PO INSOMNIA Last administered on 22:51; Start 08/25/16 at 18:30; Stop 09/05/16 at 15:33; Status DC Valsartan (Diovan) 80 mg QHS PO Last administered on 09/10/16 21:32; Start 08/25/16 at 21:00; Stop 09/24/16 at 20:59 Allergies Coded Allergies: TALIA Inhibitors (Unverified Allergy, Unknown, 04/28/16) ABDOUL HOPSON MD Sep 11, 2016 10:11
[2016-09-11 18:00] VITALS: BP 162/97
[2016-09-11] MEDS: DIVALPROEX 500 MG TAB PO SCH (20:22)
[2016-09-11] MEDS: VALSARTAN 80 MG TAB (DIOVAN) PO SCH (20:36)
[2016-09-11 20:40] LABS: ALBUMIN 3.3 GM/DL (3.2-5.2); ALBUMIN/GLOBULIN RATIO 0.89 (1.00-1.93); BILIRUBIN,TOTAL 0.3 MG/DL (0.2-1.0); CALCIUM LEVEL 9.2 MG/DL (8.5-10.1); CREATININE FOR GFR 1.23 MG/DL (0.55-1.02); GLOMERULAR FILTRATION RATE 48.1 (>51); POTASSIUM SERUM 4.6 MEQ/L (3.5-5.1)
[2016-09-11] MEDS ORDERED: AMITRIPTYLINE 25 MG TAB PO SCH (21:00)
[2016-09-12 06:31] VITALS: BP 141/86
[2016-09-12 08:38] VITALS: BP 141/86
[2016-09-12] MEDS: busPIRone 5 MG TAB PO SCH ×2 (08:38→12:09)
[2016-09-12] MEDS: DIVALPROEX 250 MG TAB PO SCH (08:38)
[2016-09-12] MEDS: PANTOPRAZOLE 40MG TAB (PROTONIX) PO SCH (08:38)
[2016-09-12] MEDS: CARVedilol 12.5 MG TAB PO SCH (08:38)
[2016-09-12] MEDS: FLUoxetine 20 MG CAP PO SCH (08:38)
[2016-09-12] MEDS: ASPIRIN 81 MG ENTERIC TAB PO SCH (08:38)
[2016-09-12] MEDS: CLOPIDOGREL 75 MG TAB PO SCH (08:38)
[2016-09-12] MEDS ORDERED: DIOV80TA3 PO (10:03)
[2016-09-12] MEDS ORDERED: FLUO20CA9 PO (10:03)
[2016-09-12] MEDS ORDERED: BUSP5TA PO (10:03)
[2016-09-12] MEDS ORDERED: AMIT25TA PO (10:03)
[2016-09-12] MEDS ORDERED: DEPA1TAB3 PO (10:03)
[2016-09-12] MEDS ORDERED: PANT40TA2 PO (10:03)
[2016-09-12] MEDS ORDERED: CARV12.5 PO (10:03)
[2016-09-12] MEDS ORDERED: DEPA250T32 PO (10:03)
[2016-09-12 12:00] VITALS: BP 121/75
--- NOTE | 2016-09-27 14:43 | DS.PDOC ---
[facility] Discharge Summary Discharge Summary DATE OF ADMISSION: Aug 25, 2016 at 16:48 DATE OF DISCHARGE: Sep 12, 2016 at 15:00 DISCHARGE DIAGNOSES: 1. Bipolar 2, most recent episode depressed without psychotic features REASON FOR ADMISSION: 56-year-old female with history of depression and anxiety admitted to our unit on a 9.39 legal status. According to the chart, the patient is a of an [employer] and the referral was done by her clinical rn. The patient made suicidal statements to the clinical rn, was making comments such as "I am so, so depressed and anxious since I got out of the mental health unit on August 04." Patient was seen with complaint of general weakness, but she was sobbing, depressed, highly anxious. She became more and more distressed, crying, hyperventilating. She reported being afraid of being at home and having persistent thoughts of not wanting to be around. The patient was hyperventilating. According to the chart, stated to the doctor that she could not cope anymore, that she could not eat or sleep, reported distressing nightmares. Her presentation was disheveled and described frequent panic attacks. During the interview today, the patient is somewhat calmer than her presentation to the emergency room, however she is highly anxious with pressured speech. She is tangential. The patient reports significant mood swings, an emotional roller coaster. The patient states that she was discharged from the unit on Effexor, but her outpatient psychiatrist that she sees through tele psych decided to switch the Effexor to Prozac because of her heart condition. The patient had an myocardial infarction and the outpatient psychiatrist preferred not to use Effexor. The patient says that this medication has recently switched and she has been on a 30 mg just about one week. During the interview there is no evidence of psychotic symptoms. No auditory or visual hallucinations or delusions. The patient reported feeling hopeless and helpless, having very high anxiety being unable to sleep, poor appetite, poor self esteem. As above, speech is very rapid and pressured and changing from subject to subject, although she is not psychotic and the symptoms are not compatible with manic behavior. CONSULTANTS INVOLVED: none HOSPITAL COURSE: [Patient admitted to the [facility] for worsening depression, anxiety and SI due to multiple concurrent psychosocial stressors. Patient also had recently loss her . Patient home Prozac 40mg restarted and Buspar at 5mg po QID. Patient experienced elevated LFTs which quickly resolved. Patient reported this phenomena had occurred in the past and she had an outpt GI appt already scheduled. LFTs quickly noted to return to normal. Hepatitis panel were wnl. Prozac increased to 60mg and Depakote started at 250mg po BID for mood stabilization due to labile mood and poor sleep. Patient's mood stabilized. She reported improved sleep on Elavil 25mg po qhs for insomnia. Depakote was increased to 250mg qam and 500mg po qhs. Patient noed to attend groups and was noted to be social and visible in the milieu. On day of discharge, patient reported improved mood and sleep. Patient denied SI/HI and AH/VH. Patient was educated and acknowledged understanding of importance of med and MHC f/u appt. compliance. ] MENTAL STATUS EXAMINATION ON DISCHARGE: 56-year-old [place] female, average height, overweight build. Central obesity. Mildly anxious, but cooperative in behavior. Affect -broad. Mood- anxious. Thought form logical, coherent, concrete. TC - focused on the applying coping skills at home; Suicidal ideation (SI)-denies; Homicidal ideation (HI)-denies; Perception: No perceptual issues reported or observed; Insight and judgment -fair. Impulse control -fair. DISCHARGE MEDICATIONS: -Continue Prozac 60 mg po daily for depression and anxiety. -Continue Buspar at 5mg po QID for anxiety. -Continue Depakote 250 mg po each morning and 500mg po qhs for mood stabilization. -Continue Elavil 25mg po qhs for insomnia. PLAN/FOLLOWUP ARRANGEMENTS: [shoe planner has set up PCP and MHC appt for within 2weeks of discharge]. The amount of time spent in the coordination of care for this patient was approximately [45] minutes. Medications Scheduled (Repatha) 140 Mg/Ml Inj 140 MG SC Q2WK (Reported) DUE 08/26/16 (Depakote) 500 Mg Tab #7 500 MG PO QHS Bipolar 2 d/o Amitriptyline HCl (Amitriptyline HCl) 25 Mg Tab #7 25 MG PO QHS INSOMNIA Aspirin (Aspirin 81) 81 Mg Tab 81 MG PO DAILY (Reported) Buspirone HCl (Buspirone HCl) 5 Mg Tab #28 5 MG PO QID Bipolar 2 d/o Carvedilol (Carvedilol) 12.5 Mg Tab #14 12.5 MG PO BID HTN Clopidogrel Bisulfate (Plavix) 75 Mg Tab 75 MG PO DAILY (Reported) Divalproex Sodium (Depakote) 250 Mg Tab #7 250 MG PO QAM Bipolar 2 d/o Fluoxetine Hcl (Fluoxetine HCl) 20 Mg Cap #7 60 MG PO QAM Bipolar 2 d/o Pantoprazole Sodium (Pantoprazole Sodium) 40 Mg Tab 40 MG PO BID (Reported) Pantoprazole Sodium (Pantoprazole Sodium) 40 Mg Tab #14 40 MG PO BID GERD Valsartan (Valsartan) 80 Mg Tab 80 MG PO QHS (Reported) Valsartan (Diovan) 80 Mg Tab #7 80 MG PO QHS HTN Scheduled PRN Acetamin/Butalbital/Caffeine (Fioricet 50-300-40 mg) 1 Cap Cap 2 CAP PO PRN PRN PRN MIGRAINE (Reported) Albuterol Sulfate (Ventolin Hfa) 200 Puff/8 Gm Aers 2 PUFF INH Q4H PRN PRN SHORTNESS OF BREATH (Reported) Nitroglycerin (Nitrostat) 0.4 Mg Subl 0.4 MG SL Q5MP PRN PRN CHEST PAIN ( Reported) Allergies Coded Allergies: TALIA Inhibitors (Unverified Allergy, Unknown, 04/28/16) ABDOUL HOPSON MD Sep 27, 2016 14:43
== END 2016-09-12 15:00 | disposition home or self-care (01) | DRG 885 ==
LOC: M ED 11:38 → M PSY 16:48
PROVIDERS: ADMIT Psychiatry & Neurology Psychiatry; ATTEND Psychiatry & Neurology Psychiatry
DX: F31.81 Bipolar II disorder (principal); E11.9 Type 2 diabetes mellitus without complications; E78.00 Pure hypercholesterolemia, unspecified; K21.9 Gastro-esophageal reflux disease without esophagitis; I10 Essential (primary) hypertension; G43.909 Migraine, unspecified, not intractable, without status migrainosus; D75.1 Secondary polycythemia; R42 Dizziness and giddiness; F41.9 Anxiety disorder, unspecified; F42.9 Obsessive-compulsive disorder, unspecified; E66.9 Obesity, unspecified; K76.0 Fatty (change of) liver, not elsewhere classified; I25.10 Atherosclerotic heart disease of native coronary artery without angina pectoris; Z95.5 Presence of coronary angioplasty implant and graft; Z63.4 Disappearance and death of family member; Z79.01 Long term (current) use of anticoagulants; Z79.82 Long term (current) use of aspirin; Z79.899 Other long term (current) drug therapy; Z68.35 Body mass index [BMI] 35.0-35.9, adult

== ENCOUNTER → 2016-12-28 | Outpatient (REF) | payer OTHER ==
[~2016-12-28] MED LIST changes: +AMIT25TA PO; +BUSP5TA PO; +CARV12.5 PO; +DEPA1TAB3 PO; +DEPA250T32 PO; +FLUO10CA8 PO; +FLUO20CA9 PO
[2016-12-28 15:39] LABS: GLUCOSE, FASTING 70 MG/DL (70-105)
[2016-12-28 15:40] LABS: ALBUMIN 3.4 GM/DL (3.2-5.2); ALBUMIN/GLOBULIN RATIO 0.87 (1.00-1.93); ALKALINE PHOSPHATASE 111 U/L (45-117); ALT/SGPT 41 U/L (12-78); ANION GAP 9 MEQ/L (8-16); AST/SGOT 16 U/L (15-37); BILIRUBIN,TOTAL 0.3 MG/DL (0.2-1.0); BLOOD UREA NITROGEN 20 MG/DL (7-18); CALCIUM LEVEL 8.9 MG/DL (8.5-10.1); CARBON DIOXIDE LEVEL 27 MEQ/L (21-32); CHLORIDE LEVEL 104 MEQ/L (98-107); CREATININE FOR GFR 0.94 MG/DL (0.55-1.02); GLOMERULAR FILTRATION RATE > 60.0 (>51); POTASSIUM SERUM 5.3 MEQ/L (3.5-5.1); SODIUM LEVEL 140 MEQ/L (136-145); TOTAL PROTEIN 7.3 GM/DL (6.4-8.2)
== END ==
LOC: M LABNEURO 12:49
PROVIDERS: ATTEND Psychiatry & Neurology Neurology
DX: R25.1 Tremor, unspecified (principal)

== ENCOUNTER → 2017-01-19 | Outpatient (CLI) | payer OTHER ==
[~2017-01-19] MED LIST changes: -BIOT10005 PO; +BIOT10008 PO; +FLUO20CA19 PO; -FLUO20CA9 PO; +LATU20TA PO; +PLAV1TAB2 PO; -PLAV75TA38 PO; -VENL75CA PO; +VENL75CA2 PO
--- NOTE | 2017-01-19 16:59 | REP ---
MRI brain without contrast: History: Tendon type headaches. . Comparison study: Comparison MRI study is from March 20, 2014. Comparison head CT study August 25, 2016. Technique: Axial and sagittal imaging planes are utilized for T1 and T2-weighted scans. Sequences include spin-echo, fast spin echo, FLAIR, and diffusion weighted sequences. MRI findings: No bony calvarial lesion is seen. Craniocervical junction and upper cervical cord are normal in appearance. There is no MR evidence of significant paranasal sinus disease. No intraorbital abnormality is seen. The lateral, third, and fourth ventricles are normal in size and position. Ashford-white differentiation pattern is intact above and below the tentorium. Minimal small vessel changes are again noted unchanged from the prior study. There is no evidence of intracranial hemorrhage. No mass, infarction, extra-axial fluid collection or midline shift is seen. No abnormal white matter lesion is seen. Impression: Minimal small vessel changes otherwise negative noncontrast brain MRI study. Signed by Dwaine Francis MD 01/19/2017 04:50 P
--- NOTE | 2017-01-19 17:43 | REP ---
MRI lumbar spine without contrast: History: Low back pain. Comparison lumbar spine radiographs are from August 02, 2011. Technique: Sagittal and axial T1 and T2-weighted scans are acquired in the usual fashion with and without fat saturation. Sequences include spin echo, turbo spin-echo, and STIR imaging sequences. MRI findings: Cortical and medullary bone signal intensity are normal. Vertebral body heights are preserved. Alignment is normal. There is no evidence of spondylolysis or spondylolisthesis. Conus medullaris is normal in position and appearance at T12-L1. There is degenerative disc narrowing at L3-4, L4-5 and L5-S1 with decreased disc space signal intensity consistent with degenerative disc disease. Minimal changes are noted at L1-2, and L2-3 as well. There is mild central bulging of the T12-L1 disc margin. This indents the ventral thecal sac margin, but does not contact or compress the conus. At L1-2, axial and sagittal images show no significant finding. At L2-3, there is minimal diffuse disc bulging. No other finding. At L3-4, there is mild diffuse disc bulging indenting the ventral margin of the thecal sac. There is mild facet and ligamentum flavum hypertrophy. Canal size is borderline at L3-4. At L4-5, there is central disc bulging effacing the ventral subarachnoid space slightly. Canal size is borderline. There is ligamentum flavum and facet hypertrophy. No neural foraminal narrowing is seen. At L5-S1, there is moderate facet hypertrophy bilaterally. No other significant finding. Impression: Degenerative disc changes and spondylosis changes as above. Borderline canal size at L3-4 and L4-5. There are small right renal cysts noted incidentally. Signed by Dwaine Francis MD 01/24/2017 10:08 A
--- NOTE | 2017-01-19 18:08 | REP ---
MRI cervical spine without contrast: History: Headache and neck pain. Comparison: CT study of the cervical spine is from 11/19/2015. Technique: Sagittal and axial T1 and T2-weighted scans are acquired in the usual fashion with and without fat saturation. Sequences include spin echo, turbo spin-echo, and STIR imaging sequences. MRI findings: There is straightening of the normal cervical lordosis. Cervical vertebral body heights are preserved. Alignment is normal. Cortical and medullary bone signal intensity are normal. No bony destructive lesion is seen. Cervical cord is normal in coarse caliber and signal intensity. Craniocervical junction unremarkable. There is degenerative spondylosis change at each level from C3-4 through C6-7. Axial and sagittal images at the C3-4 level demonstrate a small central disc protrusion indenting the ventral margin of the cord. No neural foraminal narrowing is seen. At C4-5, there is diffuse posterior disc bulging. This effaces the ventral subarachnoid space. The dorsal subarachnoid space is effaced as well due to developmental central canal stenosis. There is mild bilateral uncovertebral spurring. At C5-6, there is similar changes with diffuse moderate disc bulging. This is most pronounced along the left lateral margin of the thecal sac and there is left-sided neural foraminal narrowing from disc bulging and associated uncovertebral spurring. Mild uncovertebral spurring is noted on the right. Mild central canal stenosis is noted C5-6. At C6-7, there is mild diffuse disc bulging. This effaces the ventral subarachnoid space but does not appear to compress the cord. The C7-T1 level is unremarkable. Impression: Degenerative spondylosis changes as above C3-4 through C6-7. There is mild central canal stenosis and C4-5 and C5-6. Significant left-sided neural foraminal narrowing is noted at C5-6. Signed by Dwaine Francis MD 01/24/2017 10:09 A
== END ==
LOC: M PLARAD 14:24
PROVIDERS: ATTEND Psychiatry & Neurology Neurology
DX: M47.812 Spondylosis without myelopathy or radiculopathy, cervical region (principal); G44.209 Tension-type headache, unspecified, not intractable; M51.36 Other intervertebral disc degeneration, lumbar region; N28.1 Cyst of kidney, acquired

== ENCOUNTER → 2017-02-14 | Outpatient (CLI) | payer OTHER ==
--- NOTE | 2017-02-14 14:46 | REPMRS ---
Patient History The patient states she has not had a clinical breast exam in over a year. Patient is postmenopausal. Family history of colorectal cancer in maternal aunt at age 50 or over. Reductions of both breasts, 1994. Took hormonal contraceptives for 5 years. Took unspecified hormones for 1 year. Digital Woman Screen Mammo: February 14, 2017 - Exam #: [id number] Bilateral CC and MLO view(s) were taken. Technologist: Lena Gupta, Technologist Prior study comparison: January 26, 2015, digital woman screen mammo performed at [facility]. July 26, 2012, bilateral bilat screen digital mammo, performed at [facility] ([facility] FINDINGS: There are scattered fibroglandular densities. There has been no change in the appearance of the mammogram from the prior studies. There is a mild amount of residual fibroglandular tissue which is fairly symmetric. There is no interval development of dominant mass, architectural distortion, or clustered microcalcification suggestive of malignancy. ASSESSMENT: BI-RADS/ACR category 1 mammogram. Negative. Recommendation Routine screening mammogram in 1 year (for women over age 40). This mammogram was interpreted with the aid of an FDA-approved computer-aided dectection system. Electronically Signed By: Marcelino Ashford MD 02/14/17 [id number]
== END ==
LOC: M WHC 13:28
PROVIDERS: ATTEND Physician Assistant Medical
DX: Z12.31 Encounter for screening mammogram for malignant neoplasm of breast (principal); Z78.0 Asymptomatic menopausal state; Z92.0 Personal history of contraception

== ENCOUNTER 2017-02-21 08:39 | Emergency (ER) | payer OTHER ==
[~2017-02-21] VITALS: Ht 152.4 cm; Wt 90.5 kg
[~2017-02-21 08:39] MED LIST changes: -LATU20TA PO
[2017-02-21] MEDS ORDERED: ASPIRIN 81 MG CHEW TABLET PO ONE (09:15)
[2017-02-21 09:41] LABS: BASO # 0.1 K/mm3 (0.0-0.2); BASO % 0.9 % (0.0-1.0); EOS # 0.6 K/mm3 (0.0-0.50); EOS % 9.2 % (0.0-3.0); LARGE UNSTAINED CELL # 0.3 K/mm3 (0.0-0.4); LARGE UNSTAINED CELL % 4.8 % (0.0-4.0); LYMPH # 2.1 K/mm3 (1.5-4.5); LYMPH % 28.7 % (24.0-44.0); MEAN CORPUSCULAR HEMOGLOBIN 31.9 pg (27.0-33.0); MEAN CORPUSCULAR HGB CONC 33.1 g/dl (32.0-36.5); MEAN CORPUSCULAR VOLUME 96.2 fl (80.0-96.0); MONO # 0.5 K/mm3 (0.0-0.8); MONO % 7.8 % (0.0-5.0); NEUTROPHILS # 3.1 K/mm3 (1.8-7.7); NEUTROPHILS % 48.6 % (36.0-66.0); PLATELET COUNT, AUTOMATED 228 k/mm3 (150-450); RED CELL DISTRIBUTION WIDTH 17.6 % (11.5-14.5); WHITE BLOOD COUNT 6.4 K/mm3 (4.0-10.0)
[2017-02-21 10:06] LABS: ALBUMIN 3.1 GM/DL (3.2-5.2); ALBUMIN/GLOBULIN RATIO 0.91 (1.00-1.93); ALKALINE PHOSPHATASE 72 U/L (45-117); ALT/SGPT 26 U/L (12-78); ANION GAP 11 MEQ/L (8-16); AST/SGOT 11 U/L (15-37); BILIRUBIN,DIRECT 0.1 MG/DL (0.0-0.2); BILIRUBIN,TOTAL 0.3 MG/DL (0.2-1.0); BLOOD UREA NITROGEN 27 MG/DL (7-18); CALCIUM LEVEL 8.6 MG/DL (8.5-10.1); CARBON DIOXIDE LEVEL 24 MEQ/L (21-32); CHLORIDE LEVEL 105 MEQ/L (98-107); CREATININE FOR GFR 1.19 MG/DL (0.55-1.02); GLUCOSE, FASTING 127 MG/DL (70-105); POTASSIUM SERUM 4.3 MEQ/L (3.5-5.1); SODIUM LEVEL 140 MEQ/L (136-145); TOTAL PROTEIN 6.5 GM/DL (6.4-8.2)
--- NOTE | 2017-02-21 11:29 | REP ---
AP PORTABLE CHEST: 02/21/2017 COMPARISON: 07/21/2016, 04/28/2016, 03/19/2016. CLINICAL HISTORY: Chest pain. Lungs less well inflated than the previous study. Heart has slight left ventricular configuration. There is some venous hypertension. I do not see wally edema, dense consolidation or effusion. Some underlying minor interstitial changes are again noted. The aorta is mildly tortuous. Airway intact. IMPRESSION: 1. Left ventricular configuration of the heart without gross cardiomegaly but with some pulmonary venous hypertension. Underlying mild interstitial change. No gross effusion or dense consolidation on this portable chest. Signed by Tremayne Bradley MD 02/21/2017 07:05 P
--- NOTE | 2017-02-21 14:07 | ECGEPIP ---
Stationary ECG Study [facility] - ED Test Date: 2017-02-21 Pat Name: SAI MELCHOR Department: Room: - Gender: F Facility Maintenance Technician: shawn : 1960 Requested By: Anton Mistry Order Number: [id number] Reading MD: Jackie Nguyen Measurements Intervals [place] Rate: 72 P: 13 MT: 147 QRS: -67 QRSD: 96 T: 70 QT: 393 QTc: 432 Interpretive Statements SINUS RHYTHM MARKED LEFT AXIS DEVIATION LOW QRS VOLTAGE IN PRECORDIAL LEADS POSSIBLE ANTERIOR MYOCARDIAL INFARCTION, PROBABLY OLD SIMILAR 08/25/16 Electronically Signed On 02-21-2017 14:06:50 EDT by Jackie Nguyen
--- NOTE | 2017-02-21 14:08 | ECGEPIP ---
Stationary ECG Study [facility] - ED Test Date: 2017-02-21 Pat Name: SAI MELCHOR Department: Room: - Gender: F Software Engineering Supervisor: shawn : 1960 Requested By: Anton Mistry Order Number: [id number] Reading MD: Jackie Nguyen Measurements Intervals [place] Rate: 63 P: 17 NH: 173 QRS: -62 QRSD: 86 T: 50 QT: 416 QTc: 426 Interpretive Statements SINUS RHYTHM MARKED LEFT AXIS DEVIATION LOW QRS VOLTAGE IN PRECORDIAL LEADS POSSIBLE ANTERIOR MYOCARDIAL INFARCTION, PROBABLY OLD DECREASED RATE 02/21/17 8:57 Electronically Signed On 02-21-2017 14:07:59 EDT by Jackie Nguyen
[2017-02-21] MEDS ORDERED: GASTROGRAFIN SOLUTION 30ML (Q9963) PO ONE ×2 (14:15)
[2017-02-21] MEDS ORDERED: ISOVUE-370 76% 100ML VIAL (Q9967) As Ordered ONE (15:34)
[2017-02-21 16:56] VITALS: BP 136/78
--- NOTE | 2017-02-21 16:57 | REP ---
CT abdomen and pelvis with IV and oral contrast: 02/21/2017 COMPARISON: CT 03/16/2015 Clinical history: Elevated lipase, evaluate for pancreatitis or other. Technique: The patient received oral Gastrografin mixture 10 ml in 290 ml of flavored water per our bowel contrast protocol and 100 ml of Isovue-370 by a bolus. Scanning through the abdomen and pelvis with both coronal and sagittal reconstructions. CT abdomen: Lung bases were clear. Heart is not grossly enlarged. There is no pericardial thickening or effusion and no hiatal hernia. Stomach filled with oral contrast. No hepatosplenomegaly, focal splenic mass or adjacent ascites. There is a small known hemangioma along the posterior subcapsular margin right lobe of the liver near the dome of the diaphragm, unchanged. Kidneys without mass, cyst, hydronephrosis or stone. Adrenal glands normal. Pancreas shows the common duct without stone within its head. The remainder of pancreas showed no stone, dilated duct, peripancreatic inflammatory change or edema. No fluid collection. The aorta is without aneurysm or dissection. There is no periaortic or other retroperitoneal pathologic sized lymphadenopathy. Small bowel loops are contrast filled and without inflammatory changes in the mesentery, wall thickening, or dilatation. Stool and gas in the colon without colitis or diverticulitis. Appendix is seen and normal. There is no free air on lung window review in the abdomen or the pelvis. Bone windows show lumbar and lower thoracic spine without acute finding. Posterior elements intact. Visualized lower ribs also intact. CT pelvis: Bony hips, pelvis, sacrum, SI joints and lumbosacral junction with minor degenerative change without destructive lesion or fracture. The uterus elongated, anteverted and indenting the dome of the bladder. Bladder partially well filled without stone, mass or wall thickening. There is no distal ureteral stone or dilatation of the ureters. Small bowel loops grossly intact. Distal left colon, sigmoid and rectum intact. No ventral or inguinal hernia nor pathologic inguinal adenopathy. Cannot exclude some scarring from the abdominal wall to the uterine fundus related to prior section. Impression: 1. No sign of pancreatitis, fluid collections with peripancreatic region or adenopathy. No inflammatory changes. 2. Gallbladder absent. Liver, pancreas, kidneys, adrenal glands and spleen unremarkable. 3. Small bowel loops and colon intact. 4. Uterus anteverted, elongated and with some stranding from the uterine fundus to the anterior abdominal wall with the uterus draped over the dome of the bladder. This could be some scarring related to prior section. Signed by Tremayne Bradley MD 02/21/2017 07:17 P
== END 2017-02-21 16:58 | disposition home or self-care (01) ==
LOC: M ED 08:39
DX: R07.89 Other chest pain (principal); J44.9 Chronic obstructive pulmonary disease, unspecified; I25.10 Atherosclerotic heart disease of native coronary artery without angina pectoris; I10 Essential (primary) hypertension; E78.4 Other hyperlipidemia; Z98.61 Coronary angioplasty status
CPT/HCPCS: 71010; 74177; 80048; 80076; 80164; 82550; 82553; 83690; 85025; 93005; 93041; 94760; 99285; Q9963; Q9967

== ENCOUNTER 2017-05-22 09:17 | Emergency (ER) | payer OTHER ==
[~2017-05-22] VITALS: Ht 154.9 cm; Wt 92.7 kg
[2017-05-22] MEDS ORDERED: LATU20TA PO (09:27)
[2017-05-22] MEDS ORDERED: CARV6.25 PO (09:27)
[2017-05-22 09:57] LABS: BASO # 0.1 10^3/uL (0.0-0.2); BASO % 0.9 % (0.0-1.0); EOS # 0.3 10^3/uL (0.0-0.50); EOS % 4.3 % (0.0-3.0); LYMPH # 2.2 10^3/uL (1.5-4.5); LYMPH % 37.3 % (24.0-44.0); MEAN CORPUSCULAR HEMOGLOBIN 29.9 pg (27.0-33.0); MEAN CORPUSCULAR HGB CONC 32.1 g/dl (32.0-36.5); MEAN CORPUSCULAR VOLUME 93.3 fl (80.0-96.0); MONO # 0.8 10^3/uL (0.0-0.8); MONO % 14.1 % (0.0-5.0); NEUTROPHILS # 2.5 10^3/uL (1.8-7.7); NEUTROPHILS % 42.4 % (36.0-66.0); PLATELET COUNT, AUTOMATED 242 10^3/uL (150-450); RED CELL DISTRIBUTION WIDTH 17.8 % (11.5-14.5); WHITE BLOOD COUNT 5.8 10^3/uL (4.0-10.0)
[2017-05-22] MEDS ORDERED: ASPIRIN 81 MG CHEW TABLET PO ONE (10:00)
[2017-05-22] MEDS ORDERED: NITROGLYCERIN 0.4 MG SUBL TABLET SL PRN (10:00)
--- NOTE | 2017-05-22 10:24 | REP ---
Portable chest, 09:10 a.m., single AP view, patient sitting: Comparison 02/21/2017. The lung lujan are clear. The cardiac size is normal. The noemi, mediastinum, and bony thorax are unremarkable. Impression: Negative portable chest. Signed by Marcelino Pradhan MD 05/22/2017 10:14 A
[2017-05-22 10:31] LABS: ALBUMIN 3.2 GM/DL (3.2-5.2); ALBUMIN/GLOBULIN RATIO 0.86 (1.00-1.93); ALKALINE PHOSPHATASE 85 U/L (45-117); ALT/SGPT 23 U/L (12-78); ANION GAP 8 MEQ/L (8-16); AST/SGOT 11 U/L (7-37); BILIRUBIN,DIRECT < 0.1 MG/DL (0.0-0.2); BILIRUBIN,TOTAL 0.2 MG/DL (0.2-1.0); BLOOD UREA NITROGEN 21 MG/DL (7-18); CALCIUM LEVEL 8.5 MG/DL (8.5-10.1); CARBON DIOXIDE LEVEL 26 MEQ/L (21-32); CHLORIDE LEVEL 104 MEQ/L (98-107); CREATININE FOR GFR 1.02 MG/DL (0.55-1.02); GLOMERULAR FILTRATION RATE 59.5 (>51); GLUCOSE, FASTING 103 MG/DL (70-105); POTASSIUM SERUM 4.6 MEQ/L (3.5-5.1); SODIUM LEVEL 138 MEQ/L (136-145); TOTAL PROTEIN 6.9 GM/DL (6.4-8.2)
[2017-05-22] MEDS ORDERED: ISOVUE-370 76% 100ML VIAL (Q9967) As Ordered ONE (11:13)
--- NOTE | 2017-05-22 11:42 | REP ---
CT of the chest with IV contrast, CT pulmonary angiography: Comparison is 03/08/2016. There are no emboli in the pulmonary trunk or central pulmonary arteries. There are no emboli in the pulmonary lobe or segment branches. There are no infiltrates, effusions or masses. There is no mediastinal, hilar or axillary adenopathy. The thoracic aorta is unremarkable. Cardiac size is normal. The visualized upper abdominal contents are unremarkable. Impression: There are no pulmonary emboli. Otherwise, negative CT study of the chest. Signed by Marcelino Pradhan MD 05/22/2017 11:33 A
[2017-05-22 15:18] VITALS: BP 162/101
--- NOTE | 2017-05-22 21:55 | ECGEPIP ---
Stationary ECG Study [facility] - ED Test Date: 2017-05-22 Pat Name: SAI MELCHOR Department: Room: - Gender: F Medical Administrative Assistant: shawn : 1960 Requested By: Jackie Nguyen Order Number: [id number] Reading MD: Anton Dolan Measurements Intervals [place] Rate: 72 P: 12 CO: 155 QRS: -65 QRSD: 87 T: 51 QT: 375 QTc: 413 Interpretive Statements SINUS RHYTHM LEFT AXIS DEVIATION LOW QRS VOLTAGE IN PRECORDIAL LEADS POSSIBLE ANTERIOR MYOCARDIAL INFARCTION, PROBABLY OLD SIMILAR TO 02/21/17 Electronically Signed On 05-22-2017 21:55:08 EDT by Anton Dolan
== END 2017-05-22 15:59 | disposition home or self-care (01) ==
LOC: M ED 09:17
DX: R07.9 Chest pain, unspecified (principal); I25.10 Atherosclerotic heart disease of native coronary artery without angina pectoris; I10 Essential (primary) hypertension; Z98.61 Coronary angioplasty status
CPT/HCPCS: 71010; 71275; 80048; 80076; 82550; 82553; 83690; 84443; 85025; 93005; 93041; 94760; 99285; Q9967

== ENCOUNTER → 2017-10-12 | Outpatient (CLI) | payer OTHER ==
[2017-10-12 17:26] LABS: NT-PRO BNP 63 PG/ML (<125)
[2017-10-12 17:26] LABS: TROPONIN I < 0.02 NG/ML (< 0.10)
== END ==
LOC: M SMT 11:21
DX: I25.10 Atherosclerotic heart disease of native coronary artery without angina pectoris (principal); R07.9 Chest pain, unspecified; R06.02 Shortness of breath

== ENCOUNTER → 2017-12-10 | Outpatient (CLI) | payer OTHER ==
[2017-12-10 14:43] LABS: ANION GAP 7 MEQ/L (8-16); BLOOD UREA NITROGEN 22 MG/DL (7-18); CARBON DIOXIDE LEVEL 27 MEQ/L (21-32); CHLORIDE LEVEL 107 MEQ/L (98-107); CREATININE FOR GFR 1.13 MG/DL (0.55-1.30); GLOMERULAR FILTRATION RATE 52.8 (>51); GLUCOSE, FASTING 82 MG/DL (70-100); SODIUM LEVEL 141 MEQ/L (136-145)
[2017-12-10 14:53] LABS: POTASSIUM SERUM 5.7 MEQ/L (3.5-5.1)
== END ==
LOC: M SMT 13:20
DX: I10 Essential (primary) hypertension (principal); E87.5 Hyperkalemia

== ENCOUNTER → 2017-12-14 | Outpatient (REF) | payer OTHER | LOC: M LAB REF 13:21 | DX: R30.0 Dysuria (principal) ==

== ENCOUNTER → 2018-01-24 | Outpatient (REF) | payer OTHER ==
[2018-01-24 18:27] LABS: APPEARANCE, URINE HAZY (CLEAR); BACTERIA, URINE AUTO 1+ (NEGATIVE); BILIRUBIN, URINE AUTO NEGATIVE (NEGATIVE); BLOOD, URINE BLOOD 1+ (NEGATIVE); COLOR, URINE YELLOW (YELLOW); GLUCOSE, URINE (UA) AUTO NEGATIVE (NEGATIVE); KETONE, URINE AUTO NEGATIVE (NEGATIVE); LEUKOCYTE ESTERASE, URINE AUTO 2+ (NEGATIVE); MUCUS, URINE SMALL (NEGATIVE); NITRITE, URINE AUTO NEGATIVE (NEGATIVE); PROTEIN, URINE AUTO NEGATIVE (NEGATIVE); RBC, URINE AUTO 4 /HPF (0-3); SPECIFIC GRAVITY URINE AUTO 1.011 (1.002-1.035); SQUAMOUS EPITHELIAL CELL UR AU 2 /HPF (0-6); UROBILINOGEN, URINE AUTO 0.2 mg/dL (0.0-2.0); WBC, URINE AUTO 9 /HPF (0-3)
== END ==
LOC: M SMT 17:08
DX: N13.30 Unspecified hydronephrosis (principal)

== ENCOUNTER → 2018-01-28 | Outpatient (CLI) | payer OTHER | LOC: M RAD 08:55 | DX: N13.2 Hydronephrosis with renal and ureteral calculous obstruction (principal) | CPT/HCPCS: 74176 ==

== ENCOUNTER → 2018-02-07 | Outpatient (CLI) | payer OTHER ==
[2018-02-07 19:19] LABS: URIC ACID 6.9 MG/DL (2.6-6.0)
== END ==
LOC: M WUC 16:54
DX: M25.571 Pain in right ankle and joints of right foot (principal)

== ENCOUNTER → 2018-03-13 | Outpatient (CLI) | payer OTHER | LOC: M RAD 10:38 | DX: J32.4 Chronic pansinusitis (principal) | CPT/HCPCS: 70486 ==

== ENCOUNTER → 2018-04-12 | Outpatient (REF) | payer OTHER | LOC: M LAB REF 16:50 | DX: R30.0 Dysuria (principal) ==

== ENCOUNTER 2018-04-15 14:34 | Emergency (ER) | payer OTHER ==
[2018-04-15] MEDS: KETOROLAC 30 MG/ML VIAL (J1885) IV (15:55)
[2018-04-15] MEDS: ONDANSETRON 4MG/2ML VIAL (J2405) IV (15:55)
[2018-04-15] MEDS: NS 1,000 ML IV (15:55)
[2018-04-15 16:06] LABS: ALBUMIN 3.5 GM/DL (3.2-5.2); ALBUMIN/GLOBULIN RATIO 0.88 (1.00-1.93); ALKALINE PHOSPHATASE 81 U/L (45-117); ALT/SGPT 31 U/L (12-78); AST/SGOT 28 U/L (7-37); BILIRUBIN,DIRECT 0.2 MG/DL (0.0-0.2); BILIRUBIN,TOTAL 0.4 MG/DL (0.2-1.0); LIPASE 151 U/L (73-393); TOTAL PROTEIN 7.5 GM/DL (6.4-8.2)
== END 2018-04-15 17:13 | disposition home or self-care (01) ==
LOC: M ED 14:34
DX: K57.32 Diverticulitis of large intestine without perforation or abscess without bleeding (principal)
CPT/HCPCS: J2405

== ENCOUNTER 2018-05-10 07:50 | Emergency (ER) | payer OTHER ==
[2018-05-10] MEDS: diazePAM 5 MG TAB PO (08:35)
[2018-05-10] MEDS: methylPREDNISolone INJ 125 MG/2 ML VIAL (J2930) IV (08:35)
[2018-05-10] MEDS: PERCOCET 5MG/325MG TAB PO (09:27)
== END 2018-05-10 12:37 | disposition home or self-care (01) ==
LOC: M ED 07:50
DX: M54.12 Radiculopathy, cervical region (principal); I11.9 Hypertensive heart disease without heart failure; I25.10 Atherosclerotic heart disease of native coronary artery without angina pectoris; M50.30 Other cervical disc degeneration, unspecified cervical region; J45.909 Unspecified asthma, uncomplicated; E28.2 Polycystic ovarian syndrome; I25.2 Old myocardial infarction; F42.9 Obsessive-compulsive disorder, unspecified; F41.9 Anxiety disorder, unspecified; F32.9 Major depressive disorder, single episode, unspecified; Z95.5 Presence of coronary angioplasty implant and graft; Z88.8 Allergy status to other drugs, medicaments and biological substances; Z79.899 Other long term (current) drug therapy; Z79.2 Long term (current) use of antibiotics; Z79.82 Long term (current) use of aspirin
CPT/HCPCS: J2930

== ENCOUNTER 2018-05-12 12:42 | Emergency (ER) | payer OTHER ==
[2018-05-12 14:47] LABS: BASO # 0.1 10^3/uL (0.0-0.2); BASO % 0.8 % (0.0-1.0); EOS # 0.2 10^3/uL (0.0-0.50); EOS % 2.2 % (0.0-3.0); HEMATOCRIT 43.6 % (36.0-47.0); HEMOGLOBIN 13.8 g/dl (12.0-15.5); LYMPH # 2.6 10^3/uL (1.5-4.5); LYMPH % 31.3 % (24.0-44.0); MEAN CORPUSCULAR HEMOGLOBIN 27.3 pg (27.0-33.0); MEAN CORPUSCULAR HGB CONC 31.7 g/dl (32.0-36.5); MEAN CORPUSCULAR VOLUME 86.2 fl (80.0-96.0); MONO # 0.9 10^3/uL (0.0-0.8); MONO % 10.5 % (0.0-5.0); NEUTROPHILS # 4.5 10^3/uL (1.8-7.7); NEUTROPHILS % 54.2 % (36.0-66.0); PLATELET COUNT, AUTOMATED 329 10^3/uL (150-450); RED BLOOD COUNT 5.06 10^6/uL (4.00-5.40); RED CELL DISTRIBUTION WIDTH 18.5 % (11.5-14.5); WHITE BLOOD COUNT 8.3 10^3/uL (4.0-10.0)
[2018-05-12] MEDS: CYCLOBENZAPRINE 10 MG TAB PO (14:49)
[2018-05-12] MEDS: ACETAMINOPHEN 325 MG TAB PO (14:50)
[2018-05-12 15:24] LABS: ANION GAP 10 MEQ/L (8-16); BLOOD UREA NITROGEN 15 MG/DL (7-18); CALCIUM LEVEL 8.6 MG/DL (8.5-10.1); CARBON DIOXIDE LEVEL 26 MEQ/L (21-32); CHLORIDE LEVEL 103 MEQ/L (98-107); CPK CREATINE PHOSPHOKINASE 59 U/L (26-192); CREATININE FOR GFR 0.97 MG/DL (0.55-1.30); GLOMERULAR FILTRATION RATE > 60.0 (>51); GLUCOSE, FASTING 88 MG/DL (70-100); POTASSIUM SERUM 4.3 MEQ/L (3.5-5.1); SODIUM LEVEL 139 MEQ/L (136-145); TROPONIN I < 0.02 NG/ML (< 0.10)
[2018-05-12] MEDS: PERCOCET 5MG/325MG TAB PO (17:08)
== END 2018-05-12 17:39 | disposition home or self-care (01) ==
LOC: M ED 12:42
DX: M54.12 Radiculopathy, cervical region (principal); R07.9 Chest pain, unspecified; I12.9 Hypertensive chronic kidney disease with stage 1 through stage 4 chronic kidney disease, or unspecified chronic kidney disease; N18.3 Chronic kidney disease, stage 3 (moderate); F33.9 Major depressive disorder, recurrent, unspecified; I25.10 Atherosclerotic heart disease of native coronary artery without angina pectoris; E28.2 Polycystic ovarian syndrome; Z95.5 Presence of coronary angioplasty implant and graft; Z79.899 Other long term (current) drug therapy; Z79.82 Long term (current) use of aspirin; Z79.02 Long term (current) use of antithrombotics/antiplatelets; Z88.8 Allergy status to other drugs, medicaments and biological substances
CPT/HCPCS: 70490

== ENCOUNTER → 2018-08-28 | Outpatient (CLI) | payer OTHER ==
[~2018-08-28] MED LIST changes: +BUSP10TA; +CARV12.5; +CARV25TA PO; +CIPR500T3; +E-Z-GAS II EFFERVESCENT PACKET (SODIUM BICARB./CITRIC ACID/SIMETHICONE) As Ordered ONE; +E-Z-HD 98% w/w 340GM SUSP BTL As Ordered ONE; +E-Z-PAQUE 96% w/w SUSP 176GM BTL As Ordered ONE; +LATU20TA PO; +LATU40TA; +LORA-243 PO; -LORA10TA2 PO; +METR-201; +NORCOTAB PO; -PANT40TA2 PO; +PANT40TA3 PO; +PERC5TAB12 PO; -PROM25TA PO; +PROM25TA12 PO; +RANO5TAB; +TRAZ-160; +VALI5TAB PO; +ZOFR4TAB14 PO
--- NOTE | 2018-08-28 18:44 | REP ---
Esophagram The procedure was performed under the direct supervision of Dr. Francis. The images were reviewed with Dr. Francis. A single view PA chest x-ray is submitted as a grades 7 8 tutor film. The superior mediastinal structures are midline. The heart size is within normal limits. The lungs are clear. Liquid barium and gas producing granules were given in the erect position as well as liquid barium in the prone oblique positions in order to perform a double contrast esophagram examination. The oral and pharyngeal stages of deglutition are unremarkable. There is a feline esophagus appearance which may represent early esophagitis. There is a sliding type hiatal hernia present. There is gastroesophageal reflux demonstrated to the level of the thoracic inlet. Impression: There is a feline esophagus appearance which may represent early esophagitis. There is a sliding type hiatal hernia present. There is gastroesophageal reflux demonstrated to the level of the thoracic inlet. 0.8 minutes of fluoro time was utilized for this procedure. Reviewed by COLBY Junior 08/28/2018 04:45 P Electronically Signed by Dwaine Francis MD 08/28/2018 06:35 P
== END ==
LOC: M RAD 10:42
PROVIDERS: ATTEND Otolaryngology
DX: K21.9 Gastro-esophageal reflux disease without esophagitis (principal); K44.9 Diaphragmatic hernia without obstruction or gangrene

== ENCOUNTER → 2018-12-05 | Outpatient (CLI) | payer OTHER ==
[~2018-12-05] MED LIST changes: +ALLO10TA PO; -ASPI1TAB PO; +ASPI81TA26 PO; +BIOT50004 PO; -BUSP10TA; +BUSP10TA PO; +CYCL10TA PO; -E-Z-GAS II EFFERVESCENT PACKET (SODIUM BICARB./CITRIC ACID/SIMETHICONE) As Ordered ONE; -E-Z-HD 98% w/w 340GM SUSP BTL As Ordered ONE; -E-Z-PAQUE 96% w/w SUSP 176GM BTL As Ordered ONE; +HYDR-3715 PO; +MAGN64TASA PO; +MECL1CHW PO; -METR-201; +METR-265; -NORCOTAB PO; -RANO5TAB; +RANO5TAB PO; -TRAZ-160; +TRAZ-160 PO; -VALS1TAB46 PO; +VALS1TAB66 PO; +VENTAER INH; +VITA1CAP25 PO
--- NOTE | 2018-12-05 17:06 | REP ---
RIGHT KNEE, FIVE VIEWS: HISTORY: Knee pain. There is no acute fracture or dislocation. There is moderate narrowing of the medial knee joint space and mild narrowing of the lateral knee joint space and patellofemoral joint space. Osteophytes are present on the femur, tibia and patella. IMPRESSION: Degenerative change as described above. Electronically Signed by Crow Chase MD 12/05/2018 05:08 P
== END ==
LOC: M WUC 16:00
PROVIDERS: ATTEND Physician Assistant
DX: M17.11 Unilateral primary osteoarthritis, right knee (principal); M25.761 Osteophyte, right knee; M25.561 Pain in right knee

== ENCOUNTER 2018-12-09 08:21 | Day surgery (SDC) | payer MEDICARE, OTHER ==
[~2018-12-09] VITALS: Ht 154.9 cm; Wt 93.9 kg
[~2018-12-09 08:21] MED LIST changes: +NS 1,000 ML IV ONE
[2018-12-09] MEDS ORDERED: LIDOCAINE 2% INJ 100 MG/5 ML SDV (FOR ANES.) As Ordered ONE (09:51)
[2018-12-09] MEDS ORDERED: PROPOFOL 200 MG/20 ML VIAL As Ordered ONE (09:51)
--- NOTE | 2018-12-09 10:05 | ROOR ---
Patient Name: Janell Oscar Procedure Date: 12/09/2018 9:48 AM Date of : 1960 Age: 58 Room: [facility] Gender: Female Note Status: Finalized Procedure: Upper GI endoscopy + Dilatation Indications: Dysphagia Providers: Taqueria Stone MD Referring MD: HELLEN MACEDO MD Requesting Provider: Medicines: Monitored Anesthesia Care Complications: No immediate complications. Procedure: Pre-Anesthesia Assessment: - The heart rate, respiratory rate, oxygen saturations, blood pressure, adequacy of pulmonary ventilation, and response to care were monitored throughout the procedure. The Endoscope was introduced through the mouth, and advanced to the second part of duodenum. The upper GI endoscopy was accomplished without difficulty. The patient tolerated the procedure well. Findings: The Z-line was regular and was found 35 cm from the incisors. A non-obstructing Schatzki ring was found at the gastroesophageal junction. A TTS dilator was passed through the scope. Dilation with an 18-19-20 mm balloon dilator was performed to 20 mm at the gastroesophageal junction. A small hiatal hernia was present. No other significant abnormalities were identified in a careful examination of the stomach. The exam of the duodenum was otherwise normal. Impression: - Z-line regular, 35 cm from the incisors. - Non-obstructing Schatzki ring. - Small hiatal hernia. - Dilation performed at the gastroesophageal junction. - No specimens collected. - The examination was otherwise normal. Recommendation: - Patient has a contact number available for emergencies. The signs and symptoms of potential delayed complications were discussed with the patient. Return to normal activities tomorrow. Written discharge instructions were provided to the patient. - High fiber diet. - Discharge patient to home. - Use Prilosec (omeprazole) 40 mg PO daily. - Follow an antireflux regimen. - Return to referring physician. - The findings and recommendations were discussed with the patient's family. Taqueria Stone MD Taqueria Stone MD 12/09/2018 10:05:21 AM Electronically signed by Taqueria Stone MD Number of Addenda: 0 Note Initiated On: 12/09/2018 9:48 AM Estimated Blood Loss: Estimated blood loss: none.
[2018-12-09 10:37] VITALS: BP 169/97
== END 2018-12-09 10:39 | disposition home or self-care (01) ==
LOC: M OPP 08:21
PROVIDERS: ATTEND Internal Medicine Gastroenterology
DX: K22.8 Other specified diseases of esophagus (principal); K44.9 Diaphragmatic hernia without obstruction or gangrene; R13.10 Dysphagia, unspecified

== ENCOUNTER → 2019-01-27 | Outpatient (REF) | payer MEDICARE, OTHER ==
[~2019-01-27] MED LIST changes: +NORV5TAB PO; -NS 1,000 ML IV ONE; +RANO500T7 PO; -RANO5TAB PO; -TRAZ-160 PO; +TRAZ-252 PO
[2019-01-27 18:05] LABS: C REACTIVE PROTEIN QUANTITATIV 0.34 MG/DL (0.00-0.30); RHEUMATOID FACTOR QUANT < 10.0 IU/ML (<15.0); URIC ACID 5.5 MG/DL (2.6-6.0)
[2019-01-27 18:54] LABS: BASO # 0.1 10^3/uL (0.0-0.2); BASO % 1.2 % (0.0-1.0); EOS # 0.2 10^3/uL (0.0-0.50); EOS % 4.8 % (0.0-3.0); HEMATOCRIT 45.7 % (36.0-47.0); HEMOGLOBIN 14.8 g/dl (12.0-15.5); LYMPH # 2.1 10^3/uL (1.5-4.5); MEAN CORPUSCULAR HEMOGLOBIN 32.1 pg (27.0-33.0); MEAN CORPUSCULAR HGB CONC 32.4 g/dl (32.0-36.5); MEAN CORPUSCULAR VOLUME 99.1 fl (80.0-96.0); MONO # 0.5 10^3/uL (0.0-0.8); MONO % 9.9 % (0.0-5.0); NEUTROPHILS % 41.3 % (36.0-66.0); PLATELET COUNT, AUTOMATED 278 10^3/uL (150-450); RED BLOOD COUNT 4.61 10^6/uL (4.00-5.40)
[2019-01-27 19:38] LABS: ERYTHROCYTE SEDIMENTATION RATE 3 mm/hr (0-30)
[2019-01-30 00:06] LABS: ANTINUCLEAR ANTIBODIES DIRECT Negative (Negative); Lyme Disease IgG/IgM Antibodie <0.91 ISR (0.00-0.90); Lyme Disease IgM Ab Quantitati <0.80 index (0.00-0.79)
== END ==
LOC: M LABDRAW1 15:14
PROVIDERS: ATTEND Physician Assistant Surgical
DX: M25.561 Pain in right knee (principal)

== ENCOUNTER → 2019-02-03 | Outpatient (CLI) | payer MEDICARE, OTHER ==
[2019-02-03 20:35] LABS: BASO # 0.1 10^3/uL (0.0-0.2); BASO % 1.1 % (0.0-1.0); EOS # 0.3 10^3/uL (0.0-0.50); EOS % 4.6 % (0.0-3.0); HEMATOCRIT 42.6 % (36.0-47.0); HEMOGLOBIN 13.7 g/dl (12.0-15.5); LYMPH # 1.9 10^3/uL (1.5-4.5); LYMPH % 30.2 % (24.0-44.0); MEAN CORPUSCULAR HEMOGLOBIN 30.6 pg (27.0-33.0); MEAN CORPUSCULAR HGB CONC 32.2 g/dl (32.0-36.5); MEAN CORPUSCULAR VOLUME 95.1 fl (80.0-96.0); MONO # 0.6 10^3/uL (0.0-0.8); MONO % 9.9 % (0.0-5.0); NEUTROPHILS # 3.3 10^3/uL (1.8-7.7); NEUTROPHILS % 53.7 % (36.0-66.0); PLATELET COUNT, AUTOMATED 258 10^3/uL (150-450); RED BLOOD COUNT 4.48 10^6/uL (4.00-5.40); WHITE BLOOD COUNT 6.2 10^3/uL (4.0-10.0)
== END ==
LOC: M WUC 15:58
PROVIDERS: ATTEND Physician Assistant
DX: L30.9 Dermatitis, unspecified (principal)

== ENCOUNTER → 2019-02-18 | Outpatient (REF) | payer MEDICARE, OTHER | LOC: M LABDRAW1 17:11 | PROVIDERS: ATTEND Physician Assistant Surgical | DX: M17.11 Unilateral primary osteoarthritis, right knee (principal) ==

== ENCOUNTER → 2019-04-10 | Outpatient (CLI) | payer MEDICARE, OTHER ==
[2019-04-10 16:17] LABS: ALBUMIN 3.5 GM/DL (3.2-5.2); BILIRUBIN,TOTAL 0.4 MG/DL (0.2-1.0); CALCIUM LEVEL 9.5 MG/DL (8.5-10.1); CHOLESTEROL RISK RATIO 3.787 (<5); CREATININE FOR GFR 1.22 MG/DL (0.55-1.30); FREE T4 0.98 NG/DL (0.76-1.46); THYROID STIMULATING HORMONE 4.46 uIU/ML (0.358-3.740)
[2019-04-10 16:22] LABS: BASO # 0.1 10^3/uL (0.0-0.2); BASO % 1.2 % (0.0-1.0); EOS # 0.2 10^3/uL (0.0-0.5); EOS % 3.8 % (0.0-3.0); HEMATOCRIT 42.6 % (36.0-47.0); HEMOGLOBIN 13.8 g/dl (12.0-15.5); LYMPH # 1.9 10^3/uL (1.5-5.0); LYMPH % 38.2 % (24.0-44.0); MEAN CORPUSCULAR HEMOGLOBIN 32.4 pg (27.0-33.0); MEAN CORPUSCULAR HGB CONC 32.4 g/dl (32.0-36.5); MONO # 0.6 10^3/uL (0.0-0.8); MONO % 12.2 % (0.0-5.0); NEUTROPHILS # 2.2 10^3/uL (1.5-8.5); NEUTROPHILS % 43.6 % (36.0-66.0); PLATELET COUNT, AUTOMATED 234 10^3/uL (150-450); RED BLOOD COUNT 4.26 10^6/uL (4.00-5.40)
[2019-04-10 16:33] LABS: HEMOGLOBIN A1c 6.1 %
[2019-04-10 16:39] LABS: MALB URINE SIEMENS 29.5 MG/L
== END ==
LOC: M WUC 10:38
PROVIDERS: ATTEND Physician Assistant
DX: E11.9 Type 2 diabetes mellitus without complications (principal); F33.1 Major depressive disorder, recurrent, moderate; I25.119 Atherosclerotic heart disease of native coronary artery with unspecified angina pectoris

== ENCOUNTER 2019-04-24 09:33 | Day surgery (SDC) | payer MEDICARE, OTHER ==
[~2019-04-24] VITALS: Ht 152.4 cm; Wt 96.8 kg
[~2019-04-24 09:33] MED LIST changes: +LR 1,000 ML IV ONE
[2019-04-24] MEDS ORDERED: PROPOFOL 500 MG/50 ML VIAL As Ordered ONE (11:37)
[2019-04-24] MEDS ORDERED: dexameTHASONE 4 MG/ML 1ML VIAL (J1100) As Ordered ONE (11:38)
[2019-04-24] MEDS ORDERED: ONDANSETRON 4MG/2ML VIAL (J2405) As Ordered ONE (11:38)
[2019-04-24] MEDS ORDERED: fentaNYL 100 MCG/2 ML INJECTION (J3010) As Ordered ONE ×2 (11:38→13:58)
[2019-04-24] MEDS ORDERED: MIDAZOLAM INJ 2 MG/2 ML VIAL (J2250) As Ordered ONE (11:38)
[2019-04-24] MEDS ORDERED: LIDOCAINE 2% INJ 100 MG/5 ML SDV (FOR ANES.) As Ordered ONE (11:39)
[2019-04-24] MEDS ORDERED: ceFAZolin SOD 2 GM in IV 1 EA IV ONE (12:00)
[2019-04-24] MEDS ORDERED: ROPIvacaine 0.5% 30 ML INJECTION (J2795 PER 1MG) As Ordered ONE (12:16)
[2019-04-24] MEDS ORDERED: TRIAMCINOLONE ACETONIDE SUSP 40 MG/ML VIAL (J3301) As Ordered ONE (13:01)
[2019-04-24] MEDS ORDERED: KETOROLAC 60 MG/2 ML VIAL (J1885) As Ordered ONE (13:10)
[2019-04-24] MEDS ORDERED: ACETAMINOPHEN 1000MG 100ML IV BTL (OFIRMEV) (J0131 PER 10MG) As Ordered ONE (13:12)
[2019-04-24] MEDS: oxyCODONE 5MG TAB PO PRN ×2 (13:47→14:18)
[2019-04-24] MEDS ORDERED: oxyCODONE 5MG TAB As Ordered ONE ×2 (13:47→14:16)
--- NOTE | 2019-04-24 13:59 | RO ---
DATE OF PROCEDURE: 04/24/2019 PREOPERATIVE DIAGNOSES: Right knee osteoarthritis, medial and lateral meniscus tear. POSTOPERATIVE DIAGNOSES: Right knee osteoarthritis, medial and lateral meniscus tear. PROCEDURES: Right knee operative arthroscopy, partial medial and lateral meniscectomy, joint debridement. SURGEON: Zeke Mahoney MD GUEST LAUNDRY ATTENDANT: ANESTHESIA: General. ESTIMATED BLOOD LOSS (EBL): Minimal. COMPLICATIONS: None. INDICATIONS: This is a 59-year-old woman with significant obesity who has had gradually worsening knee pain. X-rays and MRI scan were consistent with some degree of arthritis but more notable was the pathology. She wished to go ahead with surgical treatment. She understood the nature of this, the risks of bleeding, infection, damage to nerves, vessels, persistent pain, blood clots, medical problems, among others. She understood that her medical issues and her weight put her at higher risk of complications. DESCRIPTION OF PROCEDURE: The patient was taken to the operating room, placed in supine position after general anesthesia was induced. The right lower extremity was prepped and draped in usual sterile fashion. Tourniquet was inflated. After time-out was performed, inferomedial and inferolateral portals were created per routine. Identified patellofemoral joint, and she had grade 3 changes on the undersurface of the patella. There was some thickened suprapatellar plica that was excised. I proceeded down both gutters, identified the medial compartment. The medial compartment had moderate arthritic change and a complex medial meniscus tear that was resected with a 4.2 shaver back to a stable rim, and I reprobed the meniscus, smoothed off any loose flaps on the articular cartilage, and proceeded to the notch. There was a scarred-in loose body in the anterior cruciate ligament (ACL) along the medial side of it, which was retrieved with a pituitary punch and shaver. I debrided some of the fat pad, which appeared to be impinging anteriorly. I proceeded to the lateral compartment, which had more preserved articular cartilage but definitely had significant lateral meniscus tearing, which was debrided back with a shaver and basket punch. I then reexamined the entire joint, irrigated copiously, removed the instrumentation, closed the portals using 4-0 nylon suture, injected 30 mL of Naropin and 20 mg of Kenalog. Sterile dressing was applied. Tourniquet was deflated. She was taken to recovery room in stable condition. There were no known complications. The plan will be routine postoperative.
[2019-04-24] MEDS ORDERED: ONDANSETRON 4MG/2ML VIAL (J2405) IV PRN (14:00)
[2019-04-24] MEDS ORDERED: LR 1,000 ML IV SCH ×2 (14:00→15:00)
[2019-04-24] MEDS: fentaNYL 100 MCG/2 ML INJECTION (J3010) IV PRN (14:03)
[2019-04-24] MEDS ORDERED: ACETAMINOPH W/CODEINE #3 TAB UD PO PRN ×2 (15:00)
[2019-04-24 16:20] VITALS: BP 137/89
== END 2019-04-24 16:30 | disposition home or self-care (01) ==
LOC: M SDC 09:33
PROVIDERS: ATTEND Orthopaedic Surgery
DX: M17.11 Unilateral primary osteoarthritis, right knee (principal); M94.261 Chondromalacia, right knee; M23.200 Derangement of unspecified lateral meniscus due to old tear or injury, right knee; M23.203 Derangement of unspecified medial meniscus due to old tear or injury, right knee; M25.461 Effusion, right knee; I10 Essential (primary) hypertension; J45.909 Unspecified asthma, uncomplicated; E11.9 Type 2 diabetes mellitus without complications; I25.2 Old myocardial infarction; F41.9 Anxiety disorder, unspecified; F32.9 Major depressive disorder, single episode, unspecified; E66.9 Obesity, unspecified; Z79.82 Long term (current) use of aspirin; Z79.02 Long term (current) use of antithrombotics/antiplatelets; Z79.899 Other long term (current) drug therapy; F31.9 Bipolar disorder, unspecified
CPT/HCPCS: 29881; J0131; J0690; J1100; J1885; J2250; J2405; J2795; J3010; J3301

== ENCOUNTER → 2019-08-04 | Outpatient (CLI) | payer MEDICARE, OTHER ==
[~2019-08-04] MED LIST changes: +FLUO10CA15 PO; -FLUO10CA8 PO; -LR 1,000 ML IV ONE; -REPA1.7I SC; +REPA140I SC
[2019-08-04 16:43] LABS: BASO % 0.4 % (0.0-1.0); EOS # 0.3 10^3/uL (0.0-0.5); HEMATOCRIT 44.8 % (36.0-47.0); LYMPH # 1.5 10^3/uL (1.5-5.0); LYMPH % 27.7 % (24.0-44.0); MEAN CORPUSCULAR HEMOGLOBIN 30.3 pg (27.0-33.0); MEAN CORPUSCULAR HGB CONC 31.3 g/dl (32.0-36.5); MONO # 0.6 10^3/uL (0.0-0.8); MONO % 10.6 % (0.0-5.0); NEUTROPHILS % 54.6 % (36.0-66.0); PLATELET COUNT, AUTOMATED 254 10^3/uL (150-450); RED BLOOD COUNT 4.62 10^6/uL (4.00-5.40); WHITE BLOOD COUNT 5.5 10^3/uL (4.0-10.0)
[2019-08-04 17:21] LABS: ALBUMIN 3.5 GM/DL (3.2-5.2); BILIRUBIN,DIRECT 0.2 MG/DL (0.0-0.2); BILIRUBIN,TOTAL 0.5 MG/DL (0.2-1.0); CALCIUM LEVEL 9.5 MG/DL (8.5-10.1); CREATININE FOR GFR 1.27 MG/DL (0.55-1.30); GLOMERULAR FILTRATION RATE 45.9 (>51); POTASSIUM SERUM 4.8 MEQ/L (3.5-5.1); TOTAL PROTEIN 7.1 GM/DL (6.4-8.2)
[2019-08-06 14:10] LABS: TISSUE TRANSGLUTAMINASE IgA <2 U/mL (0-3); TISSUE TRANSGLUTAMINASE IgG 4 U/mL (0-5)
== END ==
LOC: M WUC 14:42
PROVIDERS: ATTEND Physician Assistant
DX: R19.7 Diarrhea, unspecified (principal)

== ENCOUNTER → 2019-09-16 | Outpatient (CLI) | payer MEDICARE, OTHER ==
[~2019-09-16] MED LIST changes: -FLUO20CA19 PO; +FLUO20CA22 PO
--- NOTE | 2019-09-16 16:52 | REP ---
BILATERAL SCREENING DIGITAL MAMMOGRAM WITH 3D TOMOSYNTHESIS: There are no palpable abnormalities or other breast complaints. The the patient states she has not had a clinical breast examination over a year. The Tyrer-Cuzick Lifetime Breast Cancer Risk Score is: 9.2% . Comparison is 01/26/2015. There are scattered areas of fibroglandular density. There is no dominant mass, micro calcific cluster or architectural distortion that would indicate malignancy. There are benign calcifications. There are no additional findings on 3D tomosynthesiss. There is no change from the prior study. Impression: BIRADS/ACR category 2 mammogram. Benign findings. Recommendation: Routine annual screening mammography. This mammogram was interpreted with the aid of a FDA approved computer-aided detection system. A. Negative mammogram reports should not delay biopsy if a dominant or clinically suspicious mass is present. B. Not all breast cancers are identified by mammography or tomosynthesis. C. Adenosis and dense breasts may obscure an underlying neoplasm. Patient letter M1. Electronically Signed by Marcelino Pradhan MD 09/16/2019 04:43 P
== END ==
LOC: M WHC 14:38
PROVIDERS: ATTEND Internal Medicine Hematology
DX: Z12.31 Encounter for screening mammogram for malignant neoplasm of breast (principal)

== ENCOUNTER 2019-09-22 09:13 | Emergency (ER) | payer MEDICARE, OTHER ==
[~2019-09-22] VITALS: Ht 152.4 cm; Wt 96.7 kg
[2019-09-22] MEDS ORDERED: NS 1,000 ML IV ONE (09:30)
[2019-09-22] MEDS ORDERED: ZOFR4TAB16 PO (09:40)
[2019-09-22 10:12] LABS: BASO # 0.1 10^3/uL (0.0-0.2); BASO % 1.4 % (0.0-1.0); EOS # 0.2 10^3/uL (0.0-0.5); EOS % 2.7 % (0.0-3.0); HEMATOCRIT 41.3 % (36.0-47.0); HEMOGLOBIN 13.8 g/dl (12.0-15.5); LYMPH # 1.6 10^3/uL (1.5-5.0); LYMPH % 27.6 % (24.0-44.0); MEAN CORPUSCULAR HEMOGLOBIN 31.4 pg (27.0-33.0); MEAN CORPUSCULAR HGB CONC 33.4 g/dl (32.0-36.5); MEAN CORPUSCULAR VOLUME 94.1 fl (80.0-96.0); MONO # 0.6 10^3/uL (0.0-0.8); MONO % 10.1 % (0.0-5.0); NEUTROPHILS # 3.3 10^3/uL (1.5-8.5); NEUTROPHILS % 56.8 % (36.0-66.0); PLATELET COUNT, AUTOMATED 232 10^3/uL (150-450); RED BLOOD COUNT 4.39 10^6/uL (4.00-5.40); WHITE BLOOD COUNT 5.9 10^3/uL (4.0-10.0)
--- NOTE | 2019-09-22 10:30 | REP ---
CHEST, SINGLE VIEW: Single view of the chest is performed and compared to a [facility] study of 04/24/2017. There is no acute infiltrate or pulmonary edema. Cardiac silhouette is prominent and may be mildly enlarged. However, this could be due to technical factors. Mediastinal silhouette is unremarkable. Visualized osseous structures are unremarkable. IMPRESSION: Possible mild cardiomegaly. No acute infiltrate. Electronically Signed by Marcelino Ashford MD 09/22/2019 01:25 P
[2019-09-22 10:37] LABS: ALBUMIN 3.3 GM/DL (3.2-5.2); ALT/SGPT 43 U/L (12-78); BILIRUBIN,DIRECT 0.2 MG/DL (0.0-0.2); BILIRUBIN,TOTAL 0.5 MG/DL (0.2-1.0); BLOOD UREA NITROGEN 20 MG/DL (7-18); CALCIUM LEVEL 8.9 MG/DL (8.5-10.1); CARBON DIOXIDE LEVEL 26 MEQ/L (21-32); CHLORIDE LEVEL 104 MEQ/L (98-107); CPK CREATINE PHOSPHOKINASE 93 U/L (26-192); CREATININE FOR GFR 1.11 MG/DL (0.55-1.30); GLOMERULAR FILTRATION RATE 53.6 (>51); GLUCOSE, FASTING 102 MG/DL (70-100); MB/CK RELATIVE INDEX 1.08 (< OR =4); NT-PRO BNP 105 PG/ML (<125); POTASSIUM SERUM 4.7 MEQ/L (3.5-5.1); SODIUM LEVEL 136 MEQ/L (136-145); THYROXINE (T4) 8.5 UG/DL (4.5-12.0); TOTAL PROTEIN 6.9 GM/DL (6.4-8.2); TROPONIN I < 0.02 NG/ML (< 0.10)
[2019-09-22 10:55] LABS: INFLUENZA A AMPLIFICATION NEGATIVE (NEGATIVE); INFLUENZA B AMPLIFICATION NEGATIVE (NEGATIVE)
[2019-09-22] MEDS ORDERED: TRAZ-252 PO (14:23)
[2019-09-22 14:59] VITALS: BP 139/74
--- NOTE | 2019-09-22 20:48 | ECGEPIP ---
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
--- NOTE | 2019-09-23 08:24 | ED PDOC ---
Post-Departure Follow-Up cxr faxed to [facility] for follow up Jonnathan Day MD Sep 23, 2019 08:24
== END 2019-09-22 15:13 | disposition home or self-care (01) ==
LOC: M ED 09:13 → EDBD 09:13 → M ED 15:13
DX: G47.00 Insomnia, unspecified (principal); J02.9 Acute pharyngitis, unspecified; R05 Cough; I10 Essential (primary) hypertension; J45.909 Unspecified asthma, uncomplicated; F31.9 Bipolar disorder, unspecified; Z95.5 Presence of coronary angioplasty implant and graft; Z79.899 Other long term (current) drug therapy; Z79.82 Long term (current) use of aspirin; Z88.8 Allergy status to other drugs, medicaments and biological substances

== ENCOUNTER → 2019-10-10 | Outpatient (REF) | payer MEDICARE, OTHER ==
[~2019-10-10] MED LIST changes: +ZOFR4TAB16 PO
== END ==
LOC: M LAB REF 15:26
PROVIDERS: ATTEND Physician Assistant
DX: N39.0 Urinary tract infection, site not specified (principal)

== ENCOUNTER → 2020-02-05 | Outpatient (CLI) | payer MEDICARE, OTHER ==
[~2020-02-05] MED LIST changes: +CHOL1250 PO; +CYCL-707 PO; -CYCL10TA PO; -FLUO10CA15 PO; +FLUO10CA16 PO; +LAMI25TA PO; +PANT40TA29 PO; -PANT40TA3 PO
[2020-02-05 16:41] LABS: ALBUMIN 3.7 GM/DL (3.2-5.2); BILIRUBIN,TOTAL 0.6 MG/DL (0.2-1.0); CALCIUM LEVEL 9.9 MG/DL (8.5-10.1); CHOLESTEROL RISK RATIO 2.538 (<5); CREATININE FOR GFR 1.26 MG/DL (0.55-1.30); GLOMERULAR FILTRATION RATE 46.3 (>51); POTASSIUM SERUM 5.2 MEQ/L (3.5-5.1); TOTAL PROTEIN 7.6 GM/DL (6.4-8.2); URIC ACID 5.5 MG/DL (2.6-6.0)
[2020-02-05 16:43] LABS: BASO # 0.1 10^3/uL (0.0-0.2); BASO % 1.1 % (0.0-1.0); EOS # 0.1 10^3/uL (0.0-0.5); EOS % 2.2 % (0.0-3.0); HEMATOCRIT 45.5 % (36.0-47.0); HEMOGLOBIN 14.3 g/dl (12.0-15.5); LYMPH # 1.8 10^3/uL (1.5-5.0); LYMPH % 28.4 % (24.0-44.0); MEAN CORPUSCULAR HGB CONC 31.4 g/dl (32.0-36.5); MEAN CORPUSCULAR VOLUME 95.6 fl (80.0-96.0); MONO # 0.6 10^3/uL (0.0-0.8); MONO % 9.3 % (0.0-5.0); NEUTROPHILS # 3.7 10^3/uL (1.5-8.5); NEUTROPHILS % 57.6 % (36.0-66.0); PLATELET COUNT, AUTOMATED 269 10^3/uL (150-450); RED BLOOD COUNT 4.76 10^6/uL (4.00-5.40); WHITE BLOOD COUNT 6.4 10^3/uL (4.0-10.0)
[2020-02-05 20:24] LABS: HEMOGLOBIN A1c 5.7 %
== END ==
LOC: M WUC 12:26
PROVIDERS: ATTEND Physician Assistant
DX: E11.22 Type 2 diabetes mellitus with diabetic chronic kidney disease (principal); I12.0 Hypertensive chronic kidney disease with stage 5 chronic kidney disease or end stage renal disease; N18.5 Chronic kidney disease, stage 5; Z79.899 Other long term (current) drug therapy

== ENCOUNTER → 2020-05-25 | Outpatient (REF) | payer MEDICARE, OTHER ==
[~2020-05-25] MED LIST changes: -AMIT25TA PO; +AMIT25TA17 PO
[2020-05-25 15:38] LABS: BASO # 0.1 10^3/uL (0.0-0.2); BASO % 0.9 % (0.0-1.0); EOS # 0.2 10^3/uL (0.0-0.5); EOS % 3.1 % (0.0-3.0); HEMATOCRIT 42.9 % (36.0-47.0); HEMOGLOBIN 13.3 g/dl (12.0-15.5); LYMPH # 1.2 10^3/uL (1.5-5.0); LYMPH % 21.4 % (24.0-44.0); MEAN CORPUSCULAR HEMOGLOBIN 29.5 pg (27.0-33.0); MEAN CORPUSCULAR VOLUME 95.1 fl (80.0-96.0); MONO # 0.5 10^3/uL (0.0-0.8); MONO % 8.9 % (0.0-5.0); NEUTROPHILS # 3.7 10^3/uL (1.5-8.5); NEUTROPHILS % 64.1 % (36.0-66.0); PLATELET COUNT, AUTOMATED 247 10^3/uL (150-450); RED BLOOD COUNT 4.51 10^6/uL (4.00-5.40); WHITE BLOOD COUNT 5.8 10^3/uL (4.0-10.0)
[2020-05-25 16:10] LABS: ALBUMIN 3.4 GM/DL (3.2-5.2); BILIRUBIN,TOTAL 0.4 MG/DL (0.2-1.0); CALCIUM LEVEL 9.5 MG/DL (8.8-10.2); CREATININE FOR GFR 1.16 MG/DL (0.55-1.30); GLOMERULAR FILTRATION RATE 50.7 (>45); POTASSIUM SERUM 4.6 MEQ/L (3.5-5.1); TOTAL PROTEIN 7.2 GM/DL (6.4-8.2)
[2020-05-26 07:43] LABS: PERCENT SATURATION 20.7 % (13.2-45.0)
== END ==
LOC: M LAB REF 15:19
PROVIDERS: ATTEND Internal Medicine Hematology & Oncology
DX: D75.1 Secondary polycythemia (principal)

== ENCOUNTER → 2020-06-15 | Outpatient (CLI) | payer MEDICARE, OTHER ==
[~2020-06-15] MED LIST changes: +AMIT25TA PO; -AMIT25TA17 PO
--- NOTE | 2020-06-15 11:00 | REP ---
INDICATION: PAIN COMPARISON: None. TECHNIQUE: AP, lateral, bilateral oblique and sunrise views of the right and left knee. FINDINGS: Examination demonstrates advanced tricompartmental osteoarthritic degenerative changes (right greater than left) there is no evidence for acute fracture or dislocation. However, a small right suprapatellar effusion cannot be excluded and should be correlated with physical examination. IMPRESSION: 1. Early advanced tricompartmental osteoarthritic degenerative changes (right greater than left). 2. No evidence for acute fracture. 3. Small right suprapatellar effusion. <Electronically signed by Javi Carroll > 06/15/20 [id number]
== END ==
LOC: M WUC 10:22
PROVIDERS: ATTEND Physician Assistant
DX: M25.562 Pain in left knee (principal); M25.561 Pain in right knee

== ENCOUNTER → 2020-10-11 | Outpatient (CLI) | payer MEDICARE, OTHER ==
[~2020-10-11] MED LIST changes: -AMIT25TA PO; +AMIT25TA17 PO
[2020-10-11 16:15] LABS: BASO # 0.1 10^3/uL (0.0-0.2); EOS # 0.4 10^3/uL (0.0-0.5); EOS % 3.9 % (0.0-3.0); HEMATOCRIT 44.8 % (36.0-47.0); LYMPH # 1.6 10^3/uL (1.5-5.0); LYMPH % 17.8 % (24.0-44.0); MEAN CORPUSCULAR HEMOGLOBIN 30.2 pg (27.0-33.0); MEAN CORPUSCULAR HGB CONC 31.3 g/dl (32.0-36.5); MEAN CORPUSCULAR VOLUME 96.6 fl (80.0-96.0); MONO # 0.6 10^3/uL (0.0-0.8); MONO % 6.5 % (2.0-8.0); NEUTROPHILS # 6.2 10^3/uL (1.5-8.5); NEUTROPHILS % 68.7 % (36.0-66.0); PLATELET COUNT, AUTOMATED 250 10^3/uL (150-450); RED BLOOD COUNT 4.64 10^6/uL (4.00-5.40)
[2020-10-11 16:46] LABS: ALBUMIN 3.4 GM/DL (3.2-5.2); ALT/SGPT 51 U/L (12-78); BILIRUBIN,TOTAL 0.4 MG/DL (0.2-1.0); BLOOD UREA NITROGEN 16 MG/DL (7-18); CALCIUM LEVEL 9.5 MG/DL (8.8-10.2); CARBON DIOXIDE LEVEL 29 MEQ/L (21-32); CHLORIDE LEVEL 105 MEQ/L (98-107); CHOLESTEROL LEVEL 147 MG/DL (<200); CHOLESTEROL RISK RATIO 2.722 (<5); CREATININE FOR GFR 0.93 MG/DL (0.55-1.30); GLOMERULAR FILTRATION RATE > 60.0 (>45); GLUCOSE, FASTING 98 MG/DL (70-100); HDL CHOLESTEROL 54 MG/DL (>40); LDL CHOLESTEROL 63 MG/DL (<100); NON-HDL-C 93 MG/DL; POTASSIUM SERUM 4.5 MEQ/L (3.5-5.1); SODIUM LEVEL 141 MEQ/L (136-145); TRIGLYCERIDES LEVEL 152 MG/DL (<150)
[2020-10-11 16:48] LABS: CREATININE, URINE 79.9 MG/DL; MALB URINE SIEMENS 31.5 MG/L; MAU/CREAT RATIO 39.4 MCG/MG (0.0-30.0)
[2020-10-11 16:49] LABS: TOTAL 25(OH) VITAMIN D 61.2 NG/ML (30.0-100.0)
[2020-10-11 18:06] LABS: HEMOGLOBIN A1c 5.7 %
== END ==
LOC: M WUC 13:03
PROVIDERS: ATTEND Physician Assistant
DX: E11.22 Type 2 diabetes mellitus with diabetic chronic kidney disease (principal); Z79.899 Other long term (current) drug therapy

== ENCOUNTER 2020-12-10 17:30 | Emergency (ER) | payer MEDICARE, OTHER ==
[~2020-12-10] VITALS: Ht 154.9 cm; Wt 100.1 kg
[2020-12-10] MEDS ORDERED: ISOVUE-370 76% 100ML VIAL As Ordered ONE (20:58)
[2020-12-10 21:10] LABS: BASO # 0.1 10^3/uL (0.0-0.2); BASO % 0.4 % (0.0-1.0); EOS # 0.5 10^3/uL (0.0-0.5); EOS % 4.1 % (0.0-3.0); HEMATOCRIT 44.2 % (36.0-47.0); HEMOGLOBIN 14.3 g/dl (12.0-15.5); LYMPH # 2.5 10^3/uL (1.5-5.0); LYMPH % 20.2 % (24.0-44.0); MEAN CORPUSCULAR HEMOGLOBIN 30.9 pg (27.0-33.0); MEAN CORPUSCULAR HGB CONC 32.4 g/dl (32.0-36.5); MEAN CORPUSCULAR VOLUME 95.5 fl (80.0-96.0); MONO # 1.1 10^3/uL (0.0-0.8); MONO % 8.8 % (2.0-8.0); NEUTROPHILS # 8.1 10^3/uL (1.5-8.5); NEUTROPHILS % 65.7 % (36.0-66.0); PLATELET COUNT, AUTOMATED 248 10^3/uL (150-450); RED BLOOD COUNT 4.63 10^6/uL (4.00-5.40); WHITE BLOOD COUNT 12.3 10^3/uL (4.0-10.0)
[2020-12-10 21:34] LABS: ERYTHROCYTE SEDIMENTATION RATE 12 mm/hr (0-30)
[2020-12-10 21:36] LABS: ALBUMIN 3.4 GM/DL (3.2-5.2); BILIRUBIN,DIRECT 0.2 MG/DL (0.0-0.2); BILIRUBIN,TOTAL 0.7 MG/DL (0.2-1.0); C REACTIVE PROTEIN QUANTITATIV 6.81 MG/DL (0.00-0.30); FREE T4 1.11 NG/DL (0.76-1.46); THYROID STIMULATING HORMONE 2.75 uIU/ML (0.358-3.740); TOTAL PROTEIN 7.2 GM/DL (6.4-8.2)
--- NOTE | 2020-12-10 22:15 | REPVR ---
PROCEDURE INFORMATION: Exam: CT Neck With Contrast Exam date and time: 12/10/2020 9:05 PM Age: 60 years old Clinical indication: Mass, lump, or swelling in neck; Additional info: Globus sensation/tender swollen neck TECHNIQUE: Imaging protocol: Computed tomography images of the neck with contrast. Radiation optimization: All CT scans at this facility use at least one of these dose optimization techniques: automated exposure control; mA and/or kV adjustment per patient size (includes targeted exams where dose is matched to clinical indication); or iterative reconstruction. Contrast material: ISOVUE 370; Contrast volume: 75 ml; Contrast route: INTRAVENOUS (IV); COMPARISON: 1. CT Neck without contrast 2018-05-12 14:[address] Spine,cervical w/o contrast 2015-11-19 16:54 FINDINGS: Limitations: Dental amalgam artifact obscures the oral cavity and oral pharynx. Limited by patient's body habitus. Nasopharynx: Unremarkable. Oropharynx: Unremarkable. No significant tonsillar enlargement. Hypopharynx: Unremarkable. Larynx: Unremarkable. Normal epiglottis. Retropharyngeal space: Unremarkable. Submandibular/Parotid glands: Parotid gland fatty replacement. Thyroid: Normal. No enlarged or calcified nodules. Lymph nodes: Unremarkable. No lymphadenopathy. Trachea: Visualized trachea is unremarkable. Lungs: Unremarkable as visualized. Bones/joints: Unremarkable. No acute fracture. Soft tissues: Unremarkable. No significant soft tissue swelling. IMPRESSION: No acute findings. Electronically signed by: Carlos Alberto Archuleta On 12/10/2020 22:14:40 PM
[2020-12-10] MEDS ORDERED: LIDOCAINE VISCOUS 2% SOLN 15ML UDC SS ONE (22:50)
[2020-12-11] MEDS ORDERED: LIDO2SOL9 PO
[2020-12-11 00:24] VITALS: BP 133/84
== END 2020-12-11 00:29 | disposition home or self-care (01) ==
LOC: M ED 17:30
DX: K20.90 Esophagitis, unspecified without bleeding (principal); E11.9 Type 2 diabetes mellitus without complications; I10 Essential (primary) hypertension; K21.9 Gastro-esophageal reflux disease without esophagitis; J45.909 Unspecified asthma, uncomplicated; I25.2 Old myocardial infarction; Z88.8 Allergy status to other drugs, medicaments and biological substances; Z79.82 Long term (current) use of aspirin
CPT/HCPCS: 36415; 70491; 80047; 80076; 84439; 84443; 85025; 85652; 86140; 99283; Q9967

== ENCOUNTER → 2020-12-29 | Outpatient (CLI) | payer MEDICARE, OTHER ==
[~2020-12-29] MED LIST changes: +LIDO2SOL9 PO
== END ==
LOC: M LABSMTC 12:00
PROVIDERS: ATTEND Anesthesiology
DX: Z01.812 Encounter for preprocedural laboratory examination (principal); Z20.822 Contact with and (suspected) exposure to COVID-19

== ENCOUNTER 2021-01-03 13:20 | Day surgery (SDC) | payer MEDICARE, OTHER ==
[~2021-01-03] VITALS: Ht 154.9 cm; Wt 97.5 kg
[~2021-01-03 13:20] MED LIST changes: +NS 1,000 ML IV ONE
[2021-01-03] MEDS ORDERED: propofoL 200 MG/20 ML VIAL As Ordered ONE (14:53)
[2021-01-03] MEDS ORDERED: LIDOCAINE 2% 100MG/5ML SDV (FOR ANES.) As Ordered ONE (14:53)
--- NOTE | 2021-01-03 16:34 | ROOR ---
Patient Name: Janell Oscar Procedure Date: 01/03/2021 4:09 PM Date of : 1960 Age: 60 Room: [facility] Gender: Female Note Status: Finalized Procedure: Upper GI endoscopy + Balloon Dilatation Indications: Dysphagia Providers: Taqueria Stone MD Referring MD: Judith TOM DO Requesting Provider: Medicines: Monitored Anesthesia Care Complications: No immediate complications. Procedure: Pre-Anesthesia Assessment: - The heart rate, respiratory rate, oxygen saturations, blood pressure, adequacy of pulmonary ventilation, and response to care were monitored throughout the procedure. The Endoscope was introduced through the mouth, and advanced to the second part of duodenum. The upper GI endoscopy was accomplished without difficulty. The patient tolerated the procedure well. Findings: The Z-line was regular and was found 40 cm from the incisors. A TTS dilator was passed through the scope. Dilation with an 18-19-20 mm balloon dilator was performed to 20 mm. The dilation site was examined and showed no change. No other significant abnormalities were identified in a careful examination of the stomach. The exam of the duodenum was otherwise normal. Impression: - Z-line regular, 40 cm from the incisors. Dilated. - No specimens collected. - The examination was otherwise normal. Recommendation: - Patient has a contact number available for emergencies. The signs and symptoms of potential delayed complications were discussed with the patient. Return to normal activities tomorrow. Written discharge instructions were provided to the patient. - Resume previous diet. - Discharge patient to home. - Follow an antireflux regimen. - Continue present medications. - Return to referring physician. - The findings and recommendations were discussed with the patient's family. Procedure Code(s): --- Professional --- 65537, Esophagogastroduodenoscopy, flexible, transoral; with transendoscopic balloon dilation of esophagus (less than 30 mm diameter) Diagnosis Code(s): --- Professional --- R13.10, Dysphagia, unspecified CPT copyright 2019 [employer]. All rights reserved. The codes documented in this report are preliminary and upon pre coder review may be revised to meet current compliance requirements. Taqueria Stone MD Taqueria Stone MD 01/03/2021 4:34:10 PM Electronically signed by Taqueria Stone MD Number of Addenda: 0 Note Initiated On: 01/03/2021 4:09 PM Estimated Blood Loss: Estimated blood loss: none.
[2021-01-03 17:05] VITALS: BP 146/90
== END 2021-01-03 17:15 | disposition home or self-care (01) ==
LOC: M OPP 13:20
PROVIDERS: ATTEND Internal Medicine Gastroenterology
DX: R10.13 Epigastric pain (principal); Z95.5 Presence of coronary angioplasty implant and graft; I20.9 Angina pectoris, unspecified; K76.9 Liver disease, unspecified; Z79.82 Long term (current) use of aspirin; Z79.899 Other long term (current) drug therapy; Z88.8 Allergy status to other drugs, medicaments and biological substances

== ENCOUNTER → 2021-02-06 | Outpatient (CLI) | payer MEDICARE, OTHER ==
[~2021-02-06] MED LIST changes: -NS 1,000 ML IV ONE
--- NOTE | 2021-02-07 18:50 | SLEEPCENT ---
DATE: 02/06/2021 NOCTURNAL POLYSOMNOGRAPHY ORDERED BY: PRATIMA Maynard Nocturnal polysomnography was performed for the titration of pressure therapy in this patient with obstructive sleep apnea. For testing, a ResMed F30 full face mask of medium size was used, 4 cm of water pressure were applied to the circuit and the lights were extinguished. Eight hours and 33 minutes of data were reviewed. There were 288 minutes of sleep identified. Sleep latency was prolonged at 62.5 minutes. REM sleep was not achieved. Sleep architecture showed poor progression and periods of wake resulting in reduced sleep efficiency of 56.7%. The electrocardiogram showed a sinus rhythm with an average heart rate of 70 beats per minute. EEG showed coarsening in background waveforms possibly medication effect. No EEG abnormalities were appreciated and there were normal waveforms for wake and sleep. Respiratory events were felt best palliated with CPAP pressure of +9. Despite CPAP pressure of +9 hypoventilatory oxygen desaturations were seen prompting the addition of supplemental oxygen. Best overall sleep was seen on a CPAP pressure of 9 with 2 liters of oxygen bled through the system. There was some minor limb activity, only one train of 30 events. Limb movement arousal index was 6. IMPRESSION: Obstructive sleep apnea syndrome (G47.33). RECOMMENDATION: Nightly use of pressure therapy 9 cm of water with 2 liters of oxygen bled through the system.
== END ==
LOC: M SLEEP 20:00
PROVIDERS: ATTEND Nurse Practitioner Family
DX: G47.33 Obstructive sleep apnea (adult) (pediatric) (principal)

== ENCOUNTER → 2021-03-10 | Outpatient (CLI) | payer MEDICARE, OTHER ==
--- NOTE | 2021-03-10 10:53 | REP ---
INDICATION: OBSTRUCTIVE SLEEP APNEA COMPARISON: 09/22/2019 TECHNIQUE: PA and lateral. FINDINGS: The mediastinum and cardiac silhouette are normal. The lung lujan are clear and without acute consolidation, effusion, or pneumothorax. The skeletal structures are intact and normal. IMPRESSION: No acute cardiopulmonary process. If the patient remains/becomes symptomatic consider chest CT for further investigation. <Electronically signed by Javi Carroll > 03/10/21 1044
== END ==
LOC: M WUC 09:42
PROVIDERS: ATTEND Nurse Practitioner Family
DX: G47.33 Obstructive sleep apnea (adult) (pediatric) (principal)

== ENCOUNTER → 2021-03-29 | Outpatient (CLI) | payer MEDICARE, OTHER ==
[2021-03-29 19:47] LABS: BASO # 0.1 10^3/uL (0.0-0.2); BASO % 0.8 % (0.0-1.0); EOS # 0.4 10^3/uL (0.0-0.5); EOS % 5.9 % (0.0-3.0); HEMATOCRIT 42.1 % (36.0-47.0); HEMOGLOBIN 13.7 g/dl (12.0-15.5); LYMPH # 2.1 10^3/uL (1.5-5.0); MEAN CORPUSCULAR HEMOGLOBIN 32.2 pg (27.0-33.0); MEAN CORPUSCULAR HGB CONC 32.5 g/dl (32.0-36.5); MEAN CORPUSCULAR VOLUME 99.1 fl (80.0-96.0); MONO # 0.7 10^3/uL (0.0-0.8); MONO % 11.2 % (2.0-8.0); NEUTROPHILS # 3.3 10^3/uL (1.5-8.5); NEUTROPHILS % 49.3 % (36.0-66.0); PLATELET COUNT, AUTOMATED 211 10^3/uL (150-450); RED BLOOD COUNT 4.25 10^6/uL (4.00-5.40); WHITE BLOOD COUNT 6.6 10^3/uL (4.0-10.0)
[2021-03-29 19:59] LABS: ALBUMIN 3.3 GM/DL (3.2-5.2); BILIRUBIN,TOTAL 0.4 MG/DL (0.2-1.0); CALCIUM LEVEL 9.8 MG/DL (8.8-10.2); CREATININE FOR GFR 1.07 MG/DL (0.55-1.30); GLOMERULAR FILTRATION RATE 55.5 (>45); POTASSIUM SERUM 4.2 MEQ/L (3.5-5.1); THYROID STIMULATING HORMONE 1.96 uIU/ML (0.358-3.740)
[2021-03-29 20:02] LABS: HEMOGLOBIN A1c 5.7 %
[2021-03-29 20:15] LABS: CREATININE, URINE 77.5 MG/DL; MALB URINE SIEMENS 18.1 MG/L; MAU/CREAT RATIO 23.3 MCG/MG (0.0-30.0)
== END ==
LOC: M WUC 15:21
PROVIDERS: ATTEND Physician Assistant
DX: E11.22 Type 2 diabetes mellitus with diabetic chronic kidney disease (principal)

== ENCOUNTER → 2021-05-04 | Outpatient (CLI) | payer MEDICARE, OTHER ==
[2021-05-04 16:09] LABS: RHEUMATOID FACTOR QUANT < 10.0 IU/ML (<15.0)
[2021-05-04 16:18] LABS: FOLATE 6.8 NG/ML
[2021-05-05 11:33] LABS: VITAMIN B12 LEVEL > 2000 PG/ML
== END ==
LOC: M WUC 14:31
PROVIDERS: ATTEND Physician Assistant Medical
DX: G62.9 Polyneuropathy, unspecified (principal); R51.9 Headache, unspecified; M54.50 Low back pain, unspecified

== ENCOUNTER → 2021-05-11 | Outpatient (CLI) | payer MEDICARE, OTHER ==
--- NOTE | 2021-05-11 16:02 | REPMRS ---
Patient History The patient states she has not had a clinical breast exam in over a year. Family history of colorectal cancer at age 50 or over in maternal aunt. Reductions of both breasts, 1993. Took hormonal contraceptives for 5 years. Took unspecified hormones for 1 year. Patient states no breast complaints today. Patient has signed MRS History Sheet. Digital Woman Screen Mammo: May 11, 2021 - Exam #: [id number] Bilateral CC and MLO view(s) were taken. Technologist: Chaparrita Wayne, Children Teacher Prior study comparison: September 16, 2019, bilateral digital woman screen mammo performed at [facility]. February 14, 2017, digital woman screen mammo performed at [facility]. FINDINGS: There are scattered fibroglandular densities. Screening. Digital screening (2D) mammography was performed bilaterally in the CC and MLO projections. Additionally, breast tomosynthesis (3D mammography) was performed bilaterally in the CC and MLO projections. Todays exam was compared to the prior exam/exams. By history, the patient has no complaints of a palpable breast abnormality or other significant breast complaints. The breasts are unchanged in size and shape. There are no nic-soft tissue densities or spiculated masses. There is no internal architectural distortion. Once again, stable benign appearing calcifications are seen.There are no suspicious nic-calcific clusters. Skin thickening or nipple retraction is not present. IMPRESSION: BI-RADS Category 2- Benign Findings. There is no evidence of malignant alteration of the breasts. Followup examination recommended in one year. The Volpara volumetric breast density category is B, there are scattered areas of fibroglandular densities. This mammogram was read with the assistance of [employer],an FDA approved computer aided detection system for mammography. The lifetime Tyrer-Cuzick score is 8.6 % Negative x-ray reports should not delay surgical consultation if a dominant or clinically suspicious mass is present. Not all breast cancers can be identified by mammography. Therefore, we recommend that you continue to perform regular breast self-examination and physical examination and then promptly contact your physician of any concerns or changes. Adenosis and dense breasts may obscure an underlying neoplasm. Assessment: BI-RADS/ACR category 2 mammogram. Benign Findings. Recommendation Routine screening mammogram of both breasts in 1 year. Electronically Signed By: Chidi Cee DO 05/11/21 [id number]
== END ==
LOC: M WHC 14:59
PROVIDERS: ATTEND Physician Assistant
DX: Z12.31 Encounter for screening mammogram for malignant neoplasm of breast (principal); Z98.890 Other specified postprocedural states; Z92.0 Personal history of contraception; Z92.29 Personal history of other drug therapy; R92.1 Mammographic calcification found on diagnostic imaging of breast

== ENCOUNTER → 2021-05-19 | Outpatient (REF) | payer MEDICARE, OTHER | LOC: M LAB REF 17:47 | PROVIDERS: ATTEND Nurse Practitioner Family | DX: E83.42 Hypomagnesemia (principal) ==

== ENCOUNTER 2021-06-14 09:11 | Emergency (ER) | payer MEDICARE, OTHER ==
[~2021-06-14] VITALS: Ht 154.9 cm; Wt 98.2 kg
[~2021-06-14 09:11] MED LIST changes: -FLUO10CA16 PO; +FLUO10CA18 PO; -LATU40TA; +LATU40TA2
[2021-06-14] MEDS ORDERED: MAGN400T33 PO (09:47)
[2021-06-14] MEDS ORDERED: CLON1TAB8 PO (09:47)
[2021-06-14] MEDS ORDERED: ACET1TAB55 PO (09:47)
[2021-06-14] MEDS ORDERED: PHAR25CA (09:47)
[2021-06-14] MEDS ORDERED: NYST10CR (09:47)
[2021-06-14] MEDS ORDERED: D31000TA2 PO (09:47)
[2021-06-14] MEDS ORDERED: KETO2CR (09:47)
[2021-06-14] MEDS ORDERED: GABA-1171 PO (09:47)
[2021-06-14] MEDS ORDERED: MECL1TAB31 PO (09:47)
[2021-06-14] MEDS ORDERED: FAMO40TA3 PO (09:47)
[2021-06-14] MEDS ORDERED: DIPH25TA61 PO (09:47)
[2021-06-14] MEDS ORDERED: ARIP1TAB4 PO (09:47)
[2021-06-14] MEDS ORDERED: B-122500 PO (09:47)
[2021-06-14 10:27] LABS: BASO # 0.1 10^3/uL (0.0-0.2); BASO % 0.7 % (0.0-1.0); EOS # 0.1 10^3/uL (0.0-0.5); EOS % 1.4 % (0.0-3.0); HEMATOCRIT 42.8 % (36.0-47.0); LYMPH # 1.7 10^3/uL (1.5-5.0); MEAN CORPUSCULAR HEMOGLOBIN 32.7 pg (27.0-33.0); MEAN CORPUSCULAR HGB CONC 32.7 g/dl (32.0-36.5); MONO # 0.8 10^3/uL (0.0-0.8); MONO % 10.4 % (2.0-8.0); NEUTROPHILS # 4.6 10^3/uL (1.5-8.5); NEUTROPHILS % 63.4 % (36.0-66.0); PLATELET COUNT, AUTOMATED 216 10^3/uL (150-450); RED BLOOD COUNT 4.28 10^6/uL (4.00-5.40); WHITE BLOOD COUNT 7.3 10^3/uL (4.0-10.0)
[2021-06-14 10:48] LABS: CK-MB VALUE MASS 1.8 NG/ML (<3.6); MB/CK RELATIVE INDEX 2.04 (< OR =4)
[2021-06-14 10:54] LABS: ACETAMINOPHEN LEVEL < 2.0 UG/ML (10.0-30.0); BLOOD UREA NITROGEN 9 MG/DL (7-18); CALCIUM LEVEL 9.3 MG/DL (8.8-10.2); CARBON DIOXIDE LEVEL 28 MEQ/L (21-32); CHLORIDE LEVEL 108 MEQ/L (98-107); CREATININE FOR GFR 0.86 MG/DL (0.55-1.30); ETHYL ALCOHOL (ETHANOL) < 0.003 % (0.000-0.010); FREE T4 1.09 NG/DL (0.76-1.46); GLOMERULAR FILTRATION RATE > 60.0 (>45); GLUCOSE, FASTING 110 MG/DL (70-100); POTASSIUM SERUM 3.5 MEQ/L (3.5-5.1); SALICYLATE LEVEL 1.8 MG/DL (5.0-30.0); SODIUM LEVEL 143 MEQ/L (136-145)
[2021-06-14 11:10] LABS: BILIRUBIN,DIRECT 0.2 MG/DL (0.0-0.2); BILIRUBIN,TOTAL 0.4 MG/DL (0.2-1.0); THYROID STIMULATING HORMONE 0.955 uIU/ML (0.358-3.740); TOTAL PROTEIN 6.8 GM/DL (6.4-8.2)
[2021-06-14 12:20] LABS: AMPHETAMINES LEVEL URINE NEGATIVE (NEGATIVE); BARBITURATES URINE POSITIVE (NEGATIVE); BENZODIAZEPINES URINE NEGATIVE (NEGATIVE); CANNABINOIDS URINE NEGATIVE (NEGATIVE); COCAINE METABOLITE URINE NEGATIVE (NEGATIVE); METHADONE URINE NEGATIVE (NEGATIVE); OPIATES URINE NEGATIVE (NEGATIVE); PHENCYCLIDINE URINE NEGATIVE (NEGATIVE)
[2021-06-14 14:09] VITALS: BP 160/102
== END 2021-06-14 16:28 | disposition home or self-care (01) ==
LOC: M ED 09:11 → EDBD 09:11 → M ED 16:28
DX: F43.21 Adjustment disorder with depressed mood (principal); F41.9 Anxiety disorder, unspecified; T42.4X1A Poisoning by benzodiazepines, accidental (unintentional), initial encounter; Y92.89 Other specified places as the place of occurrence of the external cause; I10 Essential (primary) hypertension; J45.909 Unspecified asthma, uncomplicated; F31.9 Bipolar disorder, unspecified; I25.2 Old myocardial infarction; E28.2 Polycystic ovarian syndrome; M10.9 Gout, unspecified; Z95.1 Presence of aortocoronary bypass graft; Z95.5 Presence of coronary angioplasty implant and graft; Z88.8 Allergy status to other drugs, medicaments and biological substances; Z79.899 Other long term (current) drug therapy; Z79.82 Long term (current) use of aspirin; Z79.01 Long term (current) use of anticoagulants

== ENCOUNTER 2021-06-15 10:20 | Emergency (ER) | payer MEDICARE, OTHER ==
[~2021-06-15] VITALS: Ht 154.9 cm; Wt 98.2 kg
[~2021-06-15 10:20] MED LIST changes: +ACET1TAB55 PO; +ARIP1TAB4 PO; +B-122500 PO; +CLON1TAB8 PO; +D31000TA2 PO; +DIPH25TA61 PO; +FAMO40TA3 PO; +GABA-1171 PO; +KETO2CR; +MAGN400T33 PO; +MECL1TAB31 PO; +NYST10CR; +PHAR25CA
[2021-06-15 12:52] LABS: BASO # 0.1 10^3/uL (0.0-0.2); BASO % 0.8 % (0.0-1.0); EOS # 0.1 10^3/uL (0.0-0.5); HEMATOCRIT 43.4 % (36.0-47.0); HEMOGLOBIN 14.3 g/dl (12.0-15.5); LYMPH # 1.7 10^3/uL (1.5-5.0); LYMPH % 22.1 % (24.0-44.0); MEAN CORPUSCULAR HEMOGLOBIN 32.9 pg (27.0-33.0); MEAN CORPUSCULAR HGB CONC 32.9 g/dl (32.0-36.5); MEAN CORPUSCULAR VOLUME 99.8 fl (80.0-96.0); MONO # 0.8 10^3/uL (0.0-0.8); MONO % 9.9 % (2.0-8.0); NEUTROPHILS % 65.5 % (36.0-66.0); PLATELET COUNT, AUTOMATED 229 10^3/uL (150-450); RED BLOOD COUNT 4.35 10^6/uL (4.00-5.40); WHITE BLOOD COUNT 7.7 10^3/uL (4.0-10.0)
[2021-06-15 13:02] LABS: HCG, SERUM QUALITATIVE NEGATIVE (NEGATIVE)
[2021-06-15 13:18] LABS: ACETAMINOPHEN LEVEL < 2.0 UG/ML (10.0-30.0); ETHYL ALCOHOL (ETHANOL) 0.005 % (0.000-0.010); SALICYLATE LEVEL < 1.7 MG/DL (5.0-30.0)
[2021-06-15 13:42] LABS: AMPHETAMINES LEVEL URINE NEGATIVE (NEGATIVE); BARBITURATES URINE POSITIVE (NEGATIVE); BENZODIAZEPINES URINE NEGATIVE (NEGATIVE); CANNABINOIDS URINE NEGATIVE (NEGATIVE); COCAINE METABOLITE URINE NEGATIVE (NEGATIVE); METHADONE URINE NEGATIVE (NEGATIVE); OPIATES URINE NEGATIVE (NEGATIVE); PHENCYCLIDINE URINE NEGATIVE (NEGATIVE)
[2021-06-15 15:18] LABS: ALBUMIN 3.2 GM/DL (3.2-5.2); ALT/SGPT 32 U/L (12-78); BILIRUBIN,TOTAL 0.6 MG/DL (0.2-1.0); BLOOD UREA NITROGEN 10 MG/DL (7-18); CALCIUM LEVEL 9.6 MG/DL (8.8-10.2); CARBON DIOXIDE LEVEL 27 MEQ/L (21-32); CHLORIDE LEVEL 105 MEQ/L (98-107); CREATININE FOR GFR 0.88 MG/DL (0.55-1.30); GLOMERULAR FILTRATION RATE > 60.0 (>45); GLUCOSE, FASTING 106 MG/DL (70-100); POTASSIUM SERUM 3.8 MEQ/L (3.5-5.1); SODIUM LEVEL 142 MEQ/L (136-145); TOTAL PROTEIN 7.1 GM/DL (6.4-8.2)
[2021-06-15 18:27] VITALS: BP 135/79
== END 2021-06-15 18:33 | disposition home or self-care (01) ==
LOC: M ED 10:20
DX: F41.9 Anxiety disorder, unspecified (principal); E11.9 Type 2 diabetes mellitus without complications; F31.9 Bipolar disorder, unspecified; F33.9 Major depressive disorder, recurrent, unspecified; F42.9 Obsessive-compulsive disorder, unspecified; G47.00 Insomnia, unspecified; I25.2 Old myocardial infarction; Z95.5 Presence of coronary angioplasty implant and graft; Z79.899 Other long term (current) drug therapy; Z79.82 Long term (current) use of aspirin; Z79.01 Long term (current) use of anticoagulants; Z88.8 Allergy status to other drugs, medicaments and biological substances

== ENCOUNTER → 2021-07-19 | Outpatient (REF) | payer MEDICARE, OTHER | LOC: M LAB REF 17:20 | PROVIDERS: ATTEND Nurse Practitioner Family | DX: E83.42 Hypomagnesemia (principal) ==

== ENCOUNTER → 2021-07-25 | Outpatient (CLI) | payer MEDICARE, OTHER ==
[~2021-07-25] MED LIST changes: +FLUO10CA16 PO; -FLUO10CA18 PO; +ISOVUE-370 76% 100ML VIAL As Ordered ONE; +LATU40TA; -LATU40TA2
--- NOTE | 2021-07-25 16:19 | REP ---
INDICATION: GROSS HEMATURIA. COMPARISON: Multiple TECHNIQUE: Standard helical technique after the intravenous administration of 100 cc Isovue 370. FINDINGS: The lung bases are clear and unchanged. The liver, spleen, pancreas, adrenal glands, and right kidney are within normal limits and unchanged. In the lateral cortex of the interpolar region of the left kidney there is a 1 cm sized low-density structure which is too small for precise CT evaluation but does not appear to have enhancing characteristics. The left kidney is otherwise unremarkable. The abdominal aorta and para-aortic regions are within normal limits. There is no significant change in appearance of the bowel loops or the mesenteries. Scattered colonic diverticula are noted status quo. There is no evidence of free fluid or free air. There is no evidence of a mass or adenopathy. MIP reformatted CT urogram shows no evidence of a definite focal renal collecting system filling defect. Delayed imaging through the urinary bladder shows no evidence of a urinary bladder filling defect. IMPRESSION: Probable simple left renal cyst as described above, however, secondary to its small size I would recommend a 3 month follow-up. <Electronically signed by Chidi Cee > 07/25/21 0165
== END ==
LOC: M RAD 14:31
PROVIDERS: ATTEND Nurse Practitioner Family
DX: R31.0 Gross hematuria (principal)
CPT/HCPCS: 74177; Q9967

== ENCOUNTER → 2021-11-26 | Outpatient (CLI) | payer MEDICARE, OTHER ==
[~2021-11-26] MED LIST changes: +ALLO100T PO; +D 50CAP2 PO; -D31000TA2 PO; +FLON1SPR NARES; -FLUO10CA16 PO; +FLUO10CA18 PO; +HYDR-3363 PO; -ISOVUE-370 76% 100ML VIAL As Ordered ONE; -LATU40TA; +LATU40TA2; -NYST10CR; +NYST10CR TOP; +REPA140I2 SC; +REXU1TAB2 PO; +VIIB10TA PO; +VITA100093 PO
== END ==
LOC: M LABSMTC 09:03
PROVIDERS: ATTEND Anesthesiology
DX: Z11.52 Encounter for screening for COVID-19 (principal); Z20.822 Contact with and (suspected) exposure to COVID-19

== ENCOUNTER 2021-12-01 07:52 | Day surgery (SDC) | payer MEDICARE, OTHER ==
[~2021-12-01] VITALS: Ht 144.8 cm; Wt 100.2 kg
[~2021-12-01 07:52] MED LIST changes: +LR 1,000 ML IV ONE
[2021-12-01] MEDS ORDERED: propofoL 200 MG/20 ML VIAL As Ordered ONE (08:51)
[2021-12-01] MEDS ORDERED: MIDAZOLAM INJ 2MG/2ML VIAL (J2250 PER 1MG) As Ordered ONE (08:51)
[2021-12-01] MEDS ORDERED: fentaNYL 100 MCG/2 ML INJECTION As Ordered ONE (08:51)
[2021-12-01] MEDS ORDERED: LIDOCAINE 2% 100MG/5ML SDV (FOR ANES.) As Ordered ONE (08:51)
[2021-12-01] MEDS ORDERED: ROCURONIUM BROMIDE 50 MG/5 ML VIAL As Ordered ONE ×2 (10:37→12:51)
[2021-12-01] MEDS ORDERED: METOCLOPRAMIDE INJ 10MG/2ML VIAL (J2765 PER 1) As Ordered ONE (11:41)
[2021-12-01] MEDS ORDERED: KETOROLAC 60MG 2ML VIAL As Ordered ONE (11:41)
[2021-12-01] MEDS ORDERED: dexameTHASONE 4 MG/ML 1ML VIAL (J1100 PER 1MG) As Ordered ONE (11:41)
[2021-12-01] MEDS ORDERED: diphenhydrAMINE 50MG/ML VIAL (J1200) As Ordered ONE (11:41)
[2021-12-01] MEDS ORDERED: ACETAMINOPHEN 1000MG 100ML IV BTL (OFIRMEV) (J0131 PER 10MG) As Ordered ONE (11:43)
[2021-12-01] MEDS ORDERED: SUGAMMADEX SODIUM 500 MG/5 ML VIAL (BRIDION) As Ordered ONE (11:46)
[2021-12-01] MEDS ORDERED: fentaNYL 250 MCG/5 ML INJECTION As Ordered ONE (12:53)
[2021-12-01] MEDS ORDERED: MEPERIDINE INJ 25 MG/ML VIAL (J2175) IV PRN (14:00)
[2021-12-01] MEDS ORDERED: oxyCODONE 5MG TAB PO PRN (14:00)
[2021-12-01] MEDS ORDERED: LR 1,000 ML IV SCH ×2 (14:00→14:05)
[2021-12-01] MEDS ORDERED: fentaNYL 100 MCG/2 ML INJECTION IV PRN (14:00)
[2021-12-01] MEDS ORDERED: IBUPROFEN 600MG TAB PO PRN (14:05)
[2021-12-01 15:30] VITALS: BP 144/95
[2021-12-01 16:00] VITALS: BP 147/93
[2021-12-01 16:30] VITALS: BP 148/96
[2021-12-01 17:30] VITALS: BP 150/93
[2021-12-01 18:30] VITALS: BP 146/89
[2021-12-01] MEDS: NORCO, ANEXSIA 5/325MG TABLET (HYDROcodone/ACETAMINOPHEN) PO PRN ×2 (18:55→23:51)
[2021-12-01 20:28] VITALS: BP 147/94
[2021-12-02 00:30] VITALS: BP 144/92
[2021-12-02 04:30] VITALS: BP 159/93
[2021-12-02] MEDS: NORCO, ANEXSIA 5/325MG TABLET (HYDROcodone/ACETAMINOPHEN) PO PRN (06:51)
[2021-12-02 08:50] VITALS: BP 130/76
[2021-12-03] MEDS ORDERED: CLAR10CA3 PO (21:08)
== END 2021-12-02 12:25 | disposition home or self-care (01) ==
LOC: M SDC 07:52 → M MS5PR 15:15 → M SDC 12-02 12:25
PROVIDERS: ATTEND Obstetrics & Gynecology
DX: N95.0 Postmenopausal bleeding (principal); N85.8 Other specified noninflammatory disorders of uterus; R93.2 Abnormal findings on diagnostic imaging of liver and biliary tract; I13.10 Hypertensive heart and chronic kidney disease without heart failure, with stage 1 through stage 4 chronic kidney disease, or unspecified chronic kidney disease; J45.909 Unspecified asthma, uncomplicated; E78.2 Mixed hyperlipidemia; E11.22 Type 2 diabetes mellitus with diabetic chronic kidney disease; G43.909 Migraine, unspecified, not intractable, without status migrainosus; K76.9 Liver disease, unspecified; K21.00 Gastro-esophageal reflux disease with esophagitis, without bleeding; I25.2 Old myocardial infarction; D45 Polycythemia vera; M51.9 Unspecified thoracic, thoracolumbar and lumbosacral intervertebral disc disorder; M19.90 Unspecified osteoarthritis, unspecified site; F42.9 Obsessive-compulsive disorder, unspecified; F31.81 Bipolar II disorder; Z86.73 Personal history of transient ischemic attack (TIA), and cerebral infarction without residual deficits; R32 Unspecified urinary incontinence; G47.33 Obstructive sleep apnea (adult) (pediatric); N18.30 Chronic kidney disease, stage 3 unspecified; I25.119 Atherosclerotic heart disease of native coronary artery with unspecified angina pectoris; Z79.899 Other long term (current) drug therapy; Z79.02 Long term (current) use of antithrombotics/antiplatelets; Z79.82 Long term (current) use of aspirin
CPT/HCPCS: 49320; 57505; 58555; 88305; 96360; 96361; J0131; J1200; J1885; J2250; J2765; J3010

== ENCOUNTER 2021-12-03 13:26 | Emergency (ER) | payer MEDICARE, OTHER ==
[~2021-12-03] VITALS: Ht 149.9 cm; Wt 100.6 kg
[~2021-12-03 13:26] MED LIST changes: -LR 1,000 ML IV ONE
[2021-12-03 17:48] LABS: BASO # 0.1 10^3/uL (0.0-0.2); BASO % 0.9 % (0.0-1.0); EOS # 0.2 10^3/uL (0.0-0.5); EOS % 1.7 % (0.0-3.0); HEMATOCRIT 43.2 % (36.0-47.0); HEMOGLOBIN 14.2 g/dl (12.0-15.5); LYMPH # 2.4 10^3/uL (1.5-5.0); LYMPH % 25.9 % (24.0-44.0); MEAN CORPUSCULAR HEMOGLOBIN 30.6 pg (27.0-33.0); MEAN CORPUSCULAR HGB CONC 32.9 g/dl (32.0-36.5); MEAN CORPUSCULAR VOLUME 93.1 fl (80.0-96.0); MONO # 0.9 10^3/uL (0.0-0.8); MONO % 9.2 % (2.0-8.0); NEUTROPHILS # 5.6 10^3/uL (1.5-8.5); NEUTROPHILS % 60.9 % (36.0-66.0); PLATELET COUNT, AUTOMATED 197 10^3/uL (150-450); RED BLOOD COUNT 4.64 10^6/uL (4.00-5.40); WHITE BLOOD COUNT 9.3 10^3/uL (4.0-10.0)
[2021-12-03] MEDS ORDERED: ACETAMINOPHEN 325 MG TAB PO ONE (17:50)
[2021-12-03 18:15] LABS: BLOOD UREA NITROGEN 8 MG/DL (7-18); CARBON DIOXIDE LEVEL 31 MEQ/L (21-32); CHLORIDE LEVEL 105 MEQ/L (98-107); CREATININE FOR GFR 0.98 MG/DL (0.55-1.30); GLOMERULAR FILTRATION RATE > 60.0 (>45); GLUCOSE, FASTING 79 MG/DL (70-100); POTASSIUM SERUM 4.1 MEQ/L (3.5-5.1); SODIUM LEVEL 141 MEQ/L (136-145)
[2021-12-03 18:16] LABS: CALCIUM LEVEL 9.8 MG/DL (8.8-10.2)
[2021-12-03] MEDS ORDERED: CLAR10CA3 PO (21:08)
[2021-12-03 21:28] VITALS: BP 166/92
== END 2021-12-03 21:30 | disposition home or self-care (01) ==
LOC: M ED 13:26
DX: G89.18 Other acute postprocedural pain (principal); R10.9 Unspecified abdominal pain; R11.0 Nausea; R19.7 Diarrhea, unspecified; J32.9 Chronic sinusitis, unspecified; Z79.82 Long term (current) use of aspirin; Z79.899 Other long term (current) drug therapy

== ENCOUNTER 2021-12-11 12:57 | Emergency (ER) | payer MEDICARE, OTHER ==
[~2021-12-11] VITALS: Ht 149.9 cm; Wt 95.5 kg
[~2021-12-11 12:57] MED LIST changes: +CLAR10CA3 PO
[2021-12-11] MEDS ORDERED: MAGN400T33 (13:25)
[2021-12-11] MEDS ORDERED: BUTA-198 (13:25)
[2021-12-11] MEDS ORDERED: NORCO, ANEXSIA 5/325MG TABLET (HYDROcodone/ACETAMINOPHEN) PO ONE (15:30)
[2021-12-11] MEDS ORDERED: HYDR-3713 PO (15:48)
[2021-12-11 16:07] VITALS: BP 176/96
== END 2021-12-11 16:09 | disposition home or self-care (01) ==
LOC: M ED 12:57
DX: M95.8 Other specified acquired deformities of musculoskeletal system (principal)

== ENCOUNTER → 2022-01-11 | Outpatient (CLI) | payer MEDICARE, OTHER ==
[~2022-01-11] MED LIST changes: +BUTA-198; +HYDR-3713 PO; +MAGN400T33
== END ==
LOC: M WHC 14:04
PROVIDERS: ATTEND Physician Assistant
DX: M85.80 Other specified disorders of bone density and structure, unspecified site (principal); Z78.0 Asymptomatic menopausal state

== ENCOUNTER 2022-03-23 13:46 | Emergency (ER) | payer MEDICARE, OTHER ==
[~2022-03-23] VITALS: Ht 154.9 cm; Wt 102.3 kg
[~2022-03-23 13:46] MED LIST changes: -BUTA-198; +BUTA-198 PO; -MAGN400T33; +NYST-13 TOP; -NYST10CR TOP
[2022-03-23] MEDS ORDERED: DIAZ2TAB PO (14:09)
[2022-03-23] MEDS ORDERED: diazePAM 2 MG TAB PO ONE (14:15)
[2022-03-23 18:48] LABS: HEMOGLOBIN 15.6 g/dl (12.0-15.5); MEAN CORPUSCULAR HGB CONC 32.5 g/dl (32.0-36.5); MEAN CORPUSCULAR VOLUME 95.2 fl (80.0-96.0); PLATELET COUNT, AUTOMATED 294 10^3/uL (150-450); RED BLOOD COUNT 5.04 10^6/uL (4.00-5.40); WHITE BLOOD COUNT 9.6 10^3/uL (4.0-10.0)
[2022-03-23] MEDS ORDERED: FIORICET TAB PO ONE (19:00)
[2022-03-23 19:17] LABS: AMPHETAMINES LEVEL URINE NEGATIVE (NEGATIVE); BARBITURATES URINE POSITIVE (NEGATIVE); BENZODIAZEPINES URINE POSITIVE (NEGATIVE); CANNABINOIDS URINE NEGATIVE (NEGATIVE); COCAINE METABOLITE URINE NEGATIVE (NEGATIVE); METHADONE URINE NEGATIVE (NEGATIVE); OPIATES URINE NEGATIVE (NEGATIVE); PHENCYCLIDINE URINE NEGATIVE (NEGATIVE)
[2022-03-23 19:25] LABS: RSV AMPLIFICATION NEGATIVE (NEGATIVE)
[2022-03-23 19:48] LABS: ACETAMINOPHEN LEVEL < 2.0 UG/ML (10.0-30.0); ALBUMIN 3.8 GM/DL (3.2-5.2); ALT/SGPT 30 U/L (12-78); BILIRUBIN,DIRECT 0.3 MG/DL (0.0-0.2); BILIRUBIN,TOTAL 0.8 MG/DL (0.2-1.0); BLOOD UREA NITROGEN 11 MG/DL (7-18); CALCIUM LEVEL 9.8 MG/DL (8.8-10.2); CARBON DIOXIDE LEVEL 23 MEQ/L (21-32); CHLORIDE LEVEL 104 MEQ/L (98-107); CREATININE FOR GFR 0.89 MG/DL (0.55-1.30); ETHYL ALCOHOL (ETHANOL) 0.005 % (0.000-0.010); GLOMERULAR FILTRATION RATE > 60.0 (>45); GLUCOSE, FASTING 84 MG/DL (70-100); POTASSIUM SERUM 4.7 MEQ/L (3.5-5.1); SALICYLATE LEVEL < 1.7 MG/DL (5.0-30.0); SODIUM LEVEL 137 MEQ/L (136-145); TOTAL PROTEIN 7.3 GM/DL (6.4-8.2)
[2022-03-23] MEDS ORDERED: LORA-674 PO (20:57)
[2022-03-23] MEDS ORDERED: HYDR-3713 PO (20:57)
[2022-03-23] MEDS ORDERED: CALC1CAP31 PO (20:57)
[2022-03-23] MEDS ORDERED: HYDR-3363 PO (20:57)
[2022-03-23] MEDS ORDERED: FLUO-96 PO (20:57)
[2022-03-23] MEDS ORDERED: HOME MED LIST COMPLETE! XX SCH (21:00)
[2022-03-24] MEDS ORDERED: ACETAMINOPHEN TAB 650MG DOSE (2X325MG) PO ONE ×2 (00:55→08:15)
[2022-03-24] MEDS ORDERED: traZODone 50 MG TAB PO ONE (00:55)
[2022-03-24] MEDS ORDERED: diazePAM 2 MG TAB PO ONE (07:40)
[2022-03-24] MEDS ORDERED: busPIRone 10 MG TAB PO SCH (08:35)
[2022-03-24 08:43] LABS: CK-MB VALUE MASS 2.8 NG/ML (<3.6); MB/CK RELATIVE INDEX 3.73 (< OR =4)
[2022-03-24] MEDS: ASPIRIN 81 MG CHEW TABLET PO SCH (08:46)
[2022-03-24] MEDS: CLOPIDOGREL 75 MG TAB PO SCH (08:46)
[2022-03-24] MEDS: PANTOPRAZOLE 40MG TAB (PROTONIX) PO SCH (08:47)
[2022-03-24] MEDS: FLUoxetine 20MG CAP PO SCH (08:48)
[2022-03-24] MEDS: CARVedilol 12.5 MG TAB PO SCH ×2 (08:48→21:50)
[2022-03-24] MEDS ORDERED: busPIRone 10 MG TAB PO PRN (08:58)
[2022-03-24 10:05] LABS: CK-MB VALUE MASS 2.9 NG/ML (<3.6); MB/CK RELATIVE INDEX 1.02 (< OR =4)
[2022-03-24 12:28] LABS: CK-MB VALUE MASS 2.6 NG/ML (<3.6); MB/CK RELATIVE INDEX 3.29 (< OR =4)
[2022-03-24] MEDS: RANOLAZINE 500 MG ER TAB PO SCH ×2 (12:47→23:06)
[2022-03-24] MEDS: MAGNESIUM OXIDE 400MG TAB (MAG-OX) PO SCH (21:49)
[2022-03-24] MEDS: allopurinoL 100 MG TAB PO SCH (21:49)
[2022-03-25] MEDS: CARVedilol 12.5 MG TAB PO SCH ×2 (08:41→20:55)
[2022-03-25] MEDS: ASPIRIN 81 MG CHEW TABLET PO SCH (08:41)
[2022-03-25] MEDS: FLUoxetine 20MG CAP PO SCH (08:42)
[2022-03-25] MEDS: CLOPIDOGREL 75 MG TAB PO SCH (08:42)
[2022-03-25] MEDS: PANTOPRAZOLE 40MG TAB (PROTONIX) PO SCH (08:42)
[2022-03-25] MEDS ORDERED: diazePAM 2 MG TAB PO PRN (08:50)
[2022-03-25] MEDS ORDERED: FIORICET TAB PO PRN (08:50)
[2022-03-25] MEDS ORDERED: busPIRone 10 MG TAB PO PRN (09:00)
[2022-03-25] MEDS ORDERED: GABAPENTIN 100 MG CAP PO PRN (09:10)
[2022-03-25] MEDS: RANOLAZINE 500 MG ER TAB PO SCH ×2 (09:42→20:56)
[2022-03-25] MEDS: INSULIN LISPRO (NovoLOG) PER UNIT SC SCH ×2 (12:00→17:30)
[2022-03-25] MEDS: MAGNESIUM OXIDE 400MG TAB (MAG-OX) PO SCH (20:55)
[2022-03-25] MEDS: allopurinoL 100 MG TAB PO SCH (20:55)
[2022-03-25] MEDS: NYSTATIN CREAM 15GM TOP SCH (20:56)
[2022-03-26] MEDS: ASPIRIN 81 MG CHEW TABLET PO SCH (08:55)
[2022-03-26] MEDS: INSULIN LISPRO (NovoLOG) PER UNIT SC SCH (08:55)
[2022-03-26 08:56] VITALS: BP 134/90
[2022-03-26] MEDS: CARVedilol 12.5 MG TAB PO SCH (08:56)
[2022-03-26] MEDS: PANTOPRAZOLE 40MG TAB (PROTONIX) PO SCH (08:56)
[2022-03-26] MEDS: FLUoxetine 20MG CAP PO SCH (08:56)
[2022-03-26] MEDS: RANOLAZINE 500 MG ER TAB PO SCH (09:00)
[2022-03-26] MEDS: NYSTATIN CREAM 15GM TOP SCH (09:00)
[2022-03-26] MEDS: CLOPIDOGREL 75 MG TAB PO SCH (09:01)
[2022-03-26 09:10] VITALS: BP 134/90
[2022-03-27] MEDS ORDERED: CALCITRIOL 0.25 MCG CAP (S0169) PO SCH (09:00)
== END 2022-03-26 09:14 ==
LOC: M ED 13:46
DX: R45.851 Suicidal ideations (principal); E11.9 Type 2 diabetes mellitus without complications; I10 Essential (primary) hypertension; J45.909 Unspecified asthma, uncomplicated; E28.2 Polycystic ovarian syndrome; F31.9 Bipolar disorder, unspecified; F42.9 Obsessive-compulsive disorder, unspecified; I25.2 Old myocardial infarction; G43.909 Migraine, unspecified, not intractable, without status migrainosus; Z95.5 Presence of coronary angioplasty implant and graft; Z79.899 Other long term (current) drug therapy; Z79.82 Long term (current) use of aspirin; Z79.01 Long term (current) use of anticoagulants
CPT/HCPCS: 36415; 80048; 80076; 80143; 80307; 82077; 82550; 82553; 84443; 84484; 85027; 87631; 93005; 99285; J1815

== ENCOUNTER → 2022-10-25 | Outpatient (CLI) | payer OTHER ==
[~2022-10-25] MED LIST changes: +CALC1CAP31 PO; +CLOP75TA99 PO; +DIAZ2TAB PO; +FLUO-96 PO; +LIDO2SOBTL PO; -LIDO2SOL9 PO; +LORA-674 PO; -PLAV1TAB2 PO
== END ==
LOC: M WUC 09:53
PROVIDERS: ATTEND Physician Assistant
DX: M47.814 Spondylosis without myelopathy or radiculopathy, thoracic region (principal); S20.211A Contusion of right front wall of thorax, initial encounter; X58.XXXA Exposure to other specified factors, initial encounter; Y92.9 Unspecified place or not applicable; Y93.9 Activity, unspecified; Y99.9 Unspecified external cause status

== ENCOUNTER → 2022-11-16 | Outpatient (CLI) | payer OTHER, MEDICARE ==
[2022-11-16 18:05] LABS: URIC ACID 5.6 MG/DL (3.1-7.8)
[2022-11-16 18:08] LABS: ALBUMIN 3.3 G/DL (3.2-5.2); BILIRUBIN,TOTAL 0.3 MG/DL (0.3-1.2); CALCIUM LEVEL 9.2 MG/DL (8.3-10.6); CHOLESTEROL RISK RATIO 2.66 (<5); CREATININE FOR GFR 1.33 MG/DL (0.55-1.30); HDL CHOLESTEROL 68.3 MG/DL (>40); LDL CHOLESTEROL 71.9 MG/DL (<100); NON-HDL-C 113.7 MG/DL; POTASSIUM SERUM 4.6 MMOL/L (3.5-5.1); TOTAL PROTEIN 6.5 G/DL (5.7-8.2)
[2022-11-16 18:10] LABS: FREE T4 1.01 NG/DL (0.89-1.76); THYROID STIMULATING HORMONE 3.584 uIU/ML (0.55-4.78); TOTAL 25(OH) VITAMIN D 59.2 NG/ML (20.0-100.0)
[2022-11-16 18:11] LABS: HEMOGLOBIN A1c 5.7 % (4.0-6.0)
[2022-11-16 18:15] LABS: BASO # 0.1 10^3/uL (0.0-0.2); BASO % 1.5 % (0.0-1.0); EOS # 0.2 10^3/uL (0.0-0.5); EOS % 2.8 % (0.0-3.0); HEMOGLOBIN 15.5 g/dl (12.0-15.5); LYMPH # 2.8 10^3/uL (1.5-5.0); LYMPH % 35.9 % (24.0-44.0); MEAN CORPUSCULAR HEMOGLOBIN 32.5 pg (27.0-33.0); MEAN CORPUSCULAR HGB CONC 31.6 g/dl (32.0-36.5); MEAN CORPUSCULAR VOLUME 102.7 fl (80.0-96.0); MONO # 0.7 10^3/uL (0.0-0.8); MONO % 9.1 % (2.0-8.0); NEUTROPHILS # 3.8 10^3/uL (1.5-8.5); NEUTROPHILS % 48.6 % (36.0-66.0); PLATELET COUNT, AUTOMATED 242 10^3/uL (150-450); RED BLOOD COUNT 4.77 10^6/uL (4.00-5.40); WHITE BLOOD COUNT 7.8 10^3/uL (4.0-10.0)
== END ==
LOC: M WUC 11:57
PROVIDERS: ATTEND Physician Assistant
DX: I25.119 Atherosclerotic heart disease of native coronary artery with unspecified angina pectoris (principal); E78.2 Mixed hyperlipidemia; E11.22 Type 2 diabetes mellitus with diabetic chronic kidney disease; S20.211A Contusion of right front wall of thorax, initial encounter; X58.XXXA Exposure to other specified factors, initial encounter; Y92.9 Unspecified place or not applicable; Y93.9 Activity, unspecified; Y99.9 Unspecified external cause status

== ENCOUNTER 2022-11-25 15:53 | Observation (INO) | payer MEDICARE, OTHER ==
[~2022-11-25] VITALS: Ht 154.9 cm; Wt 99.8 kg
[2022-11-25] MEDS ORDERED: NS 1,000 ML IV ONE (17:20)
[2022-11-25] MEDS ORDERED: METOCLOPRAMIDE INJ 10MG/2ML VIAL IV ONE (17:20)
[2022-11-25] MEDS ORDERED: ACETAMINOPHEN 500 MG TAB PO ONE (17:20)
[2022-11-25] MEDS ORDERED: diphenhydrAMINE 50MG/ML VIAL IV ONE (17:20)
[2022-11-25] MEDS ORDERED: KETOROLAC 30 MG/ML 1ML VIAL IV ONE (17:20)
[2022-11-25 17:30] LABS: BASO # 0.1 10^3/uL (0.0-0.2); BASO % 0.9 % (0.0-1.0); EOS # 0.1 10^3/uL (0.0-0.5); EOS % 1.6 % (0.0-3.0); HEMATOCRIT 47.8 % (36.0-47.0); HEMOGLOBIN 16.2 g/dl (12.0-15.5); LYMPH # 1.7 10^3/uL (1.5-5.0); LYMPH % 22.5 % (24.0-44.0); MEAN CORPUSCULAR HEMOGLOBIN 33.3 pg (27.0-33.0); MEAN CORPUSCULAR HGB CONC 33.9 g/dl (32.0-36.5); MEAN CORPUSCULAR VOLUME 98.4 fl (80.0-96.0); MONO # 0.7 10^3/uL (0.0-0.8); MONO % 9.2 % (2.0-8.0); NEUTROPHILS # 4.8 10^3/uL (1.5-8.5); NEUTROPHILS % 64.7 % (36.0-66.0); PLATELET COUNT, AUTOMATED 211 10^3/uL (150-450); RED BLOOD COUNT 4.86 10^6/uL (4.00-5.40); WHITE BLOOD COUNT 7.4 10^3/uL (4.0-10.0)
[2022-11-25 17:34] LABS: ALBUMIN 3.7 G/DL (3.2-5.2); BILIRUBIN,DIRECT 0.2 MG/DL (<0.4); BILIRUBIN,TOTAL 0.7 MG/DL (0.3-1.2); TOTAL PROTEIN 7.1 G/DL (5.7-8.2)
[2022-11-25] MEDS ORDERED: MAG SULF 1GM/100ML (MAG RUN) 1 GM in IV 1 EA IV ONE (18:25)
[2022-11-25] MEDS ORDERED: BUPIVACAINE HCL 0.25% 10ML VIAL IM ONE (21:15)
[2022-11-25] MEDS ORDERED: VALPROATE SOD INJ 500 MG in D5W 50 ML IV ONE (22:00)
[2022-11-26] MEDS ORDERED: ONDANSETRON 4MG 2ML VIAL IV ONE (01:15)
[2022-11-26] MEDS ORDERED: MORPHINE 4 MG/ML 1ML VIAL IV PRN (01:15)
[2022-11-26] MEDS ORDERED: cefTRIAXone SOD 1 GM in D5W MINI-BAG PLUS 50 ML IV ONE (01:15)
[2022-11-26] MEDS ORDERED: DIAZ5TAB PO (03:03)
[2022-11-26] MEDS ORDERED: RANO500T2 PO (03:03)
[2022-11-26] MEDS ORDERED: HOME MED LIST COMPLETE! XX SCH (03:05)
[2022-11-26] MEDS ORDERED: KETOROLAC 30 MG/ML 1ML VIAL IV PRN (03:35)
[2022-11-26] MEDS ORDERED: ACETAMINOPHEN TAB 650MG DOSE (2X325MG) PO PRN (03:35)
[2022-11-26 04:46] VITALS: BP 140/92
[2022-11-26 06:00] VITALS: BP 139/91
[2022-11-26] MEDS ORDERED: METOCLOPRAMIDE INJ 10MG/2ML VIAL IV PRN (07:55)
[2022-11-26] MEDS ORDERED: FLUoxetine 20MG CAP PO SCH (09:00)
[2022-11-26] MEDS ORDERED: RANOLAZINE 500MG ER TAB PO SCH (09:00)
[2022-11-26] MEDS ORDERED: AUGMENTIN 875 MG TAB PO SCH (09:00)
[2022-11-26] MEDS ORDERED: NYSTATIN CREAM 15GM TOP SCH (09:00)
[2022-11-26] MEDS ORDERED: PROPRANOLOL 10 MG TAB PO SCH (09:00)
[2022-11-26] MEDS ORDERED: PANTOPRAZOLE 40MG TAB (PROTONIX) PO SCH (09:00)
[2022-11-26] MEDS ORDERED: CLOPIDOGREL 75 MG TAB PO SCH (09:00)
[2022-11-26 09:14] LABS: HEMATOCRIT 48.3 % (36.0-47.0); HEMOGLOBIN 15.9 g/dl (12.0-15.5); MEAN CORPUSCULAR HGB CONC 32.9 g/dl (32.0-36.5); MEAN CORPUSCULAR VOLUME 100.2 fl (80.0-96.0); PLATELET COUNT, AUTOMATED 217 10^3/uL (150-450); RED BLOOD COUNT 4.82 10^6/uL (4.00-5.40); WHITE BLOOD COUNT 10.4 10^3/uL (4.0-10.0)
[2022-11-26 09:34] LABS: ALBUMIN 3.1 G/DL (3.2-5.2); BILIRUBIN,TOTAL 0.5 MG/DL (0.3-1.2); CALCIUM LEVEL 9.4 MG/DL (8.3-10.6); CREATININE FOR GFR 1.1 MG/DL (0.55-1.30); GLOMERULAR FILTRATION RATE 53.6 (>45); POTASSIUM SERUM 4.8 MMOL/L (3.5-5.1); TOTAL PROTEIN 6.6 G/DL (5.7-8.2)
[2022-11-26] MEDS ORDERED: LORATADINE 10 MG TAB PO PRN (09:50)
[2022-11-26] MEDS ORDERED: FAMOTIDINE 20 MG TAB PO PRN (09:50)
[2022-11-26] MEDS ORDERED: diazePAM 5MG TABLET PO PRN (09:50)
[2022-11-26] MEDS ORDERED: CYCLOBENZAPRINE 10MG TABLET PO PRN (09:50)
[2022-11-26] MEDS ORDERED: FIORICET TAB PO PRN (09:50)
[2022-11-26] MEDS ORDERED: diphenhydrAMINE 25MG CAP PO PRN (09:50)
[2022-11-26] MEDS ORDERED: GABAPENTIN 100 MG CAP PO PRN (09:50)
[2022-11-26] MEDS ORDERED: NORCO, ANEXSIA 5/325MG TABLET (HYDROcodone/ACETAMINOPHEN) PO PRN (09:50)
[2022-11-26] MEDS ORDERED: AUGMENTIN SUSP POWDER 250MG/5ML BTL 75ML PO SCH (09:55)
[2022-11-26] MEDS ORDERED: CARVedilol 12.5 MG TAB PO SCH (11:00)
[2022-11-26 11:33] VITALS: BP 153/99
[2022-11-26 14:00] VITALS: BP 120/82
[2022-11-26] MEDS ORDERED: AMOX875T2 PO (15:03)
[2022-11-26 15:09] VITALS: BP 120/80
[2022-11-26] MEDS ORDERED: MAGNESIUM OXIDE 400MG TAB (MAG-OX) PO SCH (21:00)
[2022-11-27] MEDS ORDERED: CALCITRIOL 0.25 MCG CAP (S0169) PO SCH (09:00)
== END 2022-11-26 16:40 | disposition home or self-care (01) ==
LOC: M ED 15:53 → M ED INP 15:54 → M MSPAV 11-26 04:28
PROVIDERS: ADMIT Internal Medicine; ATTEND Internal Medicine
DX: G43.901 Migraine, unspecified, not intractable, with status migrainosus (principal); J32.0 Chronic maxillary sinusitis; I10 Essential (primary) hypertension; R74.01 Elevation of levels of liver transaminase levels; F41.9 Anxiety disorder, unspecified; I25.10 Atherosclerotic heart disease of native coronary artery without angina pectoris; M10.9 Gout, unspecified; K21.9 Gastro-esophageal reflux disease without esophagitis; F32.A Depression, unspecified; E66.01 Morbid (severe) obesity due to excess calories; J45.909 Unspecified asthma, uncomplicated; Z79.899 Other long term (current) drug therapy; Z79.82 Long term (current) use of aspirin; Z79.02 Long term (current) use of antithrombotics/antiplatelets
CPT/HCPCS: 36415; 70450; 80047; 80053; 80076; 85025; 85027; 87486; 87581; 87633; 87798; 93041; 96365; 96366; 96367; 96372; 96375; 99285; G0378; J0696; J1100; J1200; J1885; J2405; J2765; J3475

== ENCOUNTER → 2022-11-29 | Outpatient (REF) | payer MEDICARE, OTHER ==
[~2022-11-29] MED LIST changes: +AMOX875T2 PO; +DIAZ5TAB PO; +RANO500T2 PO
== END ==
LOC: M LAB REF 14:42
PROVIDERS: ATTEND Physician Assistant
DX: R19.7 Diarrhea, unspecified (principal)

== ENCOUNTER 2023-04-06 18:10 | Emergency (ER) | payer MEDICARE, OTHER ==
[~2023-04-06] VITALS: Ht 154.9 cm; Wt 95.9 kg
[~2023-04-06 18:10] MED LIST changes: -AMIT25TA17 PO; +AMIT25TA19 PO; +LORA-1041 PO; -LORA-674 PO; +MECL-209 PO; -MECL1TAB31 PO
[2023-04-06 22:35] VITALS: TEMP 96.8
[2023-04-06 23:38] LABS: AMPHETAMINES LEVEL URINE NEGATIVE (NEGATIVE); COCAINE METABOLITE URINE NEGATIVE (NEGATIVE); METHADONE URINE NEGATIVE (NEGATIVE); PHENCYCLIDINE URINE NEGATIVE (NEGATIVE)
[2023-04-06 23:39] LABS: CANNABINOIDS URINE NEGATIVE (NEGATIVE)
[2023-04-06 23:45] LABS: BARBITURATES URINE POSITIVE (NEGATIVE); BENZODIAZEPINES URINE POSITIVE (NEGATIVE); OPIATES URINE POSITIVE (NEGATIVE)
[2023-04-06 23:50] LABS: HEMATOCRIT 43.7 % (36.0-47.0); HEMOGLOBIN 14.6 g/dl (12.0-15.5); MEAN CORPUSCULAR HEMOGLOBIN 32.4 pg (27.0-33.0); MEAN CORPUSCULAR HGB CONC 33.4 g/dl (32.0-36.5); MEAN CORPUSCULAR VOLUME 97.1 fl (80.0-96.0); PLATELET COUNT, AUTOMATED 244 10^3/uL (150-450); WHITE BLOOD COUNT 9.5 10^3/uL (4.0-10.0)
[2023-04-07 00:12] LABS: ETHYL ALCOHOL (ETHANOL) < 0.003 % (0.000-0.010)
[2023-04-07 00:13] LABS: ACETAMINOPHEN LEVEL < 2.0 UG/ML (10.0-20.0)
[2023-04-07 00:14] LABS: ALBUMIN 3.5 G/DL (3.2-5.2); ALKALINE PHOSPHATASE 79 U/L (46-116); ALT/SGPT 44 U/L (7.0-40); AST/SGOT 30 U/L (<34); BILIRUBIN,DIRECT 0.3 MG/DL (<0.4); BILIRUBIN,TOTAL 0.7 MG/DL (0.3-1.2); BLOOD UREA NITROGEN 18 MG/DL (9-23); CALCIUM LEVEL 9.9 MG/DL (8.3-10.6); CARBON DIOXIDE LEVEL 27 MMOL/L (20-31); CHLORIDE LEVEL 104 MMOL/L (98-107); CREATININE FOR GFR 1.06 MG/DL (0.55-1.30); GLOMERULAR FILTRATION RATE 55.7 (>45); GLUCOSE, FASTING 81 MG/DL (74-106); POTASSIUM SERUM 4.1 MMOL/L (3.5-5.1); SALICYLATE LEVEL < 3.0 MG/DL (<30); SODIUM LEVEL 141 MMOL/L (136-145); TOTAL PROTEIN 6.6 G/DL (5.7-8.2)
[2023-04-07 00:16] LABS: THYROID STIMULATING HORMONE 2.383 uIU/ML (0.55-4.78)
[2023-04-07 06:47] VITALS: BP 158/89; O2SAT 96
== END 2023-04-07 06:40 | disposition home or self-care (01) ==
LOC: EDBD 18:10 → M ED 18:10
DX: F60.0 Paranoid personality disorder (principal); G43.909 Migraine, unspecified, not intractable, without status migrainosus; K21.9 Gastro-esophageal reflux disease without esophagitis; J45.909 Unspecified asthma, uncomplicated; E78.5 Hyperlipidemia, unspecified; Z86.79 Personal history of other diseases of the circulatory system; Z79.82 Long term (current) use of aspirin; Z79.899 Other long term (current) drug therapy

== ENCOUNTER 2023-05-08 14:35 | Emergency (ER) | payer MEDICARE, OTHER ==
[~2023-05-08] VITALS: Ht 180.3 cm; Wt 95.9 kg
[2023-05-08] MEDS: NITROGLYCERIN 0.4MG SUBL TABLET SL PRN ×3 (15:17→16:45)
[2023-05-08 15:23] LABS: BASO # 0.1 10^3/uL (0.0-0.2); EOS # 0.2 10^3/uL (0.0-0.5); EOS % 3.3 % (0.0-3.0); HEMATOCRIT 44.5 % (36.0-47.0); LYMPH # 1.5 10^3/uL (1.5-5.0); LYMPH % 24.9 % (24.0-44.0); MEAN CORPUSCULAR HEMOGLOBIN 33.1 pg (27.0-33.0); MEAN CORPUSCULAR HGB CONC 33.7 g/dl (32.0-36.5); MEAN CORPUSCULAR VOLUME 98.2 fl (80.0-96.0); MONO # 0.7 10^3/uL (0.0-0.8); MONO % 11.3 % (2.0-8.0); NEUTROPHILS # 3.5 10^3/uL (1.5-8.5); NEUTROPHILS % 58.5 % (36.0-66.0); PLATELET COUNT, AUTOMATED 238 10^3/uL (150-450); RED BLOOD COUNT 4.53 10^6/uL (4.00-5.40)
[2023-05-08 15:32] VITALS: TEMP 97
[2023-05-08 15:53] LABS: LIPASE 47 U/L (12-53)
[2023-05-08 15:56] LABS: ALBUMIN 3.2 G/DL (3.2-5.2); ALKALINE PHOSPHATASE 78 U/L (46-116); ALT/SGPT 35 U/L (7.0-40); AST/SGOT 27 U/L (<34); BILIRUBIN,DIRECT 0.2 MG/DL (<0.4); BILIRUBIN,TOTAL 0.5 MG/DL (0.3-1.2); BLOOD UREA NITROGEN 12 MG/DL (9-23); CALCIUM LEVEL 9.5 MG/DL (8.3-10.6); CARBON DIOXIDE LEVEL 32 MMOL/L (20-31); CHLORIDE LEVEL 103 MMOL/L (98-107); CK-MB VALUE MASS < 1.0 NG/ML (<3.6); CREATININE FOR GFR 0.84 MG/DL (0.55-1.30); GLOMERULAR FILTRATION RATE > 60.0 (>45); GLUCOSE, FASTING 62 MG/DL (74-106); POTASSIUM SERUM 3.9 MMOL/L (3.5-5.1); SODIUM LEVEL 141 MMOL/L (136-145); TOTAL PROTEIN 6.4 G/DL (5.7-8.2)
[2023-05-08 15:59] LABS: THYROID STIMULATING HORMONE 2.294 uIU/ML (0.55-4.78)
[2023-05-08 16:03] LABS: CPK CREATINE PHOSPHOKINASE 45 U/L (34-145); MB/CK RELATIVE INDEX 2.22 (< OR =4)
[2023-05-08] MEDS ORDERED: ACETAMINOPHEN 500 MG TAB PO ONE (16:40)
[2023-05-08 16:45] VITALS: BP 117/73
[2023-05-08 17:28] LABS: CK-MB VALUE MASS < 1.0 NG/ML (<3.6)
[2023-05-08 17:29] LABS: CPK CREATINE PHOSPHOKINASE 33 U/L (34-145); MB/CK RELATIVE INDEX 3.03 (< OR =4)
[2023-05-08] MEDS ORDERED: ISOVUE-370 76% 100ML VIAL As Ordered ONE (17:41)
[2023-05-08] MEDS ORDERED: MECLIZINE 25 MG TABLET PO ONE (18:15)
[2023-05-08 19:23] VITALS: BP 167/100; O2SAT 98
== END 2023-05-08 19:23 | disposition home or self-care (01) ==
LOC: EDBD 14:35 → M ED 14:35
DX: R07.9 Chest pain, unspecified (principal); I25.10 Atherosclerotic heart disease of native coronary artery without angina pectoris; I25.2 Old myocardial infarction; E11.9 Type 2 diabetes mellitus without complications; I10 Essential (primary) hypertension; N18.9 Chronic kidney disease, unspecified; Z95.5 Presence of coronary angioplasty implant and graft; Z79.82 Long term (current) use of aspirin; Z79.02 Long term (current) use of antithrombotics/antiplatelets; Z79.899 Other long term (current) drug therapy
CPT/HCPCS: 71045; 71275; 80048; 80076; 82550; 82553; 83690; 84439; 84443; 84484; 85025; 93005; 93041; 94760; 99285; Q9967

== ENCOUNTER → 2023-06-12 | Outpatient (REF) | payer MEDICARE, OTHER ==
[~2023-06-12] MED LIST changes: +GUAN1TAB16; +SEMA0.257
== END ==
LOC: M WUC 15:38 → M LAB REF 15:38
PROVIDERS: ATTEND Physician Assistant
DX: R10.10 Upper abdominal pain, unspecified (principal)

== ENCOUNTER → 2023-07-02 | Outpatient (CLI) | payer MEDICARE, OTHER ==
[~2023-07-02] MED LIST changes: -BIOT50004 PO; +BIOT5CAP8 PO; +GASTROGRAFIN SOLUTION 30ML As Ordered ONE; +ISOVUE-370 76% 100ML VIAL As Ordered ONE; +LIDO100S29 PO; -LIDO2SOBTL PO
== END ==
LOC: M RAD 13:51
PROVIDERS: ATTEND Physician Assistant
DX: R10.10 Upper abdominal pain, unspecified (principal); N28.1 Cyst of kidney, acquired; Z90.49 Acquired absence of other specified parts of digestive tract; K57.30 Diverticulosis of large intestine without perforation or abscess without bleeding
CPT/HCPCS: 74177; Q9963; Q9967

== ENCOUNTER 2023-07-31 06:58 | Day surgery (SDC) | payer MEDICARE, OTHER ==
[~2023-07-31] VITALS: Ht 154.9 cm; Wt 88.5 kg
[~2023-07-31 06:58] MED LIST changes: +BSS IRR 500ML/OMIDRIA 4ML IRR BAG (OR ONLY) As Ordered ONE; +CEFUROXIME 1MG/0.1ML INTRACAMERAL INJ As Ordered ONE; +CYCLOPENTOLATE 1% OPHTH SOLN 2ML BTL OD SCH; +FLUC100T3 PO; -GASTROGRAFIN SOLUTION 30ML As Ordered ONE; -ISOVUE-370 76% 100ML VIAL As Ordered ONE; +LIDOCAINE 1% SDV 5ML VIAL As Ordered ONE; +OFLOXACIN 0.3 % (OCUFLOX) OPTH SOL 5ML OD SCH; +PHENYLEPHRINE 2.5% OPHTH SOL 2ML OD SCH; +PROM12.56 PO; +PROPARACAINE 0.5% OPHTH SOL 15ML OD ONE; +TOPI-21 PO; +TROPICAMIDE 1% OPHTH SOLN 15ML OD SCH
[2023-07-31] MEDS ORDERED: fentaNYL 100 MCG/2 ML INJECTION As Ordered ONE (08:02)
[2023-07-31] MEDS ORDERED: MIDAZOLAM INJ 2MG/2ML VIAL As Ordered ONE (08:02)
[2023-07-31 08:54] VITALS: BP 146/94; TEMP 96.6; O2SAT 95
== END 2023-07-31 09:26 | disposition home or self-care (01) ==
LOC: M SDC 06:58
PROVIDERS: ATTEND Ophthalmology
DX: E11.36 Type 2 diabetes mellitus with diabetic cataract (principal); H25.11 Age-related nuclear cataract, right eye; I25.10 Atherosclerotic heart disease of native coronary artery without angina pectoris; I10 Essential (primary) hypertension; I25.2 Old myocardial infarction; K76.0 Fatty (change of) liver, not elsewhere classified; E78.00 Pure hypercholesterolemia, unspecified; M10.9 Gout, unspecified; Z79.899 Other long term (current) drug therapy; Z79.82 Long term (current) use of aspirin; K21.9 Gastro-esophageal reflux disease without esophagitis; Z95.5 Presence of coronary angioplasty implant and graft
CPT/HCPCS: 66984; J0697; J1097; J2250; J3010; V2632

== ENCOUNTER 2023-08-28 06:15 | Day surgery (SDC) | payer MEDICARE, OTHER ==
[~2023-08-28] VITALS: Ht 154.9 cm; Wt 87.7 kg
[~2023-08-28 06:15] MED LIST changes: -BSS IRR 500ML/OMIDRIA 4ML IRR BAG (OR ONLY) As Ordered ONE; -CEFUROXIME 1MG/0.1ML INTRACAMERAL INJ As Ordered ONE; -CYCLOPENTOLATE 1% OPHTH SOLN 2ML BTL OD SCH; +CYCLOPENTOLATE 1% OPHTH SOLN 2ML BTL OS SCH; -LIDOCAINE 1% SDV 5ML VIAL As Ordered ONE; -OFLOXACIN 0.3 % (OCUFLOX) OPTH SOL 5ML OD SCH; +OFLOXACIN 0.3 % (OCUFLOX) OPTH SOL 5ML OS SCH; -PHENYLEPHRINE 2.5% OPHTH SOL 2ML OD SCH; +PHENYLEPHRINE 2.5% OPHTH SOL 2ML OS SCH; -PROPARACAINE 0.5% OPHTH SOL 15ML OD ONE; +PROPARACAINE 0.5% OPHTH SOL 15ML OS ONE; -TROPICAMIDE 1% OPHTH SOLN 15ML OD SCH; +TROPICAMIDE 1% OPHTH SOLN 15ML OS SCH
[2023-08-28] MEDS: PROVISC 10 MG/ML 0.85ML SYRINGE As Ordered ONE (07:32)
[2023-08-28] MEDS: LIDOCAINE 1% SDV 5ML VIAL As Ordered ONE (07:40)
[2023-08-28] MEDS: BSS IRR 500ML/OMIDRIA 4ML IRR BAG (OR ONLY) As Ordered ONE (07:40)
[2023-08-28] MEDS: CEFUROXIME 1MG/0.1ML INTRACAMERAL INJ As Ordered ONE (07:40)
[2023-08-28] MEDS ORDERED: fentaNYL 100 MCG/2 ML INJECTION As Ordered ONE (07:41)
[2023-08-28] MEDS ORDERED: MIDAZOLAM INJ 2MG/2ML VIAL As Ordered ONE (07:41)
[2023-08-28 08:22] VITALS: BP 143/83; TEMP 97.4; O2SAT 98
== END 2023-08-28 08:41 | disposition home or self-care (01) ==
LOC: M SDC 06:15
PROVIDERS: ATTEND Ophthalmology
DX: H25.12 Age-related nuclear cataract, left eye (principal); I25.10 Atherosclerotic heart disease of native coronary artery without angina pectoris; I25.2 Old myocardial infarction; Z95.5 Presence of coronary angioplasty implant and graft; Z86.73 Personal history of transient ischemic attack (TIA), and cerebral infarction without residual deficits; G47.30 Sleep apnea, unspecified; I10 Essential (primary) hypertension; E78.00 Pure hypercholesterolemia, unspecified; M10.9 Gout, unspecified; K58.9 Irritable bowel syndrome, unspecified; M19.90 Unspecified osteoarthritis, unspecified site; D45 Polycythemia vera; F41.9 Anxiety disorder, unspecified; R32 Unspecified urinary incontinence; J45.909 Unspecified asthma, uncomplicated; Z79.899 Other long term (current) drug therapy; Z79.82 Long term (current) use of aspirin; Z79.02 Long term (current) use of antithrombotics/antiplatelets; Z79.85 Long-term (current) use of injectable non-insulin antidiabetic drugs
CPT/HCPCS: 66984; J0697; J1097; J2250; J3010; V2632

== ENCOUNTER → 2023-11-02 | Outpatient (CLI) | payer MEDICARE, OTHER ==
[~2023-11-02] MED LIST changes: -CYCLOPENTOLATE 1% OPHTH SOLN 2ML BTL OS SCH; -OFLOXACIN 0.3 % (OCUFLOX) OPTH SOL 5ML OS SCH; -PHENYLEPHRINE 2.5% OPHTH SOL 2ML OS SCH; -PROPARACAINE 0.5% OPHTH SOL 15ML OS ONE; -TROPICAMIDE 1% OPHTH SOLN 15ML OS SCH
== END ==
LOC: M WHC 15:01
PROVIDERS: ATTEND Physician Assistant
DX: Z53.9 Procedure and treatment not carried out, unspecified reason (principal)

== ENCOUNTER → 2023-11-16 | Outpatient (CLI) | payer MEDICARE, OTHER ==
[2023-11-16 12:18] LABS: BASO # 0.1 10^3/uL (0.0-0.2); BASO % 0.9 % (0.0-1.0); EOS # 0.3 10^3/uL (0.0-0.5); EOS % 4.2 % (0.0-3.0); HEMATOCRIT 43.8 % (36.0-47.0); HEMOGLOBIN 14.7 g/dl (12.0-15.5); LYMPH # 1.9 10^3/uL (1.5-5.0); LYMPH % 28.7 % (24.0-44.0); MEAN CORPUSCULAR HEMOGLOBIN 33.3 pg (27.0-33.0); MEAN CORPUSCULAR HGB CONC 33.6 g/dl (32.0-36.5); MEAN CORPUSCULAR VOLUME 99.3 fl (80.0-96.0); MONO # 0.6 10^3/uL (0.0-0.8); MONO % 9.4 % (2.0-8.0); NEUTROPHILS # 3.8 10^3/uL (1.5-8.5); NEUTROPHILS % 56.2 % (36.0-66.0); PLATELET COUNT, AUTOMATED 216 10^3/uL (150-450); RED BLOOD COUNT 4.41 10^6/uL (4.00-5.40); WHITE BLOOD COUNT 6.7 10^3/uL (4.0-10.0)
[2023-11-16 12:35] LABS: HEMOGLOBIN A1c 4.9 % (4.0-6.0)
[2023-11-16 12:45] LABS: URIC ACID 5.6 MG/DL (3.1-7.8)
[2023-11-16 12:47] LABS: ALBUMIN 3.8 G/DL (3.2-5.2); BILIRUBIN,TOTAL 0.5 MG/DL (0.3-1.2); CALCIUM LEVEL 10.1 MG/DL (8.3-10.6); CHOLESTEROL RISK RATIO 2.64 (<5); CREATININE FOR GFR 1.38 MG/DL (0.55-1.30); GLOMERULAR FILTRATION RATE 41.1 (>45); HDL CHOLESTEROL 58.7 MG/DL (>40); LDL CHOLESTEROL 70.7 MG/DL (<100); NON-HDL-C 96.3 MG/DL; POTASSIUM SERUM 5.1 MMOL/L (3.5-5.1); TOTAL PROTEIN 6.7 G/DL (5.7-8.2)
[2023-11-16 12:48] LABS: FREE T4 0.93 NG/DL (0.89-1.76)
[2023-11-16 12:49] LABS: THYROID STIMULATING HORMONE 2.004 uIU/ML (0.55-4.78)
[2023-11-16 13:17] LABS: CREATININE, URINE 88.3 MG/DL; MALB URINE SIEMENS < 3.0 MG/L; MAU/CREAT RATIO 3.3 MCG/MG (0.0-30.0)
== END ==
LOC: M PLAIMG 11:03
PROVIDERS: ATTEND Physician Assistant
DX: Z12.31 Encounter for screening mammogram for malignant neoplasm of breast (principal); M79.672 Pain in left foot; E11.22 Type 2 diabetes mellitus with diabetic chronic kidney disease; I25.119 Atherosclerotic heart disease of native coronary artery with unspecified angina pectoris; I12.9 Hypertensive chronic kidney disease with stage 1 through stage 4 chronic kidney disease, or unspecified chronic kidney disease; E78.2 Mixed hyperlipidemia; M77.32 Calcaneal spur, left foot

== ENCOUNTER → 2023-11-16 | Outpatient (CLI) | payer MEDICARE, OTHER | LOC: M WHC 10:53 | PROVIDERS: ATTEND Physician Assistant | DX: Z12.31 Encounter for screening mammogram for malignant neoplasm of breast (principal) ==

== ENCOUNTER → 2023-12-24 | Outpatient (CLI) | payer MEDICARE, OTHER ==
[~2023-12-24] MED LIST changes: +FLUO-290 PO; +FLUO-365 PO; -FLUO10CA18 PO; -FLUO20CA22 PO
[2023-12-24 13:10] LABS: HEMATOCRIT 44.8 % (36.0-47.0); HEMOGLOBIN 14.8 g/dl (12.0-15.5); MEAN CORPUSCULAR HEMOGLOBIN 32.8 pg (27.0-33.0); MEAN CORPUSCULAR VOLUME 99.3 fl (80.0-96.0); PLATELET COUNT, AUTOMATED 260 10^3/uL (150-450); RED BLOOD COUNT 4.51 10^6/uL (4.00-5.40); WHITE BLOOD COUNT 8.4 10^3/uL (4.0-10.0)
[2023-12-24 13:18] LABS: ERYTHROCYTE SEDIMENTATION RATE 29 mm/hr (0-30)
[2023-12-24 13:20] LABS: INR 0.97; PROTHROMBIN TIME 12.6 SECONDS (12.5-14.5)
[2023-12-24 13:44] LABS: ALBUMIN 3.5 G/DL (3.2-5.2); BILIRUBIN,TOTAL 0.5 MG/DL (0.3-1.2); CALCIUM LEVEL 9.7 MG/DL (8.3-10.6); CREATININE FOR GFR 1.3 MG/DL (0.55-1.30); POTASSIUM SERUM 4.9 MMOL/L (3.5-5.1); TOTAL PROTEIN 6.7 G/DL (5.7-8.2)
== END ==
LOC: M PLALAB 11:06
PROVIDERS: ATTEND Orthopaedic Surgery
DX: Z01.818 Encounter for other preprocedural examination (principal); M17.12 Unilateral primary osteoarthritis, left knee; Z79.01 Long term (current) use of anticoagulants

== ENCOUNTER → 2023-12-26 | Outpatient (REF) | payer MEDICARE, OTHER | LOC: M LAB REF 17:05 | PROVIDERS: ATTEND Physician Assistant | DX: J06.9 Acute upper respiratory infection, unspecified (principal) ==

== ENCOUNTER 2024-03-04 15:34 | Emergency (ER) | payer MEDICARE, OTHER ==
[~2024-03-04] VITALS: Ht 154.9 cm; Wt 83.2 kg
[~2024-03-04 15:34] MED LIST changes: -MACR100C43 PO
[2024-03-04 16:37] LABS: BASO # 0.1 10^3/uL (0.0-0.2); BASO % 0.8 % (0.0-1.0); EOS # 0.2 10^3/uL (0.0-0.5); EOS % 3.2 % (0.0-3.0); HEMATOCRIT 44.8 % (36.0-47.0); HEMOGLOBIN 14.7 g/dl (12.0-15.5); LYMPH # 1.9 10^3/uL (1.5-5.0); LYMPH % 26.5 % (24.0-44.0); MEAN CORPUSCULAR HGB CONC 32.8 g/dl (32.0-36.5); MEAN CORPUSCULAR VOLUME 97.4 fl (80.0-96.0); MONO # 0.7 10^3/uL (0.0-0.8); MONO % 10.1 % (2.0-8.0); NEUTROPHILS # 4.2 10^3/uL (1.5-8.5); NEUTROPHILS % 58.8 % (36.0-66.0); PLATELET COUNT, AUTOMATED 311 10^3/uL (150-450); WHITE BLOOD COUNT 7.1 10^3/uL (4.0-10.0)
[2024-03-04 17:08] LABS: ALBUMIN 3.6 G/DL (3.2-5.2); ALKALINE PHOSPHATASE 110 U/L (46-116); ALT/SGPT 27 U/L (7.0-40); AST/SGOT 16 U/L (<34); BILIRUBIN,DIRECT 0.2 MG/DL (<0.4); BILIRUBIN,TOTAL 0.5 MG/DL (0.3-1.2); BLOOD UREA NITROGEN 18 MG/DL (9-23); CALCIUM LEVEL 10.2 MG/DL (8.3-10.6); CARBON DIOXIDE LEVEL 28 MMOL/L (20-31); CHLORIDE LEVEL 105 MMOL/L (98-107); CK-MB VALUE MASS < 1.0 NG/ML (<3.6); CREATININE FOR GFR 1.06 MG/DL (0.55-1.30); GLOMERULAR FILTRATION RATE 55.7 (>45); GLUCOSE, FASTING 82 MG/DL (74-106); MAGNESIUM LEVEL 1.6 MG/DL (1.8-2.4); POTASSIUM SERUM 4.5 MMOL/L (3.5-5.1); SODIUM LEVEL 137 MMOL/L (136-145)
[2024-03-04 17:10] LABS: CPK CREATINE PHOSPHOKINASE 26 U/L (34-145); MB/CK RELATIVE INDEX 3.84 (< OR =4)
[2024-03-04 19:50] VITALS: TEMP 98.1
[2024-03-04] MEDS: MAG SULF 1GM/100ML (MAG RUN) 1 GM in IV 1 EA IV ONE (21:42)
[2024-03-04 22:10] LABS: LIPASE 61 U/L (12-53)
[2024-03-04] MEDS: NS 500 ML IV ONE (22:15)
[2024-03-04 22:16] LABS: INR 1.06; PARTIAL THROMBOPLASTIN TIME 24.5 SECONDS (24.8-34.2); PROTHROMBIN TIME 13.5 SECONDS (12.5-14.5)
[2024-03-04 22:20] LABS: CK-MB VALUE MASS < 1.0 NG/ML (<3.6)
[2024-03-04 22:23] LABS: CPK CREATINE PHOSPHOKINASE 40 U/L (34-145)
[2024-03-05] MEDS: PERCOCET 5MG/325MG TAB PO ONE (00:59)
[2024-03-05 01:30] VITALS: BP 121/75
[2024-03-05 01:49] VITALS: O2SAT 97
[2024-03-05] MEDS ORDERED: MACR100C43 PO (01:52)
== END 2024-03-05 02:21 | disposition home or self-care (01) ==
LOC: M ED 15:34
DX: R07.89 Other chest pain (principal); N39.0 Urinary tract infection, site not specified; I10 Essential (primary) hypertension; D72.829 Elevated white blood cell count, unspecified; I25.119 Atherosclerotic heart disease of native coronary artery with unspecified angina pectoris; R82.998 Other abnormal findings in urine; G62.9 Polyneuropathy, unspecified; Z79.1 Long term (current) use of non-steroidal anti-inflammatories (NSAID); Z79.51 Long term (current) use of inhaled steroids; Z79.4 Long term (current) use of insulin; Z79.899 Other long term (current) drug therapy
CPT/HCPCS: 36415; 71045; 80048; 80053; 80076; 81001; 82550; 82553; 82607; 82746; 83036; 83690; 83735; 83880; 84155; 84165; 84207; 84425; 84443; 84446; 84484; 85025; 85610; 85652; 85730; 86038; 86140; 86431; 87086; 93005; 93041; 94760; 96365; 99285; J3475

== ENCOUNTER → 2024-03-04 | Outpatient (CLI) | payer MEDICARE, OTHER ==
[~2024-03-04] MED LIST changes: +MACR100C43 PO
[2024-03-04 18:03] LABS: ALBUMIN 3.6 G/DL (3.2-5.2); ALKALINE PHOSPHATASE 111 U/L (46-116); ALT/SGPT 25 U/L (7.0-40); AST/SGOT 12 U/L (<34); BILIRUBIN,TOTAL 0.6 MG/DL (0.3-1.2); BLOOD UREA NITROGEN 18 MG/DL (9-23); CALCIUM LEVEL 10.3 MG/DL (8.3-10.6); CARBON DIOXIDE LEVEL 27 MMOL/L (20-31); CHLORIDE LEVEL 108 MMOL/L (98-107); CREATININE FOR GFR 1.12 MG/DL (0.55-1.30); GLOMERULAR FILTRATION RATE 52.3 (>45); GLUCOSE, FASTING 88 MG/DL (74-106); POTASSIUM SERUM 4.7 MMOL/L (3.5-5.1); SODIUM LEVEL 143 MMOL/L (136-145); TOTAL PROTEIN 7.2 G/DL (5.7-8.2)
[2024-03-04 18:06] LABS: RHEUMATOID FACTOR QUANT 7.6 IU/ML (<14); VITAMIN B12 LEVEL 992 PG/ML (211-911)
[2024-03-04 18:07] LABS: FOLATE > 24.0 NG/ML (>5.4); THYROID STIMULATING HORMONE 2.083 uIU/ML (0.55-4.78)
[2024-03-04 18:30] LABS: BASO # 0.1 10^3/uL (0.0-0.2); EOS # 0.2 10^3/uL (0.0-0.5); EOS % 3.2 % (0.0-3.0); HEMATOCRIT 45.2 % (36.0-47.0); HEMOGLOBIN 14.8 g/dl (12.0-15.5); LYMPH # 2.1 10^3/uL (1.5-5.0); LYMPH % 33.5 % (24.0-44.0); MEAN CORPUSCULAR HEMOGLOBIN 31.8 pg (27.0-33.0); MEAN CORPUSCULAR HGB CONC 32.7 g/dl (32.0-36.5); MONO # 0.6 10^3/uL (0.0-0.8); MONO % 10.1 % (2.0-8.0); NEUTROPHILS # 3.2 10^3/uL (1.5-8.5); NEUTROPHILS % 51.7 % (36.0-66.0); PLATELET COUNT, AUTOMATED 323 10^3/uL (150-450); RED BLOOD COUNT 4.66 10^6/uL (4.00-5.40); WHITE BLOOD COUNT 6.2 10^3/uL (4.0-10.0)
[2024-03-04 18:42] LABS: ERYTHROCYTE SEDIMENTATION RATE 39 mm/hr (0-30)
[2024-03-04 19:03] LABS: HEMOGLOBIN A1c 4.3 % (4.0-6.0)
[2024-03-06 07:07] LABS: T P ELECTROPHORESIS SO 7.2 g/dL (6.1-8.1)
== END ==
LOC: M PLALAB 14:39
PROVIDERS: ATTEND Psychiatry & Neurology Neurology
DX: G62.9 Polyneuropathy, unspecified (principal)

== ENCOUNTER → 2024-03-04 | Outpatient (CLI) | payer MEDICARE, OTHER ==
[2024-03-04 18:03] LABS: ALBUMIN 3.6 G/DL (3.2-5.2); ALKALINE PHOSPHATASE 111 U/L (46-116); ALT/SGPT 27 U/L (7.0-40); AST/SGOT 15 U/L (<34); BILIRUBIN,TOTAL 0.5 MG/DL (0.3-1.2); BLOOD UREA NITROGEN 18 MG/DL (9-23); CALCIUM LEVEL 10.1 MG/DL (8.3-10.6); CARBON DIOXIDE LEVEL 24 MMOL/L (20-31); CHLORIDE LEVEL 108 MMOL/L (98-107); CREATININE FOR GFR 1.04 MG/DL (0.55-1.30); GLUCOSE, FASTING 91 MG/DL (74-106); POTASSIUM SERUM 4.5 MMOL/L (3.5-5.1); SODIUM LEVEL 139 MMOL/L (136-145); TOTAL PROTEIN 7.1 G/DL (5.7-8.2)
[2024-03-04 18:30] LABS: BASO # 0.1 10^3/uL (0.0-0.2); BASO % 0.9 % (0.0-1.0); EOS # 0.2 10^3/uL (0.0-0.5); EOS % 3.6 % (0.0-3.0); HEMATOCRIT 45.6 % (36.0-47.0); HEMOGLOBIN 14.8 g/dl (12.0-15.5); LYMPH # 2.1 10^3/uL (1.5-5.0); LYMPH % 32.5 % (24.0-44.0); MEAN CORPUSCULAR HEMOGLOBIN 31.2 pg (27.0-33.0); MEAN CORPUSCULAR HGB CONC 32.5 g/dl (32.0-36.5); MONO # 0.7 10^3/uL (0.0-0.8); MONO % 10.4 % (2.0-8.0); NEUTROPHILS # 3.3 10^3/uL (1.5-8.5); NEUTROPHILS % 51.8 % (36.0-66.0); PLATELET COUNT, AUTOMATED 316 10^3/uL (150-450); RED BLOOD COUNT 4.75 10^6/uL (4.00-5.40); WHITE BLOOD COUNT 6.4 10^3/uL (4.0-10.0)
[2024-03-04 18:42] LABS: ERYTHROCYTE SEDIMENTATION RATE 40 mm/hr (0-30)
== END ==
LOC: M PLALAB 14:36
PROVIDERS: ATTEND Physician Assistant
DX: D72.829 Elevated white blood cell count, unspecified (principal); I25.119 Atherosclerotic heart disease of native coronary artery with unspecified angina pectoris; R82.998 Other abnormal findings in urine

== ENCOUNTER → 2024-04-10 | Outpatient (CLI) | payer MEDICARE, OTHER ==
[~2024-04-10] MED LIST changes: +MACR100C43 PO
[2024-04-10 13:29] LABS: BASO # 0.1 10^3/uL (0.0-0.2); BASO % 0.6 % (0.0-1.0); EOS # 0.1 10^3/uL (0.0-0.5); EOS % 0.6 % (0.0-3.0); HEMATOCRIT 43.4 % (36.0-47.0); HEMOGLOBIN 14.4 g/dl (12.0-15.5); LYMPH # 2.4 10^3/uL (1.5-5.0); LYMPH % 26.7 % (24.0-44.0); MEAN CORPUSCULAR HEMOGLOBIN 31.9 pg (27.0-33.0); MEAN CORPUSCULAR HGB CONC 33.2 g/dl (32.0-36.5); MEAN CORPUSCULAR VOLUME 96.2 fl (80.0-96.0); MONO # 0.6 10^3/uL (0.0-0.8); MONO % 6.4 % (2.0-8.0); NEUTROPHILS # 5.9 10^3/uL (1.5-8.5); NEUTROPHILS % 64.8 % (36.0-66.0); PLATELET COUNT, AUTOMATED 261 10^3/uL (150-450); RED BLOOD COUNT 4.51 10^6/uL (4.00-5.40); WHITE BLOOD COUNT 9.1 10^3/uL (4.0-10.0)
[2024-04-10 13:57] LABS: BLOOD UREA NITROGEN 22 MG/DL (9-23); CALCIUM LEVEL 9.6 MG/DL (8.3-10.6); CARBON DIOXIDE LEVEL 26 MMOL/L (20-31); CHLORIDE LEVEL 105 MMOL/L (98-107); CHOLESTEROL LEVEL 154 MG/DL (<200); CHOLESTEROL RISK RATIO 2.25 (<5); CREATININE FOR GFR 0.92 MG/DL (0.55-1.30); GLOMERULAR FILTRATION RATE > 60.0 (>45); GLUCOSE, FASTING 122 MG/DL (74-106); HDL CHOLESTEROL 68.2 MG/DL (>40); LDL CHOLESTEROL 61.4 MG/DL (<100); NON-HDL-C 85.8 MG/DL; POTASSIUM SERUM 3.9 MMOL/L (3.5-5.1); SODIUM LEVEL 138 MMOL/L (136-145); TRIGLYCERIDES LEVEL 122 MG/DL (<150)
== END ==
LOC: M PLALAB 11:01
PROVIDERS: ATTEND Emergency Medicine
DX: I25.10 Atherosclerotic heart disease of native coronary artery without angina pectoris (principal); I10 Essential (primary) hypertension; E78.5 Hyperlipidemia, unspecified; I31.39 Other pericardial effusion (noninflammatory); E11.51 Type 2 diabetes mellitus with diabetic peripheral angiopathy without gangrene

== ENCOUNTER 2024-06-02 09:31 | Day surgery (SDC) | payer MEDICARE, OTHER ==
[~2024-06-02] VITALS: Ht 152.4 cm; Wt 88.0 kg
[~2024-06-02 09:31] MED LIST changes: +LORA-1041; +MIRT1TAB PO; +MULT1TAB50 PO; +SUCR1TAB56
[2024-06-02] MEDS ORDERED: LIDOCAINE 2% 100MG/5ML SDV (FOR ANES.) As Ordered ONE (10:14)
[2024-06-02] MEDS ORDERED: propofoL 200 MG/20 ML VIAL As Ordered ONE (10:14)
[2024-06-02] MEDS ORDERED: LABETALOL 100MG/20ML VIAL As Ordered ONE (10:26)
[2024-06-02] MEDS ORDERED: MIDAZOLAM INJ 2MG/2ML VIAL As Ordered ONE (10:26)
[2024-06-02 11:02] VITALS: TEMP 98.4
[2024-06-02 11:55] VITALS: BP 130/71; O2SAT 96
== END 2024-06-02 12:08 | disposition home or self-care (01) ==
LOC: M OPP 09:31
PROVIDERS: ATTEND Internal Medicine Gastroenterology
DX: Z12.11 Encounter for screening for malignant neoplasm of colon (principal); K63.5 Polyp of colon; K64.0 First degree hemorrhoids; K57.30 Diverticulosis of large intestine without perforation or abscess without bleeding; I12.9 Hypertensive chronic kidney disease with stage 1 through stage 4 chronic kidney disease, or unspecified chronic kidney disease; E78.5 Hyperlipidemia, unspecified; K58.9 Irritable bowel syndrome, unspecified; K76.0 Fatty (change of) liver, not elsewhere classified; K21.9 Gastro-esophageal reflux disease without esophagitis; M19.90 Unspecified osteoarthritis, unspecified site; F42.9 Obsessive-compulsive disorder, unspecified; F41.0 Panic disorder [episodic paroxysmal anxiety]; F32.A Depression, unspecified; G43.909 Migraine, unspecified, not intractable, without status migrainosus; J45.909 Unspecified asthma, uncomplicated; G47.30 Sleep apnea, unspecified; N18.30 Chronic kidney disease, stage 3 unspecified; Z86.73 Personal history of transient ischemic attack (TIA), and cerebral infarction without residual deficits; Z88.8 Allergy status to other drugs, medicaments and biological substances; Z79.02 Long term (current) use of antithrombotics/antiplatelets; Z79.51 Long term (current) use of inhaled steroids; Z79.82 Long term (current) use of aspirin; Z79.899 Other long term (current) drug therapy
CPT/HCPCS: 45380; 88305; J1920; J2250

== ENCOUNTER → 2024-07-03 | Outpatient (CLI) | payer MEDICARE, OTHER ==
[~2024-07-03] MED LIST changes: +ALLE25TA PO; -DIPH25TA61 PO
== END ==
LOC: M RAD 08:57
PROVIDERS: ATTEND Student in an Organized Health Care Education/Training Program
DX: M53.3 Sacrococcygeal disorders, not elsewhere classified (principal); M85.89 Other specified disorders of bone density and structure, multiple sites; M47.816 Spondylosis without myelopathy or radiculopathy, lumbar region; M47.817 Spondylosis without myelopathy or radiculopathy, lumbosacral region; M48.061 Spinal stenosis, lumbar region without neurogenic claudication

== ENCOUNTER → 2024-09-16 | Outpatient (CLI) | payer MEDICARE, OTHER ==
[2024-09-16 16:13] LABS: BASO # 0.1 10^3/uL (0.0-0.2); BASO % 1.1 % (0.0-1.0); EOS # 0.2 10^3/uL (0.0-0.5); EOS % 2.6 % (0.0-3.0); HEMATOCRIT 46.2 % (36.0-47.0); HEMOGLOBIN 15.1 g/dl (12.0-15.5); LYMPH # 2.2 10^3/uL (1.5-5.0); LYMPH % 32.8 % (24.0-44.0); MEAN CORPUSCULAR HEMOGLOBIN 33.3 pg (27.0-33.0); MEAN CORPUSCULAR HGB CONC 32.7 g/dl (32.0-36.5); MEAN CORPUSCULAR VOLUME 101.8 fl (80.0-96.0); MONO # 0.8 10^3/uL (0.0-0.8); MONO % 11.4 % (2.0-8.0); NEUTROPHILS # 3.4 10^3/uL (1.5-8.5); PLATELET COUNT, AUTOMATED 264 10^3/uL (150-450); RED BLOOD COUNT 4.54 10^6/uL (4.00-5.40); WHITE BLOOD COUNT 6.6 10^3/uL (4.0-10.0)
[2024-09-16 16:42] LABS: ALBUMIN 3.6 G/DL (3.2-5.2); BILIRUBIN,TOTAL 0.5 MG/DL (0.3-1.2); CALCIUM LEVEL 9.8 MG/DL (8.3-10.6); CHOLESTEROL RISK RATIO 2.36 (<5); CREATININE FOR GFR 1.05 MG/DL (0.55-1.30); GLOMERULAR FILTRATION RATE 56.2 (>45); HDL CHOLESTEROL 65.1 MG/DL (>40); LDL CHOLESTEROL 52.7 MG/DL (<100); NON-HDL-C 88.9 MG/DL; POTASSIUM SERUM 5.5 MMOL/L (3.5-5.1); TOTAL PROTEIN 7.1 G/DL (5.7-8.2)
[2024-09-16 16:44] LABS: FREE T4 1.14 NG/DL (0.89-1.76); THYROID STIMULATING HORMONE 1.491 uIU/ML (0.55-4.78)
== END ==
LOC: M PLALAB 13:52
PROVIDERS: ATTEND Family Medicine
DX: R60.0 Localized edema (principal); I10 Essential (primary) hypertension

== ENCOUNTER 2024-10-02 09:00 | Emergency (ER) | payer MEDICARE, OTHER ==
[~2024-10-02] VITALS: Ht 154.9 cm; Wt 93.7 kg
[2024-10-02] MEDS ORDERED: AMOX875T (09:08)
[2024-10-02 12:01] VITALS: BP 118/77; TEMP 98.1; O2SAT 95
[2024-10-02] MEDS: BOOSTRIX VACCINE (TETANUS/DIPHTH/ACEL. PERTUSSIS) 0.5ML SYR IM.IMMUN ONE (12:27)
== END 2024-10-02 12:51 | disposition home or self-care (01) ==
LOC: M ED 09:00
DX: S51.812A Laceration without foreign body of left forearm, initial encounter (principal); I25.2 Old myocardial infarction; E11.9 Type 2 diabetes mellitus without complications; Z88.8 Allergy status to other drugs, medicaments and biological substances; Z79.01 Long term (current) use of anticoagulants; Y92.9 Unspecified place or not applicable; Y93.89 Activity, other specified; Y99.9 Unspecified external cause status; Z23 Encounter for immunization; Z79.52 Long term (current) use of systemic steroids; Z79.82 Long term (current) use of aspirin; Z79.2 Long term (current) use of antibiotics; Z79.899 Other long term (current) drug therapy

== ENCOUNTER → 2024-10-15 | Outpatient (REF) | payer MEDICARE, OTHER ==
[~2024-10-15] MED LIST changes: +AMOX875T
== END ==
LOC: M LAB REF 17:03
PROVIDERS: ATTEND Physician Assistant
DX: R30.0 Dysuria (principal)

== ENCOUNTER → 2024-12-11 | Outpatient (CLI) | payer MEDICARE, OTHER ==
[~2024-12-11] MED LIST changes: -AMBI10TA PO; -NYST-13 TOP; +NYST0.1C TOP; +ZOLP-533 PO
[2024-12-11 17:52] LABS: URIC ACID 5.5 MG/DL (3.1-7.8)
[2024-12-11 17:55] LABS: ALBUMIN 3.6 G/DL (3.2-5.2); BILIRUBIN,TOTAL 0.5 MG/DL (0.3-1.2); CALCIUM LEVEL 9.8 MG/DL (8.3-10.6); CREATININE FOR GFR 1.06 MG/DL (0.55-1.30); GLOMERULAR FILTRATION RATE 58.7 (>45); TOTAL PROTEIN 6.9 G/DL (5.7-8.2)
[2024-12-11 17:56] LABS: CREATININE, URINE 107.2 MG/DL; MAU/CREAT RATIO 4.6 MCG/MG (0.0-30.0)
[2024-12-11 18:07] LABS: HEMOGLOBIN A1c 5.1 % (4.0-6.0)
== END ==
LOC: M PLALAB 14:30
PROVIDERS: ATTEND Physician Assistant
DX: E11.22 Type 2 diabetes mellitus with diabetic chronic kidney disease (principal)

== ENCOUNTER → 2025-01-29 | Outpatient (CLI) | payer MEDICARE, OTHER ==
[~2025-01-29] MED LIST changes: +AYR0.65D NARES; -DEPA250T32 PO; +DIVA-65 PO; +METH-1164 PO; +SEMA0.257 SQ
== END ==
LOC: M WHC 15:02
PROVIDERS: ATTEND Physician Assistant
DX: Z12.31 Encounter for screening mammogram for malignant neoplasm of breast (principal)

== ENCOUNTER → 2025-03-18 | Outpatient (CLI) | payer MEDICARE, OTHER ==
[~2025-03-18] MED LIST changes: -PROZ20CA11 PO; +PROZ20CA12 PO
[2025-03-18 17:24] LABS: BASO # 0.1 10^3/uL (0.0-0.2); BASO % 1.4 % (0.0-1.0); EOS # 0.2 10^3/uL (0.0-0.5); EOS % 2.9 % (0.0-3.0); LYMPH # 2.2 10^3/uL (1.5-5.0); LYMPH % 30.4 % (24.0-44.0); MONO # 0.8 10^3/uL (0.0-0.8); MONO % 10.7 % (2.0-8.0); NEUTROPHILS # 3.9 10^3/uL (1.5-8.5); NEUTROPHILS % 53.8 % (36.0-66.0); PLATELET COUNT, AUTOMATED 262 10^3/uL (150-450)
[2025-03-18 17:28] LABS: ALT/SGPT 39.0 U/L (7.0-40); AST/SGOT 25.0 U/L (<34); CALCIUM LEVEL 10.0 MG/DL (8.3-10.6); CARBON DIOXIDE LEVEL 27.0 MMOL/L (20-31); CHLORIDE LEVEL 105.0 MMOL/L (98-107); CHOLESTEROL LEVEL 159.0 MG/DL (<200); CHOLESTEROL RISK RATIO 2.72 (<5); CREATININE FOR GFR 1.19 MG/DL (0.55-1.30); GLOMERULAR FILTRATION RATE 51.1 (>45); IRON (FE) 94.0 UG/DL (50-170); LDL CHOLESTEROL 69.7 MG/DL (<100); NON-HDL-C 100.7 MG/DL; PERCENT SATURATION 29.0 % (13.2-45.0); POTASSIUM SERUM 5.0 MMOL/L (3.5-5.1); SODIUM LEVEL 143.0 MMOL/L (136-145); TRIGLYCERIDES LEVEL 155.0 MG/DL (<150)
[2025-03-18 17:30] LABS: VITAMIN B12 LEVEL 1000.0 PG/ML (211-911)
[2025-03-18 17:57] LABS: ESTIMATED AVERAGE GLUCOSE 105.0 MG/DL (60-110)
== END ==
LOC: M PLALAB 13:32
PROVIDERS: ATTEND Physician Assistant
DX: E11.22 Type 2 diabetes mellitus with diabetic chronic kidney disease (principal); E78.2 Mixed hyperlipidemia; K21.9 Gastro-esophageal reflux disease without esophagitis

== ENCOUNTER → 2025-06-09 | Outpatient (CLI) | payer MEDICARE, OTHER ==
[2025-06-09 18:41] LABS: ESTIMATED AVERAGE GLUCOSE 103.0 MG/DL (60-110)
[2025-06-09 18:47] LABS: ALT/SGPT 70.0 U/L (7.0-40); AST/SGOT 32.0 U/L (<34); CALCIUM LEVEL 9.6 MG/DL (8.3-10.6); CARBON DIOXIDE LEVEL 29.0 MMOL/L (20-31); CHLORIDE LEVEL 103.0 MMOL/L (98-107); CREATININE FOR GFR 1.04 MG/DL (0.55-1.30); GLOMERULAR FILTRATION RATE 59.7 (>45); POTASSIUM SERUM 5.0 MMOL/L (3.5-5.1); SODIUM LEVEL 144.0 MMOL/L (136-145)
== END ==
LOC: M PLALAB 14:42
PROVIDERS: ATTEND Physician Assistant
DX: E78.2 Mixed hyperlipidemia (principal); Z79.899 Other long term (current) drug therapy

== ENCOUNTER → 2025-06-23 | Outpatient (CLI) | payer MEDICARE, OTHER ==
[~2025-06-23] MED LIST changes: +ISOVUE-370 76% 100 ML VIAL ONE; -PROZ20CA12 PO; +PROZ20CA25 PO
[2025-06-23 15:22] LABS: BASO # 0.1 10^3/uL (0.0-0.2); BASO % 1.0 % (0.0-1.0); EOS # 0.5 10^3/uL (0.0-0.5); EOS % 6.3 % (0.0-3.0); LYMPH # 2.1 10^3/uL (1.5-5.0); LYMPH % 26.2 % (24.0-44.0); MONO # 0.8 10^3/uL (0.0-0.8); MONO % 9.7 % (2.0-8.0); NEUTROPHILS # 4.5 10^3/uL (1.5-8.5); NEUTROPHILS % 55.6 % (36.0-66.0); PLATELET COUNT, AUTOMATED 296 10^3/uL (150-450)
[2025-06-23 15:51] LABS: ALT/SGPT 42 U/L (7.0-40); AST/SGOT 23 U/L (<34); CALCIUM LEVEL 9.8 MG/DL (8.3-10.6); CARBON DIOXIDE LEVEL 27 MMOL/L (20-31); CHLORIDE LEVEL 104 MMOL/L (98-107); CREATININE FOR GFR 1.13 MG/DL (0.55-1.30); GLOMERULAR FILTRATION RATE 54.0 (>45); POTASSIUM SERUM 4.8 MMOL/L (3.5-5.1); SODIUM LEVEL 143 MMOL/L (136-145)
[2025-06-24 06:45] LABS: VITAMIN B12 LEVEL 1205 PG/ML (211-911)
[2025-06-26 03:34] LABS: UNITSIGA FOR GLIADIN IGA < 1.0 U/mL (<15.0); UNITSIGG FOR GLIADIN IGG < 1.0 U/mL (<15.0)
== END ==
LOC: M PLAIMG 12:57
PROVIDERS: ATTEND Family Medicine
DX: D49.2 Neoplasm of unspecified behavior of bone, soft tissue, and skin (principal); R51.9 Headache, unspecified; R10.12 Left upper quadrant pain; G31.9 Degenerative disease of nervous system, unspecified; K57.90 Diverticulosis of intestine, part unspecified, without perforation or abscess without bleeding; Z90.49 Acquired absence of other specified parts of digestive tract
CPT/HCPCS: 36415; 70460; 74177; 80053; 82150; 82607; 82746; 83690; 85025; 86258; Q9967